=== PATIENT | female | born 1940 | race Caucasian/White ===

== ENCOUNTER → 2019-11-24 10:12 | Outpatient (BNVA) | payer MEDICARE, OTHER, SELFPAY | PROVIDERS: Family Provider Family Medicine; PCP Family Medicine; Referring Provider Dermatology; Visit Provider Dermatology | DX: L21.9 Seborrheic dermatitis, unspecified (principal); D18.01 Hemangioma of skin and subcutaneous tissue; L82.1 Other seborrheic keratosis; L57.0 Actinic keratosis; L73.8 Other specified follicular disorders; Z85.828 Personal history of other malignant neoplasm of skin | CPT/HCPCS: 17000; 17003; 99203; 99204 ==

== ENCOUNTER 2019-12-19 08:18 | Outpatient (CLI) | payer MEDICARE, OTHER, SELFPAY ==
--- NOTE | 2019-12-19 08:38 | MR_ITS ---
WS: [id number] MRI LUMBAR SPINE NONCONTRAST TECHNIQUE: Sagittal T1, T2 and STIR imaging. Axial T1 and T2 imaging. CLINICAL INFORMATION: LOW BACK PAIN COMPARISON: MRI 8 FINDINGS: Mild lumbar curve. No acute compression. Slight retrolisthesis L1 on L2 and L2 on L3. L1-L2: Mild disc bulging with slight effacement of ventral thecal sac. Mild left and no significant r ight foraminal narrowing. Narrowing of the subarticular recess bilaterally. Mild facet arthropathy. L2-L3: Slight retrolisthesis. Mild disc bulging with osteophytic ridging. Slight narrowing of subarti cular recess. Mild/moderate left foraminal narrowing. Mild facet arthropathy. L3-L4: Postoperative changes right hemilaminectomy. Mild disc bulging and osteophytic ridging. Mild r ight foraminal narrowing. Left foramen is patent. Moderate facet arthropathy. L4-L5: Mild disc bulging with narrowing of the right greater than left subarticular recess. Moderate facet arthropathy. Mild right foraminal narrowing. L5-S1: Mild disc bulging with osteophytic ridging. Moderate facet arthropathy. Mild right and no sign ificant left foraminal narrowing. Slight impingement on the traversing left greater than right S1 ner ve roots. Left renal cyst measuring 2.4 CM. Overall no significant interval changes since 2011 MR/MR lumbar spine wo con* [id number] IMPRESSION: 1. Mild disc bulging with slight effacement of ventral thecal sac. No high-gra de central canal stenosis. 2. Disc osteophyte complex L5-S1 impinges the traversing left S1 nerve root. R ecommend correlation for left S1 nerve root symptoms. 3. Mild disc bulging with osteophytic ridging. Slight impingement traversing r ight L5 nerve root. Mild right foraminal narrowing. Asymmetric moderate facet a rthropathy. 4. Prior postoperative changes hemilaminectomy right L3-4. Mild right L3-4 for aminal narrowing. 5. Mild to moderate left L2-3 foraminal narrowing. 6. Disc osteophyte bulging L1-2 with narrowing of the subarticular recess bila terally.
--- NOTE | 2019-12-19 09:11 | XR_ITS ---
WS: [id number] LUMBAR SPINE FLEXION AND EXTENSION TECHNIQUE: 3 views of the lumbar spine: Lateral neutral, flexion, and extension views. CLINICAL INFORMATION: LOW BACK PAIN COMPARISON: None. FINDINGS: Osteopenia. Slight retrolisthesis L1 on L2 and L2 on L3. Disc space narrowing worse at L2-L3 with vac uum disc phenomenon. Aortic calcification. No instability on flexion-extension. Moderate facet arthro lona L5-S1. XR/XR lumbar spine f/e only [id number] IMPRESSION: No instability on flexion-extension
== END 2019-12-19 08:19 | disposition home or self-care (01) ==
LOC: RADWPI 08:22
PROVIDERS: Family Provider Family Medicine; PCP Family Medicine; Visit Provider Anesthesiology Pain Medicine
DX: M54.5 Low back pain (principal)
CPT/HCPCS: 72120; 72148

== ENCOUNTER 2020-02-02 13:12 | Outpatient (CLI) | payer MEDICARE, OTHER, SELFPAY ==
--- NOTE | 2020-02-02 13:18 | MM_ITS ---
WS: [id number] BILATERAL SCREENING DIGITAL MAMMOGRAM WITH CAD HISTORY: SCREENING COMPARISON: 12/29/2018 and 12/21/2017 Bilateral CC and MLO views submitted. Computer aided detection analyzed. Breast composition: There are scattered areas of fibroglandular density. No suspicious masses, microc alcifications or architectural distortion. Benign calcification central RIGHT breast. MM/[place] [id number] IMPRESSION: BI-RADS: 2-Benign FOLLOW UP: 1 Year Follow-up
== END 2020-02-02 13:13 | disposition home or self-care (01) ==
LOC: RADSHAW 13:15
PROVIDERS: PCP Family Medicine; Visit Provider Family Medicine
DX: Z12.31 Encounter for screening mammogram for malignant neoplasm of breast (principal)
CPT/HCPCS: 77067

== ENCOUNTER 2020-05-28 11:51 | Outpatient (CLI) | payer MEDICARE, OTHER, SELFPAY ==
--- NOTE | 2020-05-28 12:17 | USCV_ITS ---
Devaughn Elizabeth Age: 80 Gender: F : 1940 Exam Date: 05/28/2020 12:48 Ordering Phys: Kaylynn Munoz DO Technologist: Abhi Day [place] [facility] [place] Indication: RT CALF PAIN PROCEDURES: Venous duplex imaging was performed in only the right lower extremity. The following venous structures were evaluated: common femoral vein, profunda vein, proximal portion of the greater saphenous vein, superficial femoral vein, and the popliteal vein. In addition, the posterior tibial and peroneal trunk were evaluated. Serial compression, augmentation maneuvers, and spectral Doppler flow evaluation were performed. FINDINGS: Normal 2-D Doppler and augmentation and compressibility throughout the lower extremity venous structures. Additional imaging through the proximal calf veins also reveals no thrombus. Limited evaluation of the greater saphenous vein is patent with no thrombus.. CONCLUSIONS No evidence of right lower extremity DVT. Flip Bowman MD (Electronically Signed) Final Date: 28 May 2020 16:54 S
== END 2020-05-28 11:52 | disposition home or self-care (01) ==
LOC: RAD 11:57
PROVIDERS: PCP Family Medicine; Visit Provider Family Medicine
DX: M79.661 Pain in right lower leg (principal)
CPT/HCPCS: 93971

== ENCOUNTER 2020-07-04 20:21 | Emergency (ER) | payer MEDICARE, OTHER, SELFPAY ==
[2020-07-04 20:30] VITALS: BP 165/99; PULSE 157; RESP 18; TEMP 36.6; O2SAT 96; BMI 31.6
[2020-07-04 20:47] VITALS: BP 125/43; PULSE 88; RESP 24; O2SAT 96
--- NOTE | 2020-07-04 20:54 | ECG_ITS ---
[facility] Test Date: 2020-07-04 Pat Name: Elizabeth Cantor Department: Room: Gender: Female [employer] Unified Communications Engineer: : 1940 Requested By: Adam Nicholson I Order Number: [id number] Shai MD: Vianey Ponce M.D. Measurements Intervals [place] Rate: 82 P: 22 [place]: 199 QRS: -31 QRSD: 87 T: 30 QT: 361 QTc: 424 Interpretive Statements SINUS RHYTHM LEFT AXIS DEVIATION [QRS AXIS < -30] LOW QRS VOLTAGE IN PRECORDIAL LEADS [QRS DEFLECTION < 1.0 mV IN CHEST LEADS] ANTEROSEPTAL MYOCARDIAL INFARCTION , PROBABLY OLD [40+ ms Q WAVE IN V1-V4] Compared to ECG 01/31/2019 10:33:31 Left-axis deviation now present Low QRS voltage now present Myocardial infarct finding now present Electronically Signed On 07-05-2020 22:04:43 SOAKING PITS SUPERVISOR by Vianey Ponce M.D. [email or web address]/[id number] f
--- NOTE | 2020-07-04 20:54 | XR_ITS ---
WS: [id number] Portable AP upright chest, 07/04/2020 Clinical Data: afib Comparison: Portable chest, 01/31/2019. Findings: No nodules, masses or effusions are seen. The heart is normal. The pulmonary vascularity is not increased. No pneumonia or pneumothorax is seen. The aortic arch and descending aorta show mild calcification and tortuosity. The right diaphragm is elevated. XR/XR chest 1V portable [id number] Impression: Atherosclerosis.
[2020-07-04 21:21] LABS: Add Urine Microscopic? NO
[2020-07-04 21:25] LABS: Basophils # 0.1 10^3/uL (0.0-0.1); Basophils % 0.7 %; Eosinophils # 0.1 10^3/uL (0.0-0.8); Eosinophils % 1.5 %; Hematocrit 41.5 % (37.0-47.0); Hemoglobin 13.9 g/dL (11.5-15.3); Lymphocytes # 3.1 10^3/uL (0.8-4.8); Mean Corpuscular HGB Conc 33.5 g/dL (30.0-36.0); Mean Corpuscular Hemoglobin 30.6 pg (28.0-34.0); Mean Corpuscular Volume 91.4 fL (81-99); Mean Platelet Volume 9.2 fL (7.4-10.4); Monocytes # 0.8 10^3/uL (0.2-0.9); Monocytes % 9.4 %; Neutrophils # 4.54 10^3/uL (1.8-7.7); Neutrophils % 52.3 %; Nucleated Red Blood Cells % 0 %; Platelet Count 333 10^3/cmm (130-400); Red Blood Count 4.54 10^6/uL (4.1-5.3); Red Cell Distribution Width 12.7 % (12.1-15.1); White Blood Count 8.7 10^3/uL (4.0-10.0)
[2020-07-04 21:28] LABS: INR 0.82 (0.8-1.2)
[2020-07-04 21:38] LABS: Specific Gravity, Urine 1.005 (1.005-1.030); Urine Appearance Clear (CLEAR); Urine Color Yellow (Yellow); pH Urine 7 (5-7)
[2020-07-04 21:39] LABS: Bilirubin Urine Neg (Negative); Blood Urine Neg (Negative); Glucose Urine UA 2+ (Normal); Ketones Urine Negative (Negative); Leukocyte Esterase Urine Negative (Negative); Nitrate Urine Negative (Negative); Protein Urine Neg (Negative); Urobilinogen Urine Norm (Negative)
[2020-07-04 21:46] LABS: Troponin(5th) Baseline 19 ng/L (0-10)
[2020-07-04 21:53] LABS: Alanine Aminotransferase 17 U/L (0-33); Albumin Level 4.4 g/dL (3.5-5.2); Alkaline Phosphatase 96 IU/L (35-105); Anion Gap 16.5 (5-19); Aspartate Amino Transferase 18 U/L (0-32); Blood Urea Nitrogen 14 mg/dL (8-23); Carbon Dioxide 25 mmol/L (22-29); Chloride 96 mmol/L (98-107); Globulin 2.6 g/dL (1.3-4.6); Glucose 260 mg/dL (65-115); NT Pro B Type Natriuretic Pept 110 pg/mL (0-450); Osmolality Calculated 287 mOsm/kg (285-295); Potassium 3.5 mmol/L (3.5-5.1); Sodium 134 mmol/L (136-145); Thyroid Stimulating Hormone 2.07 uIU/mL (0.27-4.20); Total Bilirubin 0.4 mg/dL (0.15-1.2)
[2020-07-04 22:37] VITALS: BP 137/96; PULSE 77; RESP 20; O2SAT 94
--- NOTE | 2020-07-04 22:45 | W.ED.ARRPALP ---
HPI - Arrhythmia/Palpitations General: Chief Complaint: Arrhythmia/Palpitations Stated Complaint: cp/high heart rate Time Seen by Provider: 07/04/20 20:53 Source: patient Mode of arrival: ambulatory Limitations: no limitations History of Present Illness: HPI narrative: This patient is a 80-year-old female with a prior history of atrial fibrillation who is on clopidogrel and presents to the emergency department with a sensation of her heart racing and chest pressure. Symptoms started this evening and have progressively worsened. She initially thought if she rested symptoms to get better but they have not. She endorses dizziness and presyncope but no loss of consciousness. She has had an episode of A. fib in the past that required what she described as a continuous infusion which is most likely diltiazem. She denies any fever. MD complaint: rapid heart beat and heart racing Onset (ago): hour(s) (2) Duration: constant Severity: severe Context: occurred during exertion Arrhythmia history: atrial fibrillation Associated symptoms: Reports nausea, pre-syncope and short of breath; Deny anxiety, cough, diaphoresis, muscle cramps, paresthesias, sense of impending doom, syncope or vomiting Review of Systems General: Reports: 10 or more systems reviewed and unremarkable except in HPI and below Const: Denies: diaphoresis Eyes: Denies: change in vision or blurry vision ENMT: Denies: throat pain, enlarged tonsils, odynophagia, hoarseness, mouth pain or swelling of lips/tongue Card: Reports: pre-syncope; Denies: syncope Resp: Denies: dyspnea, productive cough or non-productive cough GI: Reports: nausea; Denies: vomiting : Denies: flank pain, difficulty voiding, dysuria, urinary frequency, urinary urgency or urinary hesitancy Musc: Denies: muscle cramps Skin/Breast: Denies: rash, pruritus or erythema Neuro: Denies: headache(s), numbness in extremities or weakness in extremities Psych: Denies: anxiety Endo: Denies: polyuria, polydipsia or tired all the time PFS ED PFSH: Medical History Atrial fibrillation CAD (coronary artery disease) Diabetes mellitus HTN (hypertension) Hyperlipidemia Lower extremity edema Family History Mother Hypertension Bleeding disorder Father Hypertension Heart disease Brother CAD (coronary artery disease) Heart disease Cancer Lung CA Liver disease Sister Heart disease Diabetes Cancer Renal CA and leukemia Social History Smoking and tobacco status: never smoked Alcohol intake: never History of recent travel: No Physical Exam Const: COMMON NORMALS: average body habitus, patient oriented x3, no limitations, healthy appearing, alert and well nourished GENERAL APPEARANCE: in distress HENMT: COMMON NORMALS: normocephalic, atraumatic and moist oral mucous membranes HEAD & SCALP: normocephalic and atraumatic Neck/C-Spine: COMMON NORMALS: no meningeal signs and no JVD Chest: COMMONS NORMALS: normal inspection of the chest and normal palpation of entire chest wall Resp: COMMON NORMALS: normal respiratory effort, No retractions, No use of accessory muscles, clear to auscultation bilaterally and percussion normal AUSCULTATION: clear to auscultation bilaterally PERCUSSION: percussion normal Cardio: COMMON NORMALS: no JVD, S1 normal heart sound present, S2 normal heart sound present, No gallops present (Cardio), No clicks present (Cardio), No murmurs present (Cardio), No rub (Cardio) and Peripheral pulses 2+ throughout RATE: tachycardic RHYTHM: abnormal rhythm regularly irregular HEART SOUNDS: S1 normal heart sound present and S2 normal heart sound present PERIPHERAL PULSES: Peripheral pulses 2+ throughout GI: COMMON NORMALS: Normal to inspection, nondistended, normoactive bowel sounds present, Soft to palpation, non-tender, No hepatosplenomegaly present, no masses and no bruits PALPATION: Yes Soft to palpation and Yes No hepatosplenomegaly present Extremity: COMMON NORMALS: normal to inspection, full ROM, capillary refill normal, no calf tenderness and no pedal edema Neuro: COMMON NORMALS: patient oriented x3 SENSORIUM/ORIENTATION: Yes alert MENINGEAL SIGNS: Yes no meningeal signs Skin: COMMON NORMALS: no rashes or lesions noted, no wounds, turgor normal, no jaundice, no petechiae and no mottling GENERAL SKIN EXAM: no rashes or lesions noted and turgor normal Course Reevaluation(s): Reevaluation #1: Discussed her lab and imaging findings with her. Imaging finding unremarkable, baseline troponin mildly elevated, 2-hour delta about a 5. Discussed that her heart rate has remained sinus rhythm since the administration of intravenous diltiazem. Discussed management options with her, overnight hospital stay for observation versus discharge. The patient was very strongly against hospital admission and wanted to be discharged home. I advised her to follow-up with her primary care provider within 1 to 3 days and she promised to do that. She feels a whole lot better now. Advised her not to exert herself for the next couple of days and she was in agreement with the plan. Time: 23:34 Vital Signs: Vital signs: Vital Signs Temperature 97.8 F 07/04/20 20:30 Pulse Rate 77 07/04/20 22:37 Respiratory Rate 20 H 07/04/20 22:37 Blood Pressure 137/96 07/04/20 22:37 Pulse Oximetry 94 07/04/20 22:37 MDM - Arrhythmia/Palpitations MDM Narrative: Medical decision making narrative: 80-year-old female patient with a history of atrial fibrillation who presented to the emergency department in [facility] with RVR. Her heart rate was in the 150s on arrival but she responded and cardioverted after a single dose of intravenous diltiazem 20 mg. She remained in sinus rhythm throughout her ED stay and evaluation unremarkable. The patient declined hospital admission and so she is discharged home to follow-up with her primary care provider. She already takes a beta-liseth and she is advised to continue these as well as all her other medications. Medical Records: Attestation: I reviewed the patient's medical records. Lab Data: Attestation: I reviewed the patient's lab results. Labs: Lab Results 07/04/20 07/04/20 07/04/20 Range/Units 20:40 20:40 20:40 WBC 8.7 (4.0-10.0) 10^3/ uL RBC 4.54 (4.1-5.3) 10^6/u L Hgb 13.9 (11.5-15.3) g/dL Hct 41.5 (37.0-47.0) % MCV 91.4 (81-99) fL MCH 30.6 (28.0-34.0) pg MCHC 33.5 (30.0-36.0) g/dL RDW 12.7 (12.1-15.1) % Plt Count 333 (130-400) 10^3/c mm MPV 9.2 (7.4-10.4) fL Neut % (Auto) 52.3 % Lymph % (Auto) 36.0 % [place] % (Auto) 9.4 % Eos % (Auto) 1.5 % Baso % (Auto) 0.7 % Neut # (Auto) 4.54 (1.8-7.7) 10^3/u L Lymph # (Auto) 3.1 (0.8-4.8) 10^3/u L [place] # (Auto) 0.8 (0.2-0.9) 10^3/u L Eos # (Auto) 0.1 (0.0-0.8) 10^3/u L Baso # (Auto) 0.1 (0.0-0.1) 10^3/u L Nucleated RBC % (a uto) 0 % Nucleated RBCs # 0.0 /100WBC PT 11.60 L (12.1-14.9) SECO NDS INR 0.82 (0.8-1.2) Sodium 134 L (136-145) mmol/L Potassium 3.5 (3.5-5.1) mmol/L Chloride 96 L (98-107) mmol/L Carbon Dioxide 25 (22-29) mmol/L Anion Gap 16.5 (5-19) BUN 14 (8-23) mg/dL Creatinine 0.9 (0.5-0.9) mg/dL GFR Calculation Not Reportable Glucose 260 H (65-115) mg/dL Calculated Osmolal ity 287 (285-295) mOsm/k g Calcium 9.0 (8.5-10.5) mg/dL Total Bilirubin 0.4 (0.15-1.2) mg/dL AST 18 (0-32) U/L ALT 17 (0-33) U/L Alkaline Phosphata se 96 (35-105) IU/L Troponin T Baselin e (0-10) ng/L Troponin T 120 Min [place] (0-10) ng/L Delta Troponin T (0-10) ABS# NT-Pro-B Natriuret Pep 110 (0-450) pg/mL Total Protein 7.0 (6.6-8.7) g/dL Albumin 4.4 (3.5-5.2) g/dL Globulin 2.6 (1.3-4.6) g/dL TSH 2.07 (0.27-4.20) uIU/ mL Urine Color (Yellow) Urine Appearance (CLEAR) Urine pH (5-7) Ur Specific Gravit y (1.005-1.030) Urine Protein (Negative) Urine Glucose (UA) (Normal) Urine Ketones (Negative) Urine Blood (Negative) Urine Nitrate (Negative) Urine Bilirubin (Negative) Urine Urobilinogen (Negative) mg/dL Ur Leukocyte Fatmata ase (Negative) 07/04/20 07/04/20 07/04/20 Range/Units 20:40 21:12 22:51 WBC (4.0-10.0) 10^3/ uL RBC (4.1-5.3) 10^6/u L Hgb (11.5-15.3) g/dL Hct (37.0-47.0) % MCV (81-99) fL MCH (28.0-34.0) pg MCHC (30.0-36.0) g/dL RDW (12.1-15.1) % Plt Count (130-400) 10^3/c mm MPV (7.4-10.4) fL Neut % (Auto) % Lymph % (Auto) % [place] % (Auto) % Eos % (Auto) % Baso % (Auto) % Neut # (Auto) (1.8-7.7) 10^3/u L Lymph # (Auto) (0.8-4.8) 10^3/u L [place] # (Auto) (0.2-0.9) 10^3/u L Eos # (Auto) (0.0-0.8) 10^3/u L Baso # (Auto) (0.0-0.1) 10^3/u L Nucleated RBC % (a uto) % Nucleated RBCs # /100WBC PT (12.1-14.9) SECO NDS INR (0.8-1.2) Sodium (136-145) mmol/L Potassium (3.5-5.1) mmol/L Chloride (98-107) mmol/L Carbon Dioxide (22-29) mmol/L Anion Gap (5-19) BUN (8-23) mg/dL Creatinine (0.5-0.9) mg/dL GFR Calculation Glucose (65-115) mg/dL Calculated Osmolal ity (285-295) mOsm/k g Calcium (8.5-10.5) mg/dL Total Bilirubin (0.15-1.2) mg/dL AST (0-32) U/L ALT (0-33) U/L Alkaline Phosphata se (35-105) IU/L Troponin T Baselin e 19 H (0-10) ng/L Troponin T 120 Min [place] 24.46 H (0-10) ng/L Delta Troponin T 5.46 (0-10) ABS# NT-Pro-B Natriuret Pep (0-450) pg/mL Total Protein (6.6-8.7) g/dL Albumin (3.5-5.2) g/dL Globulin (1.3-4.6) g/dL TSH (0.27-4.20) uIU/ mL Urine Color Yellow (Yellow) Urine Appearance Clear (CLEAR) Urine pH 7 (5-7) Ur Specific Gravit y 1.005 (1.005-1.030) Urine Protein Neg (Negative) Urine Glucose (UA) 2+ (Normal) Urine Ketones Negative (Negative) Urine Blood Neg (Negative) Urine Nitrate Negative (Negative) Urine Bilirubin Neg (Negative) Urine Urobilinogen Norm (Negative) mg/dL Ur Leukocyte Fatmata ase Negative (Negative) EKG Data^: EKG 1: Attestation: I personally reviewed and interpreted this EKG as follows: EKG interpretation date: 07/04/20 EKG interpretation time: 20:30 Prior EKG tracings: not available for review Interpretation: Atrial fibrillation with rapid ventricular rhythm. Heart rate [address] depression in leads V4 to V6. ST depression in leads I and II. EKG 2: Attestation: I personally reviewed and interpreted this EKG as follows: EKG interpretation date: 07/04/20 EKG interpretation time: 20:50 Prior EKG tracings: available for review Interpretation: Sinus rhythm. Heart rate 82 bpm. Left axis deviation. No ST changes. ST depression has resolved. This EKG is obtained immediately following administration of 20 mg of intravenous diltiazem EKG 3: Attestation: I personally reviewed and interpreted this EKG as follows: EKG interpretation date: 07/04/20 EKG interpretation time: 22:45 Prior EKG tracings: available for review Interpretation: Normal sinus rhythm. Heart rate [address] changes. Critical Care Time Critical Care Time: Critical Care Time: Yes Total Critical Care Time: 30 Attestation: This case had a high probability of a clinically significant, sudden, or life threatening deterioration of this patient's condition which required my full and direct attention, intervention and personal management. Discharge Plan Discharge Patient Disposition: Home Clinical Impression: Atrial fibrillation with rapid ventricular response Condition: Stable Prescriptions: Continued ketoconazole 2 % shampoo 1 applic TOPICAL .3 times weekly Qty: 120 RF: 3 telmisartan 40 mg tablet 40 mg PO DAILY RF: 0 Lantus Solostar U-100 Insulin 100 unit/mL (3 mL) insulin pen 14 unit SUBCUT QID@08,12,16,20 RF: 0 pantoprazole [Protonix] 40 mg tablet,delayed release (DR/EC) 40 mg PO DAILY@0800 RF: 0 PreserVision AREDS 14,320-226-200 ksep-ge-wdbn capsule 1 cap PO BID@0800,2200 RF: 0 glimepiride 4 mg tablet 4 mg PO DAILY@0800 RF: 0 isosorbide mononitrate 30 mg tablet extended release 24 hr 30 mg PO BID@0800 RF: 0 Multaq 400 mg tablet 400 mg PO DAILY RF: 0 nitroglycerin [Nitrostat] 0.4 mg tablet, sublingual 0.4 mg SUBLINGUAL Q5M PRN (Reason: Chest Pain) RF: 0 losartan-hydrochlorothiazide 100-25 mg tablet 1 tab PO DAILY@0800 RF: 0 carvedilol [Coreg] 3.125 mg tablet 3.125 mg PO DIRECTED Qty: 135 RF: 3 Plavix 75 mg tablet 75 mg PO DAILY@0800 RF: 0 Discharge Orders: Discharge ED (Routine); Ordered 07/04/20 Ordered By: Adam Nicholson Referrals: Kaylynn Munoz DO [Primary Care Provider] - 1-3 days Discharge Diet: Usual diet Discharge Activity: Increase activity as tolerated Patient Instructions: Atrial Fibrillation (ED) Activity Restrictions/Additional Instructions: Return for any new or worsening symptoms. Follow-up with your primary care provider within 3 days. Continue home medications as prescribed. Take it easy for the next 2 to 3 days and gradually resume your prior levels of activity. Coding Level of Care Code ED Area Manager for Michael Fwd Exam Comprehensive
--- NOTE | 2020-07-04 22:52 | PC.NURSE ---
EKG done at 2250 and shown to ER doctor
--- NOTE | 2020-07-04 22:54 | ECG_ITS ---
[facility] Test Date: 2020-07-04 Pat Name: Elizabeth Cantor Department: Room: Gender: Female Calibration Technician: : 1940 Requested By: Adam Nicholson I Order Number: [id number] Shai MD: Vianey Ponce M.D. Measurements Intervals [place] Rate: 154 P: CT: QRS: -57 QRSD: 85 T: 15 QT: 292 QTc: 468 Interpretive Statements SUPRAVENTRICULAR TACHYCARDIA LOW QRS VOLTAGE IN PRECORDIAL LEADS [QRS DEFLECTION < 1.0 mV IN CHEST LEADS] LEFT ANTERIOR FASCICULAR BLOCK [QRS AXIS <= -45, QR IN I, RS IN II] ANTEROSEPTAL MYOCARDIAL INFARCTION , OF INDETERMINATE AGE [40+ ms Q WAVE IN V1-V4] CRITICAL TEST RESULT Compared to ECG 01/31/2019 10:33:31 Low QRS voltage now present Left anterior fascicular block now present Myocardial infarct finding now present Sinus rhythm no longer present Electronically Signed On 07-05-2020 22:31:41 CNC LATHE MACHINE OPERATOR by Vianey Ponce M.D. [id number] f
[2020-07-04 23:25] LABS: Troponin 5 2HR 24.46 ng/L (0-10); Troponin 5 2HR Delta 5.46 ABS# (0-10)
[2020-07-04 23:49] VITALS: BP 130/80; PULSE 84; RESP 18; O2SAT 94
== END 2020-07-04 23:51 | disposition home or self-care (01) ==
PROVIDERS: Emergency Provider Family Medicine; PCP Family Medicine
DX: I48.20 Chronic atrial fibrillation, unspecified (principal); Z79.4 Long term (current) use of insulin; I25.10 Atherosclerotic heart disease of native coronary artery without angina pectoris; E11.9 Type 2 diabetes mellitus without complications; E78.5 Hyperlipidemia, unspecified
CPT/HCPCS: 71045; 80053; 81003; 83880; 84443; 84484; 85025; 85610; 93005; 96374; 99284; J3490

== ENCOUNTER 2021-01-04 08:16 | Outpatient (CLI) | payer MEDICARE, OTHER, SELFPAY ==
[2021-01-04 08:35] VITALS: BMI 32.3
--- NOTE | 2021-01-04 08:36 | NMCV_ITS ---
NM ramírez perf SPECT r/s* [id number] Elizabeth Cantor Age: 80 Gender: F : 1940 Exam Date: 01/04/2021 09:42 Ordering Phys: Dorian Aguirre MD ([email or web address]) Technologist: JACKIE Oilver Exam Location: [facility] Indications: CHEST PAIN STRESS TEST Please see separate stress test report in [facility] for full findings IMAGE PROTOCOL Rest/Stress 1 Lexiscan Day Radiopharmaceutical Dose (mCi) Administration Site Administered by Rest: Tc-99m 11.0 IV JACKIE Oliver Sestamibi Stress:Tc-99m 33.0 IV JACKIE Oliver Sestamibi Rest: 04-Jan-2021 60 Discovery 630 Stress: 04-Jan-2021 30 Discovery 630 0.4mg Lexiscan. Supine position only as patient was unable to lay prone. SPECT RESULTS Technical Quality: Excellent Raw Data Analysis: Normal Image Corrections: No attenuation or motion correction applied Summed Stress Score: 5 Summed Rest Score: 2 Summed Difference Score: 3 PERFUSION FINDINGS Small area of mild to moderate reversibility noted in mid to distal lateral wall suggestive of ischemia in the circumflex territory. FUNCTIONAL RESULTS (calculated via Gated SPECT) Stress Image LV EF (%): 87 Stress EDV (mL):63 TID: 0.94 Stress ESV (mL):8 Rest Image LV EF (%): 87 FUNCTIONAL FINDINGS: There is normal left ventricular systolic function. IMPRESSIONS Small area of mild to moderate reversibility suggestive of ischemia in distal circumflex territory. EKG segment was documented separately. Dorian Aguirre MD (Electronically Signed) Final Date: 04 January 2021 12:35 S
[2021-01-04] MEDS: regadenoson 0.4 Mg/5 ml Syringe IVP (10:25)
[2021-01-04 10:42] VITALS: BP 151/56; PULSE 86
== END 2021-01-04 08:17 | disposition home or self-care (01) ==
PROVIDERS: PCP Family Medicine; Visit Provider Internal Medicine Cardiovascular Disease
DX: R07.9 Chest pain, unspecified (principal); R06.02 Shortness of breath; I25.9 Chronic ischemic heart disease, unspecified
CPT/HCPCS: 78452; 93017; A9500; J2785

== ENCOUNTER → 2021-01-28 10:06 | Outpatient (BNVA) | payer MEDICARE, OTHER, SELFPAY | PROVIDERS: PCP Family Medicine; Referring Provider Internal Medicine Cardiovascular Disease; Visit Provider Internal Medicine Cardiovascular Disease | DX: Z01.818 Encounter for other preprocedural examination (principal); I50.30 Unspecified diastolic (congestive) heart failure; I25.10 Atherosclerotic heart disease of native coronary artery without angina pectoris; Z20.822 Contact with and (suspected) exposure to COVID-19 | CPT/HCPCS: 80048; 85025; 85610; 87635 ==

== ENCOUNTER 2021-01-31 07:14 | Outpatient (CLI) | payer MEDICARE, OTHER, SELFPAY ==
[2021-01-31] VITALS (27 sets, daily range): BP systolic 125–162; BP diastolic 56–89; PULSE 68–93; RESP 12–20; TEMP 36.9–37.1; O2SAT 90–96; BMI 32.3
--- NOTE | 2021-01-31 07:30 | XACV_ITS ---
Exam Room: [facility] Ht: 168 cm Wt: 91 kg BSA: 2.09 m2 Gender: Female : 1940 Any Known Allergies: Asprin Exam Priority: Routine Procedure(s): Procedure Description: Diagnostic procedure Procedure Description: Coronary Angiography Procedure Description: Pressure Wire Carla SAAVEDRA; Diagnostic Cath Status: Elective Diagnostic Findings * Left Main has no disease. * Left Anterior Descending has no disease. * Proximal Right Coronary Artery: mild 40% stenosis, MATTHEW: 3 flow. * Mid Right Coronary Artery: minimal 30% stenosis, MATTHEW: 3 flow. * Mid Circumflex: obstructive 60% stenosis, MATTHEW: 3 flow, FFR performed: ratio is 0.85. * Coronary angiography shows right dominance. PCI Status: Urgent PCI Indication: New Onset Angina <= 2 months Interventional Findings * FFR: After equalizing the distal and proximal pressure of FFR wire proximal to the lesion, mid LCx lesion was crossed with FFR wire. IV adenosine at rate of 140 mcg/min was started. Patient did not compliant of any symptoms, at then end of two minutes FFR was recorded as 0.85, which is not significant . Conclusions 1. There is obstructive coronary artery disease with two vessel disease. Recommendations * Continue current medical management and risk factor modification. Pressures Phase:Rest AO : 175 / 85 ( 124 ) @ 9:17:00 AM Clinical Evaluation EBL: 5mL-10mL Procedural Details Procedure Consent Obtained. Rand Shen RN circulating with Eugenio Lopez RN, VALVE SETTER. Ronaldo Cabrera, CPT, RT scrubbing with Laura Nunez RT(R). Pre-Procedure Time Out. Identified patient by full name and date of as verbalized by the patient/guarantor. Does the consent match the physician's order: Yes. Accurate & Complete Informed Consent: Yes. Inpatient/Outpatient History & Physical on Chart: Yes. If H&P is completed, is and addenduem needed: Yes; If yes, is the addendum complete: Yes. Visualize and Verify Site with Patient/Guarantor: N/A. Relevant Radiology Images available: Yes. The risks, benefits, and alternatives of sedation and/or procedure were discussed by physician. The patient agrees to continue. [facility] Clinical Fraility Score: 4: Vulnerable. 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 Chest Pain Symptom Assessment: Atypical Angina. Cardiovascular Instability: No. Correct patient, site and procedure confirmed by cath team. PERRLA. Strong, equal hand superintendent factory bilaterally. Lungs clear x 5 lobes. IV Site on Arrival: 20 gauge in the left anticubital. IV Fluids: 0.9% NaCl at KVO. 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 Pre Procedural Pulses: bilateral dorsalis pedis was 3+. Pre Procedural Pulses: bilateral posterior tibial was Doppled. Pre Procedural Pulses: bilateral radial was 3+. Oxygen started at 2liters/min via nasal canula. Procedure started. right groin was prepped with chloroprep then draped in the usual sterile fashion. right radial was prepped with chloroprep then draped in the usual sterile fashion. Physician notified. Baseline sample Acquired. HR: 69 BPM. Patient's family unavailable. Equipment: 6F - Radial. Physician arrived. Cardiac Cath Pack. ACIST Manifold Kit Model BT 2000. Heparinized Saline (2 units/mL), 1000 mL bag. Physician scrubbed in. Immediate Pre-Procedure Time Out. Correct Patient: Yes; Correct Procedure: Yes; Correct Site: Yes; Correct Patient Position: Yes; Correct Supplies: Yes; Dried Flammable Prep: Yes; Blood Products Available: N/A;. Lidocaine 1% infiltrated to the right radial. Arterial access obtained. A 5 danish TIG catheter in over the exchange wire, unable to advance. Exchange wire out, 260cm Glidewire in. Glidewire out. Multiple views taken of left coronary artery. Catheter redirected to the RCA. Multiple views taken of right coronary artery. Physician review of cine films. Catheter removed over the exchange wire. 6 danish JL 3.5 guide catheter was inserted over the wire. Add inventory: Endoflator. FFR wire in. An FFR value of 0.85 was obtained for a lesion located at Mid CX. FFR wire out. Guide catheter out. Physician scrubbed out. TR band placed. Hemostasis obtained. Post Procedure: Pulses reassessed and unchanged. PERRLA. Strong, equal hand superintendent factory bilaterally. No VTE prophylaxis required. A TR Band was successful obtaining hemostatsis at the Right Radial artery insertion site. Medication's Wasted: Lidocaine 1% = 7 mL. Medication's Wasted: Heparin = 4000 mL. Medication's Wasted: Nitro = 49.8 mg. Total IV fluids: 111 mL. Post-op diagnosis: Non obstructive CAD. Complications: noone. Estimated blood loss: 5mL-10mL. Procedure completed. Patient transferred by bed to 1st floor. Vital chart was stopped. Access Site Site: Right Radial artery Sheath Size: 6 Fr Hemostasis Method: TR Band Hemostasis Success: Successful Procedure Medications Start: 9:15 AM Stop: 9:15 AM Medication: Versed Amount: 1 mg Route: I.V. Start: 9:15 AM Stop: 9:15 AM Medication: Fentanyl Amount: 50 mcg Route: I.V. Start: 9:20 AM Stop: 9:20 AM Medication: Versed Amount: 1 mg Route: I.V. Start: 9:20 AM Stop: 9:20 AM Medication: Fentanyl Amount: 25 mcg Route: I.V. Start: 9:24 AM Stop: 9:24 AM Medication: Versed Amount: 1 mg Route: I.V. Start: 9:24 AM Stop: 9:24 AM Medication: Fentanyl Amount: 25 mcg Route: I.V. Start: 9:26 AM Stop: 9:26 AM Medication: Nitrogylcerin Amount: 200 mcg Route: I.A. Start: 9:36 AM Stop: 9:36 AM Medication: Heparin Amount: 5000 units Route: I.V. Start: 9:50 AM Stop: 9:50 AM Medication: Versed Amount: 1 mg Route: I.V. Start: 10:09 AM Stop: 10:09 AM Medication: Heparin Amount: 2000 units Route: I.V. Start: 10:12 AM Stop: 10:12 AM Medication: Adenosine (Adenocard) Amount: 764 ml/hr Route: I.V. bolus I, the attending physician, have reviewed and verified all procedure medications. Yes, all medications given per verbal order History/Risk Factors Hypertension: No Dyslipidemia: Yes Peripheral Arterial Disease (PAD): No Myocardial Infarction (OR): No Obesity: No Renal Disease: No Prior Interventions PCI: No CABG: No Valve Surgery: No Report Signatures Finalized by Dorian Aguirre MD on 02/16/2021 05:11 PM
[2021-01-31] MEDS: diphenhydrAMINE 50 mg Capsule PO (08:24)
--- NOTE | 2021-01-31 08:55 | P.HP_ITS ---
Same Day Surgery H&P Indication for Procedure/HPI DATE OF PROCEDURE: January 31, 2021 CHIEF COMPLAINT/INDICATIONFOR SURGICAL PROCEDURE: Worsening of chest pain the shortness of breath and heart failure symptoms PREOP DIAGNOSIS: Abnormal stress test, worsening of heart failure symptoms and chest pain PLANNED PROCEDRUE: Operation Date: 01/31/21 08:30 Proposed Procedures p Cardiac Catheterization(Left) - Dorian Aguirre MD 80-year female past medical history significant for atrial fibrillation diastolic heart failure diabetes mellitus despite of optimization of medicine continues to worsen with recurrent heart failure symptoms chest pressure. She underwent stress test which showed small area of reversibility however due to continuous symptoms and signs of heart failure and chest pressure despite of optimization of medicine we decided to proceed with left heart cath. She understand the risk for bleeding infection hematoma stroke contrast- induced nephropathy. She would like to proceed with it. Medications/Allergies* Home Medications Medication Instructions Recorded Confirmed Type dronedarone 400 mg tablet 400 mg PO DAILY tab 07/04/19 01/31/21 History insulin glargine 100 unit/mL (3 14 unit SUBCUT QID@08,12,16,20 07/04/19 01/31/21 History mL) subcutaneous pen isosorbide mononitrate 30 mg 30 mg PO BID@0800 tab 07/04/19 01/31/21 History tablet,extended release 24 hr losartan 100 1 tab PO DAILY@0800 07/04/19 01/31/21 History mg-hydrochlorothiazide 25 mg tablet pantoprazole 40 mg tablet,delayed 40 mg PO DAILY@0800 07/04/19 01/31/21 History release vitamins A,C,S-znzy-glokrq 14,320 1 cap PO BID@0800,2200 07/04/19 01/31/21 History unit-226 mg-200 unit capsule clopidogrel [Plavix] 75 mg PO DAILY@0800 07/04/20 01/31/21 History tramadol 50 mg PO Q4-5H PRN 01/31/21 01/31/21 History Allergies/Adverse Reactions Allergy/AdvReac Type Severity Reaction Status Date / Time adhesive tape Allergy Unknown Unknown Verified 12/24/20 10:51 aspirin Allergy Unknown Unknown Verified 12/24/20 10:51 celecoxib [From Celebrex] Allergy Unknown Unknown Verified 12/24/20 10:51 codeine Allergy Unknown Unknown Verified 12/24/20 10:51 egg Allergy Unknown Unknown Verified 12/24/20 10:51 erythromycin base Allergy Unknown Unknown Verified 12/24/20 10:51 exenatide [From Bydureon] Allergy Unknown Unknown Verified 12/24/20 10:51 ezetimibe [From Zetia] Allergy Unknown Unknown Verified 12/24/20 10:51 latex Allergy Unknown Unknown Verified 12/24/20 10:51 metformin Allergy Unknown Unknown Verified 12/24/20 10:51 Penicillins Allergy Unknown Unknown Verified 12/24/20 10:51 sitagliptin [From Janumet] Allergy Unknown Unknown Verified 12/24/20 10:51 Sulfa (Sulfonamide Allergy Unknown Unknown Verified 12/24/20 10:51 Antibiotics) topiramate [From Topamax] Allergy Unknown Unknown Verified 12/24/20 10:51 trazodone Allergy Unknown Unknown Verified 12/24/20 10:51 warfarin [From Coumadin] Allergy Unknown Unknown Verified 12/24/20 10:51 desonide Allergy blisters Verified 12/24/20 10:51 Current Medications: Generic Name Dose Route Start Last Admin Trade Name Freq PRN Reason Stop Dose Admin Sodium Chloride 1,000 mls @ 50 mls/hr 01/31/21 07:30 01/31/21 08:24 Sodium Chloride 0.9% IV 02/01/21 03:29 Not Given .Q20H ONE Pertinent History/Comorbid Conditions* Medical History (Updated 12/24/20 @ 12:19 by RENATO Salcido) Asthma Atrial fibrillation CAD (coronary artery disease) Diabetes mellitus GERD (gastroesophageal reflux disease) History of cystocele Cyctocele/Rectocele repair History of poliomyelitis History of rectocele HTN (hypertension) Hyperlipidemia Lower extremity edema Surgical History (Updated 12/24/20 @ 12:19 by RENATO Salcido) S/P cholecystectomy S/P hysterectomy 1965 Family History (Updated 07/04/19 @ 11:00 by Candice Coleman RN) Liver disease Brother Diabetes Sister CAD (coronary artery disease) Brother Heart disease Father Brother Sister Bleeding disorder Mother Cancer Brother Lung CA Sister Renal CA and leukemia Hypertension Mother Father Social History Alcohol intake: never History of recent travel: No Pertinent Exam Findings alert, oriented x 3, clear to auscultation bilaterally and operative site marked Conscious Sedation Assessment PATIENT ASSESSED PRIOR TO SEDATION, WITH NO CHANGE NOTED: Yes AIRWAY EVAL/ANESTHESIA PLAN: ASA II, Risks, benefits & alternatives of sedation and/or procedure discussed and Patient agrees to continue as planned Related Problem List Diagnoses (1) Diastolic CHF with preserved left ventricular function, NYHA class 2: (2) Atrial fibrillation: Qualifiers: Atrial fibrillation type: persistent (not longstanding) Qualified C ode(s): I48.19 - Other persistent atrial fibrillation (3) HTN (hypertension): Qualifiers: Hypertension type: essential hypertension Qualified Code(s): I10 - Essential (primary) hypertension (4) Chest pain: Recommendations Surgery/Procedure today Coding Level of Care Code Acute Station Usher for [facility] Fwd Diagnoses Diastolic CHF with preserved left ventricular function, NYHA class 2 I50.30 Atrial fibrillation I48.19 Atrial fibrillation type: persistent (not longstanding) HTN (hypertension) I10 Hypertension type: essential hypertension Chest pain R07.9
--- NOTE | 2021-01-31 11:00 | PC.NURSE ---
Pt arrived to room 111-1 from director of cath lab at approximately 1030. Pt has TR Band on right wrist. No hematoma, swelling or bleeding noted. Pt had no c/o pain or discomfort at the present time. No needs voiced. Call light in reach.
--- NOTE | 2021-01-31 16:00 | PC.NURSE ---
TR Band removed, no hematoma, swelling, or bleeding noted. Pt tolerated well. Pt had no c/o pain or discomfort at the present time. Call light in reach. Will cont to monitor.
--- NOTE | 2021-01-31 18:00 | PC.NURSE ---
Pt discharged home. Pts IV removed no redness or swelling noted. Pts discharge instructions given. Pt had no c/o pain or discomfort at the time of discharge.
== END 2021-01-31 18:28 | disposition home or self-care (01) ==
LOC: CCL 07:53 → CSU 17:51
PROVIDERS: PCP Family Medicine; Visit Provider Internal Medicine Cardiovascular Disease
DX: I25.10 Atherosclerotic heart disease of native coronary artery without angina pectoris (principal); R07.9 Chest pain, unspecified; R06.02 Shortness of breath; R94.39 Abnormal result of other cardiovascular function study; I48.19 Other persistent atrial fibrillation; I11.0 Hypertensive heart disease with heart failure; I50.30 Unspecified diastolic (congestive) heart failure; E11.9 Type 2 diabetes mellitus without complications; Z79.4 Long term (current) use of insulin; K21.9 Gastro-esophageal reflux disease without esophagitis; E78.5 Hyperlipidemia, unspecified; Z82.49 Family history of ischemic heart disease and other diseases of the circulatory system; Z83.3 Family history of diabetes mellitus
CPT/HCPCS: 36415; 93454; 93571; C1769; C1887; C1894; J0153; J1644; J2250; J3010; J3490; J7030; Q0163; Q9967

== ENCOUNTER 2021-02-05 14:46 | Outpatient (CLI) | payer MEDICARE, OTHER, SELFPAY ==
--- NOTE | 2021-02-05 14:53 | MM_ITS ---
WS: [id number] BILATERAL SCREENING DIGITAL MAMMOGRAM WITH CAD HISTORY: SCREENING COMPARISON: 02/02/2020 and 12/29/2018 Bilateral CC and MLO views submitted. Computer aided detection analyzed. Breast composition: There are scattered areas of fibroglandular density. No suspicious masses, microc alcifications or architectural distortion. Bilateral breast arterial calcifications. MM/[place] [id number] IMPRESSION: BI-RADS: 2-Benign FOLLOW UP: 1 Year Follow-up
== END 2021-02-05 14:47 | disposition home or self-care (01) ==
LOC: RADSHAW 14:51
PROVIDERS: PCP Family Medicine; Visit Provider Family Medicine
DX: Z12.31 Encounter for screening mammogram for malignant neoplasm of breast (principal)
CPT/HCPCS: 77067

== ENCOUNTER → 2021-02-14 16:40 | Outpatient (BNVA) | payer MEDICARE, OTHER, SELFPAY | PROVIDERS: PCP Family Medicine; Visit Provider Nurse Practitioner Family | DX: I25.10 Atherosclerotic heart disease of native coronary artery without angina pectoris (principal) | CPT/HCPCS: 80048 ==

== ENCOUNTER → 2021-03-14 15:27 | Outpatient (BNVA) | payer MEDICARE, OTHER, SELFPAY | PROVIDERS: PCP Family Medicine; Referring Provider Family Medicine; Visit Provider Orthopaedic Surgery | DX: M54.50 Low back pain, unspecified (principal); M81.0 Age-related osteoporosis without current pathological fracture; M47.9 Spondylosis, unspecified | CPT/HCPCS: 72110 ==

== ENCOUNTER → 2021-03-26 10:29 | Day surgery (SDC) | payer MEDICARE, OTHER, SELFPAY | PROVIDERS: PCP Family Medicine; Visit Provider Orthopaedic Surgery | DX: I44.0 Atrioventricular block, first degree (principal); I25.2 Old myocardial infarction | CPT/HCPCS: 93005 ==

== ENCOUNTER → 2021-03-26 12:05 | Outpatient (BNVA) | payer MEDICARE, OTHER, SELFPAY | PROVIDERS: PCP Family Medicine; Visit Provider Orthopaedic Surgery | DX: Z20.822 Contact with and (suspected) exposure to COVID-19 (principal); M48.062 Spinal stenosis, lumbar region with neurogenic claudication | CPT/HCPCS: 87635 ==

== ENCOUNTER 2021-04-01 05:48 | Day surgery (SDC) | payer MEDICARE, OTHER, SELFPAY ==
--- NOTE | 2021-03-26 10:29 | ECG_ITS ---
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 Measurements Intervals [place] Rate: 62 P: 18 SD: 212 QRS: -35 QRSD: 106 T: 5 QT: 385 QTc: 391 Interpretive Statements SINUS RHYTHM WITH FIRST DEGREE AV BLOCK LEFT AXIS DEVIATION [QRS AXIS < -30] LOW QRS VOLTAGE IN PRECORDIAL LEADS [QRS DEFLECTION < 1.0 mV IN CHEST LEADS] POSSIBLE ANTERIOR MYOCARDIAL INFARCTION , PROBABLY OLD [30 ms Q WAVE IN V3/V4, OR R < 0.2 mV IN V4] Compared to ECG 07/04/2020 20:50:14 First degree AV block now present Myocardial infarct finding still present Electronically Signed On 03-27-2021 17:46:07 INSIGHTS MANAGER by Trent Rodriguez M.D. [id number]
[2021-03-26 10:41] VITALS: BMI 32.3
[2021-03-26 11:10] LABS: Basophils # 0.1 10^3/uL (0.0-0.1); Basophils % 0.9 %; Eosinophils # 0.3 10^3/uL (0.0-0.8); Eosinophils % 3.3 %; Hematocrit 39.9 % (37.0-47.0); Hemoglobin 13.5 g/dL (11.5-15.3); Lymphocytes # 1.4 10^3/uL (0.8-4.8); Lymphocytes % 18.3 %; Mean Corpuscular HGB Conc 33.8 g/dL (30.0-36.0); Mean Corpuscular Hemoglobin 30.3 pg (28.0-34.0); Mean Corpuscular Volume 89.5 fl (81-99); Mean Platelet Volume 9.2 fL (7.4-10.4); Monocytes # 0.8 10^3/uL (0.2-0.9); Monocytes % 10.3 %; Neutrophils # 5.29 10^3/uL (1.8-7.7); Neutrophils % 66.9 %; Nucleated Red Blood Cells % 0 %; Platelet Count 355 10^3/cmm (130-400); Red Blood Count 4.46 10^6/uL (4.1-5.3); Red Cell Distribution Width 12.7 % (12.1-15.1); White Blood Count 7.9 10^3/uL (4.0-10.0)
--- NOTE | 2021-03-26 11:38 | P.ANESASSM_ITS ---
Pre-Anesthetic Assessment Pre-Anesthetic Assessment: Height/Weight: Height 1.68 m Weight 90.718 kg Preop Diagnosis: Abnormal stress test, worsening of heart failure symptoms and chest pain Proposed Procedure: Operation Date: 04/01/21 07:00 Proposed Procedures p Lumbar Spine Decompression L4/5 L5/S1 93462 [id number] M48.062(Not Applicable) - Kris Mitchell DO Familial anesthetic complications: slow to wak eup Social: Social History: No alcohol and No tobacco Exam: Pre-Anes Outpt Exam: alert, oriented x 3, clear to auscultation bilaterally and regular rate & rhythm Airway: MP: 2 Dentition: False Pulmonary: Pulmonary: Asthma CV/HEM: CV/HEM: Afib, Angina (Stable), Arrythmia (HX SVT), CAD and HTN Co mments: Conclusions 1. There is obstructive coronary artery disease with two vessel disease. Recommendations * Continue current medical management and risk factor modification. GI: GI: GERD Metabolic: Metabolic: DM Anesthetic Plan: ASA status: 3 Anesthesia: General Risk of > 500 ml blood loss (7ml/kg in children): No PFSH Anesthesia PFSH: Medical History (Updated 03/18/21 @ 16:36 by Doris Disla DO) Asthma Atrial fibrillation Well-controlled on warfarin she is off of warfarin PT/INR within normal limit CAD (coronary artery disease) Chest pain Persistent and recurrent chest pressure despite of optimization of medicine may further require exploration with left heart cath. DDD (degenerative disc disease) Diabetes mellitus GERD (gastroesophageal reflux disease) History of cystocele Cyctocele/Rectocele repair History of nonmelanoma skin cancer History of poliomyelitis History of rectocele HTN (hypertension) Blood pressure is high today otherwise well controlled she has not taken her med Hyperlipidemia Lower extremity edema Surgical History History of surgery of liver Growth Previous back surgery S/P cholecystectomy S/P hysterectomy 1965 Family History Mother Hypertension Bleeding disorder Father Hypertension Heart disease Brother CAD (coronary artery disease) Heart disease Cancer Lung CA Liver disease Sister Heart disease Diabetes Cancer Renal CA and leukemia Social History Alcohol intake: never History of recent travel: No Data Anesthesia CBC & Chem 7: 03/26/21 10:55 03/26/21 10:55 Other Labs: Laboratory Results - last 48 hr 03/26/21 10:55 WBC 7.9 RBC 4.46 Hgb 13.5 Hct 39.9 MCV 89.5 MCH 30.3 MCHC 33.8 RDW 12.7 Plt Count 355 MPV 9.2 Neut % (Auto) 66.9 Lymph % (Auto) 18.3 [place] % (Auto) 10.3 Eos % (Auto) 3.3 Baso % (Auto) 0.9 Neut # (Auto) 5.29 Lymph # (Auto) 1.4 [place] # (Auto) 0.8 Eos # (Auto) 0.3 Baso # (Auto) 0.1 Nucleated RBC % (auto) 0 Nucleated RBCs # 0.0 Cardiac Studies: No Data to Display
[2021-03-26 11:45] LABS: Blood Urea Nitrogen 42 mg/dL (8-23); Calcium 8.6 mg/dL (8.5-10.5); Carbon Dioxide 30 mmol/L (22-29); Chloride 86 mmol/L (98-107); Glucose 215 mg/dL (65-115); Osmolality Calculated 287 mOsm/kg (285-295); Sodium 130 mmol/L (136-145)
[2021-03-26 12:05] LABS: Anion Gap 16.9 (5-19); Potassium 2.9 mmol/L (3.5-5.1)
[2021-04-01] VITALS (9 sets, daily range): BP systolic 107–181; BP diastolic 7–94; PULSE 66–86; RESP 16–27; TEMP 36.3–36.6; O2SAT 92–98
--- NOTE | 2021-04-01 | XR_ITS ---
WS: [id number] INTRAOPERATIVE TECHNIQUE: 3 Spot fluoroscopic images for intraoperative purposes. FLUOROSCOPY TIME: 21.4 seconds CLINICAL INFORMATION: SPINAL DECOMPRESSION COMPARISON: None. FINDINGS: Localization marker projected over right L4-5 dorsally. XR/XR lumbar spine 1V [id number] IMPRESSION: Images obtained for intraoperative purposes.
--- NOTE | 2021-04-01 | SCC_ITS ---
Procedure Done: 1. right L4/5 laminectomy with partial facetectomy 2. right L5/S1 laminectomy with partial facetectomy 21.4 seconds of fluoroscopic guidance, for a cumulative dose of 9.89 mGy, was provided to Dr. Mitchell by the radiology department. C-arm images of the lumbar spine were saved for the patient's permanent record. [facility]
[2021-04-01 06:42] LABS: Glucose Point of Care 117 mg/dL (70-110)
[2021-04-01] MEDS: sodium chloride 0.9% 1,000 ML 30 ML IV (06:45)
--- NOTE | 2021-04-01 06:51 | W.PM.OPSUD ---
Surgery/Procedure H&P Update DATE OF PROCEDURE: April 01, 2021 DATE H&P PERFORMED: 03/17/21 H&P UPDATE INFORMATION: I have reviewed H&P completed within last 30 days, I have examined patient prior to procedure and No changes to prior documentation PREOP DIAGNOSIS: Lumbar stenosis PLANNED PROCEDURE: Operation Date: 04/01/21 07:00 Proposed Procedures p Lumbar Spine Decompression L4/5 L5/S1 39994 24023 M48.062(Not Applicable) - Kris Mitchell DO
[2021-04-01] MEDS: clindamycin 900 MG/50 ML PREMIX 100 MG IV (06:53)
[2021-04-01 07:23] LABS: Blood Urea Nitrogen 23 mg/dL (8-23); Calcium 9.3 mg/dL (8.5-10.5); Carbon Dioxide 29 mmol/L (22-29); Chloride 100 mmol/L (98-107); Glucose 105 mg/dL (65-115); Osmolality Calculated 298 mOsm/kg (285-295); Sodium 142 mmol/L (136-145)
--- NOTE | 2021-04-01 07:31 | P.ANESUD_ITS ---
Pre-Anesthetic Update Pre-Anesthetic Assessment: Date of Surgery/Procedure: 04/01/21 Preop Minerva gnosis: Lumbar stenosis Proposed Procedure: Operation Date: 04/01/21 07:00 Proposed Procedures p Lumbar Spine Decompression L4/5 L5/S1 95162 35509 M48.062(Not Applicable) - Kris Mitchell, DO Any changes to Pre-Anesthetic Assessment?: No Last Intake: Intake Last Liquid Date 03/31/21 Last Liquid Time 22:30 Last Solid Date 03/31/21 Last Solid Time 22:00 Labs Last 48hrs: Laboratory Results - last 48 hr 04/01/21 04/01/21 06:40 06:40 Sodium 142 Chloride 100 Carbon Dioxide 29 BUN 23 Creatinine 0.7 GFR Calculation Not Reportable Glucose 105 POC Glucose 117 H Calcium 9.3 Vitals: Temperature 97.9 F 04/01/21 06:12 Temperature Source Temporal Artery S can 04/01/21 06:12 Pulse Rate 86 04/01/21 06:12 Respiratory Rate 18 04/01/21 06:12 Blood Pressure 181/94 04/01/21 06:12 Blood Pressure Alysha n 123 04/01/21 06:12 Pulse Oximetry 95 04/01/21 06:12 Oxygen Delivery Me thod 04/01/21 06:15 Exam: Pre-Anes Outpt Exam: alert, oriented x 3, clear to auscultation bilaterally and regular rate & rhythm Cardiac Studies: No Data to Display
[2021-04-01 07:32] LABS: Anion Gap 16.4 (5-19); Potassium 3.4 mmol/L (3.5-5.1)
--- NOTE | 2021-04-01 08:27 | P.OP_ITS ---
Operative Report Date of procedure: April 01, 2021 Pre-op Diagnosis: Lumbar stenosis with neurogenic claudication Post-op diagnosis: same Procedure Done: 1. right L4/5 laminectomy with partial facetectomy 2. right L5/S1 laminectomy with partial facetectomy Surgeon: Kris Mitchell Archaeology Professor: Augustin Kiser Archaeology Professor: The surgical supervisor, Augustin Kiser, GREG was needed for his expertise under the microscope. He was important and necessary throughout the procedure to complete in a safe and timely manner. He assisted with patient positioning prepping and draping tissue retraction suctioning of the operative field protection of the dural sac and tissue closure Anesthesia: General Estimated blood loss (mL): 10 Condition: stable Disposition: PACU Procedure: 1. right L4/5 laminectomy with partial facetectomy 2. right L5/S1 laminectomy with partial facetectomy Patient is brought to the operative suite. After undergoing anesthesia they are placed in the prone position. All areas of impingement are well padded. Patient is then prepped and draped in the normal sterile fashion. A skin incision is made over the L4/5 level. This is confirmed under c-arm guidance. A series of dilators are passed and the tubular retractor is docked on the L4 lamina. A bovie is used to clear the soft tissue off the lamina and the L 4/5 facet joint. A high speed dutch is then used to perform the august ctomy and take down the medial aspect of the L 4/5 facet joint. A kerrison rongeure was then used to take down the remaining lamina and smooth the edge of the laminectomy up to the point where the ligamentum flavum attaches. Attention was then brought to the medial aspect of the facet joint. The remaining medial aspect of the superior and inferior aspect of the facet joint were taken down with the kerrison from the pedicle of L4 to L 5. The facet joint had significant hypertrophy. Attention was then brought to the Ligamentum Flavum. The ligament was taken down from the lamina of L4 to L5 and out medially to the remaining facet joint. The ligament was thick and scarred to dura. The dura was then exposed. There was a small dural leak that occurred while taking on the ligament. The dura was patched with Gelfoam DuraSeal and DuraGen. The L4 nerve was then traced with a curette out the L4/5 foramen and found to be adequately decompressed. The L5 nerve was traced with a curette around the L5 pedicle. The lateral recess was opened with a kerrison helping to further decompress the L5 nerve. Wound is then irrigated copiously with saline and surgiflo is used to stop any bleeding. The tubular retractor is removed and A skin incision is made over the L5/S1 level. This is confirmed under c-arm guidance. A series of dilators are passed and the tubular retractor is docked on the L5 lamina. A bovie is used to clear the soft tissue off the lamina and the L 5/S1 facet joint. A high speed dutch is then used to perform the laminectomy and take down the medial aspect of the L 5/S1 facet joint. A kerrison rongeure was then used to take down the remaining lamina and smooth the edge of the laminectomy up to the point where the ligamentum flavum attaches. Attention was then brought to the medial aspect of the facet joint. The remaining medial aspect of the superior and inferior aspect of the facet joint were taken down with the kerrison from the pedicle of L5 to S1. The facet joint had significant hypertrophy. Attention was then brought to the Ligamentum Flavum. The ligament was taken down from the lamina of L5 to S1 and out medially to the remaining facet joint. The ligament was thick. The dura was then exposed. The dura was in good repair. The L5 nerve was then traced with a curette out the L5/S1 foramen and found to be adequately decompressed. The s1 nerve was traced with a curette around the S1 pedicle. The lateral recess was opened with a kerrison helping to further decompress the S1 nerve. Wound is then irrigated copiously with saline and surgiflo is used to stop any bleeding. The tubular retractor is removed and the wound is closed with vicryl and monocryl suture. Glue is then used to protect the wound. A sterile dressing is then placed. Patient was then placed in the supine position and transferred to the PACU in stable condition.
[2021-04-01] MEDS: HYDROcodone-acetaminophen 5-325 mg Tablet 1 TAB PO (09:48)
--- NOTE | 2021-04-01 13:46 | ANE.PACU2 ---
Inpatient post-anesthesia follow up: Airway intact: Yes Vital signs: Temperature 97.7 F Pulse Rate 72 Respiratory Rate 18 Blood Pressure 107/78 Pulse Oximetry 93 Oxygen Delivery Me thod Room Air Oxygen Flow Rate 8 Fraction of Inspir ed Oxygen Hydration adequate: Yes Nausea and vomiting: No Pain level: 2 Mental status: Baseline
== END 2021-04-01 09:51 | disposition home or self-care (01) ==
PROVIDERS: Anesthesiology; PCP Family Medicine; Visit Provider Orthopaedic Surgery
PROC: (CPT 63005; principal; 2021-04-01 07:00)
DX: M48.062 Spinal stenosis, lumbar region with neurogenic claudication (principal); I48.91 Unspecified atrial fibrillation; I25.10 Atherosclerotic heart disease of native coronary artery without angina pectoris; I10 Essential (primary) hypertension; K21.9 Gastro-esophageal reflux disease without esophagitis; E11.9 Type 2 diabetes mellitus without complications; M19.90 Unspecified osteoarthritis, unspecified site; E78.5 Hyperlipidemia, unspecified
CPT/HCPCS: 63047; 63048; 36415; 36416; 72020; 76000; 80048; 82962; 85025; J1100; J2370; J2405; J2704; J3010; J3490; J7030; P9041

== ENCOUNTER 2021-04-02 05:42 | Emergency (ER) | payer MEDICARE, OTHER, SELFPAY ==
[2021-04-02 05:44] VITALS: BP 142/70; PULSE 75; RESP 18; TEMP 36.8; O2SAT 95; BMI 32.3
--- NOTE | 2021-04-02 05:53 | ED_ITS ---
HPI - Back Pain/Injury General: Chief Complaint: Back Pain/Injury Stated Complaint: BACK PAIN Time Seen by Provider: 04/02/21 05:43 History of Present Illness: HPI Narrative: 81-year-old female who presents to the emergency room postop day #1 status post right L4-5 5 S1 laminectomy with partial facetectomy on the right. Patient was discharged home yesterday returns today complaining of worsening pain. Localizes the pain to the level of surgery. Points to the SI joint on the right radiating to the superior portion gluteus. No loss of bowel or bladder control no saddle paresthesias. MD elicited complaint: back pain Pertinent past history: prior back pain and other (Postop day #1) Onset (ago): hour(s) Associated symptoms: Deny abdominal pain, chills, dysuria, fatigue, fever(s), nausea, urinary urgency or vomiting Review of Systems Const: Denies: fever(s), chills, body aches, change in appetite, fatigue or malaise Card: Denies: chest pain, edema, dyspnea on exertion or orthopnea Resp: Denies: dyspnea, productive cough or non-productive cough GI: Denies: abdominal pain, nausea, vomiting, diarrhea or constipation : Denies: flank pain, difficulty voiding, dysuria, urinary frequency or urinary urgency Skin/Breast: Denies: rash or pruritus PFSH ED PFSH: Medical History Asthma Atrial fibrillation Well-controlled on warfarin she is off of warfarin PT/INR within normal limit CAD (coronary artery disease) Chest pain Persistent and recurrent chest pressure despite of optimization of medicine may further require exploration with left heart cath. DDD (degenerative disc disease) Diabetes mellitus GERD (gastroesophageal reflux disease) History of cystocele Cyctocele/Rectocele repair History of nonmelanoma skin cancer History of poliomyelitis History of rectocele HTN (hypertension) Blood pressure is high today otherwise well controlled she has not taken her med Hyperlipidemia Lower extremity edema Surgical History History of surgery of liver Growth Previous back surgery S/P cholecystectomy S/P hysterectomy 1965 Family History Mother Hypertension Bleeding disorder Father Hypertension Heart disease Brother CAD (coronary artery disease) Heart disease Cancer Lung CA Liver disease Sister Heart disease Diabetes Cancer Renal CA and leukemia Social History Alcohol intake: never History of recent travel: No Physical Exam Const: COMMON NORMALS: no acute distress GENERAL APPEARANCE: cooperative and comfortable ORIENTATION/CONSCIOUSNESS: Yes awake, Yes oriented to person, Yes oriented to place and Yes oriented to time HENMT: COMMON NORMALS: normocephalic, atraumatic and hearing grossly normal bilaterally HEAD & SCALP: normocephalic and atraumatic Neck/C-Spine: COMMON NORMALS: no JVD Resp: COMMON NORMALS: normal respiratory effort, No retractions, No use of accessory muscles and clear to auscultation bilaterally AUSCULTATION: clear to auscultation bilaterally Cardio: COMMON NORMALS: no JVD, regular rate, regular rhythm and No murmurs present (Cardio) RATE: regular rate RHYTHM: regular rhythm GI: COMMON NORMALS: Soft to palpation and No hepatosplenomegaly present AUSCULTATION: Yes normoactive bowel sounds PALPATION: Yes Soft to palpation, No Tenderness to palpation present (GI), No Guarding due to palpation present (GI) and Yes No hepatosplenomegaly present Extremity: COMMON NORMALS: normal to inspection, capillary refill normal, no clubbing, cyanosis or edema, no calf tenderness and no pedal edema Neuro: SENSORIUM/ORIENTATION: Yes oriented to person, Yes oriented to place and Yes oriented to time Skin: COMMON NORMALS: no rashes or lesions noted GENERAL SKIN EXAM: no rashes or lesions noted Course Vital Signs: Vital signs: Vital Signs Temperature 98.3 F 04/02/21 05:44 Pulse Rate 78 04/02/21 06:37 Respiratory Rate 16 04/02/21 06:37 Blood Pressure 114/77 04/02/21 06:37 Pulse Oximetry 96 04/02/21 06:37 MDM - Back Pain/Injury MDM Narrative: Medical decision making narrative: Pain improved with medications given here. Discharge home continues hydrocodone add prednisone and tizanidine patient advised blood sugars likely to spike can increase regular insulin to control on sliding scale. Follow-up with Dr. Mitchell within the next day or 2. Discharge Plan Discharge Patient Disposition: Home Clinical Impression: Lumbar radiculopathy, Post-laminectomy syndrome Condition: Stable Prescriptions: New prednisone 20 mg tablet 20 mg PO BID 7 Days Qty: 15 RF: 0 tizanidine 4 mg tablet 2 - 4 mg PO Q8H PRN (Reason: muscle spasticity) Qty: 20 RF: 0 No Action Lantus Solostar U-100 Insulin 100 unit/mL (3 mL) insulin pen 14 unit SUBCUT QID@08,12,16,20 RF: 0 pantoprazole [Protonix] 40 mg tablet,delayed release (DR/EC) 40 mg PO DAILY@0800 RF: 0 PreserVision AREDS 14,320-226-200 sozu-fl-zyro capsule 1 cap PO BID@0800,2200 RF: 0 isosorbide mononitrate 30 mg tablet extended release 24 hr 30 mg PO BID@0800 RF: 0 Multaq 400 mg tablet 400 mg PO DAILY RF: 0 losartan-hydrochlorothiazide 100-25 mg tablet 1 tab PO DAILY@0800 RF: 0 furosemide 40 mg tablet 40 mg PO DAILY PRN (Reason: edema) Qty: 30 RF: 6 potassium chloride 10 mEq capsule, extended release 10 meq PO DAILY PRN (Reason: Take with Lasix) Qty: 30 RF: 6 nitroglycerin [Nitrostat] 0.4 mg tablet, sublingual 0.4 mg SUBLINGUAL Q5M PRN (Reason: Chest Pain) Qty: 25 RF: 3 mometasone 0.1 % solution 1 applic topical DAILY Qty: 30 RF: 4 carvedilol [Coreg] 3.125 mg tablet 3.125 mg PO DIRECTED Qty: 135 RF: 3 clopidogrel [Plavix] 75 mg tablet 75 mg PO DAILY@0800 RF: 0 hydrocodone-acetaminophen 5-325 mg tablet 1 - 2 tab PO .Q4-6H Qty: 40 RF: 0 tramadol 50 mg tablet 50 mg PO Q4-5H PRN (Reason: Pain) RF: 0 Discharge Orders: Discharge ED (Routine); Ordered 04/02/21 Ordered By: Dameon Peacock Referrals: Kaylynn Munoz DO [Primary Care Provider] - Discharge Diet: Usual diet Discharge Activity: Limit activity as instructed Patient Instructions: Opioid Safety Activity Restrictions/Additional Instructions: Follow-up with Dr. Mitchell in the next 2 to 3 days. Continue the hydrocodone prescribed to you by Dr. Mitchell. In the morning start taking oral steroids that were prescribed to you today. This will cause an increase in your blood glucose. Use regular insulin on a sliding scale to control. Coding Level of Care Code ED Community Pharmacist for [facility] Exam Comprehensive
[2021-04-02] MEDS: dexamethasone 10 mg/mL INJ IVP (06:16)
[2021-04-02] MEDS: morphine 4 mg/mL SDV 1 mL IVP (06:16)
[2021-04-02] MEDS: orphenadrine 30 mg/mL Inj 2 mL 60 MG IVP (06:16)
[2021-04-02] MEDS: ketorolac 30 mg/mL INJ 15 MG IVP (06:16)
[2021-04-02 06:37] VITALS: BP 114/77; PULSE 78; RESP 16; O2SAT 96
--- NOTE | 2021-04-02 11:23 | DCPLANNER ---
detail manager had message to schedule a follow up appointment for patient with ortho. detail manager called the ortho clinic, spoke with Nikki, gave clinic patients information. detail manager was told that patients information would be printed and reviewed. Clinic will call patient with appointment information.
--- NOTE | 2021-04-03 08:40 | DCPLANNER ---
Patient had a follow up appointment scheduled for 04.02.21 with ortho - patient did attend appointment.
== END 2021-04-02 07:59 | disposition home or self-care (01) ==
PROVIDERS: Emergency Provider Family Medicine; PCP Family Medicine
DX: M54.16 Radiculopathy, lumbar region (principal); M96.1 Postlaminectomy syndrome, not elsewhere classified; Z79.02 Long term (current) use of antithrombotics/antiplatelets; Z79.4 Long term (current) use of insulin; I25.10 Atherosclerotic heart disease of native coronary artery without angina pectoris; E11.9 Type 2 diabetes mellitus without complications; I10 Essential (primary) hypertension; E78.5 Hyperlipidemia, unspecified
CPT/HCPCS: 96374; 96375; 99284; J1100; J1885; J2270; J2360

== ENCOUNTER 2021-06-08 23:28 | Emergency (ER) | payer MEDICARE, OTHER, SELFPAY ==
[2021-06-08 23:32] VITALS: BP 153/107; PULSE 98; RESP 18; TEMP 37.2; O2SAT 94; BMI 29.9
--- NOTE | 2021-06-08 23:44 | PC.NURSE ---
BG 208 at this time.
--- NOTE | 2021-06-09 00:53 | ECG_ITS ---
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 Measurements Intervals [place] Rate: 127 P: ND: QRS: -38 QRSD: 80 T: 22 QT: 314 QTc: 458 Interpretive Statements ATRIAL FIBRILLATION WITH RAPID VENTRICULAR RESPONSE LEFT AXIS DEVIATION [QRS AXIS < -30] MODERATE ST DEPRESSION [0.05+ mV ST DEPRESSION] Compared to ECG 03/26/2021 11:00:02 ST (T wave) deviation now present Sinus rhythm no longer present First degree AV block no longer present Myocardial infarct finding no longer present Electronically Signed On 06-09-2021 16:59:01 [employer] by Vianey Ponce M.D. [email or web address]
--- NOTE | 2021-06-09 00:54 | W.ED.NAVMDI ---
Documented by User: RENATO Martínez 06/09/21 03:12 HPI - Nausea/Vomiting/Diarrhea General: Chief complaint: Nausea/Vomiting/Diarrhea Stated complaint: N\V\diabetic Time Seen by Provider: 06/09/21 00:53 History of Present Illness: 81-year-old female comes in today with complaints of nausea and vomiting for the last 2 weeks. Patient reports that she was put on some potassium about 2 weeks ago and was not able to tolerate it and started vomiting. Patient stopped the potassium but continues to vomit. Patient reports poor intake of her medications and has not been using her insulin due to all of her vomiting and poor dietary intake. Patient has had been having some bilious vomitus. Patient appears mildly unwell but nontoxic. Patient appears in mild pain. MD elicited complaint: vomiting Onset (ago): week(s) Description of vomiting: bilious Associated nausea: Yes Associated abdominal pain: No Relieving factors: none Associated symtoms: Reports nausea Review of Systems GI: Reports: nausea and vomiting [facility] ED PFSH: Medical History Asthma Atrial fibrillation Well-controlled on warfarin she is off of warfarin PT/INR within normal limit CAD (coronary artery disease) Chest pain Persistent and recurrent chest pressure despite of optimization of medicine may further require exploration with left heart cath. DDD (degenerative disc disease) Diabetes mellitus GERD (gastroesophageal reflux disease) History of cystocele Cyctocele/Rectocele repair History of nonmelanoma skin cancer History of poliomyelitis History of rectocele HTN (hypertension) Blood pressure is high today otherwise well controlled she has not taken her med Hyperlipidemia Lower extremity edema Surgical History History of surgery of liver Growth Previous back surgery S/P cholecystectomy S/P hysterectomy 1965 Family History Mother Hypertension Bleeding disorder Father Hypertension Heart disease Brother CAD (coronary artery disease) Heart disease Cancer Lung CA Liver disease Sister Heart disease Diabetes Cancer Renal CA and leukemia Social History Smoking and tobacco status: never smoked Alcohol intake: never History of recent travel: No Physical Exam Const: COMMON NORMALS: alert HENMT: COMMON NORMALS: normocephalic HEAD & SCALP: normocephalic Resp: COMMON NORMALS: normal respiratory effort and clear to auscultation bilaterally AUSCULTATION: clear to auscultation bilaterally Cardio: RHYTHM: abnormal rhythm irregularly irregular GI: COMMON NORMALS: Soft to palpation and non-tender PALPATION: Yes Soft to palpation Extremity: COMMON NORMALS: normal to inspection and no pedal edema Neuro: SENSORIUM/ORIENTATION: Yes alert Psych: COMMON NORMALS: cooperative Skin: COMMON NORMALS: no rashes or lesions noted GENERAL SKIN EXAM: no rashes or lesions noted Course ED course: 249, reviewed patient with Dr. Maher will assume care on my end of shift. We will go ahead and do a CT of the abdomen pelvis due to the patient's persistent nausea and vomiting and significant dehydration. Vital Signs: Vital signs: Vital Signs Temperature 98.9 F 06/08/21 23:32 Pulse Rate 109 H 06/09/21 04:29 Respiratory Rate 17 06/09/21 04:29 Blood Pressure 117/70 06/09/21 04:29 Pulse Oximetry 93 06/09/21 04:29 MDM - Nausea/Vomiting/Diarrhea Medical Decision Making 0300, 81-year-old female comes in today with complaints of mild abdominal pain with persistent nausea and vomiting for 2 weeks. On exam abdomen is soft and nontender. Bowel sounds are hyperactive. Skin was warm and dry. Oral mucosa was dry. Vital signs were normal except for some mild elevation in blood pressure. Also note on auscultation of heart tones are irregular rhythm. Differential diagnosis includes ACS, dehydration, gastroenteritis, pancreatitis. Laboratory values at this time noted some mild elevation in liver enzymes, bilirubin was normal, troponin was bumped at 51, sodium was 126 and chloride was 88 with a creatinine of 1.5. CBC was unremarkable. Patient was turned over to Dr. Maher due to my end of shift. We are waiting for a second troponin, a urinalysis, a second liter of IV fluids, and a CT of the abdomen and pelvis for further evaluation. Dr. Maher was agreeable to continuing care of patient. Lab Data : 06/09/21 01:19 06/09/21 01:19 Radiology Impressions Abdomen/Pelvis CT 06/09/21 02:55 IMPRESSION: 1. Nondilated small bowel loops are seen containing fluid and air fluid levels, findings suggesting ileus. 2. Bilateral hypoattenuation cystic lesions are seen within the kidneys compatible with benign cysts. The largest is present on the left measuring 3.3 cm. No further workup is needed. 3. Two benign hepatic cysts within the left hepatic lobe, the largest measuring 2 cm. No further workup needed. 4. Strandy opacities in the lower hemithoraces most probably represents atelectasis versus pleural or parenchymal scarring. COMMENTS: Consistent with the [employer]'s Incidental Findings Committee white paper (J Am Livan Radiol 2018): Any incidental renal lesion less than 1 cm or classified as too small to characterize, or any incidental cystic renal lesion characterized as simple-appearing, is likely benign. No follow-up imaging is recommended for these lesions per consensus recommendations based on imaging criteria. Laboratory Results WBC 9.2 10^3/uL (4.0-10.0) 06/09/21 01:19 RBC 4.65 10^6/uL (4.1-5.3) 06/09/21 01:19 Hgb 14.1 g/dL (11.5-15.3) 06/09/21 01:19 Hct 40.7 % (37.0-47.0) 06/09/21 01:19 MCV 87.5 fl (81-99) 06/09/21 01:19 MCH 30.3 pg (28.0-34.0) 06/09/21 01:19 MCHC 34.6 g/dL (30.0-36.0) 06/09/21 01:19 RDW 13.7 % (12.1-15.1) 06/09/21 01:19 Plt Count 229 10^3/cmm (130-400) 06/09/21 01:19 MPV 9.9 fL (7.4-10.4) 06/09/21 01:19 Neut % (Auto) 76.2 % 06/09/21 01:19 Lymph % (Auto) 15.4 % 06/09/21 01:19 [place] % (Auto) 7.5 % 06/09/21 01:19 Eos % (Auto) 0.0 % 06/09/21 01:19 Baso % (Auto) 0.2 % 06/09/21 01:19 Neut # (Auto) 7.04 10^3/uL (1.8-7.7) 06/09/21 01:19 Lymph # (Auto) 1.4 10^3/uL (0.8-4.8) 06/09/21 01:19 [place] # (Auto) 0.7 10^3/uL (0.2-0.9) 06/09/21 01:19 Eos # (Auto) 0.0 10^3/uL (0.0-0.8) 06/09/21 01:19 Baso # (Auto) 0.0 10^3/uL (0.0-0.1) 06/09/21 01:19 Nucleated RBC % (auto) 0 % 06/09/21 01:19 Nucleated RBCs # 0.0 /100WBC 06/09/21 01:19 Sodium 126 mmol/L (136-145) L 06/09/21 01:19 Potassium 3.6 mmol/L (3.5-5.1) 06/09/21 01:19 Chloride 88 mmol/L (98-107) L 06/09/21 01:19 Carbon Dioxide 23 mmol/L (22-29) 06/09/21 01:19 Anion Gap 18.6 (5-19) 06/09/21 01:19 BUN 34 mg/dL (8-23) H 06/09/21 01:19 Creatinine 1.5 mg/dL (0.5-0.9) H 06/09/21 01:19 GFR Calculation Not Reportable 06/09/21 01:19 Glucose 263 mg/dL (65-115) H 06/09/21 01:19 Calculated Osmolality 279 mOsm/kg (285-295) L 06/09/21 01:19 Calcium 8.6 mg/dL (8.5-10.5) 06/09/21 01:19 Total Bilirubin 0.4 mg/dL (0.15-1.2) 06/09/21 01:19 AST 42 U/L (0-32) H 06/09/21 01:19 ALT 39 U/L (0-33) H 06/09/21 01:19 Alkaline Phosphatase 107 IU/L (35-105) H 06/09/21 01:19 Troponin T Baseline 51 ng/L (0-10) H 06/09/21 01:19 Troponin T 120 Minute 26.50 ng/L (0-10) H 06/09/21 05:10 Delta Troponin T -24.50 ABS# (0-10) L 06/09/21 05:10 Total Protein 7.2 g/dL (6.6-8.7) 06/09/21 01:19 Albumin 4.1 g/dL (3.5-5.2) 06/09/21 01:19 Globulin 3.1 g/dL (1.3-4.6) 06/09/21 01:19 Lipase 43 U/L (13-60) 06/09/21 01:19 Urine Color Yellow (Yellow) 06/09/21 03:22 Urine Appearance Sl cloudy (CLEAR) A 06/09/21 03:22 Urine pH 5 (5-7) 06/09/21 03:22 Ur Specific [place] 1.010 (1.005-1.030) 06/09/21 03:22 Urine Protein Trace (Negative) 06/09/21 03:22 Urine Glucose (UA) Norm (Normal) 06/09/21 03:22 Urine Ketones Negative (Negative) 06/09/21 03:22 Urine Blood Trace (Negative) H 06/09/21 03:22 Urine Nitrate Positive (Negative) H 06/09/21 03:22 Urine Bilirubin Neg (Negative) 06/09/21 03:22 Urine Urobilinogen Norm mg/dL (Negative) 06/09/21 03:22 Ur Leukocyte Esterase 2+ (Negative) H 06/09/21 03:22 Urine RBC 0-4 /hpf (0-2) H 06/09/21 03:22 Urine WBC >100 /hpf (0-5) H 06/09/21 03:22 Ur Squamous Epith Cells 5-10 /hpf (0-5) H 06/09/21 03:22 Amorphous Sediment Not Reportable 06/09/21 03:22 Urine Bacteria 3+ /hpf (NONE) H 06/09/21 03:22 Serum Ketones Negative (Negative) 06/09/21 01:19 EKG Data EKG 1: Interpretation: 05 23, EKG shows atrial fibrillation with a rapid ventricular response at 127, no ST elevation or other ectopy is noted. Right is irregular at 127. Discharge Plan Discharge Patient Disposition: Home Clinical Impression: Urinary tract infection, Adynamic ileus Condition: Stable Prescriptions: New Macrobid 100 mg capsule 100 mg PO BID 7 Days Qty: 14 0RF Rx Instructions: must administer with a meal/food Changed Zofran 4 mg tablet 4 mg PO Q4H PRN (Reason: nausea and vomiting) Qty: 30 0RF Rx Instructions: one tab by mouth every 8 hours as needed for nausea No Action furosemide 40 mg tablet 60 mg PO DAILY Qty: 135 3RF potassium chloride 20 mEq tablet extended release 30 meq PO DAILY Qty: 135 3RF carvedilol [Coreg] 3.125 mg tablet 3.125 mg PO DIRECTED Qty: 135 3RF Rx Instructions: 0.5 tab in AM and 1 tab in PM clopidogrel [Plavix] 75 mg tablet 75 mg PO DAILY@0800 Qty: 90 3RF Multaq 400 mg tablet 400 mg PO DAILY Qty: 90 3RF isosorbide mononitrate 30 mg tablet extended release 24 hr 30 mg PO BID@0800 Qty: 180 3RF losartan-hydrochlorothiazide 100-25 mg tablet 1 tab PO DAILY@0800 Qty: 90 3RF docusate sodium [Colace] 100 mg capsule 100 mg PO DAILY Qty: 30 0RF diazepam [Valium] 5 mg tablet 5 mg PO TID PRN (Reason: anxiety) 10 Days Qty: 30 0RF hydrocodone-acetaminophen 5-325 mg tablet 1 - 2 tab PO .Q4-6H PRN (Reason: pain) 7 Days Qty: 40 0RF Lantus Solostar U-100 Insulin 100 unit/mL (3 mL) insulin pen 14 unit SUBCUT QID@08,12,16,20 0RF pantoprazole [Protonix] 40 mg tablet,delayed release (DR/EC) 40 mg PO DAILY@0800 0RF PreserVision AREDS [id number] rgys-zi-xrvl capsule 1 cap PO BID@0800,2200 0RF nitroglycerin [Nitrostat] 0.4 mg tablet, sublingual 0.4 mg SUBLINGUAL Q5M PRN (Reason: Chest Pain) Qty: 25 3RF mometasone 0.1 % solution 1 applic topical DAILY Qty: 30 4RF Rx Instructions: Apply to affected areas on scalp twice daily as needed tramadol 50 mg tablet 50 mg PO Q4-5H PRN (Reason: Pain) 0RF tizanidine 4 mg tablet 2 - 4 mg PO Q8H PRN (Reason: muscle spasticity) Qty: 20 0RF Discharge Orders: Discharge ED (Routine); Ordered 06/09/21 Ordered By: Brian Maher Referrals: Kaylynn Munoz DO [Primary Care Provider] - 1-3 days Discharge Diet: Clear Liquid Discharge Activity: Increase activity as tolerated Patient Instructions: Urinary Tract Infection in Women (ED), Ileus (ED), Opioid Safety Activity Restrictions/Additional Instructions: Mixed the liquid you were dispensed from the emergency room and take it in 1 dose when you get home. Take the nausea medication you were prescribed every 4 hours while awake for the next 48 hours, then as needed. Follow a liquid diet until you have not vomited in 48 hours. Return for worsening pain, vomiting, fever, other concerning symptoms despite treatment. See your doctor Thursday or Thursday. Coding Level of Care Code ED Sr. Director Product Management for Chg Fwd Exam Comprehensive Documented by User: Brian Maher DO 06/09/21 06:00 HPI - Nausea/Vomiting/Diarrhea General: Chief complaint: Nausea/Vomiting/Diarrhea Stated complaint: N\V\diabetic Time Seen by Provider: 06/09/21 00:53 PFSH ED PFSH: Medical History Asthma Atrial fibrillation Well-controlled on warfarin she is off of warfarin PT/INR within normal limit CAD (coronary artery disease) Chest pain Persistent and recurrent chest pressure despite of optimization of medicine may further require exploration with left heart cath. DDD (degenerative disc disease) Diabetes mellitus GERD (gastroesophageal reflux disease) History of cystocele Cyctocele/Rectocele repair History of nonmelanoma skin cancer History of poliomyelitis History of rectocele HTN (hypertension) Blood pressure is high today otherwise well controlled she has not taken her med Hyperlipidemia Lower extremity edema Surgical History History of surgery of liver Growth Previous back surgery S/P cholecystectomy S/P hysterectomy 1965 Family History Mother Hypertension Bleeding disorder Father Hypertension Heart disease Brother CAD (coronary artery disease) Heart disease Cancer Lung CA Liver disease Sister Heart disease Diabetes Cancer Renal CA and leukemia Social History Smoking and tobacco status: never smoked Alcohol intake: never History of recent travel: No Course Vital Signs: Vital signs: Vital Signs Temperature 98.9 F 06/08/21 23:32 Pulse Rate 109 H 06/09/21 04:29 Respiratory Rate 17 06/09/21 04:29 Blood Pressure 117/70 06/09/21 04:29 Pulse Oximetry 93 06/09/21 04:29 MDM - Nausea/Vomiting/Diarrhea Medical Decision Making 0300, 81-year-old female comes in today with complaints of mild abdominal pain with persistent nausea and vomiting for 2 weeks. On exam abdomen is soft and nontender. Bowel sounds are hyperactive. Skin was warm and dry. Oral mucosa was dry. Vital signs were normal except for some mild elevation in blood pressure. Also note on auscultation of heart tones are irregular rhythm. Differential diagnosis includes ACS, dehydration, gastroenteritis, pancreatitis. Laboratory values at this time noted some mild elevation in liver enzymes, bilirubin was normal, troponin was bumped at 51, sodium was 126 and chloride was 88 with a creatinine of 1.5. CBC was unremarkable. Patient was turned over to Dr. Maher due to my end of shift. We are waiting for a second troponin, a urinalysis, a second liter of IV fluids, and a CT of the abdomen and pelvis for further evaluation. Dr. Maher was agreeable to continuing care of patient. This patient was originally seen by RENATO Calabrese.? I agree with his history, evaluation, and treatment. This patient is checked out to me at shift change. She has received 2 L of fluid. She is put out some urine, which appears that she has a urinary tract infection. She states that she gets these all the time . CT scan shows findings suggestive of ileus without obstruction. She will be prescribed 1 dose of laxative for this hopefully to wake the bowels up. This will be dispensed for home. First troponin was mildly elevated, likely due to renal insufficiency. The patient has not had chest pain. She has been instructed by the nursing staff on a brat diet. She is given Macrodantin for UTI. She will be prescribed Zofran for nausea. Lab Data : 06/09/21 01:19 06/09/21 01:19 Radiology Impressions Abdomen/Pelvis CT 06/09/21 02:55 IMPRESSION: 1. Nondilated small bowel loops are seen containing fluid and air fluid levels, findings suggesting ileus. 2. Bilateral hypoattenuation cystic lesions are seen within the kidneys compatible with benign cysts. The largest is present on the left measuring 3.3 cm. No further workup is needed. 3. Two benign hepatic cysts within the left hepatic lobe, the largest measuring 2 cm. No further workup needed. 4. Strandy opacities in the lower hemithoraces most probably represents atelectasis versus pleural or parenchymal scarring. COMMENTS: Consistent with the [employer] [employer]'s Incidental Findings Committee white paper (J Am Livan Radiol 2018): Any incidental renal lesion less than 1 cm or classified as too small to characterize, or any incidental cystic renal lesion characterized as simple-appearing, is likely benign. No follow-up imaging is recommended for these lesions per consensus recommendations based on imaging criteria. Laboratory Results WBC 9.2 10^3/uL (4.0-10.0) 06/09/21 01:19 RBC 4.65 10^6/uL (4.1-5.3) 06/09/21 01:19 Hgb 14.1 g/dL (11.5-15.3) 06/09/21 01:19 Hct 40.7 % (37.0-47.0) 06/09/21 01:19 MCV 87.5 fl (81-99) 06/09/21 01:19 MCH 30.3 pg (28.0-34.0) 06/09/21 01:19 MCHC 34.6 g/dL (30.0-36.0) 06/09/21 01:19 RDW 13.7 % (12.1-15.1) 06/09/21 01:19 Plt Count 229 10^3/cmm (130-400) 06/09/21 01:19 MPV 9.9 fL (7.4-10.4) 06/09/21 01:19 Neut % (Auto) 76.2 % 06/09/21 01:19 Lymph % (Auto) 15.4 % 06/09/21 01:19 [place] % (Auto) 7.5 % 06/09/21 01:19 Eos % (Auto) 0.0 % 06/09/21 01:19 Baso % (Auto) 0.2 % 06/09/21 01:19 Neut # (Auto) 7.04 10^3/uL (1.8-7.7) 06/09/21 01:19 Lymph # (Auto) 1.4 10^3/uL (0.8-4.8) 06/09/21 01:19 [place] # (Auto) 0.7 10^3/uL (0.2-0.9) 06/09/21 01:19 Eos # (Auto) 0.0 10^3/uL (0.0-0.8) 06/09/21 01:19 Baso # (Auto) 0.0 10^3/uL (0.0-0.1) 06/09/21 01:19 Nucleated RBC % (auto) 0 % 06/09/21 01:19 Nucleated RBCs # 0.0 /100WBC 06/09/21 01:19 Sodium 126 mmol/L (136-145) L 06/09/21 01:19 Potassium 3.6 mmol/L (3.5-5.1) 06/09/21 01:19 Chloride 88 mmol/L (98-107) L 06/09/21 01:19 Carbon Dioxide 23 mmol/L (22-29) 06/09/21 01:19 Anion Gap 18.6 (5-19) 06/09/21 01:19 BUN 34 mg/dL (8-23) H 06/09/21 01:19 Creatinine 1.5 mg/dL (0.5-0.9) H 06/09/21 01:19 GFR Calculation Not Reportable 06/09/21 01:19 Glucose 263 mg/dL (65-115) H 06/09/21 01:19 Calculated Osmolality 279 mOsm/kg (285-295) L 06/09/21 01:19 Calcium 8.6 mg/dL (8.5-10.5) 06/09/21 01:19 Total Bilirubin 0.4 mg/dL (0.15-1.2) 06/09/21 01:19 AST 42 U/L (0-32) H 06/09/21 01:19 ALT 39 U/L (0-33) H 06/09/21 01:19 Alkaline Phosphatase 107 IU/L (35-105) H 06/09/21 01:19 Troponin T Baseline 51 ng/L (0-10) H 06/09/21 01:19 Troponin T 120 Minute 26.50 ng/L (0-10) H 06/09/21 05:10 Delta Troponin T -24.50 ABS# (0-10) L 06/09/21 05:10 Total Protein 7.2 g/dL (6.6-8.7) 06/09/21 01:19 Albumin 4.1 g/dL (3.5-5.2) 06/09/21 01:19 Globulin 3.1 g/dL (1.3-4.6) 06/09/21 01:19 Lipase 43 U/L (13-60) 06/09/21 01:19 Urine Color Yellow (Yellow) 06/09/21 03:22 Urine Appearance Sl cloudy (CLEAR) A 06/09/21 03:22 Urine pH 5 (5-7) 06/09/21 03:22 Ur Specific [place] 1.010 (1.005-1.030) 06/09/21 03:22 Urine Protein Trace (Negative) 06/09/21 03:22 Urine Glucose (UA) Norm (Normal) 06/09/21 03:22 Urine Ketones Negative (Negative) 06/09/21 03:22 Urine Blood Trace (Negative) H 06/09/21 03:22 Urine Nitrate Positive (Negative) H 06/09/21 03:22 Urine Bilirubin Neg (Negative) 06/09/21 03:22 Urine Urobilinogen Norm mg/dL (Negative) 06/09/21 03:22 Ur Leukocyte Esterase 2+ (Negative) H 06/09/21 03:22 Urine RBC 0-4 /hpf (0-2) H 06/09/21 03:22 Urine WBC >100 /hpf (0-5) H 06/09/21 03:22 Ur Squamous Epith Cells 5-10 /hpf (0-5) H 02/06/22 03:22 Amorphous Sediment Not Reportable 06/09/21 03:22 Urine Bacteria 3+ /hpf (NONE) H 06/09/21 03:22 Serum Ketones Negative (Negative) 06/09/21 01:19 Discharge Plan Discharge Patient Disposition: Home Clinical Impression: Urinary tract infection, Adynamic ileus Condition: Stable Prescriptions: New Macrobid 100 mg capsule 100 mg PO BID 7 Days Qty: 14 0RF Rx Instructions: must administer with a meal/food Changed Zofran 4 mg tablet 4 mg PO Q4H PRN (Reason: nausea and vomiting) Qty: 30 0RF Rx Instructions: one tab by mouth every 8 hours as needed for nausea No Action furosemide 40 mg tablet 60 mg PO DAILY Qty: 135 3RF potassium chloride 20 mEq tablet extended release 30 meq PO DAILY Qty: 135 3RF carvedilol [Coreg] 3.125 mg tablet 3.125 mg PO DIRECTED Qty: 135 3RF Rx Instructions: 0.5 tab in AM and 1 tab in PM clopidogrel [Plavix] 75 mg tablet 75 mg PO DAILY@0800 Qty: 90 3RF Multaq 400 mg tablet 400 mg PO DAILY Qty: 90 3RF isosorbide mononitrate 30 mg tablet extended release 24 hr 30 mg PO BID@0800 Qty: 180 3RF losartan-hydrochlorothiazide 100-25 mg tablet 1 tab PO DAILY@0800 Qty: 90 3RF docusate sodium [Colace] 100 mg capsule 100 mg PO DAILY Qty: 30 0RF diazepam [Valium] 5 mg tablet 5 mg PO TID PRN (Reason: anxiety) 10 Days Qty: 30 0RF hydrocodone-acetaminophen 5-325 mg tablet 1 - 2 tab PO .Q4-6H PRN (Reason: pain) 7 Days Qty: 40 0RF Lantus Solostar U-100 Insulin 100 unit/mL (3 mL) insulin pen 14 unit SUBCUT QID@08,12,16,20 0RF pantoprazole [Protonix] 40 mg tablet,delayed release (DR/EC) 40 mg PO DAILY@0800 0RF PreserVision AREDS [id number] sidi-xx-leff capsule 1 cap PO BID@0800,2200 0RF nitroglycerin [Nitrostat] 0.4 mg tablet, sublingual 0.4 mg SUBLINGUAL Q5M PRN (Reason: Chest Pain) Qty: 25 3RF mometasone 0.1 % solution 1 applic topical DAILY Qty: 30 4RF Rx Instructions: Apply to affected areas on scalp twice daily as needed tramadol 50 mg tablet 50 mg PO Q4-5H PRN (Reason: Pain) 0RF tizanidine 4 mg tablet 2 - 4 mg PO Q8H PRN (Reason: muscle spasticity) Qty: 20 0RF Discharge Orders: Discharge ED (Routine); Ordered 06/09/21 Ordered By: Brian Maher Referrals: Kaylynn Munoz DO [Primary Care Provider] - 1-3 days Discharge Diet: Clear Liquid Discharge Activity: Increase activity as tolerated Patient Instructions: Urinary Tract Infection in Women (ED), Ileus (ED), Opioid Safety Activity Restrictions/Additional Instructions: Mixed the liquid you were dispensed from the emergency room and take it in 1 dose when you get home. Take the nausea medication you were prescribed every 4 hours while awake for the next 48 hours, then as needed. Follow a liquid diet until you have not vomited in 48 hours. Return for worsening pain, vomiting, fever, other concerning symptoms despite treatment. See your doctor Thursday or Thursday. Coding Level of Care Code ED Sr. Director Product Management for Michael Fwd Exam Comprehensive
[2021-06-09 01:15] VITALS: BP 115/68; PULSE 120; RESP 15; O2SAT 93
[2021-06-09 01:28] LABS: Basophils % 0.2 %; Hematocrit 40.7 % (37.0-47.0); Hemoglobin 14.1 g/dL (11.5-15.3); Lymphocytes # 1.4 10^3/uL (0.8-4.8); Lymphocytes % 15.4 %; Mean Corpuscular HGB Conc 34.6 g/dL (30.0-36.0); Mean Corpuscular Hemoglobin 30.3 pg (28.0-34.0); Mean Corpuscular Volume 87.5 fl (81-99); Mean Platelet Volume 9.9 fL (7.4-10.4); Monocytes # 0.7 10^3/uL (0.2-0.9); Monocytes % 7.5 %; Neutrophils # 7.04 10^3/uL (1.8-7.7); Neutrophils % 76.2 %; Nucleated Red Blood Cells % 0 %; Platelet Count 229 10^3/cmm (130-400); Red Blood Count 4.65 10^6/uL (4.1-5.3); Red Cell Distribution Width 13.7 % (12.1-15.1); White Blood Count 9.2 10^3/uL (4.0-10.0)
[2021-06-09] MEDS: ondansetron 2 mg/ML SDV 2 mL 4 MG IVP (01:33)
[2021-06-09] MEDS: sodium chloride 0.9% 1,000 ML 999 ML IV ×2 (01:34→04:28)
[2021-06-09 01:52] LABS: Ketone (Acetest) Serum Negative (Negative)
[2021-06-09 01:57] LABS: Troponin(5th) Baseline 51 ng/L (0-10)
[2021-06-09 02:14] LABS: Alanine Aminotransferase 39 U/L (0-33); Albumin Level 4.1 g/dL (3.5-5.2); Alkaline Phosphatase 107 IU/L (35-105); Anion Gap 18.6 (5-19); Aspartate Amino Transferase 42 U/L (0-32); Blood Urea Nitrogen 34 mg/dL (8-23); Calcium 8.6 mg/dL (8.5-10.5); Carbon Dioxide 23 mmol/L (22-29); Chloride 88 mmol/L (98-107); Globulin 3.1 g/dL (1.3-4.6); Glucose 263 mg/dL (65-115); Lipase 43 U/L (13-60); Osmolality Calculated 279 mOsm/kg (285-295); Potassium 3.6 mmol/L (3.5-5.1); Sodium 126 mmol/L (136-145); Total Bilirubin 0.4 mg/dL (0.15-1.2); Total Protein 7.2 g/dL (6.6-8.7)
--- NOTE | 2021-06-09 02:53 | ECG_ITS ---
[facility] Test Date: 2021-06-09 Pat Name: Elizabeth Cantor Department: Room: Gender: Female Chute Boss: : 1940 Requested By: Garth Bhandari Order Number: [id number] Shai MD: Vianey Ponce M.D. Measurements Intervals [place] Rate: 110 P: DC: QRS: -30 QRSD: 77 T: 15 QT: 345 QTc: 467 Interpretive Statements ATRIAL FIBRILLATION WITH RAPID VENTRICULAR RESPONSE BORDERLINE LEFT AXIS DEVIATION [QRS AXIS < -20] NONSPECIFIC ST & T-WAVE ABNORMALITY ABNORMAL RHYTHM ECG Compared to ECG 06/09/2021 01:14:37 T-wave abnormality now present ST (T wave) deviation no longer present Electronically Signed On 06-09-2021 17:03:59 INSTITUTIONAL ASSET MANAGER by Vianey Ponce M.D. [id number]
--- NOTE | 2021-06-09 02:55 | CTR_ITS ---
PROCEDURE INFORMATION: Exam: CT Abdomen And Pelvis With Contrast Exam date and time: 06/09/2021 2:55 AM Age: 81 years old Clinical indication: Nausea and vomiting; Prior surgery; Surgery date: 6+ months; Surgery type: Hyst, gb, appy; Additional info: Persistent n/v TECHNIQUE: Imaging protocol: Computed tomography of the abdomen and pelvis with contrast. Radiation optimization: All CT scans at this facility use at least one of these dose optimization techniques: automated exposure control; mA and/or kV adjustment per patient size (includes targeted exams where dose is matched to clinical indication); or iterative reconstruction. Contrast material: VISI; Contrast volume: 95 ml; Contrast route: INTRAVENOUS (IV); COMPARISON: MR lumbar spine wo con* [id number] 12/19/2019 8:42 AM RADIATION DOSE METRICS: Total DLP (mGy-cm): 1753.18 FINDINGS: Lungs: A calcified granuloma seen in the left lung base posteriorly. Pleural spaces: Strandy opacities are present within the lower hemithoraces bilaterally likely representing atelectasis versus pleural or parenchymal scarring. Heart: Calcifications are present within the coronary arteries. Liver: Two hypoattenuation cystic lesions are seen within the left hepatic lobe, the largest measuring 2 cm. Gallbladder and bile ducts: Status post cholecystectomy. Pancreas: Normal. No ductal dilation. Spleen: Normal. No splenomegaly. Adrenal glands: Normal. No mass. Kidneys and ureters: There are hypoattenuation cystic masses seen within the kidneys bilaterally, the largest is seen in the lower pole of the left kidney measuring 3.3 cm. Stomach and bowel: There are nondilated small bowel loops present containing fluid and some air-fluid levels, findings suggesting ileus. Appendix: Status post appendectomy. Intraperitoneal space: Unremarkable. No free air. No significant fluid collection. Vasculature: Calcifications are seen in the thoracic and abdominal aorta, iliac arteries and femoral arteries bilaterally and within branches of the celiac and superior mesenteric arteries. Lymph nodes: Calcified left hilar lymph nodes are seen. Urinary bladder: Unremarkable as visualized. Reproductive: Status post hysterectomy. Bones/joints: Diffuse loss of disc height and multilevel vacuum disc phenomenon is seen within the thoracolumbar spine compatible with degenerative disc disease. Soft tissues: There are bilateral inguinal hernias containing fat. CT/CT abdomen pelvis w con* [id number] IMPRESSION: 1. Nondilated small bowel loops are seen containing fluid and air fluid levels, findings suggesting ileus. 2. Bilateral hypoattenuation cystic lesions are seen within the kidneys compatible with benign cysts. The largest is present on the left measuring 3.3 cm. No further workup is needed. 3. Two benign hepatic cysts within the left hepatic lobe, the largest measuring 2 cm. No further workup needed. 4. Strandy opacities in the lower hemithoraces most probably represents atelectasis versus pleural or parenchymal scarring. COMMENTS: Consistent with the [place]'s Incidental Findings Committee white paper (J Am Livan Radiol 2018): Any incidental renal lesion less than 1 cm or classified as too small to characterize, or any incidental cystic renal lesion characterized as simple-appearing, is likely benign. No follow-up imaging is recommended for these lesions per consensus recommendations based on imaging criteria.
[2021-06-09] MEDS: iodixanol 320 mg/mL 100mL Btl IV (03:54)
[2021-06-09 03:55] LABS: Bilirubin Urine Neg (Negative); Blood Urine Trace (Negative); Glucose Urine UA Norm (Normal); Ketones Urine Negative (Negative); Nitrate Urine Positive (Negative); Protein Urine Trace (Negative); Urine Color Yellow (Yellow); pH Urine 5 (5-7)
[2021-06-09 03:56] LABS: Add Urine Microscopic? YES; Leukocyte Esterase Urine 2+ (Negative); Urobilinogen Urine Norm (Negative)
[2021-06-09 03:57] LABS: Add Urine Culture? Yes; Bacteria Urine 3+ /hpf; RBC Urine 0-4 /hpf (0-2); WBC Urine >100 /hpf (0-5)
[2021-06-09 04:29] VITALS: BP 117/70; PULSE 109; RESP 17; O2SAT 93
[2021-06-09] MEDS: mineral oil 30 mL UDC 15 ML PO (05:46)
[2021-06-09] MEDS: lactulose oral liq 20 gm/30 mL UDC PO (05:47)
[2021-06-09] MEDS: nitrofurantoin SR (BID) 100 mg Capsule PO (05:47)
[2021-06-09] MEDS: magnesium hydroxide 30 mL UDC 15 ML PO (05:47)
[2021-06-09 06:27] VITALS: BP 132/84; PULSE 117; O2SAT 93
== END 2021-06-09 06:30 | disposition home or self-care (01) ==
PROVIDERS: Emergency Medicine; Nurse Practitioner Family; Emergency Provider Emergency Medicine; PCP Family Medicine
DX: N39.0 Urinary tract infection, site not specified (principal); K56.0 Paralytic ileus; Z79.4 Long term (current) use of insulin; I25.10 Atherosclerotic heart disease of native coronary artery without angina pectoris; E11.9 Type 2 diabetes mellitus without complications; I10 Essential (primary) hypertension; E78.5 Hyperlipidemia, unspecified
CPT/HCPCS: 51701; 74177; 80053; 81001; 82009; 83690; 84484; 85025; 87077; 87086; 87186; 93005; 96361; 96374; 96375; 99284; J2405; J7030; Q9967

== ENCOUNTER → 2021-12-12 10:24 | Outpatient (BNVA) | payer MEDICARE, OTHER, SELFPAY | PROVIDERS: PCP Family Medicine; Visit Provider Orthopaedic Surgery | DX: Z98.890 Other specified postprocedural states (principal); M48.062 Spinal stenosis, lumbar region with neurogenic claudication | CPT/HCPCS: 72100; 99214 ==

== ENCOUNTER → 2021-12-18 13:20 | Outpatient (BNVA) | payer MEDICARE, OTHER, SELFPAY | PROVIDERS: PCP Family Medicine; Visit Provider Nurse Practitioner Family | DX: N39.0 Urinary tract infection, site not specified (principal); R33.9 Retention of urine, unspecified | CPT/HCPCS: 51798; 81003; 87086; 99203 ==

== ENCOUNTER 2022-01-02 10:56 | Outpatient (CLI) | payer MEDICARE, OTHER, SELFPAY ==
--- NOTE | 2022-01-02 11:00 | MR_ITS ---
WS: [id number] MRI LUMBAR SPINE NONCONTRAST TECHNIQUE: Sagittal T1, T2 and STIR imaging. Axial T1 and T2 imaging. CLINICAL INFORMATION: Fall/Possible Compression fx COMPARISON: MRI December 19, 2019 FINDINGS: Mild lumbar curve. No acute compression. No high-grade central canal stenosis. Slight retrolisthesis L1 on L2 and L2 on L3. Disc space narrowing L5-S1. Evidence of chronic laminectomy defects L3-L4 and L4-L5. Shallow central protrusion T12-L1 with slight effacement of ventral thecal sac. Stable LEFT renal cortical cyst measuring 2.7 cm. L1-L2: Mild disc bulging with osteophytic ridging. Mild central canal stenosis. Impingement subarticu lar recess bilaterally. Mild facet arthropathy. Mild RIGHT foraminal narrowing. Central canal stenosi s is stable at this level. L2-L3: Disc osteophytic ridging. Impingement on the LEFT greater than RIGHT subarticular recess. Mild LEFT foraminal narrowing. RIGHT foramen is patent. Moderate facet arthropathy. L3-L4: Mild annular bulging. Tiny RIGHT subarticular disc herniation with slight narrowing of the sub articular recess. Mild RIGHT and no significant LEFT foraminal narrowing. Prior RIGHT hemilaminectomy defect. Mild facet arthropathy. L4-L5: Prior RIGHT hemilaminectomy. Mild disc bulging with osteophytic ridging. Moderate facet arthro lona. Mild to moderate central canal stenosis with slight impingement traversing L5 nerve roots bila terally. Foramen are patent. L5-S1: Disc osteophyte complex with endplate ridging. Slight effacement of ventral thecal sac. Mild t o moderate bilateral bony foraminal narrowing with slight contact of the exiting RIGHT greater than L EFT L5 nerve roots. Slight impingement traversing LEFT S1 nerve root. Visualized pelvic bony structures: Normal. Paravertebral soft tissues: Normal. Central canal stenosis at L4-L5 has progressed slightly. Otherwise no significant interval changes. MR/MR lumbar spine wo con* [id number] IMPRESSION: 1. Mild lumbar curve. No acute compression. 2. Disc space narrowing worse at L1-L2, L2-L3, and L5-S1. Slight retrolisthesi s L1 on L2 and L2 on L3. 3. Mild central canal stenosis L1-L2 and L2-L3 unchanged from previous. 4. Mild/moderate central canal stenosis L4-L5 with slight impingement on the t raversing RIGHT L5 nerve root unchanged from previous. 5. Mild to moderate foraminal narrowing RIGHT L1-L2, LEFT L2-L3, and bilateral L5-S1. 6. Moderate facet arthropathy worse at L4-L5. 7. Exophytic LEFT renal cyst measuring 2.7 cm unchanged since 2020
== END 2022-01-02 10:57 | disposition home or self-care (01) ==
LOC: RAD 10:59
PROVIDERS: PCP Family Medicine; Visit Provider Orthopaedic Surgery
DX: M48.062 Spinal stenosis, lumbar region with neurogenic claudication (principal); W19.XXXA Unspecified fall, initial encounter; N28.1 Cyst of kidney, acquired; M47.816 Spondylosis without myelopathy or radiculopathy, lumbar region
CPT/HCPCS: 72148

== ENCOUNTER 2022-01-27 10:14 | Emergency (ER) | payer MEDICARE, OTHER, SELFPAY ==
[2022-01-27] VITALS (10 sets, daily range): BP systolic 150–156; BP diastolic 74–80; PULSE 82–89; RESP 15–16; TEMP 36.4; O2SAT 92–97; BMI 31.6
--- NOTE | 2022-01-27 10:29 | ED_ITS ---
HPI - Female Genitourinary General: Chief complaint: Urogenital-Female Stated complaint: UTI/ TACHYCARDIA Time Seen by Provider: 01/27/22 10:19 Source: patient Mode of arrival: EMS History of Present Illness: 81-year-old female presents emergency room complaining of her A. fib. She had episodes of vomiting sure if she felt palpi tations. EMS arrived he said her heart rate was in the 150s she had no been reporting symptoms of A. fib with [facility] gave 500 normal saline which resolved her symptoms and her heart rate on arrival here within the 80s. She has issues with a chronic UTI does not significantly change recently she was on an antibiotic and stated seem to make her legs swell so she seen urology back but evidently is continuing on this. MD elicited complaint: dysuria Onset (ago): month(s) Severity: mild Consistency: intermittent Exacerbating factors: none Relieving factors: none Associated symptoms: Deny abdominal pain, short of breath, fevers/chills, headache(s), nausea, rash, seizures, syncope or weakness Treatment prior to arrival: none Review of Systems Const: Denies: fever(s), chills, body aches, change in appetite, fatigue or malaise Eyes: Denies: change in vision ENMT: Denies: throat pain, ear or mastoid pain, nasal discharge or nasal conge stion Card: Reports: chest pain, palpitations, irregular heart rhythm, edema and swelling of feet/ankles; Denies: syncope Resp: Denies: dyspnea, productive cough or non-productive cough GI: Denies: abdominal pain or nausea : Denies: flank pain, difficulty voiding, dysuria, urinary frequency or urinary urgency Skin/Breast: Denies: rash or pruritus Neuro: Denies: headache(s) PFS ED PFSH: Medical History Asthma Atrial fibrillation Well-controlled on warfarin she is off of warfarin PT/INR within normal limit CAD (coronary artery disease) Chest pain Persistent and recurrent chest pressure despite of optimization of medicine may further require exploration with left heart cath. DDD (degenerative disc disease) Diabetes mellitus GERD (gastroesophageal reflux disease) History of cystocele Cyctocele/Rectocele repair History of nonmelanoma skin cancer History of poliomyelitis History of rectocele HTN (hypertension) Blood pressure is high today otherwise well controlled she has not taken her med Hyperlipidemia Lower extremity edema Recurrent UTI Surgical History History of surgery of liver Growth Previous back surgery S/P cholecystectomy S/P hysterectomy 1964 Family History Mother , at age 89 Hypertension Bleeding disorder Father , at age 79 Hypertension Heart disease Brother CAD (coronary artery disease) Heart disease Cancer Lung CA Liver disease Sister Heart disease Diabetes Cancer Renal CA and leukemia Social History Smoking and tobacco status: never smoked Alcohol intake: never Lives independently: Yes Current occupational status: retired History of recent travel: No Physical Exam Const: GENERAL APPEARANCE: cooperative and comfortable ORIENTATION/CONSCIOUSNESS: Yes awake, Yes oriented to person, Yes oriented to place and Yes oriented to time HENMT: COMMON NORMALS: normocephalic, atraumatic and hearing grossly normal bilaterally HEAD & SCALP: normocephalic and atraumatic Resp: COMMON NORMALS: normal respiratory effort, No retractions, No use of accessory muscles and clear to auscultation bilaterally AUSCULTATION: clear to auscultation bilaterally Cardio: COMMON NORMALS: regular rate, regular rhythm and No murmurs present (Cardio) RATE: regular rate RHYTHM: regular rhythm GI: COMMON NORMALS: Soft to palpation and No hepatosplenomegaly present AU SCULTATION: Yes normoactive bowel sounds PALPATION: Yes Soft to palpation, No Tenderness to palpation present (GI), No Guarding due to palpation present (GI) and Yes No hepatosplenomegaly present Extremity: COMMON NORMALS: normal to inspection, capillary refill normal, no clubbing, cyanosis or edema, no calf tenderness and no pedal edema Neuro: SENSORIUM/ORIENTATION: Yes oriented to person, Yes oriented to place and Yes oriented to time Skin: COMMON NORMALS: no rashes or lesions noted GENERAL SKIN EXAM: no rashes or lesions noted Course Vital Signs: Vital signs: Vital Signs Temperature 97.5 F L 01/27/22 10:23 Pulse Rate 82 01/27/22 12:39 Respiratory Rate 16 01/27/22 12:39 Blood Pressure 150/74 01/27/22 12:39 Pulse Oximetry 97 01/27/22 12:39 Oxygen Delivery Me thod 01/27/22 10:23 MDM - Female Medical Decision Making No recurrent episodes of A. fib. Patient is relatively asymptomatic will discharge home. Stop the cefuroxime changed to Macrodantin continue other medications as previously prescribed Medical Records I reviewed the patient's medical records. Lab Data I reviewed the patient's lab results. : 01/27/22 10:27 01/27/22 10:27 Laboratory Results WBC 7.9 10^3/uL (4.0-10.0) 01/27/22 10:27 RBC 4.25 10^6/uL (4.1-5.3) 01/27/22 10: Hgb 13.0 g/dL (11.5-15.3) 01/27/22 10: Hct 39.0 % (37.0-47.0) 01/27/22 10: MCV 91.8 fl (81-99) 01/27/22 10:27 MCH 30.6 pg (28.0-34.0) 01/27/22 10:27 MCHC 33.3 g/dL (30.0-36.0) 01/27/22 10:27 RDW 13.7 % (12.1-15.1) 01/27/22 10:27 Plt Count 308 10^3/cmm (130-400) 01/27/22 10:27 MPV 8.8 fL (7.4-10.4) 01/27/22 10:27 Neut % (Auto) 58.4 % 01/27/22 10:27 Lymph % (Auto) 24.6 % 01/27/22 10:27 [place] % (Auto) 12.2 % 01/27/22 10:27 Eos % (Auto) 3.6 % 01/27/22 10:27 Baso % (Auto) 0.9 % 01/27/22 10:27 Neut # (Auto) 4.61 10^3/uL (1.8-7.7) 01/27/22 10:27 Lymph # (Auto) 1.9 10^3/uL (0.8-4.8) 01/27/22 10:27 [place] # (Auto) 1.0 10^3/uL (0.2-0.9) H 01/27/22 10:27 Eos # (Auto) 0.3 10^3/uL (0.0-0.8) 01/27/22 10:27 Baso # (Auto) 0.1 10^3/uL (0.0-0.1) 01/27/22 10:27 Nucleated RBC % (auto) 0 % 01/27/22 10:27 Nucleated RBCs # 0.0 /100WBC 01/27/22 10:27 Sodium 135 mmol/L (136-145) L 01/27/22 10:27 Potassium 3.3 mmol/L (3.5-5.1) L 01/27/22 10:27 Chloride 95 mmol/L (98-107) L 01/27/22 10:27 Carbon Dioxide 28 mmol/L (22-29) 01/27/22 10:27 Anion Gap 15.3 (5-19) 01/27/22 10:27 BUN 16 mg/dL (8-23) 01/27/22 10:27 Creatinine 0.7 mg/dL (0.5-0.9) 01/27/22 10:27 GFR Calculation Not Reportable 01/27/22 10:27 Glucose 196 mg/dL (65-115) H 01/27/22 10:27 Calculated Osmolality 287 mOsm/kg (285-295) 01/27/22 10:27 Calcium 9.0 mg/dL (8.5-10.5) 01/27/22 10:27 Urine Color Yellow (Yellow) 01/27/22 11:17 Urine Appearance Cloudy (CLEAR) 01/27/22 11:17 Urine pH 7 (5-7) 01/27/22 11:17 Ur Specific [place] 1.005 (1.005-1.030) 01/27/22 11:17 Urine Protein Neg (Negative) 01/27/22 11:17 Urine Glucose (UA) Norm (Normal) 01/27/22 11:17 Urine Ketones Negative (Negative) 01/27/22 11:17 Urine Blood 2+ (Negative) H 01/27/22 11:17 Urine Nitrate Negative (Negative) 01/27/22 11:17 Urine Bilirubin Neg (Negative) 01/27/22 11:17 Urine Urobilinogen Norm mg/dL (Negative) 01/27/22 11:17 Ur Leukocyte Esterase 2+ (Negative) H 01/27/22 11:17 Urine RBC 5-10 /hpf (0-2) H 01/27/22 11:17 Urine WBC Too numerous to cnt /hpf (0-5) H 01/27/22 11:17 Ur Squamous Epith Cells 0-4 /hpf (0-5) H 01/27/22 11:17 Amorphous Sediment Not Reportable 01/27/22 11:17 Urine Bacteria 1+ /hpf (NONE) H 01/27/22 11:17 Discharge Plan Discharge Patient Disposition: Home Clinical Impression: Recurrent UTI, Atrial fibrillation, HTN (hypertension) Condition: Stable Prescriptions: New Macrobid 100 mg capsule 100 mg PO BID 7 Days Qty: 14 0RF Rx Instructions: must administer with a meal/food Discontinued cefuroxime axetil 500 mg tablet 500 mg PO BID Qty: 60 2RF No Action furosemide 40 mg tablet 60 mg PO DAILY Qty: 135 3RF potassium chloride 20 mEq tablet extended release 30 meq PO DAILY Qty: 135 3RF carvedilol [Coreg] 3.125 mg tablet 3.125 mg PO DIRECTED Qty: 135 3RF Rx Instructions: 0.5 tab in AM and 1 tab in PM clopidogrel [Plavix] 75 mg tablet 75 mg PO DAILY@0800 Qty: 90 3RF Multaq 400 mg tablet 400 mg PO DAILY Qty: 90 3RF isosorbide mononitrate 30 mg tablet extended release 24 hr 30 mg PO BID@0800 Qty: 180 3RF losartan-hydrochlorothiazide 100-25 mg tablet 1 tab PO DAILY@0800 Qty: 90 3RF docusate sodium [Colace] 100 mg capsule 100 mg PO DAILY Qty: 30 0RF diazepam [Valium] 5 mg tablet 5 mg PO TID PRN (Reason: anxiety) 10 Days Qty: 30 0RF hydrocodone-acetaminophen 5-325 mg tablet 1 - 2 tab PO .Q4-6H PRN (Reason: pain) 7 Days Qty: 40 0RF Lantus Solostar U-100 Insulin 100 unit/mL (3 mL) insulin pen 14 unit SUBCUT QID@08,12,16,20 pantoprazole [Protonix] 40 mg tablet,delayed release (DR/EC) 40 mg PO DAILY@0800 PreserVision AREDS 14,320-226-200 quso-th-cnyi capsule 1 cap PO BID@0800,2200 nitroglycerin [Nitrostat] 0.4 mg tablet, sublingual 0.4 mg SUBLINGUAL Q5M PRN (Reason: Chest Pain) Qty: 25 3RF mometasone 0.1 % solution 1 applic topical DAILY Qty: 30 4RF Rx Instructions: Apply to affected areas on scalp twice daily as needed prednisone 20 mg tablet 20 mg PO DAILY Qty: 15 0RF Rx Instructions: 60mg X3 days 40mg X2 days 20mg X 2days tramadol 50 mg tablet 50 mg PO Q4-5H PRN (Reason: Pain) tizanidine 4 mg tablet 2 - 4 mg PO Q8H PRN (Reason: muscle spasticity) Qty: 20 0RF Zofran 4 mg tablet 4 mg PO Q4H PRN (Reason: nausea and vomiting) Qty: 30 0RF Rx Instructions: one tab by mouth every 8 hours as needed for nausea Discharge Orders: Discharge ED (Routine); Ordered 01/27/22 Ordered By: Dameon Peacock Referrals: Kaylynn Munoz DO [Primary Care Provider] - Discharge Diet: Usual diet Discharge Activity: Increase activity as tolerated Patient Instructions: Opioid Safety, Pain Management Activity Restrictions/Additional Instructions: Continue all other medications as previously prescribed. Follow-up with your primary care doctor for an improving in the next week. Coding Level of Care Code ED [employer] for Michael Fwd Exam Detailed
--- NOTE | 2022-01-27 10:30 | ECG_ITS ---
[facility] Test Date: 2022-01-27 Pat Name: Elizabeth Cantor Department: Room: Gender: Female Time Recorder: : 1940 Requested By: Dameon Silva Order Number: [id number] Shai MD: Bob Dunlap M.D. Measurements Intervals [place] Rate: 81 P: 26 KS: 189 QRS: -31 QRSD: 87 T: 16 QT: 377 QTc: 439 Interpretive Statements SINUS RHYTHM WITH FREQUENT VENTRICULAR PREMATURE COMPLEXES LEFT AXIS DEVIATION [QRS AXIS < -30] LOW QRS VOLTAGE IN PRECORDIAL LEADS [QRS DEFLECTION < 1.0 mV IN CHEST LEADS] Compared to ECG 06/09/2021 02:46:31 Ventricular premature complex(es) now present Low QRS voltage now present Atrial fibrillation no longer present T-wave abnormality no longer present Electronically Signed On 01-28-2022 0:08:35 CDT by Bob Dunlap M.D. [id number]
[2022-01-27 10:40] LABS: Basophils # 0.1 10^3/uL (0.0-0.1); Basophils % 0.9 %; Eosinophils # 0.3 10^3/uL (0.0-0.8); Eosinophils % 3.6 %; Lymphocytes # 1.9 10^3/uL (0.8-4.8); Lymphocytes % 24.6 %; Mean Corpuscular HGB Conc 33.3 g/dL (30.0-36.0); Mean Corpuscular Hemoglobin 30.6 pg (28.0-34.0); Mean Corpuscular Volume 91.8 fl (81-99); Mean Platelet Volume 8.8 fL (7.4-10.4); Monocytes % 12.2 %; Neutrophils # 4.61 10^3/uL (1.8-7.7); Neutrophils % 58.4 %; Nucleated Red Blood Cells % 0 %; Platelet Count 308 10^3/cmm (130-400); Red Blood Count 4.25 10^6/uL (4.1-5.3); Red Cell Distribution Width 13.7 % (12.1-15.1); White Blood Count 7.9 10^3/uL (4.0-10.0)
[2022-01-27 11:08] LABS: Anion Gap 15.3 (5-19); Blood Urea Nitrogen 16 mg/dL (8-23); Carbon Dioxide 28 mmol/L (22-29); Chloride 95 mmol/L (98-107); Creatinine Clr Calc Pharmacy 64.0398; Glucose 196 mg/dL (65-115); Osmolality Calculated 287 mOsm/kg (285-295); Potassium 3.3 mmol/L (3.5-5.1); Sodium 135 mmol/L (136-145)
[2022-01-27 11:41] LABS: Add Urine Microscopic? YES; Bilirubin Urine Neg (Negative); Blood Urine 2+ (Negative); Glucose Urine UA Norm (Normal); Ketones Urine Negative (Negative); Leukocyte Esterase Urine 2+ (Negative); Nitrate Urine Negative (Negative); Protein Urine Neg (Negative); Specific Gravity, Urine 1.005 (1.005-1.030); Squamous Epithelial Cell Urine 0-4 /hpf (0-5); Urine Appearance Cloudy (CLEAR); Urine Color Yellow (Yellow); Urobilinogen Urine Norm (Negative); WBC Urine TOO NUMEROUS TO CNT /hpf (0-5); pH Urine 7 (5-7)
[2022-01-27 11:42] LABS: Add Urine Culture? Yes; Bacteria Urine 1+ /hpf
== END 2022-01-27 12:42 | disposition home or self-care (01) ==
PROVIDERS: Emergency Provider Family Medicine; PCP Family Medicine
DX: N39.0 Urinary tract infection, site not specified (principal); I48.91 Unspecified atrial fibrillation; I10 Essential (primary) hypertension; E11.9 Type 2 diabetes mellitus without complications; E78.5 Hyperlipidemia, unspecified; J45.909 Unspecified asthma, uncomplicated; I25.10 Atherosclerotic heart disease of native coronary artery without angina pectoris; Z79.4 Long term (current) use of insulin
CPT/HCPCS: 36415; 80048; 81001; 85025; 87040; 87077; 87086; 87186; 93005; 99284

== ENCOUNTER → 2022-01-28 07:42 | Outpatient (BNVA) | payer MEDICARE, OTHER, SELFPAY | PROVIDERS: PCP Family Medicine; Visit Provider Orthopaedic Surgery | DX: M48.062 Spinal stenosis, lumbar region with neurogenic claudication (principal); M70.61 Trochanteric bursitis, right hip; Z98.890 Other specified postprocedural states | CPT/HCPCS: 20610; 99213; 99214 ==

== ENCOUNTER → 2022-02-07 08:49 | Outpatient (BNVA) | payer MEDICARE, OTHER, SELFPAY | PROVIDERS: PCP Family Medicine; Visit Provider Urology | DX: N30.20 Other chronic cystitis without hematuria (principal) | CPT/HCPCS: 81003; 99213 ==

== ENCOUNTER → 2022-02-25 09:44 | Outpatient (BNVA) | payer MEDICARE, OTHER, SELFPAY | PROVIDERS: PCP Family Medicine; Visit Provider Physician Assistant | DX: M51.37 Other intervertebral disc degeneration, lumbosacral region (principal); M47.816 Spondylosis without myelopathy or radiculopathy, lumbar region; M70.61 Trochanteric bursitis, right hip; Z47.89 Encounter for other orthopedic aftercare | CPT/HCPCS: 99213; 99214 ==

== ENCOUNTER 2022-02-26 10:38 | Outpatient (CLI) | payer MEDICARE, OTHER, SELFPAY ==
--- NOTE | 2022-02-26 10:50 | MM_ITS ---
WS: [id number] VIEWS: MLO and CC views both breasts. 3D digital tomosynthesis is also included in this exam. Comparison made with prior exam of 12/27/2015, 12/21/2017, 12/29/2018, 02/02/2020, 02/05/2021.. Findings: There was no sign of mass, architectural distortion or suspicious calcification in either breast. Sc attered fibroglandular densities MM/[place] [id number] Impression: BI-RADS: 2-Benign FOLLOW-UP: 1 Year Follow-up This mammogram was also analyzed by the Computer Aided Detection System R2 Imag e [place].
== END 2022-02-26 10:39 | disposition home or self-care (01) ==
LOC: RAD 10:39
PROVIDERS: PCP Family Medicine; Visit Provider Family Medicine
DX: Z12.31 Encounter for screening mammogram for malignant neoplasm of breast (principal)
CPT/HCPCS: 77063; 77067

== ENCOUNTER → 2022-03-06 10:19 | Outpatient (BNVA) | payer MEDICARE, OTHER, SELFPAY | PROVIDERS: PCP Family Medicine; Visit Provider Internal Medicine Cardiovascular Disease | DX: I48.19 Other persistent atrial fibrillation (principal); I11.0 Hypertensive heart disease with heart failure; I50.30 Unspecified diastolic (congestive) heart failure; I25.10 Atherosclerotic heart disease of native coronary artery without angina pectoris | CPT/HCPCS: 99214 ==

== ENCOUNTER → 2022-03-20 10:09 | Outpatient (BNVA) | payer MEDICARE, OTHER, SELFPAY | PROVIDERS: PCP Family Medicine; Visit Provider Anesthesiology Pain Medicine | DX: M48.062 Spinal stenosis, lumbar region with neurogenic claudication (principal); M47.816 Spondylosis without myelopathy or radiculopathy, lumbar region; M51.37 Other intervertebral disc degeneration, lumbosacral region; Z98.890 Other specified postprocedural states; M79.604 Pain in right leg; M79.605 Pain in left leg | CPT/HCPCS: 99205 ==

== ENCOUNTER 2022-04-01 15:27 | Outpatient (CLI) | payer MEDICARE, OTHER, SELFPAY ==
--- NOTE | 2022-04-01 15:45 | USCV_ITS ---
Elizabeth Cantor Age: 82 Gender: F : 1940 Exam Date: 04/01/2022 16:20 Ordering Phys: Vianey Ponce MD ([email or web address]) Technologist: Abhi Day Exam Location: [facility] [place] Indication: Shortness of breath BP: 169 / 61 HR: 81 Rhythm: Sinus Technical Quality: Adequate MEASUREMENTS (Male / Female) Normal Values 2D ECHO LV Diastolic Diameter PLAX 4.2 cm 4.2 - 5.9 / 3.9 - 5.3 cm LV Systolic Diameter PLAX 2.6 cm IVS Diastolic Thickness 1.1 cm 0.6 - 1.0 / 0.6 - 0.9 cm IVS Systolic Thickness 1.1 cm LVPW Diastolic Thickness 1.8 cm 0.6 - 1.0 / 0.6 - 0.9 cm LVPW Systolic Thickness 1.8 cm LVOT Diameter 2.0 cm LV Ejection Fraction 2D Teich 69.9 % LV Ejection Fraction MOD 2C 73.4 % LV Ejection Fraction 2C AL 73.0 % LA Diameter 3.6 cm LA Width 4.0 cm LA Height 5.6 cm RA Width 3.8 cm RA Height 4.3 cm Aorta at Sinotubular Diameter 1.7 cm IVC Diameter 1.8 cm M-MODE Aortic Annulus Diameter 3.0 cm LA Ao Ratio MM 1.3 MV E Point Septal Separation 0.7 cm DOPPLER AV Peak Velocity 154.0 cm/s LVOT Peak Velocity 115.0 cm/s AV Area Cont Eq vti 2.4 cm squared AV Area Cont Eq pk 2.4 cm squared MV Peak Velocity 127.0 cm/s MV Area PHT 4.3 cm squared Mitral E to A Ratio 0.7 MV E' Velocity 42.0 cm/s Mitral E to MV E' Ratio 7.8 Mitral E to LV E' Lateral Ratio 6.2 Mitral E to LV E' Septal Ratio 10.5 TR Peak Velocity 294.9 cm/s TR Peak Gradient 34.8 mmHg TR Mean Velocity 242.7 cm/s TR Mean Gradient 25.1 mmHg TR Velocity Time Integral 86.5 cm Right Atrial Pressure 3.0 mmHg Pulmonary Artery Systolic Pressu 37.8 mmHg PV Peak Velocity 136.0 cm/s RV Acceleration Time 0.1 s RV Ejection Time 0.3 s RV AcT/ET 0.3 FINDINGS Left Ventricle Normal left ventricular size, systolic function and wall thickness, with no regional wall motion abnormalities. Left ventricular ejection fraction is estimated at 65 %. Grade I diastolic dysfunction (abnormal relaxation filling pattern), normal to mildly elevated filling pressures. Right Ventricle Normal right ventricular size and systolic function. RVSP could not be calculated due to incomplete tricuspid regurgitation velocity profile. Right Atrium Normal right atrial size. 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 Left Atrium Mildly to moderately increased left atrial size. Mitral Valve Mild mitral annular calcification. Moderately thickened mitral valve. No mitral valve stenosis. Trace mitral valve regurgitation. Aortic Valve Aortic valve not well visualized. No aortic valve stenosis. No aortic valve regurgitation. Tricuspid Valve Structurally normal tricuspid valve. Trace tricuspid valve regurgitation. Pulmonic Valve Pulmonic valve not well visualized. Trace pulmonary valve regurgitation. Pericardium No pericardial effusion. Aorta Normal size aortic root and proximal ascending aorta. IVC Normal IVC dimension with >50% respiratory change of the inferior vena cava. CONCLUSIONS 1. Normal left ventricular size, systolic function and wall thickness, with no regional wall motion abnormalities. Left ventricular ejection fraction is estimated at 65 %. Grade I diastolic dysfunction (abnormal relaxation filling pattern), normal to mildly elevated filling pressures. 2. 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 3. When compared to study dated 03/29/2018, diastolic function has improved and ASA and PFO are seen now. Vianey Ponce MD (Electronically Signed) Final Date: 06 April 2022 19:58 S
== END 2022-04-01 15:28 | disposition home or self-care (01) ==
LOC: RAD 15:28
PROVIDERS: PCP Family Medicine; Visit Provider Internal Medicine Cardiovascular Disease
DX: R06.02 Shortness of breath (principal); I25.10 Atherosclerotic heart disease of native coronary artery without angina pectoris; I51.89 Other ill-defined heart diseases
CPT/HCPCS: 93306

== ENCOUNTER → 2022-04-11 10:14 | Outpatient (BNVA) | payer MEDICARE, OTHER, SELFPAY | PROVIDERS: PCP Family Medicine; Visit Provider Urology | DX: N30.20 Other chronic cystitis without hematuria (principal) | CPT/HCPCS: 51798; 81003; 99213 ==

== ENCOUNTER → 2022-04-14 14:01 | Outpatient (BNVA) | payer MEDICARE, OTHER, SELFPAY | PROVIDERS: PCP Family Medicine; Visit Provider Anesthesiology Pain Medicine | DX: M47.816 Spondylosis without myelopathy or radiculopathy, lumbar region (principal); M48.062 Spinal stenosis, lumbar region with neurogenic claudication | CPT/HCPCS: 64493; 64494; 64495; J3490 ==

== ENCOUNTER → 2022-05-08 10:11 | Outpatient (BNVA) | payer MEDICARE, OTHER, SELFPAY | PROVIDERS: PCP Family Medicine; Visit Provider Anesthesiology Pain Medicine | DX: M48.062 Spinal stenosis, lumbar region with neurogenic claudication (principal); M47.816 Spondylosis without myelopathy or radiculopathy, lumbar region; M51.37 Other intervertebral disc degeneration, lumbosacral region; M79.605 Pain in left leg; M79.604 Pain in right leg; Z98.890 Other specified postprocedural states | CPT/HCPCS: 99214 ==

== ENCOUNTER → 2022-05-12 13:36 | Outpatient (BNVA) | payer MEDICARE, OTHER, SELFPAY | PROVIDERS: PCP Family Medicine; Visit Provider Anesthesiology Pain Medicine | DX: M47.816 Spondylosis without myelopathy or radiculopathy, lumbar region (principal); M48.062 Spinal stenosis, lumbar region with neurogenic claudication | CPT/HCPCS: 64493; 64494; 64495; J3490 ==

== ENCOUNTER → 2022-05-22 09:08 | Outpatient (BNVA) | payer MEDICARE, OTHER, SELFPAY | PROVIDERS: PCP Family Medicine; Visit Provider Anesthesiology Pain Medicine | DX: M48.062 Spinal stenosis, lumbar region with neurogenic claudication (principal); M47.816 Spondylosis without myelopathy or radiculopathy, lumbar region; M51.37 Other intervertebral disc degeneration, lumbosacral region; Z98.890 Other specified postprocedural states | CPT/HCPCS: 99214 ==

== ENCOUNTER → 2022-06-12 13:24 | Outpatient (BNVA) | payer MEDICARE, OTHER, SELFPAY | PROVIDERS: PCP Family Medicine; Visit Provider Anesthesiology Pain Medicine | DX: M47.816 Spondylosis without myelopathy or radiculopathy, lumbar region (principal); M48.062 Spinal stenosis, lumbar region with neurogenic claudication | CPT/HCPCS: 64635; 64636; J1030 ==

== ENCOUNTER → 2022-07-03 13:40 | Outpatient (BNVA) | payer MEDICARE, OTHER, SELFPAY | PROVIDERS: PCP Family Medicine; Visit Provider Anesthesiology Pain Medicine | DX: M54.16 Radiculopathy, lumbar region (principal); M48.062 Spinal stenosis, lumbar region with neurogenic claudication | CPT/HCPCS: 64635; 64636; J1030 ==

== ENCOUNTER → 2022-07-24 09:52 | Outpatient (BNVA) | payer MEDICARE, OTHER, SELFPAY | PROVIDERS: PCP Family Medicine; Visit Provider Anesthesiology Pain Medicine | DX: M48.062 Spinal stenosis, lumbar region with neurogenic claudication (principal); M47.816 Spondylosis without myelopathy or radiculopathy, lumbar region; M51.37 Other intervertebral disc degeneration, lumbosacral region; Z98.890 Other specified postprocedural states; M79.604 Pain in right leg; M79.605 Pain in left leg | CPT/HCPCS: 99214 ==

== ENCOUNTER → 2022-07-29 09:37 | Outpatient (BNVA) | payer MEDICARE, OTHER, SELFPAY | PROVIDERS: PCP Family Medicine; Visit Provider Urology | DX: N30.20 Other chronic cystitis without hematuria (principal) | CPT/HCPCS: 51798; 81003; 99213 ==

== ENCOUNTER → 2022-08-27 13:04 | Outpatient (BNVA) | payer MEDICARE, OTHER, SELFPAY | PROVIDERS: PCP Family Medicine; Visit Provider Anesthesiology Pain Medicine | DX: M54.16 Radiculopathy, lumbar region (principal); M48.062 Spinal stenosis, lumbar region with neurogenic claudication | CPT/HCPCS: 64483; 64484; J3490 ==

== ENCOUNTER → 2022-09-10 08:59 | Outpatient (BNVA) | payer MEDICARE, OTHER, SELFPAY | PROVIDERS: PCP Family Medicine; Visit Provider Anesthesiology Pain Medicine | DX: M48.062 Spinal stenosis, lumbar region with neurogenic claudication (principal); M47.816 Spondylosis without myelopathy or radiculopathy, lumbar region; M51.37 Other intervertebral disc degeneration, lumbosacral region; Z98.890 Other specified postprocedural states; M16.0 Bilateral primary osteoarthritis of hip | CPT/HCPCS: 99214 ==

== ENCOUNTER → 2022-09-12 10:46 | Outpatient (BNVA) | payer MEDICARE, OTHER, SELFPAY | PROVIDERS: PCP Family Medicine; Visit Provider Nurse Practitioner Family | DX: I25.10 Atherosclerotic heart disease of native coronary artery without angina pectoris (principal); I11.0 Hypertensive heart disease with heart failure; I50.30 Unspecified diastolic (congestive) heart failure | CPT/HCPCS: 99214 ==

== ENCOUNTER 2022-11-01 07:54 | Emergency (ER) | payer MEDICARE, OTHER, SELFPAY ==
[2022-11-01] VITALS (16 sets, daily range): BP systolic 126–167; BP diastolic 68–90; PULSE 60–141; RESP 13–26; TEMP 36.7; O2SAT 93–95
--- NOTE | 2022-11-01 08:01 | XRR_ITS ---
PROCEDURE INFORMATION: Exam: XR Chest Exam date and time: 11/01/2022 8:13 AM Age: 82 years old Clinical indication: Cough and dyspnea; Additional info: Dyspnea/cough TECHNIQUE: Imaging protocol: Radiologic exam of the chest. Views: 1 view. COMPARISON: CR XR chest 1V portable [id number] 07/04/2020 8:59 PM FINDINGS: Lungs: Moderate elevation right hemidiaphragm mildly progressed from previous exams with adjacent subsegmental atelectasis right lung base. 3 cm rounded opacity projecting over the left hilum obscured by upper left heart border more apparent on today's study that may be vascular nature but these further imaging for clarification. Mild subsegmental atelectasis right lung base. Pleural spaces: Unremarkable. No pleural effusion. No pneumothorax. Heart/Mediastinum: Heart is enlarged, unchanged. Bones/joints: Unremarkable for age. XR/XR chest 1V portable [id number] IMPRESSION: 1. 3 cm masslike density projecting over the left hilum possibly vascular nature. Recommend nonemergent CT chest for further assessment. 2. Moderate elevation right hemidiaphragm with right basilar subsegmental atelectasis progressed from previous exam.
--- NOTE | 2022-11-01 08:10 | ECG_ITS ---
[facility] Test Date: 2022-11-01 Pat Name: Elizabeth Cantor Department: Room: Gender: Female Gimp Tacker: : 1940 Requested By: Dameon Silva Order Number: [id number] Shai MD: Bob Dunlap M.D. Measurements Intervals [place] Rate: 135 P: 171 DC: 150 QRS: -45 QRSD: 88 T: 9 QT: 312 QTc: 468 Interpretive Statements Supraventricular tachycardia, possibly atrial fibrillation with a rapid ventricular rate LOW QRS VOLTAGE IN PRECORDIAL LEADS [QRS DEFLECTION < 1.0 mV IN CHEST LEADS] POSSIBLE RIGHT VENTRICULAR CONDUCTION DELAY [RSR (QR) IN V1/V2] LEFT ANTERIOR FASCICULAR BLOCK [QRS AXIS <= -45, QR IN I, RS IN II] POSSIBLE ANTERIOR MYOCARDIAL INFARCTION , PROBABLY OLD [30 ms Q WAVE IN V3/V4, OR R < 0.2 mV IN V4] Compared to ECG 01/27/2022 10:39:56 Left anterior fascicular block now present Myocardial infarct finding now present Sinus rhythm no longer present Ventricular premature complex(es) no longer present Left-axis deviation no longer present Electronically Signed On 11-01-2022 15:58:01 CDT by Bob Dunlap M.D. [id number]
--- NOTE | 2022-11-01 08:21 | W.ED.WEAKNES ---
HPI - Weakness General: Chief complaint: Weakness Stated complaint: high HR at home Time Seen by Provider: 11/01/22 07:56 Source: patient Mode of arrival: ambulatory History of Present Illness: 82-year-old female presents emergency room complaining of palpitations and rapid heart rate. There is a history of diabetes mellitus. Patient has a known history of atrial fibrillation. Mild chest discomfort he has noticed little bit of shortness of breath. MD Complaint: generalized weakness Onset (ago): hour(s) Severity: moderate Severity scale (1-10): 1 Relieving factors: none Exacerbating factors: none Associated symptoms: Denies chest pain, chills, melena, dysuria, fever(s), nausea or vomiting Review of Systems Const: Denies: fever(s), chills, body aches, change in appetite, fatigue or malaise ENMT: Denies: throat pain, ear or mastoid pain, nasal discharge or nasal congestion Card: Denies: chest pain, edema, dyspnea on exertion or orthopnea Resp: Denies: dyspnea, productive cough or non-productive cough GI: Denies: abdominal pain, nausea, vomiting, hematemesis, coffee ground emesis, diarrhea, constipation, bloating, hematochezia or melena : Denies: flank pain, difficulty voiding, dysuria, urinary frequency or urinary urgency Skin/Breast: Denies: rash or pruritus PFSH ED PFSH: Medical History Asthma Atrial fibrillation Well-controlled on amiodarone. Anticoagulation -Eliquis CAD (coronary artery disease) Chest pain Persistent and recurrent chest pressure despite of optimization of medicine may further require exploration with left heart cath. Chronic cystitis DDD (degenerative disc disease) Diabetes mellitus GERD (gastroesophageal reflux disease) History of cystocele Cyctocele/Rectocele repair History of nonmelanoma skin cancer History of poliomyelitis History of rectocele HTN (hypertension) Hyperlipidemia Lower extremity edema Recurrent UTI Surgical History History of eye surgery History of surgery of liver Growth Previous back surgery S/P cholecystectomy S/P hysterectomy 1965 Family History Mother , at age 89 Hypertension Bleeding disorder Father , at age 79 Hypertension Heart disease Brother CAD (coronary artery disease) Heart disease Cancer Lung CA Liver disease Sister Heart disease Diabetes Cancer Renal CA and leukemia Social History Smoking and tobacco status: never smoked Second hand smoke exposure: No Alcohol intake: never Substance/Drug Use: never Lives independently: Yes Marital status: / Current occupational status: retired Physical Exam Const: COMMON NORMALS: no acute distress GENERAL APPEARANCE: cooperative and comfortable ORIENTATION/CONSCIOUSNESS: Yes awake, Yes oriented to person, Yes oriented to place and Yes oriented to time HENMT: COMMON NORMALS: normocephalic, atraumatic and hearing grossly normal bilaterally HEAD & SCALP: normocephalic and atraumatic Resp: COMMON NORMALS: normal respiratory effort, No retractions, No use of accessory muscles and clear to auscultation bilaterally AUSCULTATION: clear to auscultation bilaterally Cardio: COMMON NORMALS: regular rhythm and No murmurs present (Cardio) RATE: tachycardic RHYTHM: regular rhythm GI: COMMON NORMALS: Soft to palpation and No hepatosplenomegaly present AUSCULTATION: Yes normoactive bowel sounds PALPATION: Yes Soft to palpation, No Tenderness to palpation present (GI), No Guarding due to palpation present (GI) and Yes No hepatosplenomegaly present Extremity: COMMON NORMALS: normal to inspection, capillary refill normal, no clubbing, cyanosis or edema, no calf tenderness and no pedal edema Neuro: SENSORIUM/ORIENTATION: Yes oriented to person, Yes oriented to place and Yes oriented to time Skin: COMMON NORMALS: no rashes or lesions noted GENERAL SKIN EXAM: no rashes or lesions noted Course Vital Signs: Vital signs: Vital Signs Temperature 98.0 F 11/01/22 08:03 Pulse Rate 60 11/01/22 13:26 Respiratory Rate 14 11/01/22 13:26 Blood Pressure 167/89 11/01/22 12:30 Pulse Oximetry 93 11/01/22 13:26 MDM - Weakness Medical Decision Making Tachycardia resolved with beta-liseth and maintain with oral. She is feeling much better. EKG shows no acute changes and the cardiac enzymes are negative. We will discharge patient home she is feeling much better we will put her on Toprol-XL 25 daily have her follow-up primary care doctor return if she has worsening or change problems. Medical Records I reviewed the patient's medical records. Lab Data I reviewed the patient's lab results. 11/01/22 08:22 11/01/22 08:22 Radiology Impressions Chest X-Ray 11/01/22 08:01 IMPRESSION: 1. 3 cm masslike density projecting over the left hilum possibly vascular nature. Recommend nonemergent CT chest for further assessment. 2. Moderate elevation right hemidiaphragm with right basilar subsegmental atelectasis progressed from previous exam. Chest CTA 11/01/22 10:21 IMPRESSION: 1. No evidence for pulmonary embolus. 2. 6 mm noncalcified nodule at the right lung base is stable when compared to the prior study.For patients at low risk (minimal or absent history of smoking and of other known risk factors), recommend CT Chest at 6-12 months, then consider CT Chest at 18-24 months. For patients at high risk (history of smoking or of other known risk factors), recommend CT Chest at 6-12 months, then CT Chest at 18-24 months. (Reference: Magdi) REFERENCES: Magdi Mc, et al. Guidelines for Management of Incidental Pulmonary Nodules Detected on CT Images: From the Fleischner Society 2017. Radiology. 2017;284(1):228-243. Laboratory Results WBC 7.1 10^3/uL (4.0-10.0) 11/01/22 08:22 RBC 4.21 10^6/uL (4.1-5.3) 11/01/22 08:22 Hgb 12.9 g/dL (11.5-15.3) 11/01/22 08:22 Hct 39.3 % (37.0-47.0) 11/01/22 08:22 MCV 93.3 fl (81-99) 11/01/22 08:22 MCH 30.6 pg (28.0-34.0) 11/01/22 08:22 MCHC 32.8 g/dL (30.0-36.0) 11/01/22 08:22 RDW 13.3 % (12.1-15.1) 11/01/22 08:22 Plt Count 293 10^3/cmm (130-400) 11/01/22 08:22 MPV 9.1 fL (7.4-10.4) 11/01/22 08:22 Neut % (Auto) 52.4 % 11/01/22 08:22 Lymph % (Auto) 30.7 % 11/01/22 08:22 [place] % (Auto) 13.0 % 11/01/22 08:22 Eos % (Auto) 2.8 % 11/01/22 08:22 Baso % (Auto) 0.8 % 11/01/22 08:22 Neut # (Auto) 3.74 10^3/uL (1.8-7.7) 11/01/22 08:22 Lymph # (Auto) 2.2 10^3/uL (0.8-4.8) 11/01/22 08:22 [place] # (Auto) 0.9 10^3/uL (0.2-0.9) 11/01/22 08:22 Eos # (Auto) 0.2 10^3/uL (0.0-0.8) 11/01/22 08:22 Baso # (Auto) 0.1 10^3/uL (0.0-0.1) 11/01/22 08:22 Nucleated RBC % (auto) 0 % 11/01/22 08:22 Nucleated RBCs # 0.0 /100WBC 11/01/22 08:22 Sodium 132 mmol/L (136-145) L 11/01/22 08:22 Potassium 3.8 mmol/L (3.5-5.1) 11/01/22 08:22 Chloride 94 mmol/L (98-107) L 11/01/22 08:22 Carbon Dioxide 23 mmol/L (22-29) 11/01/22 08:22 Anion Gap 18.8 (5-19) 11/01/22 08:22 BUN 28 mg/dL (8-23) H 11/01/22 08:22 Creatinine 0.9 mg/dL (0.5-0.9) 11/01/22 08:22 GFR Calculation Not Reportable 11/01/22 08:22 Glucose 254 mg/dL (65-115) H 11/01/22 08:22 Calculated Osmolality 288 mOsm/kg (285-295) 11/01/22 08:22 Lactic Acid 2.1 mmol/L (0.5-2.2) 11/01/22 08:22 Lactic Acid (Sepsis) 1.2 mmol/L (0.5-2.2) 11/01/22 10:41 Calcium 9.1 mg/dL (8.5-10.5) 11/01/22 08:22 Troponin T Baseline 26 ng/L (0-10) H 11/01/22 08:22 Troponin T 120 Minute 27.71 ng/L (0-10) H 11/01/22 10:41 Delta Troponin T 1.71 ABS# (0-10) 11/01/22 10:41 NT-Pro-B Natriuret Pep 50 pg/mL (0-450) 11/01/22 08:22 Discharge Plan Discharge Patient Disposition: Home Clinical Impression: Sinus tachycardia, HTN (hypertension) Condition: Stable Prescriptions: New Toprol XL 25 mg tablet extended release 24 hr 25 mg PO DAILY Qty: 30 0RF No Action Lantus Solostar U-100 Insulin 100 unit/mL (3 mL) insulin pen 14 unit SUBCUT QID@08,12,16,20 pantoprazole [Protonix] 40 mg tablet,delayed release (DR/EC) 40 mg PO DAILY furosemide 20 mg tablet 20 mg PO DAILY Qty: 90 3RF amiodarone 200 mg tablet 200 mg PO DAILY Qty: 90 1RF tramadol 50 mg tablet 50 - 100 mg PO Q4H PRN (Reason: Pain) triamcinolone acetonide 0.1 % cream 1 applic TOPICAL BID PRN (Reason: unknown) isosorbide dinitrate 30 mg tablet 30 mg PO BID nystatin 100,000 unit/gram cream 1 applic TOPICAL BID PRN (Reason: unknown) lidocaine 5 % Adhesive Patch,Medicated 1 - 3 patch topical . DIRECTED Rx Instructions: ON FOR 12 HOURS AND OFF FOR 12 HOURS Nitrostat 0.4 mg Tablet, Sublingual 0.4 mg SUBLINGUAL Q5M PRN (Reason: Chest Pain) Rx Instructions: do not exceed 3 doses per episode fluticasone propionate 50 mcg/actuation spray,suspension 2 spray INTRANASAL DAILY Novolog FlexPen U-100 Insulin 100 unit/mL (3 mL) insulin pen See Rx Instructions .ROUTE .COMPLEX Rx Instructions: sliding scale subcutaneously tid mometasone 0.1 % solution See Rx Instructions .ROUTE .COMPLEX Rx Instructions: APPLY TO SCALP TWICE DAILY NEEDED FOR RASH PreserVision AREDS-2 250-90-40-1 mg Capsule 1 tab PO BID Plavix 75 mg tablet 75 mg PO DAILY losartan-hydrochlorothiazide 100-25 mg tablet 1 tab PO DAILY nitrofurantoin monohyd/m-cryst 100 mg capsule 100 mg PO BID Discharge Orders: Discharge ED (Routine); Ordered 11/01/22 Ordered By: Dameon Peacock Referrals: Kaylynn Munoz, [Primary Care Provider] - Discharge Diet: Usual diet Discharge Activity: Resume usual activity Patient Instructions: Opioid Safety, Pain Management Activity Restrictions/Additional Instructions: You are seen today for rapid heart rate with medications given in the emergency room your heart rate slowed down to normal. Recommend he start Toprol-XL daily start tomorrow morning 25 once daily. Recheck with your primary care doctor or chemical engineering technologist within the next week. Coding Level of Care Code ED In Home Caregiver for Michael Nice
--- NOTE | 2022-11-01 08:34 | ECG_ITS ---
[facility] Test Date: 2022-11-01 Pat Name: Elizabeth Cantor Department: Room: Gender: Female Keyliner: : 1940 Requested By: Dameon Silva Order Number: [id number] Shai MD: Bob Dunlap M.D. Measurements Intervals [place] Rate: 136 P: 0 WA: 0 QRS: 267 QRSD: 85 T: 43 QT: 295 QTc: 445 Interpretive Statements SUPRAVENTRICULAR TACHYCARDIA/possible atrial fibrillation with rapid ventricular rate POSSIBLE RIGHT VENTRICULAR HYPERTROPHY [SOME/ALL OF: PROMINENT R IN V1, LATE TRANSITION, RAD, MARY, SSS] Poor R wave progression compared to ECG 11/01/2022 08:10:57 Sinus tachycardia no longer present Left anterior fascicular block no longer present Myocardial infarct finding still present Electronically Signed On 11-01-2022 15:53:31 CDT by Bob Dunlap M.D. [id number]
[2022-11-01] MEDS: metoprolol tartrate 50 mg Tablet PO (08:41)
[2022-11-01] MEDS: metoprolol tartrate 1 mg/1 mL SDV 5 mL 2.5 MG IVP (08:43)
[2022-11-01 08:54] LABS: Basophils # 0.1 10^3/uL (0.0-0.1); Basophils % 0.8 %; Eosinophils # 0.2 10^3/uL (0.0-0.8); Eosinophils % 2.8 %; Hematocrit 39.3 % (37.0-47.0); Hemoglobin 12.9 g/dL (11.5-15.3); Lymphocytes # 2.2 10^3/uL (0.8-4.8); Lymphocytes % 30.7 %; Mean Corpuscular HGB Conc 32.8 g/dL (30.0-36.0); Mean Corpuscular Hemoglobin 30.6 pg (28.0-34.0); Mean Corpuscular Volume 93.3 fl (81-99); Mean Platelet Volume 9.1 fL (7.4-10.4); Monocytes # 0.9 10^3/uL (0.2-0.9); Neutrophils # 3.74 10^3/uL (1.8-7.7); Neutrophils % 52.4 %; Nucleated Red Blood Cells % 0 %; Platelet Count 293 10^3/cmm (130-400); Red Blood Count 4.21 10^6/uL (4.1-5.3); Red Cell Distribution Width 13.3 % (12.1-15.1); White Blood Count 7.1 10^3/uL (4.0-10.0)
[2022-11-01 09:10] LABS: Troponin(5th) Baseline 26 ng/L (0-10)
--- NOTE | 2022-11-01 09:11 | PC.PHAR ---
PT STATES HER GRANDDAUGHTER SETS HER MEDS UP-PTS DAUGHTER HAD THE LIST OF WHAT THE GRANDDAUGHTER SETS UP AND STATES THATS THE MEDICATIONS THE PT TAKES-PT STATES SHE TOOK HER AM MEDS TODAY BUT UNSURE WHAT ONES ARE THE AM MEDS PT STATES SHE HASNT USED HER INSULIN TODAY-
[2022-11-01 09:12] LABS: Blood Urea Nitrogen 28 mg/dL (8-23); Calcium 9.1 mg/dL (8.5-10.5); Carbon Dioxide 23 mmol/L (22-29); Chloride 94 mmol/L (98-107); Glucose 254 mg/dL (65-115); Osmolality Calculated 288 mOsm/kg (285-295); Sodium 132 mmol/L (136-145)
[2022-11-01 09:13] LABS: Lactic Sepsis W/Reflex 2.1 mmol/L (0.5-2.2)
[2022-11-01 09:14] LABS: Anion Gap 18.8 (5-19); Potassium 3.8 mmol/L (3.5-5.1)
[2022-11-01 09:16] LABS: Reflex Lactate Order REFLEX LACTIC ORDERD
[2022-11-01 09:35] LABS: NT Pro B Type Natriuretic Pept 50 pg/mL (0-450)
--- NOTE | 2022-11-01 10:02 | ECG_ITS ---
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 Measurements Intervals [place] Rate: 60 P: 58 ID: [id number] QRS: 12 QRSD: 101 T: 50 QT: 419 QTc: 421 Interpretive Statements SINUS RHYTHM LOW QRS VOLTAGE IN PRECORDIAL LEADS [QRS DEFLECTION < 1.0 mV IN CHEST LEADS] PATTERN CONSISTENT WITH PULMONARY DISEASE Compared to ECG 11/01/2022 08:34:58 Low QRS voltage now present Supraventricular tachycardia no longer present Myocardial infarct finding no longer present Electronically Signed On 11-01-2022 15:58:12 CDT by Bob Dunlap M.D. [id number]
--- NOTE | 2022-11-01 10:21 | CTR_ITS ---
PROCEDURE INFORMATION: Exam: CTA Chest With Contrast Exam date and time: 11/01/2022 11:14 AM Age: 82 years old Clinical indication: Pain; Chest pressure; Additional info: Chest pain dyspnea tachycardia new right pleural effusion TECHNIQUE: Imaging protocol: Computed tomographic angiography of the chest with contrast. Exam focused on the arteries. 3D rendering (Not supervised by radiologist): MIP and/or 3D reconstructed images were created by the technologist. Radiation optimization: All CT scans at this facility use at least one of these dose optimization techniques: automated exposure control; mA and/or kV adjustment per patient size (includes targeted exams where dose is matched to clinical indication); or iterative reconstruction. Contrast material: OMNIPAQUE 350; Contrast volume: 80 ml; Contrast route: INTRAVENOUS (IV); REPORTING DATA: Count of CT and Cardiac NM exams in prior 12 months: This patient has received 0 known CTs and 0 known cardiac nuclear medicine studies in the 12 months prior to the current study. COMPARISON: CT angio chest PE protcl [id number] 01/31/2019 9:23 AM RADIATION DOSE METRICS: Total DLP (mGy-cm): 431.44 FINDINGS: Pulmonary arteries: Normal. No pulmonary emboli. Aorta: Unremarkable. No aortic aneurysm. No aortic dissection. Lungs: 6 mm noncalcified nodule at the right lung base is stable when compared to the prior study.There are pulmonary parenchymal calcifications consistent with remote granulomatous organism exposure.Streaky densities at the lung bases are most consistent with scarring and/or atelectasis. Pleural spaces: Unremarkable. No pneumothorax. No pleural effusion. Heart: Unremarkable. No cardiomegaly. No pericardial effusion. Coronary arteries: Multivessel atherosclerotic disease which involves the coronary arteries. Lymph nodes: There are calcified mediastinal and perihilar lymph nodes consistent with prior granulomatous exposure. Diaphragm: Small hiatal hernia. Liver: Well-circumscribed low-density lesion in the left hepatic lobe is stable when compared to the prior study. Gallbladder and bile ducts: The gallbladder has been removed. Bones/joints: Generalized osteopenia. Degenerative changes are present in the visualized spine. Soft tissues: Unremarkable. CT/CT angio chest PE protcl [id number] IMPRESSION: 1. No evidence for pulmonary embolus. 2. 6 mm noncalcified nodule at the right lung base is stable when compared to the prior study.For patients at low risk (minimal or absent history of smoking and of other known risk factors), recommend CT Chest at 6-12 months, then consider CT Chest at 18-24 months. For patients at high risk (history of smoking or of other known risk factors), recommend CT Chest at 6-12 months, then CT Chest at 18-24 months. (Reference: Magdi) REFERENCES: Magdi Mc, et al. Guidelines for Management of Incidental Pulmonary Nodules Detected on CT Images: From the Fleischner Society 2017. Radiology. 2017;284(1):228-243.
[2022-11-01 11:07] LABS: Troponin 5 2HR 27.71 ng/L (0-10)
[2022-11-01 11:08] LABS: Lactic Acid level (Lactate) 1.2 mmol/L (0.5-2.2)
[2022-11-01 11:14] LABS: Troponin 5 2HR Delta 1.71 ABS# (0-10)
[2022-11-01] MEDS: iohexol 350 mg/mL 500 mL Btl (per mL) IV (11:19)
== END 2022-11-01 13:27 | disposition home or self-care (01) ==
PROVIDERS: Emergency Provider Family Medicine; PCP Family Medicine
DX: R00.0 Tachycardia, unspecified (principal); I10 Essential (primary) hypertension; E11.9 Type 2 diabetes mellitus without complications; I48.91 Unspecified atrial fibrillation; Z79.899 Other long term (current) drug therapy; Z79.01 Long term (current) use of anticoagulants
CPT/HCPCS: 36415; 71045; 71275; 80048; 83605; 83880; 84484; 85025; 87040; 93005; 96374; 99285; J3490; Q9967

== ENCOUNTER → 2022-11-17 12:39 | Outpatient (BNVA) | payer MEDICARE, OTHER, SELFPAY | PROVIDERS: PCP Family Medicine; Visit Provider Internal Medicine Cardiovascular Disease | DX: I48.19 Other persistent atrial fibrillation (principal); I25.10 Atherosclerotic heart disease of native coronary artery without angina pectoris; I11.0 Hypertensive heart disease with heart failure; I50.30 Unspecified diastolic (congestive) heart failure | CPT/HCPCS: 99213 ==

== ENCOUNTER → 2022-12-15 09:21 | Outpatient (BNVA) | payer MEDICARE, OTHER, SELFPAY | PROVIDERS: PCP Family Medicine; Visit Provider Anesthesiology Pain Medicine | DX: M48.062 Spinal stenosis, lumbar region with neurogenic claudication (principal); M47.816 Spondylosis without myelopathy or radiculopathy, lumbar region; M51.37 Other intervertebral disc degeneration, lumbosacral region; Z98.890 Other specified postprocedural states | CPT/HCPCS: 99214 ==

== ENCOUNTER → 2022-12-19 08:48 | Outpatient (BNVA) | payer MEDICARE, OTHER, SELFPAY | PROVIDERS: PCP Family Medicine; Visit Provider Nurse Practitioner Family | DX: I48.19 Other persistent atrial fibrillation (principal); I10 Essential (primary) hypertension; Z79.01 Long term (current) use of anticoagulants | CPT/HCPCS: 99213 ==

== ENCOUNTER 2023-03-25 11:05 | Outpatient (CLI) | payer MEDICARE, OTHER, SELFPAY ==
--- NOTE | 2023-03-25 11:13 | MM_ITS ---
WS: [id number] BILATERAL 3D TOMOSYNTHESIS DIGITAL SCREENING MAMMOGRAPHY WITH CAD CLINICAL INFORMATION: SCREENING HISTORY: Screening mammogram. No current complaints. COMPARISON: None. TECHNIQUE: Bilateral CC and MLO views. FINDINGS: Scattered fibroglandular densities bilaterally. No suspicious focal mass, asymmetry, calcifications, or architectural distortion. No evidence of malignancy. Biopsy clip RIGHT breast. Vascular calcificat ions. IMPRESSION: MM/[place] [id number] BI-RADS: 2-Benign FOLLOW UP: 1 Year Follow-up Recommend return to annual screening mammography.
== END 2023-03-25 11:06 | disposition home or self-care (01) ==
LOC: RAD 11:05
PROVIDERS: PCP Family Medicine; Visit Provider Family Medicine
DX: Z12.31 Encounter for screening mammogram for malignant neoplasm of breast (principal)
CPT/HCPCS: 77063; 77067

== ENCOUNTER → 2023-06-08 11:33 | Outpatient (BNVA) | payer MEDICARE, OTHER, SELFPAY | PROVIDERS: PCP Family Medicine; Visit Provider Internal Medicine Cardiovascular Disease | DX: I11.0 Hypertensive heart disease with heart failure (principal); I50.30 Unspecified diastolic (congestive) heart failure; I48.19 Other persistent atrial fibrillation; I25.10 Atherosclerotic heart disease of native coronary artery without angina pectoris; Z86.12 Personal history of poliomyelitis; E11.9 Type 2 diabetes mellitus without complications; Z79.4 Long term (current) use of insulin | CPT/HCPCS: 99214 ==

== ENCOUNTER → 2023-06-17 09:43 | Outpatient (BNVA) | payer MEDICARE, OTHER, SELFPAY | PROVIDERS: PCP Family Medicine; Visit Provider Anesthesiology Pain Medicine | DX: M54.16 Radiculopathy, lumbar region (principal); M48.062 Spinal stenosis, lumbar region with neurogenic claudication; M47.816 Spondylosis without myelopathy or radiculopathy, lumbar region; M51.37 Other intervertebral disc degeneration, lumbosacral region; Z98.890 Other specified postprocedural states | CPT/HCPCS: 99214 ==

== ENCOUNTER → 2023-07-01 10:38 | Outpatient (BNVA) | payer MEDICARE, OTHER, SELFPAY | PROVIDERS: PCP Family Medicine; Visit Provider Anesthesiology Pain Medicine | DX: M48.062 Spinal stenosis, lumbar region with neurogenic claudication (principal); M47.816 Spondylosis without myelopathy or radiculopathy, lumbar region; M51.37 Other intervertebral disc degeneration, lumbosacral region; Z98.890 Other specified postprocedural states; M43.16 Spondylolisthesis, lumbar region | CPT/HCPCS: 99214 ==

== ENCOUNTER 2023-07-16 10:37 | Outpatient (CLI) | payer MEDICARE, OTHER, SELFPAY ==
--- NOTE | 2023-07-16 11:00 | MR_ITS ---
WS: [id number] MRI LUMBAR SPINE NONCONTRAST TECHNIQUE: Sagittal T1, T2 and STIR imaging. Axial T1 and T2 imaging. CLINICAL INFORMATION: M54.16 - Radiculopathy, lumbar region COMPARISON: MRI 01/02/2022 FINDINGS: Mild lumbar curve. No acute compression. No high-grade central canal stenosis. Slight retrolisthesis L1 on L2 and L2 on L3. T12-L1: Shallow RIGHT paracentral protrusion. Slight narrowing of the RIGHT subarticular recess. Mild facet arthropathy. Spinal canal and foramina are patent. L1-L2: Mild disc bulging with narrowing of the subarticular recess bilaterally. Mild central canal st enosis. Moderate facet arthropathy. Mild RIGHT foraminal narrowing. L2-L3: Disc osteophyte complex with endplate ridging. Slight narrowing of the subarticular recess nory aterally. Mild LEFT foraminal narrowing. RIGHT foramen is patent. Moderate facet arthropathy. L3-L4: Slight retrolisthesis. Mild annular bulging. Mild facet arthropathy. Mild RIGHT and no signifi cant LEFT foraminal narrowing. L4-L5: Mild annular bulging. Slight narrowing of the RIGHT greater than LEFT subarticular recess. Radha or RIGHT hemilaminectomy. Foramen are patent. L5-S1: Disc osteophyte complex with endplate ridging. Slight contact of the S1 nerve roots bilaterall y unchanged compared to previous. Moderate facet arthropathy. Mild bilateral foraminal narrowing. Visualized pelvic bony structures: Normal. Paravertebral soft tissues: Normal. Partially evaluated LEFT renal cysts. IMPRESSION: 1. Overall no significant changes compared to 01/02/2022 2. Prior RIGHT hemilaminectomy at L4-5. Slight narrowing of the RIGHT subarticular recess with encro achment on traversing RIGHT L5 nerve root similar to previous. 3. Mild disc bulging L5-S1 with slight impingement traversing S1 nerve roots bilaterally similar to previous. Mild bilateral foraminal narrowing at this level. 4. Shallow RIGHT subarticular protrusion T12-L1 with narrowing of the RIGHT subarticular recess is u nchanged. 5. Mild central canal stenosis L1-2 with slight retrolisthesis and mild disc bulging is stable chelsea red to previous. 6. Mild RIGHT L1-2 and LEFT L2-3 foraminal narrowing unchanged.
== END 2023-07-16 10:38 | disposition home or self-care (01) ==
LOC: RAD 10:38
PROVIDERS: PCP Family Medicine; Visit Provider Anesthesiology Pain Medicine
DX: M51.17 Intervertebral disc disorders with radiculopathy, lumbosacral region (principal); M48.07 Spinal stenosis, lumbosacral region
CPT/HCPCS: 72148

== ENCOUNTER → 2023-07-21 14:38 | Outpatient (BNVA) | payer MEDICARE, OTHER, SELFPAY | PROVIDERS: PCP Family Medicine; Visit Provider Anesthesiology Pain Medicine | DX: M48.062 Spinal stenosis, lumbar region with neurogenic claudication (principal); M47.816 Spondylosis without myelopathy or radiculopathy, lumbar region; M51.37 Other intervertebral disc degeneration, lumbosacral region; Z98.890 Other specified postprocedural states | CPT/HCPCS: 99215 ==

== ENCOUNTER → 2023-08-04 13:39 | Outpatient (BNVA) | payer MEDICARE, OTHER, SELFPAY | PROVIDERS: PCP Family Medicine; Visit Provider Anesthesiology Pain Medicine | DX: M47.816 Spondylosis without myelopathy or radiculopathy, lumbar region (principal); M48.062 Spinal stenosis, lumbar region with neurogenic claudication | CPT/HCPCS: 64635; 64636 ==

== ENCOUNTER → 2023-08-19 12:48 | Outpatient (BNVA) | payer MEDICARE, OTHER, SELFPAY | PROVIDERS: PCP Family Medicine; Visit Provider Anesthesiology Pain Medicine | DX: M47.816 Spondylosis without myelopathy or radiculopathy, lumbar region (principal); M48.062 Spinal stenosis, lumbar region with neurogenic claudication | CPT/HCPCS: 64635; 64636; J1010 ==

== ENCOUNTER → 2023-09-14 08:53 | Outpatient (BNVA) | payer MEDICARE, OTHER, SELFPAY | PROVIDERS: PCP Family Medicine; Visit Provider Anesthesiology Pain Medicine | DX: M47.816 Spondylosis without myelopathy or radiculopathy, lumbar region (principal); G89.29 Other chronic pain; M48.062 Spinal stenosis, lumbar region with neurogenic claudication; M51.37 Other intervertebral disc degeneration, lumbosacral region; Z98.890 Other specified postprocedural states | CPT/HCPCS: 99214 ==

== ENCOUNTER → 2023-10-08 09:53 | Outpatient (BNVA) | payer MEDICARE, SELFPAY | PROVIDERS: PCP Family Medicine; Visit Provider Anesthesiology Pain Medicine | DX: M54.9 Dorsalgia, unspecified (principal); M47.896 Other spondylosis, lumbar region; M48.062 Spinal stenosis, lumbar region with neurogenic claudication; M47.816 Spondylosis without myelopathy or radiculopathy, lumbar region; M51.37 Other intervertebral disc degeneration, lumbosacral region; Z98.890 Other specified postprocedural states | CPT/HCPCS: 72110; 99214 ==

== ENCOUNTER 2023-10-08 17:41 | Emergency (ER) | payer MEDICARE, OTHER, SELFPAY ==
--- NOTE | 2023-10-08 17:44 | W.ED.BACK ---
HPI - Back Pain/Injury General: Chief Complaint: Back Pain/Injury Stated Complaint: back pain Time Seen by Provider: 10/08/23 17:43 Source: patient Mode of arrival: EMS Limitations: no limitations History of Present Illness: Patient is an 83-year-old female with a longstanding history of chronic back and hip pain currently under the care of of pain management/Dr. Day here for complaints of severe lower back pain. Over the years patient has underwent several therapies including surgeries, physical therapy, nerve ablations, epidural steroid injections, etc for treatment of her back pains. Patient states approximately 2 weeks ago she was bending down to pick something up when she immediately felt something pop in her lower back and has had worsening discomfort since. She was actually evaluated by Dr. Day earlier today and set up with an appointment to see Dr. Mitchell this Thursday. She states she called an ambulance after she returned home from her appointment due to uncontrollable pain. She states she has a walker for ambulation at home but is having difficulty ambulating secondary to her discomfort. She states she takes Tramadol and [place] at home for discomfort. She has not noticed any numbness, tingling, or loss of sensation to the legs. Denies color or temperature changes. MD elicited complaint: back pain Pertinent past history: prior back pain Onset (ago): week(s) Timing: constant Severity: severe Similar Symptoms Previously: Yes Location: lumbar spine Radiation: other (bilateral hips) Exacerbating factors: movement and walking Relieving factors: none Context: bending Associated symptoms: Reports no associated symptoms and difficulty walking (secondary to back pain); Deny abdominal pain, dysuria, fever(s) or hematuria Treatments prior to arrival: prescription analgesics Work related injury: No Review of Systems Const: Denies: fever(s) GI: Denies: abdominal pain : Denies: flank pain, dysuria or hematuria Musc: Reports: back pain and joint pain (bilateral hip pain); Denies: neck pain, extremity pain, extremity swelling or joint swelling Skin/Breast: Denies: rash Neuro: Reports: difficulty walking (secondary to back pain); Denies: headache(s), sensory changes or dizziness PFS ED PFSH: Medical History Chronic cystitis Recurrent UTI History of nonmelanoma skin cancer DDD (degenerative disc disease) Chest pain Persistent and recurrent chest pressure despite of optimization of medicine may further require exploration with left heart cath. GERD (gastroesophageal reflux disease) Asthma History of poliomyelitis History of rectocele History of cystocele Cyctocele/Rectocele repair Lower extremity edema Diabetes mellitus CAD (coronary artery disease) Atrial fibrillation Well-controlled on amiodarone. No anticoagulation- bleeding Hyperlipidemia HTN (hypertension) Surgical History History of eye surgery Previous back surgery History of surgery of liver Growth S/P cholecystectomy S/P hysterectomy 1965 Family History Mother , at age 89 Hypertension Bleeding disorder Father , at age 79 Hypertension Heart disease Brother CAD (coronary artery disease) Heart disease Cancer Lung CA Liver disease Sister Heart disease Diabetes Cancer Renal CA and leukemia Social History Smoking and tobacco/nicotine status: never used tobacco/nicotine Second hand smoke exposure: No Alcohol intake: never Substance/Drug Use: never Lives independently: Yes Marital status: / Current occupational status: retired Physical Exam Const: COMMON NORMALS: no acute distress, patient oriented x3, no limitations, alert and well nourished GENERAL APPEARANCE: cooperative ORIENTATION/CONSCIOUSNESS: Yes awake, Yes oriented to person, Yes oriented to place and Yes oriented to time GI: COMMON NORMALS: Normal to inspection, nondistended, normoactive bowel sounds present, Soft to palpation and non-tender PALPATION: Yes Soft to palpation : COMMON NORMALS: Yes no CVA tenderness BLADDER/KIDNEY EXAM: Yes no CVA tenderness Back/Pelvis: COMMON NORMALS: no CVA tenderness THORACIC SPINE/UPPER BACK: Yes normal to inspection and No thoracic spinal tenderness LUMBAR SPINE/LOWER BACK: Yes ROM limited, Yes pain with ROM and Yes lumbar spinal tenderness SACROILIAC JOINTS: Yes SI joint(s) abnormal SI joint details: tender to palpation SACRUM: no tenderness COCCYX: no tenderness Extremity: COMMON NORMALS: normal to inspection, capillary refill normal, no joint enlargement, no clubbing, cyanosis or edema, no calf tenderness and no pedal edema GENERAL: Yes normal exam except as noted Neuro: COMMON NORMALS: patient oriented x3, moves all extremities, no focal motor deficits and no sensory deficits noted SENSORIUM/ORIENTATION: Yes alert, Yes oriented to person, Yes oriented to place and Yes oriented to time GAIT: Yes Unable to assess gait Skin: COMMON NORMALS: no rashes or lesions noted GENERAL SKIN EXAM: no rashes or lesions noted Course Vital Signs: Vital signs: Vital Signs Temperature 98.2 F 10/08/23 17:45 Pulse Rate 59 L 10/08/23 19:50 Respiratory Rate 16 10/08/23 19:50 Blood Pressure 150/66 10/08/23 19:50 Pulse Oximetry 96 10/08/23 19:50 Oxygen Delivery Me thod Room Air 10/08/23 19:50 MDM - Back Pain/Injury Medical Decision Making Patient here with acute on chronic lower back and bilateral hip pain. She has no acute neurologic deficits. 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 She takes hydrocodone and tramadol at home. She got significant relief here with IV medications and was able to ambulate easily with the help of a walker. Will add steroids and muscle relaxers to her medication regimen. She states she has follow-up with Dr. Mitchell next week. Medical Records I reviewed the patient's medical records. No radiology studies performed this visit Discharge Plan Discharge Patient Disposition: Home Clinical Impression: Acute exacerbation of chronic low back pain Condition: Stable Prescriptions: New methocarbamol 500 mg tablet 1,000 mg PO Q8H Qty: 30 0RF Medrol (Ten) 4 mg tablets,dose pack See Rx Instructions .ROUTE .COMPLEX Qty: 21 0RF Rx Instructions: orally per package directions No Action Lantus Solostar U-100 Insulin 100 unit/mL (3 mL) insulin pen 14 unit SUBCUT QID@08,12,16,20 pantoprazole [Protonix] 40 mg tablet,delayed release (DR/EC) 40 mg PO DAILY furosemide 20 mg tablet 20 mg PO DAILY Qty: 90 3RF Trulicity 1.5 mg/0.5 mL pen injector SUBCUT amiodarone 200 mg tablet 200 mg PO DAILY Qty: 90 3RF metoprolol succinate 25 mg tablet extended release 24 hr 12.5 mg PO DAILY Qty: 90 0RF tramadol 50 mg tablet 50 - 100 mg PO Q4H PRN (Reason: Pain) nystatin 100,000 unit/gram cream 1 applic TOPICAL BID PRN (Reason: unknown) lidocaine 5 % Adhesive Patch,Medicated 1 - 3 patch topical . DIRECTED Rx Instructions: ON FOR 12 HOURS AND OFF FOR 12 HOURS Nitrostat 0.4 mg Tablet, Sublingual 0.4 mg SUBLINGUAL Q5M PRN (Reason: Chest Pain) Rx Instructions: do not exceed 3 doses per episode fluticasone propionate 50 mcg/actuation spray,suspension 2 spray INTRANASAL DAILY Novolog FlexPen U-100 Insulin 100 unit/mL (3 mL) insulin pen See Rx Instructions .ROUTE .COMPLEX Rx Instructions: sliding scale subcutaneously tid mometasone 0.1 % solution See Rx Instructions .ROUTE .COMPLEX Rx Instructions: APPLY TO SCALP TWICE DAILY NEEDED FOR RASH PreserVision AREDS-2 250-90-40-1 mg Capsule 1 tab PO BID losartan-hydrochlorothiazide 100-25 mg tablet 1 tab PO DAILY Discharge Orders: Discharge ED (Routine); Ordered 10/08/23 Ordered By: Barb Frederick Referrals: Kaylynn Munoz DO [Primary Care Provider] - Patient Instructions: Opioid Safety, Pain Management Activity Restrictions/Additional Instructions: As we discussed you may continue your opiate pain medications that you have at home. Will add steroids and muscle relaxers and attempts to help. Please follow-up with Dr. Mitchell next week at your currently scheduled appointment. Coding Level of Care Code ED Assistant Program Director for Michael Nice
[2023-10-08 17:45] VITALS: BP 144/76; PULSE 71; TEMP 36.8; O2SAT 94; BMI 31.3
[2023-10-08 17:50] VITALS: BP 163/67; PULSE 62; RESP 16; O2SAT 91
[2023-10-08] MEDS: ketorolac 30 mg/mL INJ 15 MG IVP (18:25)
[2023-10-08] MEDS: orphenadrine 30 mg/mL Inj 2 mL 60 MG IVP (18:28)
[2023-10-08] MEDS: dexamethasone 4 mg/mL INJ 8 MG IVP (18:31)
[2023-10-08] MEDS: HYDROmorphone 1 mg/mL INJ 1 mL IVP (18:36)
[2023-10-08 19:50] VITALS: BP 150/66; PULSE 59; RESP 16; O2SAT 96
[2023-10-08 20:30] VITALS: BP 137/67; PULSE 64; RESP 16; TEMP 36.8; O2SAT 96
== END 2023-10-08 20:26 | disposition home or self-care (01) ==
PROVIDERS: Emergency Provider Physician Assistant; PCP Family Medicine
DX: G89.29 Other chronic pain (principal); M54.50 Low back pain, unspecified; M25.552 Pain in left hip; M25.551 Pain in right hip; I10 Essential (primary) hypertension; E11.9 Type 2 diabetes mellitus without complications; I25.10 Atherosclerotic heart disease of native coronary artery without angina pectoris; E78.5 Hyperlipidemia, unspecified; Z79.85 Long-term (current) use of injectable non-insulin antidiabetic drugs; Z79.4 Long term (current) use of insulin
CPT/HCPCS: 96374; 96375; 99284; J1100; J1170; J1885; J2360

== ENCOUNTER 2023-10-10 04:05 | Inpatient (IN) | payer MEDICARE, OTHER, SELFPAY ==
[2023-10-10] VITALS (15 sets, daily range): BP systolic 124–159; BP diastolic 60–86; PULSE 63–75; RESP 14–22; TEMP 36.5–36.9; O2SAT 93–95; BMI 32.3
--- NOTE | 2023-10-10 04:13 | XRR_ITS ---
PROCEDURE INFORMATION: Exam: XR Lumbosacral Spine Exam date and time: 10/10/2023 4:17 AM Age: 83 years old Clinical indication: Prior surgery; Surgery date: 6+ months; Surgery type: Lumbar laminectomy; Patient HX: C/O worsening chronic low back pain. No recent injury. TECHNIQUE: Imaging protocol: Radiologic exam of the lumbosacral spine. Views: 2 or 3 views. COMPARISON: CR XR lumbar spine min 4V [id number] 10/08/2023 10:09 AM FINDINGS: Bones/joints: Severe degenerative change of the visualized osseous structures. No definitive fracture. Diffuse osteopenia. Soft tissues: Unremarkable. Vasculature: Severe calcified atherosclerotic disease extending into the peripheral arterial vasculature. XR/XR lumbar spine 2-3V* [id number] IMPRESSION: 1. No acute osseous abnormality, however in the setting of osteopenia, fractures may be difficult to visualized. If there is point tenderness. Recommend cross-sectional imaging for definitive assessment. 2. Additional findings as above.
--- NOTE | 2023-10-10 04:14 | ED_ITS ---
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 she has had multiple surgeries in the past she sees pain management states she has had some increasing pain states tonight she does have a hard time walking due to her low back pain she is on pain medicine she denies any injuries denies any bowel or bladder incontinence denies any saddle anesthesia she has bilateral hip pain that is chronic as well Associated symptoms: Deny abdominal pain, chills, dysuria, fever(s), nausea or vomiting Review of Systems 2 Const: Denies: fever(s), chills, body aches or change in appetite ENMT: Denies: throat pain or dental pain Card: Denies: chest pain Resp: Denies: dyspnea GI: Denies: abdominal pain, nausea, vomiting or diarrhea : Denies: dysuria Musc: Reports: back pain; Denies: neck pain Skin/Breast: Denies: rash Neuro: Denies: headache(s) PFSH ED 2 PFSH: Medical History Chronic cystitis Recurrent UTI History of nonmelanoma skin cancer DDD (degenerative disc disease) Chest pain Persistent and recurrent chest pressure despite of optimization of medicine may further require exploration with left heart cath. GERD (gastroesophageal reflux disease) Asthma History of poliomyelitis History of rectocele History of cystocele Cyctocele/Rectocele repair Lower extremity edema Diabetes mellitus CAD (coronary artery disease) Atrial fibrillation Well-controlled on amiodarone. No anticoagulation- bleeding Hyperlipidemia HTN (hypertension) Surgical History History of eye surgery Previous back surgery History of surgery of liver Growth S/P cholecystectomy S/P hysterectomy 1965 Family History Mother , at age 89 Hypertension Bleeding disorder Father , at age 79 Hypertension Heart disease Brother CAD (coronary artery disease) Heart disease Cancer Lung CA Liver disease Sister Heart disease Diabetes Cancer Renal CA and leukemia Social History (Reviewed 10/08/23 @ 18:42 by PAMELA Mariano Smoking and tobacco/nicotine status: never used tobacco/nicotine Second hand smoke exposure: No Alcohol intake: never Substance/Drug Use: never Lives independently: Yes Marital status: / Current occupational status: retired Physical Exam 2 Const: COMMON NORMALS: no acute distress, patient oriented x3 and healthy appearing HENMT: COMMON NORMALS: normocephalic and atraumatic HEAD & SCALP: n ormocephalic and atraumatic Neck/C-Spine: COMMON NORMALS: full ROM and supple Chest: COMMONS NORMALS: normal inspection of the chest Resp: COMMON NORMALS: normal respiratory effort, No retractions, No use of accessory muscles and clear to auscultation bilaterally AUSCULTATION: clear to auscultation bilaterally Cardio: COMMON NORMALS: regular rate, regular rhythm and No murmurs present (Cardio) RATE: regular rate RHYTHM: regular rhythm Back/Pelvis: OTHER: Tenderness over low back no saddle anesthesia Extremity: COMMON NORMALS: normal to inspection and full ROM Neuro: COMMON NORMALS: patient oriented x3, moves all extremities and no focal motor deficits Psych: COMMON NORMALS: mental status grossly normal, Normal thought process present and cooperative THOUGHT PROCESS: Normal thought process present Skin: COMMON NORMALS: no rashes or lesions noted and no wounds GENERAL SKIN EXAM: no rashes or lesions noted Course 2 Vital Signs: Vital signs: Vital Signs Temperature 98 F 10/10/23 04:07 Pulse Rate 65 10/10/23 04:07 Respiratory Rate 15 10/10/23 04:30 Blood Pressure 159/70 10/10/23 04:07 Pulse Oximetry 93 10/10/23 04:30 MDM - Back Pain/Injury Medical Decision Making Patient presents with back pain she has chronic back pain she was seen here 2 days ago she rates her pain is even worsening she has not been able to ambulate due to her pain up given her Dilaudid Toradol and Decadron she is not able to ambulate here. I have spoke to Dr. Garcia who is done surgery on the past and is scheduled to see her next week after discussing case with him planned admit to hospitalist for observation at this time he is consulted as well for her severe back pain. She has no saddle anesthesia and no signs of acute cord compression Medical Records I reviewed the patient's medical records. Labs I reviewed the patient's lab results. 10/10/23 05:22 10/10/23 05:22 Radiology Impressions Lumbar Spine X-Ray 10/10/23 04:13 IMPRESSION: 1. No acute osseous abnormality, however in the setting of osteopenia, fractures may be difficult to visualized. If there is point tenderness. Recommend cross-sectional imaging for definitive assessment. 2. Additional findings as above. All radiology interpretation(s) finalized by discharge Discharge Plan Discharge Patient Disposition: Admitted As Inpatient Admit Provider: Matias Thurman Clinical Impression: Low back pain, Weakness Condition: Stable Coding Level of Care Code ED Brine Mixer Operator for [facility] Nice
[2023-10-10] MEDS: dexamethasone 10 mg/mL INJ IVP ×3 (04:30→19:17)
[2023-10-10] MEDS: HYDROmorphone 1 mg/mL INJ 1 mL IVP (04:30)
[2023-10-10] MEDS: ketorolac 30 mg/mL INJ 15 MG IVP ×2 (05:14→20:29)
--- NOTE | 2023-10-10 05:16 | P.HP_ITS ---
Providers/Chief Complaint Primary Care Provider: Kaylynn Munoz DO Chief Complaint: BACK PAIN History of Present Illness Elizabeth Cantor is a 83 year old female with a past medical history significant for chronic low back pain with lumbar stenosis with neurogenic claudication, hypertension, atrial fibrillation, coronary artery disease, heart failure with preserved ejection fraction and multiple other comorbidities who presents to the emergency department with worsening low back pain and debility. Patient reports that she tried to get out of her lift chair and could not feel her lower extremities. Because of this, she cannot stand or function at home. She describes the location of her pain is in her low back. Reports radiation down her left leg. She reports often times it also radiates down her right leg but not presently. She currently rates her pain 10 out of 10. She states it was worse than this previously. She reports she lives home alone. Family is bedside and supportive. They states she has been using a walker prior to this evening, she was able to ambulate about 2 inches at a time. She was dragging her feet at that time. She denies loss of bladder or bowel incontinence. In the emergency department, orthopedic spine was contacted and recommended patient be admitted for further imaging and surgical evaluation. Review of Systems Narrative: A complete review of systems was obtained and is negative except as stated in HPI. Medications/Allergies Home Medications Medication Instructions Recorded Confirmed Last Taken Type insulin glargine 100 unit/mL (3 14 unit SUBCUT QID@08,12,16,20 07/04/19 10/08/23 10/31/22 History mL) subcutaneous pen (Lantus Solostar U-100 Insulin) pantoprazole 40 mg tablet,delayed 40 mg PO DAILY 07/04/19 10/08/23 03/31/21 History release (Protonix) furosemide 20 mg tablet 20 mg PO DAILY #90 tabs 09/12/22 10/08/23 Unknown Rx fluticasone propionate 50 2 spray intranasal DAILY 11/01/22 10/08/23 Unknown History mcg/actuation nasal spray,suspension insulin aspart U-100 100 unit/mL See Rx Instructions .Route .COMPLEX 11/01/22 10/08/23 Unknown History (3 mL) subcutaneous pen (Novolog FlexPen U-100 Insulin aspart) lidocaine 5 % topical patch 1 - 3 patch topical . DIRECTED 11/01/22 10/08/23 Unknown History losartan 100 1 tab PO DAILY 11/01/22 10/08/23 Unknown History mg-hydrochlorothiazide 25 mg tablet mometasone 0.1 % topical solution See Rx Instructions .Route .COMPLEX 11/01/22 10/08/23 Unknown History nitroglycerin 0.4 mg sublingual 0.4 mg sublingual Q5M PRN Chest 11/01/22 10/08/23 Unknown History tablet (Nitrostat) Pain nystatin 100,000 unit/gram topical 1 applic topical BID PRN unknown 11/01/22 10/08/23 Unknown History cream tramadol 50 mg tablet 50 - 100 mg PO Q4H PRN Pain 11/01/22 10/08/23 Unknown History vit C 250 mg-vit E 90 mg-zinc 40 1 tab PO BID 11/01/22 10/08/23 Unknown History mg-copper 1 mg-syyrxe-ghcxsn capsule (PreserVision AREDS-2) amiodarone 200 mg tablet 200 mg PO DAILY #90 tabs 04/23/23 10/08/23 Unknown Rx dulaglutide 1.5 mg/0.5 mL mg SUBCUT 06/08/23 10/08/23 Unknown History subcutaneous pen injector (Trulicity) metoprolol succinate 25 mg 12.5 mg (1/2 x 25 mg) PO DAILY #90 06/10/23 10/08/23 Unknown Rx tablet,extended release 24 hr tabs methocarbamol 500 mg tablet 1,000 mg (2 x 500 mg) PO Q8H #30 10/08/23 Unknown Rx tabs methylprednisolone 4 mg tablets in See Rx Instructions PO .COMPLEX 10/08/23 Unknown Rx a dose pack (Medrol (Ten)) #21 ea Allergies Allergy/AdvReac Type Severity Reaction Status Date / Time adhesive tape Allergy Unknown Unknown Verified 10/08/23 17:51 aspirin Allergy Unknown Unknown Verified 10/08/23 17:51 celecoxib [From Celebrex] Allergy Unknown Unknown Verified 10/08/23 17:51 codeine Allergy Unknown Unknown Verified 10/08/23 17:51 egg Allergy Unknown Unknown Verified 10/08/23 17:51 erythromycin base Allergy Unknown Unknown Verified 10/08/23 17:51 exenatide [From Bydureon] Allergy Unknown Unknown Verified 10/08/23 17:51 ezetimibe [From Zetia] Allergy Unknown Unknown Verified 10/08/23 17:51 latex Allergy Unknown Unknown Verified 10/08/23 17:51 metformin Allergy Unknown Unknown Verified 10/08/23 17:51 Penicillins Allergy Unknown Unknown Verified 10/08/23 17:51 sitagliptin [From Janumet] Allergy Unknown Unknown Verified 10/08/23 17:51 Sulfa (Sulfonamide Allergy Unknown Unknown Verified 10/08/23 17:51 Antibiotics) topiramate [From Topamax] Allergy Unknown Unknown Verified 10/08/23 17:51 trazodone Allergy Unknown Unknown Verified 10/08/23 17:51 warfarin [From Coumadin] Allergy Unknown Unknown Verified 10/08/23 17:51 desonide Allergy blisters Verified 10/08/23 17:51 PFSH Acute PFSH: Medical History (Updated 10/10/23 @ 05:36 by Matias Thurman MD) Weakness Encounter for postoperative care Encounter for postoperative care Chronic cystitis Recurrent UTI History of nonmelanoma skin cancer DDD (degenerative disc disease) Chest pain Persistent and recurrent chest pressure despite of optimization of medicine may further require exploration with left heart cath. GERD (gastroesophageal reflux disease) Asthma History of poliomyelitis History of rectocele History of cystocele Cyctocele/Rectocele repair Lower extremity edema Diabetes mellitus CAD (coronary artery disease) Atrial fibrillation Well-controlled on amiodarone. No anticoagulation- bleeding Hyperlipidemia HTN (hypertension) Surgical History History of eye surgery Previous back surgery History of surgery of liver Growth S/P cholecystectomy S/P hysterectomy 1965 Family History Mother , at age 89 Hypertension Bleeding disorder Father , at age 79 Hypertension Heart disease Brother CAD (coronary artery disease) Heart disease Cancer Lung CA Liver disease Sister Heart disease Diabetes Cancer Renal CA and leukemia Social History Smoking and tobacco/nicotine status: never used tobacco/nicotine Second hand smoke exposure: No Alcohol intake: never Substance/Drug Use: never Lives independently: Yes Marital status: / Current occupational status: retired Vitals/I&O/Wt Last Vital Signs Temp 98 F 10/10/23 04:07 Pulse 65 10/10/23 04:07 Resp 15 10/10/23 04:30 BP 159/70 10/10/23 04:07 Pulse Ox 93 10/10/23 04:30 Weight last 48 hrs Weight 90.718 kg Physical Exam Narrative: General: Patient is awake and alert. Lying on stretcher. Head: Normocephalic. Atraumatic. EOM intact. Neck: No JVD. Cardiovascular: RRR. No gallops. No murmurs. Lungs: Clear to auscultation, no use of accessory muscles, no crackles or wheezes. Skin: No jaundice. No rashes. Abdomen: Normal bowel sounds, abdomen soft and nontender. Genito Urinary: Genital exam not performed since complaints not related. Rectal: Rectal exam not performed since no symptoms indicated blood loss. Extremities: No cyanosis or clubbing. Musculoskeletal: No swollen or erythematous joints. Neurological: Moves all 4 extremities. No myoclonus. A&P Assessment and plan (1) Lumbar stenosis with neurogenic claudication: Acute on chronic low back pain History of lumbar stenosis with neurogenic claudication Patient now endorses an loss of sensation bilateral lower extremities Denies loss of bowel/bladder incontinence Adjust analgesics as needed Continue home Toradol for mild pain Percocet for moderate pain Toradol for severe pain Start bowel regiment Orthopedic spine has been consulted, appreciate recommendations She will need MRI imaging, will defer to orthopedics for level of imaging, anticipating lumbar spine (2) HTN (hypertension): Continue losartan/HCTZ Qualifiers: Hypertension type: essential hypertension Qualified Code(s): I10 - Essential (primary) hypertension (3) Diastolic CHF with preserved left ventricular function, NYHA class 2: Strict I's and O's Daily weights Daily assessment of volume Continue oral Lasix (4) CAD (coronary artery disease): Continue beta-liseth Qualifiers: Coronary Disease-Associated Artery/Lesion type: [place] artery [place] vs. transplanted heart: [place] heart Associated angina: without angina Qualified Code(s): I25.10 - Atherosclerotic heart disease of [place] coronary artery without angina pectoris (5) Atrial fibrillation: Unspecified type Continue amiodarone Continue metoprolol Qualifiers: Atrial fibrillation type: persistent (not longstanding) Qualified Code(s): I48.19 - Other persistent atrial fibrillation (6) Type 2 diabetes mellitus: Lantus at bedtime Sliding-scale insulin correction Avoid hypoglycemia Plan DVT prophylaxis: Heparin Attestations Medical Necessity Statement*: Patient presents with intractable back pain and inability to care for self with expected hospitalization not to cross 2 midnights for further imaging and orthopedic evaluation. Coding Level of Care Code Acute Code for Chg Fwd Diagnoses Lumbar stenosis with neurogenic claudication M48.062 Essential hypertension I10 Hypertension type: essential hypertension Diastolic CHF with preserved left ventricular function, NYHA class 2 I50.30 Coronary artery disease involving [place] coronary artery of [place] heart without angina pectoris I25.10 Coronary Disease-Associated Artery/Lesion type: [place] artery [place] vs. transplanted heart: [place] heart Associated angina: without angina Persistent atrial fibrillation I48.19 Atrial fibrillation type: persistent (not longstanding) Type 2 diabetes mellitus E11.9
[2023-10-10 05:27] LABS: Basophils % 0.3 %; Eosinophils % 0.2 %; Hematocrit 35.8 % (36-47); Lymphocytes # 1.5 10^3/uL (0.8-4.8); Lymphocytes % 14.1 %; Mean Corpuscular HGB Conc 32.7 g/dL (30-55); Mean Corpuscular Hemoglobin 31.5 pg (27-33); Mean Corpuscular Volume 96.5 fl (85-98); Mean Platelet Volume 8.9 fL (7.4-10.4); Monocytes # 1.1 10^3/uL (0.2-0.9); Monocytes % 10.5 %; Neutrophils # 7.89 10^3/uL (1.8-7.7); Neutrophils % 74.3 %; Nucleated Red Blood Cells % 0 %; Platelet Count 316 10^3/cmm (157-399); Red Blood Count 3.71 10^6/uL (3.85-5.65); Red Cell Distribution Width 13.4 % (12.1-15.1)
[2023-10-10 05:43] LABS: Alanine Aminotransferase 22 U/L (0-33); Albumin Level 3.1 g/dL (3.5-5.2); Alkaline Phosphatase 122 U/L (35-105); Anion Gap 14.3 (5-19); Aspartate Amino Transferase 22 U/L (0-32); Blood Urea Nitrogen 27 mg/dL (8-23); Calcium 8.8 mg/dL (8.5-10.5); Carbon Dioxide 26 mmol/L (22-29); Chloride 93 mmol/L (98-107); Creatinine Clr Calc Pharmacy 55.6194; Globulin 3.2 g/dL (1.3-4.6); Glucose 145 mg/dL (65-115); Osmolality Calculated 278 mOsm/kg (285-295); Potassium 3.3 mmol/L (3.5-5.1); Sodium 130 mmol/L (136-145); Total Bilirubin 0.7 mg/dL (0.15-1.2); Total Protein 6.3 g/dL (6.6-8.7)
--- NOTE | 2023-10-10 05:43 | MRR_ITS ---
PROCEDURE INFORMATION: Exam: MR Lumbar Spine Without Contrast Exam date and time: 10/10/2023 8:53 AM Age: 83 years old Clinical indication: Numbness; Prior surgery; Surgery date: 6+ months; Surgery type: 2x 1986 and 2020 decompression; Additional info: Sensation loss TECHNIQUE: Imaging protocol: Magnetic resonance imaging of the lumbar spine without contrast. COMPARISON: MR lumbar spine wo con* [id number] 07/16/2023 11:06 AM FINDINGS: Bones/joints: The lumbar spine maintains a normal lordotic curvature. Grade 1 retrolisthesis of L1 on L2, and L2 on L3 similar to prior exam. The vertebral body heights are maintained. Loss of intervertebral disc height at L1-L2, L2-L3 and L5-S1 with endplate degenerative changes, similar to prior exam, now with minimal fluid in each disc space. Spinal cord: The conus terminates at L1. L1-L2: The spinal canal measures 10 mm on the midline sagittal plane. Mild facet arthropathy. Broad-based posterior disc bulge/osteophyte complex with spinal canal narrowing most predominant in the right subarticular zone, similar to prior exam. Mild bilateral neural foraminal narrowing similar to prior exam. L2-L3: The spinal canal measures 10 mm on the midline sagittal plane. Mild facet arthropathy. Broad-based posterior disc bulge/osteophyte complex again noted. No spinal canal stenosis. Moderate left-sided neural foraminal narrowing, similar to prior exam. L3-L4: The spinal canal measures 15 mm on the midline sagittal plane. Mild facet arthropathy. No spinal canal stenosis. Mild right-sided neural foraminal narrowing similar to prior exam. L4-L5: The spinal canal measures 11 mm on the midline sagittal plane. Right hemilaminectomy. Mild facet arthropathy. Mildly prominent right-sided ligamentum flavum hypertrophy. No spinal canal stenosis. [id number] right-sided neural foraminal narrowing similar to prior exam. L5-S1: The spinal canal measures 12 mm on the midline sagittal plane. Mild facet arthropathy. No spinal canal stenosis. Moderate right-sided neural foraminal narrowing similar to prior exam. Soft tissues: The paravertebral soft tissues are unremarkable. MR/MR lumbar spine wo con* [id number] IMPRESSION: 1. No significant change from prior exam. 2. Multilevel degenerative changes in the lumbar spine. 3. No significant spinal canal stenosis. 4. Multilevel neural foraminal narrowing similar to prior exam.
[2023-10-10] MEDS: TRAMadol 50 mg Tablet PO ×3 (08:15→23:17)
[2023-10-10] MEDS: heparin 5,000 unit/mL INJ 1 mL 5000 UNIT SUBCUT ×2 (08:17→17:08)
[2023-10-10] MEDS: methocarbamol 500 mg Tablet 1000 MG PO ×3 (08:17→22:21)
[2023-10-10] MEDS: insulin lispro 100 unit/1 mL SUBCUT ×4 (08:24→20:28)
[2023-10-10 08:30] LABS: Glucose Point of Care 194 mg/dL (70-110)
--- NOTE | 2023-10-10 08:44 | PC.NURSE ---
report called to Pari @[id number], no further questions at time of report.
--- NOTE | 2023-10-10 08:59 | PC.NURSE ---
pt ate approx 50% of breakfast.
--- NOTE | 2023-10-10 09:34 | PM.MISC ---
Miscellaneous Note Purpose of Documentation: brief note Note: seen this am returned from mri report pending
[2023-10-10] MEDS: hydroCHLOROthiazide 25 mg Tablet PO (10:12)
[2023-10-10] MEDS: losartan 50 mg Tablet 100 MG PO (10:12)
[2023-10-10] MEDS: FUROsemide 20 mg Tablet PO (10:12)
[2023-10-10] MEDS: pantoprazole DR 40 mg Tablet PO (10:12)
[2023-10-10] MEDS: amiodarone 200 mg Tablet PO (10:13)
[2023-10-10] MEDS: metoprolol succinate ER (24 HR) 25 mg Tablet 12.5 MG PO (10:13)
[2023-10-10] MEDS: sennosides 8.6 mg Tablet 17.1999999999999993 MG PO ×2 (10:13→17:09)
[2023-10-10 11:22] LABS: Glucose Point of Care 243 mg/dL (70-110)
--- NOTE | 2023-10-10 12:21 | P.CONIM_ITS ---
Providers/Reason For Consult 2 Consulting Physician/Specialty*: Hospitalist Reason for Consult*: Back pain and leg weakness Attending Physician: Matias Thurman MD Primary Care Provider: Kaylynn Munoz DO History of Present Illness History of Present Illness Elizabeth Cantor is a 83 year old female had previous surgery with me 2 years ago. Has been using a walker for the past 3 months. Patient feels that her legs have been weaker. Last night she woke up and felt like she could not move her legs and could not support her weight. She was brought to the ER here. She had an MRI this morning which shows stenosis and previous laminectomy defects. At this point she feels like her legs are getting little stronger. Review of Systems 2 Const: Denies: fever(s), chills, body aches or change in appetite ENMT: Denies: throat pain or dental pain Card: Denies: chest pain Resp: Denies: dyspnea GI: Denies: abdominal pain, nausea, vomiting or diarrhea : Denies: dysuria Musc: Reports: back pain; Denies: neck pain Skin/Breast: Denies: rash Neuro: Denies: headache(s) Medications/Allergies Home Medications Medication Instructions Recorded Confirmed Last Taken Type insulin glargine 100 unit/mL (3 14 unit SUBCUT QID@08,12,16,20 07/04/19 10/10/23 10/09/23 History mL) subcutaneous pen (Lantus Solostar U-100 Insulin) pantoprazole 40 mg tablet,delayed 40 mg PO DAILY 07/04/19 10/10/23 10/10/23 History release (Protonix) furosemide 20 mg tablet 20 mg PO DAILY #90 tabs 09/12/22 10/10/23 10/10/23 10:27 Rx fluticasone propionate 50 2 spray intranasal DAILY 11/01/22 10/10/23 10/09/23 History mcg/actuation nasal spray,suspension insulin aspart U-100 100 unit/mL See Rx Instructions .Route .COMPLEX 11/01/22 10/10/23 10/10/23 History (3 mL) subcutaneous pen (Novolog FlexPen U-100 Insulin aspart) lidocaine 5 % topical patch 1 - 3 patch topical . DIRECTED 11/01/22 10/10/23 Unknown History losartan 100 1 tab PO DAILY 07/05/2610/10/23 10/10/23 History mg-hydrochlorothiazide 25 mg tablet mometasone 0.1 % topical solution See Rx Instructions .Route .COMPLEX 11/01/22 10/10/23 Unknown History nitroglycerin 0.4 mg sublingual 0.4 mg sublingual Q5M PRN Chest 11/01/22 10/10/23 Unknown History tablet (Nitrostat) Pain nystatin 100,000 unit/gram topical 1 applic topical BID PRN unknown 11/01/22 10/10/23 Unknown History cream tramadol 50 mg tablet 50 - 100 mg PO Q4H PRN Pain 11/01/22 10/10/23 10/10/23 History vit C 250 mg-vit E 90 mg-zinc 40 1 tab PO BID 11/01/22 10/10/23 10/09/23 History mg-copper 1 he-rovlgo-vfystw capsule (PreserVision AREDS-2) amiodarone 200 mg tablet 200 mg PO DAILY #90 tabs 04/23/23 10/10/23 10/10/23 10:24 Rx dulaglutide 1.5 mg/0.5 mL See Rx Instructions .Route .COMPLEX 06/08/23 10/10/23 10/03/23 History subcutaneous pen injector (Trulicity) metoprolol succinate 25 mg 12.5 mg (1/2 x 25 mg) PO DAILY #90 06/10/23 10/10/23 10/10/23 Rx tablet,extended release 24 hr tabs methocarbamol 500 mg tablet 1,000 mg (2 x 500 mg) PO Q8H #30 10/08/23 10/10/23 10/10/23 Rx tabs methylprednisolone 4 mg tablets in See Rx Instructions PO .COMPLEX 10/08/23 10/10/23 10/09/23 Rx a dose pack (Medrol (Ten)) #21 ea Allergies Allergy/AdvReac Type Severity Reaction Status Date / Time adhesive tape Allergy Unknown Unknown Verified 10/08/23 17:51 aspirin Allergy Unknown Unknown Verified 10/08/23 17:51 celecoxib [From Celebrex] Allergy Unknown Unknown Verified 10/08/23 17:51 codeine Allergy Unknown Unknown Verified 10/08/23 17:51 egg Allergy Unknown Unknown Verified 10/08/23 17:51 erythromycin base Allergy Unknown Unknown Verified 10/08/23 17:51 exenatide [From Bydureon] Allergy Unknown Unknown Verified 10/08/23 17:51 ezetimibe [From Zetia] Allergy Unknown Unknown Verified 10/08/23 17:51 latex Allergy Unknown Unknown Verified 10/08/23 17:51 metformin Allergy Unknown Unknown Verified 10/08/23 17:51 Penicillins Allergy Unknown Unknown Verified 10/08/23 17:51 sitagliptin [From Janumet] Allergy Unknown Unknown Verified 10/08/23 17:51 Sulfa (Sulfonamide Allergy Unknown Unknown Verified 10/08/23 17:51 Antibiotics) topiramate [From Topamax] Allergy Unknown Unknown Verified 10/08/23 17:51 trazodone Allergy Unknown Unknown Verified 10/08/23 17:51 warfarin [From Coumadin] Allergy Unknown Unknown Verified 10/08/23 17:51 desonide Allergy blisters Verified 10/08/23 17:51 Current Medications Generic Name Dose Route Start Last Admin Trade Name Freq PRN Reason Stop Dose Admin Amiodarone HCl 200 mg 10/10/23 09:00 10/10/23 10:13 Amiodarone 200 Mg Tablet PO 200 mg DAILY TUNG Administration Furosemide 20 mg 10/10/23 09:00 10/10/23 10:12 Furosemide 20 Mg Tablet PO 20 mg DAILY TUNG Administration Heparin Sodium (Porcine) 5,000 unit 10/10/23 06:54 10/10/23 08:17 Heparin 5,000 Unit/Ml Inj 1 Ml SUBCUT 5,000 unit Q12H TUNG Administration Hydrochlorothiazide 25 mg 10/10/23 09:00 10/10/23 10:12 Hydrochlorothiazide 25 Mg Tablet PO 25 mg DAILY TUNG Administration Insulin Human Lispro 0 unit 10/10/23 08:00 10/10/23 11:21 Insulin Lispro 100 Unit/1 Ml SUBCUT 8 unit WM&BEDTIME TUNG Administration Protocol Losartan Potassium 100 mg 10/10/23 09:00 10/10/23 10:12 Losartan 50 Mg Tablet PO 100 mg DAILY TUNG Administration Methocarbamol 1,000 mg 10/10/23 06:54 10/10/23 08:17 Methocarbamol 500 Mg Tablet PO 1,000 mg Q8H TUNG Administration Metoprolol Succinate 12.5 mg 10/10/23 09:00 10/10/23 10:13 Metoprolol Succinate Er (24 Hr) 25 Mg Tablet PO 12.5 mg DAILY TUNG Administration Pantoprazole Sodium 40 mg 10/10/23 09:00 10/10/23 10:[address] 40 Mg Tablet PO 40 mg DAILY TUNG Administration Senna 17.2 mg 10/10/23 09:00 10/10/23 10:13 Sennosides 8.6 Mg Tablet PO 17.2 mg BID TUNG Administration Tramadol HCl 50 mg 10/10/23 06:54 10/10/23 08:15 Tramadol 50 Mg Tablet PO 50 mg Q4H PRN Administration MILD PAIN PFSH Acute 2 PFSH: Medical History (Updated 10/10/23 @ 05:36 by Matias Thurman MD) Weakness Encounter for postoperative care Encounter for postoperative care Chronic cystitis Recurrent UTI History of nonmelanoma skin cancer DDD (degenerative disc disease) Chest pain Persistent and recurrent chest pressure despite of optimization of medicine may further require exploration with left heart cath. GERD (gastroesophageal reflux disease) Asthma History of poliomyelitis History of rectocele History of cystocele Cyctocele/Rectocele repair Lower extremity edema Diabetes mellitus CAD (coronary artery disease) Atrial fibrillation Well-controlled on amiodarone. No anticoagulation- bleeding Hyperlipidemia HTN (hypertension) Surgical History History of eye surgery Previous back surgery History of surgery of liver Growth S/P cholecystectomy S/P hysterectomy 1964 Family History Mother , at age 89 Hypertension Bleeding disorder Father , at age 79 Hypertension Heart disease Brother CAD (coronary artery disease) Heart disease Cancer Lung CA Liver disease Sister Heart disease Diabetes Cancer Renal CA and leukemia Social History Smoking and tobacco/nicotine status: never used tobacco/nicotine Second hand smoke exposure: No Alcohol intake: never Substance/Drug Use: never Lives independently: Yes Marital status: / Current occupational status: retired Vitals/I&O/Wt Last Vital Signs Temp 98.0 F 10/10/23 09:50 Pulse 75 10/10/23 09:50 Resp 18 10/10/23 09:50 BP 151/64 10/10/23 10:12 Pulse Ox 93 06/08/24 08:43 O2 Del Method Room Air 10/10/23 09:51 10/09/23 10/10/23 10/10/23 22:59 06:59 14:59 Output Total 300 / 300 Balance -300 / -300 Weight last 48 hrs Weight 194 lb 12.8 oz Weight 200 lb Physical Exam 2 Narrative: Patient's pain is controlled in bed at this time. She feels like she can move her legs better. Data 10/10/23 05:22 10/10/23 05:22 A&P Assessment and plan (1) Lumbar stenosis with neurogenic claudication: Plan will be to give her dexamethasone as well as try a lumbar corset to see if this gives her some more support in her back. Son was at the bedside discussing getting home health at home for her Coding Level of Care Code Acute Code for [facility] Diagnoses Lumbar stenosis with neurogenic claudication M48.062
[2023-10-10] MEDS: oxyCODONE-APAP 5-325 mg Tablet 1 TAB PO ×3 (13:45→22:21)
--- NOTE | 2023-10-10 16:45 | PC.NURSE ---
Patient has corset lumbar brace in position. Patient expressed that is was a great help.
[2023-10-10 16:50] LABS: Glucose Point of Care 229 mg/dL (70-110)
--- NOTE | 2023-10-10 17:28 | PC.NURSE ---
Patient up to BSC today with minimum to moderate contact assist. Patient uses walker for ambulation. Patient only able to slowly shuffle to ambulate. Requires assistance to get placed in bed as patient has moderate weakness to legs with severe pain to back, hips and legs. Patient is unable to move legs at times. Patient has lumbar corset placed presently. Patient reports that it seems to be helping. Will continue to monitor.
[2023-10-10 20:23] LABS: Glucose Point of Care 262 mg/dL (70-110)
[2023-10-10] MEDS: insulin glargine 100 units/1 mL 10 UNIT SUBCUT (20:29)
[2023-10-10] MEDS: diphenhydrAMINE 25 mg Capsule PO (23:17)
[2023-10-10] MEDS: HYDROmorphone 1 mg/mL INJ 1 mL 0.5 MG IVP (23:50)
[2023-10-11] VITALS (11 sets, daily range): BP systolic 113–143; BP diastolic 57–68; PULSE 61–68; RESP 12–26; TEMP 36.6–36.9; O2SAT 91–97
[2023-10-11] MEDS: dexamethasone 10 mg/mL INJ IVP ×4 (01:07→19:50)
[2023-10-11] MEDS: oxyCODONE-APAP 5-325 mg Tablet 1 TAB PO ×4 (04:13→21:59)
[2023-10-11 04:46] LABS: Basophils % 0.1 %; Hematocrit 37.1 % (36-47); Lymphocytes # 0.7 10^3/uL (0.8-4.8); Lymphocytes % 8.1 %; Mean Corpuscular HGB Conc 33.7 g/dL (30-55); Mean Corpuscular Hemoglobin 31.6 pg (27-33); Mean Corpuscular Volume 93.9 fl (85-98); Mean Platelet Volume 9.1 fL (7.4-10.4); Monocytes # 0.3 10^3/uL (0.2-0.9); Monocytes % 3.4 %; Neutrophils % 87.7 %; Nucleated Red Blood Cells % 0 %; Platelet Count 353 10^3/cmm (157-399); Red Blood Count 3.95 10^6/uL (3.85-5.65); Red Cell Distribution Width 13.1 % (12.1-15.1); White Blood Count 8.78 10^3/uL (3.29-11.43)
[2023-10-11 05:07] LABS: Anion Gap 15.8 (5-19); Blood Urea Nitrogen 34 mg/dL (8-23); Calcium 9.7 mg/dL (8.5-10.5); Carbon Dioxide 28 mmol/L (22-29); Chloride 91 mmol/L (98-107); Creatinine Clr Calc Pharmacy 56.1392; Glucose 204 mg/dL (65-115); Magnesium 2.6 mg/dL (1.7-2.3); Osmolality Calculated 285 mOsm/kg (285-295); Potassium 3.8 mmol/L (3.5-5.1); Sodium 131 mmol/L (136-145)
[2023-10-11] MEDS: methocarbamol 500 mg Tablet 1000 MG PO ×3 (06:13→21:58)
[2023-10-11] MEDS: heparin 5,000 unit/mL INJ 1 mL 5000 UNIT SUBCUT ×2 (06:13→17:17)
[2023-10-11 07:46] LABS: Glucose Point of Care 230 mg/dL (70-110)
[2023-10-11] MEDS: losartan 50 mg Tablet 100 MG PO (08:05)
[2023-10-11] MEDS: pantoprazole DR 40 mg Tablet PO (08:05)
[2023-10-11] MEDS: FUROsemide 20 mg Tablet PO (08:06)
[2023-10-11] MEDS: hydroCHLOROthiazide 25 mg Tablet PO (08:06)
[2023-10-11] MEDS: amiodarone 200 mg Tablet PO (08:07)
[2023-10-11] MEDS: sennosides 8.6 mg Tablet 17.1999999999999993 MG PO ×2 (08:08→17:16)
[2023-10-11] MEDS: metoprolol succinate ER (24 HR) 25 mg Tablet 12.5 MG PO (08:09)
[2023-10-11] MEDS: insulin lispro 100 unit/1 mL SUBCUT ×4 (08:12→20:38)
[2023-10-11] MEDS: lidocaine 5% Patch 1 PATCH TOPICAL (08:13)
--- NOTE | 2023-10-11 10:07 | P.PN_ITS ---
Subjective 2 Subjective: seen today starting to feel better Vitals/I&O/Wt Last Vital Signs Temp 97.8 F 10/11/23 07:55 Pulse 63 10/11/23 07:55 Resp 14 10/11/23 08:07 BP 142/66 10/11/23 07:55 Pulse Ox 91 10/11/23 04:00 O2 Del Method Room Air 10/11/23 04:00 10/10/23 10/11/23 10/11/23 22:59 06:59 14:59 Intake Total 1000 / 1240 400 / 1640 Output Total 200 / 900 400 / 400 Balance 800 / 340 400 / 740 -400 / -400 Weight last 48 hrs Weight 92.397 kg Weight 88.36 kg Weight 90.718 kg Physical Exam 2 Narrative: General: Patient is awake and alert. Lying on stretcher. Cardiovascular: RRR. No gallops. No murmurs. Lungs: Clear to auscultation, no use of accessory muscles, no crackles or wheezes. Abdomen: Normal bowel sounds, abdomen soft and nontender. Extremities: No cyanosis or clubbing. Musculoskeletal: No swollen or erythematous joints. Neurological: Moves all 4 extremities. Data 10/11/23 04:19 10/11/23 04:19 A&P Assessment and plan (1) Lumbar stenosis with neurogenic claudication: Acute on chronic low back pain History of lumbar stenosis with neurogenic claudication Patient now endorses an loss of sensation bilateral lower extremities Denies loss of bowel/bladder incontinence Adjust analgesics as needed Continue home Toradol for mild pain Percocet for moderate pain Toradol for severe pain Start bowel regiment Orthopedic spine has been consulted, appreciate recommendations She will need MRI imaging, will defer to orthopedics for level of imaging, anticipating lumbar spine (2) HTN (hypertension): Continue losartan/HCTZ Qualifiers: Hypertension type: essential hypertension Qualified Code(s): I10 - Essential (primary) hypertension (3) Diastolic CHF with preserved left ventricular function, NYHA class 2: Strict I's and O's Daily weights Daily assessment of volume Continue oral Lasix (4) CAD (coronary artery disease): Continue beta-liseth Qualifiers: Coronary Disease-Associated Artery/Lesion type: [place] artery [place] vs. transplanted heart: [place] heart Associated angina: without angina Qualified Code(s): I25.10 - Atherosclerotic heart disease of [place] coronary artery without angina pectoris (5) Atrial fibrillation: Unspecified type Continue amiodarone Continue metoprolol Qualifiers: Atrial fibrillation type: persistent (not longstanding) Qualified Code(s): I48.19 - Other persistent atrial fibrillation (6) Type 2 diabetes mellitus: Lantus at bedtime Sliding-scale insulin correction Avoid hypoglycemia Plan DVT prophylaxis: Heparin Today 10/11/2023 - continue dexamethasone 10 q6h as per recs from ortho - pain control - PT Attestations 2 Medical Necessity Statement*: continue IV steroids Diagnoses Lumbar stenosis with neurogenic claudication M48.062 Essential hypertension I10 Hypertension type: essential hypertension Diastolic CHF with preserved left ventricular function, NYHA class 2 I50.30 Coronary artery disease involving [place] coronary artery of [place] heart without angina pectoris I25.10 Coronary Disease-Associated Artery/Lesion type: [place] artery [place] vs. transplanted heart: [place] heart Associated angina: without angina Persistent atrial fibrillation I48.19 Atrial fibrillation type: persistent (not longstanding) Type 2 diabetes mellitus E11.9
[2023-10-11 11:44] LABS: Glucose Point of Care 435 mg/dL (70-110)
[2023-10-11 11:44] LABS: Glucose Point of Care 431 mg/dL (70-110)
--- NOTE | 2023-10-11 12:37 | P.PN_ITS ---
Subjective 2 Subjective: Patient states her pain is little bit improved and she is moving her legs better. The brace does help to somewhat. Vitals/I&O/Wt Last Vital Signs Temp 98.4 F 10/11/23 11:45 Pulse 62 10/11/23 11:45 Resp 16 10/11/23 11:52 BP 143/68 10/11/23 11:45 Pulse Ox 91 10/11/23 04:00 O2 Del Method Room Air 10/11/23 04:00 10/10/23 10/11/23 10/11/23 22:59 06:59 14:59 Intake Total 1000 / 1240 400 / 1640 Output Total 200 / 900 400 / 400 Balance 800 / 340 400 / 740 -400 / -400 Weight last 48 hrs Weight 203 lb 11.2 oz Weight 194 lb 12.8 oz Weight 200 lb Physical Exam 2 Narrative: Currently sitting up eating lunch. Data 10/11/23 04:19 10/11/23 04:19 A&P Assessment and plan (1) Lumbar stenosis with neurogenic claudication: Continue current treatment with steroids Work with therapy Attestations 2 Medical Necessity Statement*: Per primary service Coding Level of Care Code Acute Code for [facility] Fwd Diagnoses Lumbar stenosis with neurogenic claudication M48.062
[2023-10-11] MEDS: ketorolac 30 mg/mL INJ 15 MG IVP ×2 (12:58→20:36)
[2023-10-11] MEDS: lactulose oral liq 20 gm/30 mL UDC PO (15:11)
[2023-10-11 16:53] LABS: Glucose Point of Care 303 mg/dL (70-110)
[2023-10-11 20:26] LABS: Glucose Point of Care 291 mg/dL (70-110)
[2023-10-11] MEDS: insulin glargine 100 units/1 mL 15 UNIT SUBCUT (20:38)
[2023-10-11] MEDS: HYDROmorphone 1 mg/mL INJ 1 mL 0.5 MG IVP (23:47)
[2023-10-12] VITALS (12 sets, daily range): BP systolic 137–172; BP diastolic 66–98; PULSE 67–75; RESP 14–21; TEMP 36.4–36.8; O2SAT 93–96
[2023-10-12] MEDS: diphenhydrAMINE 25 mg Capsule PO (02:30)
[2023-10-12] MEDS: TRAMadol 50 mg Tablet PO (02:30)
[2023-10-12] MEDS: dexamethasone 10 mg/mL INJ IVP ×4 (02:31→21:02)
[2023-10-12] MEDS: oxyCODONE-APAP 5-325 mg Tablet 1 TAB PO ×4 (04:25→21:52)
[2023-10-12 04:52] LABS: Alanine Aminotransferase 26 U/L (0-33); Albumin Level 3.5 g/dL (3.5-5.2); Alkaline Phosphatase 153 U/L (35-105); Anion Gap 18.7 (5-19); Aspartate Amino Transferase 20 U/L (0-32); Blood Urea Nitrogen 44 mg/dL (8-23); Calcium 9.5 mg/dL (8.5-10.5); Carbon Dioxide 26 mmol/L (22-29); Chloride 92 mmol/L (98-107); Creatinine Clr Calc Pharmacy 50.5253; Globulin 3.2 g/dL (1.3-4.6); Glucose 140 mg/dL (65-115); Osmolality Calculated 289 mOsm/kg (285-295); Potassium 3.7 mmol/L (3.5-5.1); Sodium 133 mmol/L (136-145); Total Bilirubin 0.4 mg/dL (0.15-1.2); Total Protein 6.7 g/dL (6.6-8.7)
[2023-10-12] MEDS: methocarbamol 500 mg Tablet 1000 MG PO (05:34)
[2023-10-12 07:12] LABS: Glucose Point of Care 188 mg/dL (70-110)
[2023-10-12] MEDS: amiodarone 200 mg Tablet PO (09:11)
[2023-10-12] MEDS: metoprolol succinate ER (24 HR) 25 mg Tablet 12.5 MG PO (09:11)
[2023-10-12] MEDS: FUROsemide 20 mg Tablet PO (09:12)
[2023-10-12] MEDS: hydroCHLOROthiazide 25 mg Tablet PO (09:12)
[2023-10-12] MEDS: sennosides 8.6 mg Tablet 17.1999999999999993 MG PO ×2 (09:12→17:35)
[2023-10-12] MEDS: losartan 50 mg Tablet 100 MG PO (09:13)
[2023-10-12] MEDS: insulin lispro 100 unit/1 mL SUBCUT ×4 (09:14→21:04)
[2023-10-12] MEDS: lidocaine 5% Patch 1 PATCH TOPICAL (09:48)
[2023-10-12] MEDS: pantoprazole DR 40 mg Tablet PO (09:48)
[2023-10-12 10:24] LABS: Iron 69 ug/dL (37-145); Percent Saturation 28.1 % (20-50); Total Iron Binding Capacity 245 mcg/dl; Unsaturated Iron Binding 176 ug/dL (112-347); Vitamin B12 1003 pg/mL (232-1245)
[2023-10-12] MEDS: cyclobenzaprine 10 mg Tablet 5 MG PO ×3 (10:45→21:02)
[2023-10-12 12:09] LABS: Glucose Point of Care 267 mg/dL (70-110)
--- NOTE | 2023-10-12 14:36 | P.PN_ITS ---
Subjective 2 Subjective: Hospital course, labs appreciated. On examination patient seen sitting comfortably at the edge of the bed. States she is still having pain in her back and her legs though she is able to scoot over better than before. Denies any nausea, vomiting, headache. Vitals/I&O/Wt Last Vital Signs Temp 97.9 F 10/12/23 11:52 Pulse 75 10/12/23 11:52 Resp 16 10/12/23 13:45 BP 172/82 10/12/23 11:52 Pulse Ox 96 10/12/23 13:45 O2 Del Method Room Air 10/12/23 11:52 10/11/23 10/12/23 10/12/23 22:59 06:59 14:59 Intake Total 600 / 720 600 / 1320 240 / 240 Output Total 125 / 125 Balance 600 / 320 600 / 920 115 / 115 Weight last 48 hrs Weight 92.397 kg Physical Exam 2 Narrative: General: Patient is awake and alert. Sitting at the edge of the bed. Cardiovascular: RRR. No gallops. No murmurs. Lungs: Clear to auscultation, no use of accessory muscles, no crackles or wheezes. Abdomen: Normal bowel sounds, abdomen soft and nontender. Extremities: No cyanosis or clubbing. Musculoskeletal: No swollen or erythematous joints. Neurological: Moves all 4 extremities. Data 10/11/23 04:19 10/12/23 03:29 A&P Assessment and plan (1) Lumbar stenosis with neurogenic claudication: Acute on chronic low back pain. History of lumbar stenosis with neurogenic claudication. Currently in exacerbation post fall. Appreciate orthopedic surgery recommendations. Appreciate MRI results showing multilevel degenerative changes of the lumbar spine along with neuroforaminal narrowing. Continue with IV steroids as per orthopedic recommendations. As patient is on high-dose steroids will monitor blood sugars. Nystatin swish and swallow. Continue with current pain medications. Continue fentanyl patch. Add Flexeril for muscle relaxant properties. Physical therapy evaluation pending. (2) HTN (hypertension): Goal blood pressure less than 140/90 mmHg. Continue home dose of metoprolol, losartan/HCTZ. Uptitrate as per goal blood pressures. Qualifiers: Hypertension type: essential hypertension Qualified Code(s): I10 - Essential (primary) hypertension (3) Diastolic CHF with preserved left ventricular function, NYHA class 2: No exacerbation for now. Strict I's and O's Daily weights Daily assessment of volume Continue home dose of oral Lasix (4) CAD (coronary artery disease): Continue beta-liseth. Denies any chest pain. Check A1c, lipid panel. Qualifiers: Coronary Disease-Associated Artery/Lesion type: [place] artery [place] vs. transplanted heart: [place] heart Associated angina: without angina Qualified Code(s): I25.10 - Atherosclerotic heart disease of [place] coronary artery without angina pectoris (5) Atrial fibrillation: Unspecified type Continue amiodarone Continue metoprolol Qualifiers: Atrial fibrillation type: persistent (not longstanding) Qualified Code(s): I48.19 - Other persistent atrial fibrillation (6) Type 2 diabetes mellitus: Check A1c. Continue with current dose of Lantus and sliding scale. Plan DVT prophylaxis: Heparin Full code Carb consistent diet Protonix for PUD prophylaxis Heparin 5000 every 12 hourly for DVT prophylaxis Discharge planning: Patient lives by herself. Having extensive lumbar radiculopathy for now. Physical therapy evaluation pending. Possibility of discharge to SNF versus home with home health. For now patient is not agreeable for SNF placement. Transfer to [facility]. Attestations 2 Medical Necessity Statement*: Requires further hospitalization for management of back pain, lower limb pain along with weakness in setting of lumbar stenosis with claudication in an elderly who lives by herself while definitive treatment plan is made and safe discharge planning is sought Diagnoses Lumbar stenosis with neurogenic claudication M48.062 Essential hypertension I10 Hypertension type: essential hypertension Diastolic CHF with preserved left ventricular function, NYHA class 2 I50.30 Coronary artery disease involving [place] coronary artery of [place] heart without angina pectoris I25.10 Coronary Disease-Associated Artery/Lesion type: [place] artery [place] vs. transplanted heart: [place] heart Associated angina: without angina Persistent atrial fibrillation I48.19 Atrial fibrillation type: persistent (not longstanding) Type 2 diabetes mellitus E11.9
--- NOTE | 2023-10-12 15:34 | PC.NURSE ---
Clarified with provider, patient has methocarbanol and cyclobenzaprine on her MAR for 1454 and 1500. Provider ordered to hold methocarbamol.
[2023-10-12] MEDS: nystatin 100,000 unit/mL UDC 5 mL 100000 UNIT PO ×2 (17:35→21:02)
[2023-10-12 17:38] LABS: Glucose Point of Care 243 mg/dL (70-110)
[2023-10-12] MEDS: heparin 5,000 unit/mL INJ 1 mL 5000 UNIT SUBCUT (17:39)
[2023-10-12 20:19] LABS: Glucose Point of Care 355 mg/dL (70-110)
[2023-10-12 20:39] LABS: Glucose Point of Care 435 mg/dL (70-110)
[2023-10-12] MEDS: insulin glargine 100 units/1 mL 15 UNIT SUBCUT (21:43)
[2023-10-12] MEDS: ketorolac 30 mg/mL INJ 15 MG IVP (22:50)
[2023-10-13] VITALS (8 sets, daily range): BP systolic 121–157; BP diastolic 71–84; PULSE 66–72; RESP 16–18; TEMP 36.4–36.7; O2SAT 92–95
[2023-10-13] MEDS: methocarbamol 500 mg Tablet 1000 MG PO ×4 (00:43→23:17)
[2023-10-13] MEDS: TRAMadol 50 mg Tablet PO ×3 (00:46→14:00)
[2023-10-13] MEDS: dexamethasone 10 mg/mL INJ IVP ×3 (04:17→17:30)
[2023-10-13] MEDS: oxyCODONE-APAP 5-325 mg Tablet 1 TAB PO ×4 (04:17→23:15)
[2023-10-13 05:58] LABS: Hematocrit 36.5 % (36-47); Lymphocytes # 0.8 10^3/uL (0.8-4.8); Lymphocytes % 8.9 %; Mean Corpuscular HGB Conc 34.8 g/dL (30-55); Mean Corpuscular Hemoglobin 31.3 pg (27-33); Mean Corpuscular Volume 89.9 fl (85-98); Monocytes # 0.5 10^3/uL (0.2-0.9); Neutrophils # 7.54 10^3/uL (1.8-7.7); Neutrophils % 84.7 %; Nucleated Red Blood Cells % 0 %; Platelet Count 367 10^3/cmm (157-399); Red Blood Count 4.06 10^6/uL (3.85-5.65); Red Cell Distribution Width 12.9 % (12.1-15.1)
[2023-10-13 06:15] LABS: Chol HDL Ratio 3.93 mg/dL (0.0-4.40); Cholesterol 240 mg/dL (0-200); HDL Cholesterol 61 mg/dL (60-100); LDL Cholesterol Calculated 154 mg/dL (50-129); Magnesium 2.3 mg/dL (1.7-2.3); Triglycerides 127 mg/dL (0-150); VLDL Cholestrol Calculation 25 mg/dL (0-30)
[2023-10-13 06:19] LABS: Estmated Average Glucose 183
[2023-10-13 06:21] LABS: Alanine Aminotransferase 27 U/L (0-33); Albumin Level 3.6 g/dL (3.5-5.2); Alkaline Phosphatase 156 U/L (35-105); Anion Gap 15.7 (5-19); Aspartate Amino Transferase 17 U/L (0-32); Blood Urea Nitrogen 44 mg/dL (8-23); Calcium 9.3 mg/dL (8.5-10.5); Carbon Dioxide 27 mmol/L (22-29); Chloride 89 mmol/L (98-107); Creatinine Clr Calc Pharmacy 50.8917; Globulin 2.8 g/dL (1.3-4.6); Glucose 181 mg/dL (65-115); Osmolality Calculated 282 mOsm/kg (285-295); Potassium 3.7 mmol/L (3.5-5.1); Sodium 128 mmol/L (136-145); Total Bilirubin 0.5 mg/dL (0.15-1.2); Total Protein 6.4 g/dL (6.6-8.7)
[2023-10-13] MEDS: heparin 5,000 unit/mL INJ 1 mL 5000 UNIT SUBCUT ×2 (06:28→18:27)
[2023-10-13 06:32] LABS: Glucose Point of Care 215 mg/dL (70-110)
[2023-10-13 06:32] LABS: Folate Level 14.7 ng/mL (4.8-37.3)
--- NOTE | 2023-10-13 09:54 | P.PN_ITS ---
Subjective 2 Subjective: Patient was sleeping when I walked in the room. Son is present at bedside. Patient stated that she was walking around yesterday feeling good and then had an episode where she most fell and her legs got flared up again. Vitals/I&O/Wt Last Vital Signs Temp 98.0 F 10/13/23 07:41 Pulse 66 10/13/23 07:41 Resp 17 10/13/23 07:41 BP 157/84 10/13/23 07:41 Pulse Ox 92 10/13/23 07:41 O2 Del Method Room Air 10/13/23 07:41 10/12/23 10/13/23 10/13/23 22:59 06:59 14:59 Intake Total 720 / 1320 480 / 1800 Balance 720 / 1195 480 / 1675 Weight last 48 hrs Weight 206 lb 9.6 oz Physical Exam 2 Narrative: Resting in chair. Data 10/13/23 05:24 10/13/23 05:24 A&P Assessment and plan (1) Lumbar stenosis with neurogenic claudication: Awaiting certified art therapist for home health. Attestations 2 Medical Necessity Statement*: Per primary service Coding Level of Care Code Acute Code for [facility] Fwd Diagnoses Lumbar stenosis with neurogenic claudication M48.062
[2023-10-13] MEDS: cyclobenzaprine 10 mg Tablet 5 MG PO ×3 (10:03→21:27)
[2023-10-13] MEDS: metoprolol succinate ER (24 HR) 25 mg Tablet 12.5 MG PO (10:04)
[2023-10-13] MEDS: losartan 50 mg Tablet 100 MG PO (10:04)
[2023-10-13] MEDS: hydroCHLOROthiazide 25 mg Tablet PO (10:04)
[2023-10-13] MEDS: pantoprazole DR 40 mg Tablet PO (10:05)
[2023-10-13] MEDS: FUROsemide 20 mg Tablet PO (10:05)
[2023-10-13] MEDS: sennosides 8.6 mg Tablet 17.1999999999999993 MG PO ×2 (10:05→17:30)
[2023-10-13] MEDS: insulin lispro 100 unit/1 mL SUBCUT ×4 (10:05→21:27)
[2023-10-13] MEDS: amiodarone 200 mg Tablet PO (10:05)
[2023-10-13] MEDS: nystatin 100,000 unit/mL UDC 5 mL 100000 UNIT PO ×4 (10:08→21:28)
[2023-10-13] MEDS: lidocaine 5% Patch 1 PATCH TOPICAL (10:29)
[2023-10-13 12:02] LABS: Glucose Point of Care 343 mg/dL (70-110)
--- NOTE | 2023-10-13 13:56 | PM.PN ---
Subjective Subjective: No acute events overnight. Today morning seen with family at bedside. Patient sitting in chair. Had a restless night because of back pain. States she thinks she may jerked her back again while trying to get out of chair yesterday evening. Vitals/I&O/Wt Last Vital Signs Temp 98.0 F 10/13/23 07:41 Pulse 66 10/13/23 07:41 Resp 16 10/13/23 10:18 BP 157/84 10/13/23 07:41 Pulse Ox 92 10/13/23 07:41 O2 Del Method Room Air 10/13/23 07:41 10/12/23 10/13/23 10/13/23 22:59 06:59 14:59 Intake Total 720 / 1320 480 / 1800 Balance 720 / 1195 480 / 1675 Weight last 48 hrs Weight 93.712 kg Physical Exam Narrative: General: Patient is awake and alert. Sitting at the edge of the bed. Cardiovascular: RRR. No gallops. No murmurs. Lungs: Clear to auscultation, no use of accessory muscles, no crackles or wheezes. Abdomen: Normal bowel sounds, abdomen soft and nontender. Extremities: No cyanosis or clubbing. Musculoskeletal: No swollen or erythematous joints. Neurological: Moves all 4 extremities. Data 10/13/23 05:24 10/13/23 05:24 A&P Assessment and plan (1) Lumbar stenosis with neurogenic claudication: Acute on chronic low back pain. History of lumbar stenosis with neurogenic claudication. Currently in exacerbation post fall. Appreciate orthopedic surgery recommendations. Appreciate MRI results showing multilevel degenerative changes of the lumbar spine along with neuroforaminal narrowing. Continue with IV steroids as per orthopedic recommendations. As patient is on high-dose steroids will monitor blood sugars. Nystatin swish and swallow. Continue with current pain medications. Continue fentanyl patch. Add Flexeril for muscle relaxant properties. Physical therapy evaluation pending. (2) HTN (hypertension): Goal blood pressure less than 140/90 mmHg. Continue home dose of metoprolol, losartan/HCTZ. Uptitrate as per goal blood pressures. Qualifiers: Hypertension type: essential hypertension Qualified Code(s): I10 - Essential (primary) hypertension (3) Diastolic CHF with preserved left ventricular function, NYHA class 2: No exacerbation for now. Strict I's and O's Daily weights Daily assessment of volume Continue home dose of oral Lasix (4) CAD (coronary artery disease): Continue beta-liseth. Denies any chest pain. Check A1c, lipid panel. Qualifiers: Coronary Disease-Associated Artery/Lesion type: [place] artery [place] vs. transplanted heart: [place] heart Associated angina: without angina Qualified Code(s): I25.10 - Atherosclerotic heart disease of [place] coronary artery without angina pectoris (5) Atrial fibrillation: Unspecified type Continue amiodarone Continue metoprolol Qualifiers: Atrial fibrillation type: persistent (not longstanding) Qualified Code(s): I48.19 - Other persistent atrial fibrillation (6) Type 2 diabetes mellitus: Check A1c. Continue with current dose of Lantus and sliding scale. Plan DVT prophylaxis: Heparin Full code Carb consistent diet Protonix for PUD prophylaxis Heparin 5000 every 12 hourly for DVT prophylaxis Discharge planning: Patient lives by herself. Having extensive lumbar radiculopathy for now. patient would benefit from SNF placement as she is at a high risk of worsening pain or fall. She is agreeable. Plan for the day: Continue with current pain medication. Decrease dexamethasone to 10 mg IV twice daily. Continue physical therapy. Patient is agreeable to SNF placement now. Case management alerted. Morning blood sugars elevated. Most likely in setting of dexamethasone. Coming down on dexamethasone today. For now we will continue to monitor. If blood sugar remains elevated for next 24 hours will increase Lantus to 25 units at nighttime. Attestations Medical Necessity Statement*: Requires further hospitalization while safe discharge planning is sought in setting of lumbar stenosis with neurogenic claudication as patient requires further extensive physical therapy Diagnoses Lumbar stenosis with neurogenic claudication M48.062 Essential hypertension I10 Hypertension type: essential hypertension Diastolic CHF with preserved left ventricular function, NYHA class 2 I50.30 Coronary artery disease involving [place] coronary artery of [place] heart without angina pectoris I25.10 Coronary Disease-Associated Artery/Lesion type: [place] artery [place] vs. transplanted heart: [place] heart Associated angina: without angina Persistent atrial fibrillation I48.19 Atrial fibrillation type: persistent (not longstanding) Type 2 diabetes mellitus E11.9
[2023-10-13 16:58] LABS: Glucose Point of Care 242 mg/dL (70-110)
[2023-10-13 20:58] LABS: Glucose Point of Care 370 mg/dL (70-110)
[2023-10-13] MEDS: insulin glargine 100 units/1 mL 25 UNIT SUBCUT (21:27)
[2023-10-14] VITALS (8 sets, daily range): BP systolic 114–142; BP diastolic 65–75; PULSE 58–66; RESP 16–18; TEMP 36.4–36.7; O2SAT 93–94
[2023-10-14 05:16] LABS: Basophils % 0.1 %; Hematocrit 36.8 % (36-47); Lymphocytes # 0.9 10^3/uL (0.8-4.8); Lymphocytes % 8.5 %; Mean Corpuscular Hemoglobin 31.2 pg (27-33); Mean Corpuscular Volume 91.8 fl (85-98); Mean Platelet Volume 9.4 fL (7.4-10.4); Monocytes # 0.9 10^3/uL (0.2-0.9); Neutrophils # 8.59 10^3/uL (1.8-7.7); Neutrophils % 81.7 %; Nucleated Red Blood Cells % 0 %; Platelet Count 360 10^3/cmm (157-399); Red Blood Count 4.01 10^6/uL (3.85-5.65); Red Cell Distribution Width 12.8 % (12.1-15.1)
[2023-10-14 05:39] LABS: Alanine Aminotransferase 24 U/L (0-33); Albumin Level 3.2 g/dL (3.5-5.2); Alkaline Phosphatase 167 U/L (35-105); Anion Gap 15.5 (5-19); Aspartate Amino Transferase 14 U/L (0-32); Blood Urea Nitrogen 46 mg/dL (8-23); Calcium 8.9 mg/dL (8.5-10.5); Carbon Dioxide 28 mmol/L (22-29); Chloride 89 mmol/L (98-107); Creatinine Clr Calc Pharmacy 55.6194; Globulin 2.6 g/dL (1.3-4.6); Glucose 113 mg/dL (65-115); Osmolality Calculated 281 mOsm/kg (285-295); Potassium 3.5 mmol/L (3.5-5.1); Sodium 129 mmol/L (136-145); Total Bilirubin 0.6 mg/dL (0.15-1.2); Total Protein 5.8 g/dL (6.6-8.7)
[2023-10-14 05:43] LABS: Magnesium 2.4 mg/dL (1.7-2.3)
[2023-10-14] MEDS: oxyCODONE-APAP 5-325 mg Tablet 1 TAB PO ×2 (06:11→10:46)
[2023-10-14] MEDS: heparin 5,000 unit/mL INJ 1 mL 5000 UNIT SUBCUT (06:11)
[2023-10-14 06:21] LABS: Glucose Point of Care 146 mg/dL (70-110)
[2023-10-14] MEDS: cyclobenzaprine 10 mg Tablet 5 MG PO (08:21)
[2023-10-14] MEDS: pantoprazole DR 40 mg Tablet PO (08:21)
[2023-10-14] MEDS: methocarbamol 500 mg Tablet 1000 MG PO (08:21)
[2023-10-14] MEDS: sennosides 8.6 mg Tablet 17.1999999999999993 MG PO (08:21)
[2023-10-14] MEDS: FUROsemide 20 mg Tablet PO (08:22)
[2023-10-14] MEDS: metoprolol succinate ER (24 HR) 25 mg Tablet 12.5 MG PO (08:22)
[2023-10-14] MEDS: losartan 50 mg Tablet 100 MG PO (08:22)
[2023-10-14] MEDS: hydroCHLOROthiazide 25 mg Tablet PO (08:22)
[2023-10-14] MEDS: amiodarone 200 mg Tablet PO (08:22)
[2023-10-14] MEDS: dexamethasone 10 mg/mL INJ IVP (08:23)
[2023-10-14] MEDS: lidocaine 5% Patch 1 PATCH TOPICAL (08:23)
[2023-10-14] MEDS: nystatin 100,000 unit/mL UDC 5 mL 100000 UNIT PO ×2 (08:23→12:01)
[2023-10-14] MEDS: insulin lispro 100 unit/1 mL SUBCUT ×2 (08:24→12:01)
--- NOTE | 2023-10-14 10:17 | P.DS_ITS ---
Discharge Providers Date of Admission: 10/11/23 10:47 Date of Discharge: October 14, 2023 Attending Provider at Admission: Maitas Thurman MD Attending Provider at Discharge: Lito Linder MD Consults: Orthopedic surgery: Dr. Mtichell Primary Care Provider: Kaylynn Munoz DO Diagnoses at Discharge Discharge Diagnosis (1) Lumbar stenosis with neurogenic claudication: Status: Acute (2) HTN (hypertension): Status: Acute Qualifiers: Hypertension type: essential hypertension Qualified Code(s): I10 - Essential (primary) hypertension (3) Diastolic CHF with preserved left ventricular function, NYHA class 2: Status: Acute Permanent problem details: Worsening heart failure symptoms with abnormal stress test may need further exploration for ischemia burden through heart cath (4) CAD (coronary artery disease): Status: Acute Qualifiers: Associated angina: without angina Coronary Disease-Associated Artery/Lesion type: [place] artery [place] vs. transplanted heart: [place] heart Qualified Code(s): I25.10 - Atherosclerotic heart disease of [place] coronary artery without angina pectoris (5) Atrial fibrillation: Status: Acute Qualifiers: Atrial fibrillation type: persistent (not longstanding) Qualified Code(s): I48.19 - Other persistent atrial fibrillation Permanent problem details: Well-controlled on amiodarone. No anticoagulation- bleeding (6) Type 2 diabetes mellitus: Status: Acute Reason for Visit Reason for Visit: BACK PAIN Brief History: History as per HPI: Elizabeth Cantor is a 83 year old female with a past medical history significant for chronic low back pain with lumbar stenosis with neurogenic claudication, hypertension, atrial fibrillation, coronary artery disease, heart failure with preserved ejection fraction and multiple other comorbidities who presents to the emergency department with worsening low back pain and debility. Patient reports that she tried to get out of her lift chair and could not feel her lower extremities. Because of this, she cannot stand or function at home. She describes the location of her pain is in her low back. Reports radiation down her left leg. She reports often times it also radiates down her right leg but not presently. She currently rates her pain 10 out of 10. She states it was worse than this previously. She reports she lives home alone. Family is bedside and supportive. They states she has been using a walker prior to this evening, she was able to ambulate about 2 inches at a time. She was dragging her feet at that time. She denies loss of bladder or bowel incontinence. In the emergency department, orthopedic spine was contacted and recommended patient be admitted for further imaging and surgical evaluation. Hospital Course Hospital Course Patient was admitted to the hospital further evaluation and management of sign ificant back pain and lower limb pain along with weakness in setting of lumbar stenosis and neurogenic claudication. Orthopedic surgery was consulted and she was started on high-dose IV steroids along with a lumbar corset to support her back. She underwent lumbar MRI which showed multilevel degenerative changes with no significant spinal canal stenosis. Patient lives by herself and will need significant physical therapy going forward. Safe discharge plan were discussed in detail with the patient she is agreeable to SNF placement for short while. She has been discharged in hemodynamically stable condition to SNF for further rehabitation. She is to follow-up with orthopedic surgery as an outpatient within next 2 weeks. Physical Exam 2 Narrative: General: Patient is awake and alert. Sitting at the edge of the bed. Cardiovascular: RRR. No gallops. No murmurs. Lungs: Clear to auscultation, no use of accessory muscles, no crackles or wheezes. Abdomen: Normal bowel sounds, abdomen soft and nontender. Extremities: No cyanosis or clubbing. Musculoskeletal: No swollen or erythematous joints. Neurological: Moves all 4 extremities. Discharge Data Studies Completed and Pending Completed Studies During Hospitalization Category Date Time Status XR lumbar spine 2-3V* [id number] Stat Exams 10/10/23 04:13 Completed MR lumbar spine wo con* [id number] Stat MRI 10/10/23 05:43 Completed Pending at discharge Category Date Time Status MAG [Magnesium] AM LABS Lab 10/15/23 04:00 Ordered Radiology Impressions Lumbar Spine X-Ray 10/10/23 04:13 IMPRESSION: 1. No acute osseous abnormality, however in the setting of osteopenia, fractures may be difficult to visualized. If there is point tenderness. Recommend cross-sectional imaging for definitive assessment. 2. Additional findings as above. Lumbar Spine MRI 10/10/23 05:43 IMPRESSION: 1. No significant change from prior exam. 2. Multilevel degenerative changes in the lumbar spine. 3. No significant spinal canal stenosis. 4. Multilevel neural foraminal narrowing similar to prior exam. Laboratory Results WBC 10.50 10^3/uL (3.29-11.43) 10/14/23 04:28 RBC 4.01 10^6/uL (3.85-5.65) 10/14/23 04:28 Hgb 12.50 g/dL (11.27-16.99) 10/14/23 04:28 Hct 36.8 % (36-47) 10/14/23 04:28 MCV 91.8 fl (85-98) 10/14/23 04:28 MCH 31.2 pg (27-33) 10/14/23 04: MCHC 34.0 g/dL (30-55) 10/14/23 04:28 RDW 12.8 % (12.1-15.1) 10/14/23 04:28 Plt Count 360 10^3/cmm (157-399) 10/14/23 04:28 MPV 9.4 fL (7.4-10.4) 10/14/23 04:28 Neut % (Auto) 81.7 % 10/14/23 04:28 Lymph % (Auto) 8.5 % 10/14/23 04:28 Armstrong % (Auto) 9.0 % 10/14/23 04:28 Eos % (Auto) 0.0 % 10/14/23 04:28 Baso % (Auto) 0.1 % 10/14/23 04:28 Neut # (Auto) 8.59 10^3/uL (1.8-7.7) H 10/14/23 04:28 Lymph # (Auto) 0.9 10^3/uL (0.8-4.8) 10/14/23 04:28 Armstrong # (Auto) 0.9 10^3/uL (0.2-0.9) 10/14/23 04:28 Eos # (Auto) 0.0 10^3/uL (0.0-0.8) 10/14/23 04:28 Baso # (Auto) 0.0 10^3/uL (0.0-0.1) 10/14/23 04:28 Nucleated RBC % (auto) 0 % 10/14/23 04:28 Nucleated RBCs # 0.0 /100WBC 10/14/23 04:28 Sodium 129 mmol/L (136-145) L 10/14/23 04:28 Potassium 3.5 mmol/L (3.5-5.1) 10/14/23 04:28 Chloride 89 mmol/L (98-107) L 10/14/23 04:28 Carbon Dioxide 28 mmol/L (22-29) 10/14/23 04:28 Anion Gap 15.5 (5-19) 10/14/23 04:28 BUN 46 mg/dL (8-23) H 10/14/23 04:28 Creatinine 0.9 mg/dL (0.5-0.9) 10/14/23 04:28 GFR Calculation Not Reportable 10/14/23 04:28 Glucose 113 mg/dL (65-115) 10/14/23 04:28 POC Glucose 146 mg/dL (70-110) H 10/14/23 06:15 Estimat Average Glucose 183 10/13/23 05:24 Hemoglobin A1c 8.0 % (4.0-6.0) H 10/13/23 05:24 Calculated Osmolality 281 mOsm/kg (285-295) L 10/14/23 04:28 Calcium 8.9 mg/dL (8.5-10.5) 10/14/23 04:28 Magnesium 2.4 mg/dL (1.7-2.3) H 10/14/23 04:28 Iron 69 ug/dL (37-145) 10/12/23 03:29 TIBC 245 mcg/dl 10/12/23 03:29 % Saturation 28.1 % (20-50) 10/12/23 03:29 Unsat Iron Binding 176 ug/dL (112-347) 10/12/23 03:29 Total Bilirubin 0.6 mg/dL (0.15-1.2) 10/14/23 04:28 AST 14 U/L (0-32) 10/14/23 04:28 ALT 24 U/L (0-33) 10/14/23 04:28 Alkaline Phosphatase 167 U/L (35-105) H 10/14/23 04:28 Total Protein 5.8 g/dL (6.6-8.7) L 10/14/23 04:28 Albumin 3.2 g/dL (3.5-5.2) L 10/14/23 04:28 Globulin 2.6 g/dL (1.3-4.6) 10/14/23 04:28 Triglycerides 127 mg/dL (0-150) 10/13/23 05:24 Cholesterol 240 mg/dL (0-200) H 10/13/23 05:24 LDL Cholesterol, Calc 154 mg/dL (50-129) H 10/13/23 05:24 Total VLDL Cholesterol 25 mg/dL (0-30) 10/13/23 05:24 HDL Cholesterol 61 mg/dL (60-100) 10/13/23 05:24 Cholesterol/HDL Ratio 3.93 mg/dL (0.0-4.40) 10/13/23 05:24 Vitamin B12 1003 pg/mL (232-1245) 10/12/23 03:29 Folate 14.7 ng/mL (4.8-37.3) 10/13/23 05:24 TSH 0.70 uIU/mL (0.27-4.20) 10/12/23 03:29 Vitals Last Vital Signs Temp 98.0 F 10/14/23 07:51 Pulse 63 10/14/23 07:51 Resp 17 10/14/23 07:51 BP 138/75 10/14/23 08:22 Pulse Ox 94 10/14/23 07:51 O2 Del Method Room Air 10/14/23 07:51 Discharge Plan Discharge Patient Disposition: Xfer SNF Condition: Stable Prescriptions: New losartan 50 mg Tablet 100 mg PO DAILY Qty: 60 0RF Continued Lantus Solostar U-100 Insulin 100 unit/mL (3 mL) insulin pen 14 unit SUBCUT QID@08,12,16,20 pantoprazole [Protonix] 40 mg tablet,delayed release (DR/EC) 40 mg PO DAILY furosemide 20 mg tablet 20 mg PO DAILY Qty: 90 3RF Trulicity 1.5 mg/0.5 mL pen injector See Rx Instructions .ROUTE .COMPLEX Rx Instructions: 1.5 mg subcutaneously weekly every thursday amiodarone 200 mg tablet 200 mg PO DAILY Qty: 90 3RF metoprolol succinate 25 mg tablet extended release 24 hr 12.5 mg PO DAILY Qty: 90 0RF methocarbamol 500 mg tablet 1,000 mg PO Q8H Qty: 30 0RF tramadol 50 mg tablet 50 - 100 mg PO Q4H PRN (Reason: Pain) nystatin 100,000 unit/gram cream 1 applic TOPICAL BID PRN (Reason: unknown) lidocaine 5 % Adhesive Patch,Medicated 1 - 3 patch topical . DIRECTED Rx Instructions: ON FOR 12 HOURS AND OFF FOR 12 HOURS nitroglycerin [Nitrostat] 0.4 mg Tablet, Sublingual 0.4 mg SUBLINGUAL Q5M PRN (Reason: Chest Pain) Rx Instructions: do not exceed 3 doses per episode fluticasone propionate 50 mcg/actuation spray,suspension 2 spray INTRANASAL DAILY insulin aspart U-100 [Novolog FlexPen U-100 Insulin] 100 unit/mL (3 mL) insulin pen See Rx Instructions .ROUTE .COMPLEX Rx Instructions: sliding scale subcutaneously tid mometasone 0.1 % solution See Rx Instructions .ROUTE .COMPLEX Rx Instructions: APPLY TO SCALP TWICE DAILY NEEDED FOR RASH PreserVision AREDS-2 250-90-40-1 mg Capsule 1 tab PO BID Discontinued methylprednisolone [Medrol (Ten)] 4 mg tablets,dose pack See Rx Instructions .ROUTE .COMPLEX Qty: 21 0RF Rx Instructions: orally per package directions losartan-hydrochlorothiazide 100-25 mg tablet 1 tab PO DAILY Discharge Orders: Discharge Order (Routine); Ordered 10/14/23 Ordered By: Lito Linder Referrals: [facility] [Outside] Kris Mitchell DO [Physician] - 10/29/23 10:45 am Kaylynn Muonz DO [Primary Care Provider] - 7-10 days Discharge Diet: Diabetic Discharge Activity: Resume usual activity and Increase activity as tolerated Patient Instructions: Opioid Safety Activity Restrictions/Additional Instructions: Continue with aggressive physical therapy. Follow-up with orthopedic surgery on set appointment. Discharge Attestations Time Spent in Discharge Care*: greater than 30 min Specific Discharge Activities: educating patient, educating and/or supporting family/caregiver, discussing with pcp/other providers, discussing with case management coordinator/social workers/dc planners, documenting/other paperwork and evaluating patient/reviewing data Status at Discharge: Cognitive status at discharge: cognitively intact , Behavioral status at discharge: cooperative , Functional status at discharge: uses cane/walker , Overall status at discharge: patient is progressing back to baseline Quality Metrics Clinical Quality Measures [ No reported AMI, CVA or VTE this stay] Coding Level of Care Code 54121 Total time (in minutes) for Discharge: 50 Diagnoses Lumbar stenosis with neurogenic claudication M48.062 Essential hypertension I10 Hypertension type: essential hypertension Diastolic CHF with preserved left ventricular function, NYHA class 2 I50.30 Coronary artery disease involving [place] coronary artery of [place] heart without angina pectoris I25.10 Associated angina: without angina Coronary Disease-Associated Artery/Lesion type: [place] artery [place] vs. transplanted heart: [place] heart Persistent atrial fibrillation I48.19 Atrial fibrillation type: persistent (not longstanding) Type 2 diabetes mellitus E11.9
--- NOTE | 2023-10-14 10:25 | P.PN_ITS ---
Subjective 2 Subjective: Patient still having pain. She is going to senior care today Vitals/I&O/Wt Last Vital Signs Temp 98.0 F 10/14/23 07:51 Pulse 63 10/14/23 07:51 Resp 17 10/14/23 07:51 BP 138/75 10/14/23 08:22 Pulse Ox 94 10/14/23 07:51 O2 Del Method Room Air 10/14/23 07:51 10/13/23 10/14/23 10/14/23 22:59 06:59 14:59 Intake Total 360 / 360 Output Total 200 / 200 Balance 160 / 160 Weight last 48 hrs Weight 200 lb Weight 206 lb 9.6 oz Physical Exam 2 Narrative: Patient noticeably in pain when she is sitting. Data 10/14/23 04:28 10/14/23 04:28 A&P Assessment and plan (1) Lumbar stenosis with neurogenic claudication: Discharge planning Follow-up in Ortho clinic in 2 weeks. Attestations 2 Medical Necessity Statement*: Per primary service Coding Level of Care Code Acute Code for [facility] Diagnoses Lumbar stenosis with neurogenic claudication M48.062
[2023-10-14] MEDS: ketorolac 30 mg/mL INJ 15 MG IVP (10:46)
--- NOTE | 2023-10-14 11:34 | PC.SOCIAL ---
IMM Updated Updated pt on IMM. No questions voiced. Provided pt a copy. Initialed, dated, & timed a copy & placed in chart.
[2023-10-14 11:36] LABS: Glucose Point of Care 325 mg/dL (70-110)
[2023-10-14] MEDS: diclofenac 1% Topical Gel 100 gm 1 APPLIC TOPICAL (12:42)
[2023-10-14 13:09] LABS: SARS Covid-2 Antigen negative (Negative)
== END 2023-10-14 14:55 | disposition skilled nursing facility (03) | DRG 552 ==
LOC: ER 04:18 → ER IP 05:28 → CSU 08:05 → MEDSURG 10-12 20:06
PROVIDERS: Internal Medicine; Admitting Provider Internal Medicine; Emergency Provider Emergency Medicine; PCP Family Medicine; Visit Provider Student in an Organized Health Care Education/Training Program
DX: M48.062 Spinal stenosis, lumbar region with neurogenic claudication (principal); I50.32 Chronic diastolic (congestive) heart failure; I48.19 Other persistent atrial fibrillation; G89.29 Other chronic pain; I11.0 Hypertensive heart disease with heart failure; I25.10 Atherosclerotic heart disease of native coronary artery without angina pectoris; K21.9 Gastro-esophageal reflux disease without esophagitis; J45.909 Unspecified asthma, uncomplicated; E11.9 Type 2 diabetes mellitus without complications; E78.5 Hyperlipidemia, unspecified; Z11.52 Encounter for screening for COVID-19; Z79.4 Long term (current) use of insulin; Z79.85 Long-term (current) use of injectable non-insulin antidiabetic drugs; Z87.440 Personal history of urinary (tract) infections; Z85.828 Personal history of other malignant neoplasm of skin; Z86.12 Personal history of poliomyelitis
CPT/HCPCS: 36415; 36416; 72100; 72110; 72148; 80048; 80053; 80061; 82607; 82746; 82962; 83036; 83540; 83550; 83735; 84443; 85025; 87426; 96372; 96374; 96375; 96376; 97161; 99214; 99285; G0378; J1100; J1170; J1644; J1815; J1885; L0637

== ENCOUNTER 2023-10-18 08:35 | Emergency (ER) | payer MEDICARE, OTHER, SELFPAY ==
[2023-10-18 08:36] VITALS: BP 145/67; PULSE 96; RESP 18; TEMP 36.8; O2SAT 95; BMI 32.3
--- NOTE | 2023-10-18 09:02 | USR_ITS ---
PROCEDURE INFORMATION: Exam: US Duplex Left Lower Extremity Veins, Limited Exam date and time: 10/18/2023 10:08 AM Age: 83 years old Clinical indication: Pain; Leg, lower; Left; Additional info: Lle swelling, calf pain, a fib, no anticoagulation TECHNIQUE: Imaging protocol: Real-time duplex ultrasound of the left extremity with 2-D pal[place] scale, color Doppler flow and spectral waveform analysis including responses to compression and other maneuvers (when performed) with image documentation. Limited exam focused on the left lower extremity veins. COMPARISON: No relevant prior studies available. FINDINGS: Left deep veins: The common femoral, femoral, proximal profunda femoral and popliteal veins are patent without thrombus. Normal Doppler waveforms and color flow Doppler signal. Normal compressibility and/or augmentation response. Superficial veins: The visualized greater saphenous vein is patent and compressible. Soft tissues: There is superficial soft tissue edema. US/CV venous duplex [facility] [id number] IMPRESSION: No evidence of deep vein thrombosis.
--- NOTE | 2023-10-18 09:15 | ED_ITS ---
HPI - Extremity Problem 2 General: Chief complaint: Extremity Problem,Nontraumatic Stated complaint: CALF PAIN Time Seen by Provider: 10/18/23 08:38 History of Present Illness: Patient presents to the ER with complaints of left lower leg pain and swelling since last night. Patient says she has taken tramadol and oxycodone from [facility] for pain but this has not helped. Patient was just recently discharged here for low back pain and was seen by Dr. Mitchell. Patient says she never had swelling like this before. Patient states she never had pain like this before. It is a dull achy feeling it feels like she is getting hit in the back of the leg with a sledgehammer. Patient denies any shortness of breath cough cold fever chills chest pain. Patient does have A-fib but has been intolerant of anticoagulation. Review of Systems 2 General: Reports: 10 or more systems reviewed and unremarkable except in HPI and below PFSH ED 2 PFSH: Medical History Weakness Encounter for postoperative care Encounter for postoperative care Chronic cystitis Recurrent UTI History of nonmelanoma skin cancer DDD (degenerative disc disease) Chest pain Persistent and recurrent chest pressure despite of optimization of medicine may further require exploration with left heart cath. GERD (gastroesophageal reflux disease) Asthma History of poliomyelitis History of rectocele History of cystocele Cyctocele/Rectocele repair Lower extremity edema Diabetes mellitus CAD (coronary artery disease) Atrial fibrillation Well-controlled on amiodarone. No anticoagulation- bleeding Hyperlipidemia HTN (hypertension) Surgical History History of eye surgery Previous back surgery History of surgery of liver Growth S/P cholecystectomy S/P hysterectomy 1964 Family History Mother , at age 89 Hypertension Bleeding disorder Father , at age 79 Hypertension Heart disease Brother CAD (coronary artery disease) Heart disease Cancer Lung CA Liver disease Sister Heart disease Diabetes Cancer Renal CA and leukemia Social History Smoking and tobacco/nicotine status: never used tobacco/nicotine Second hand smoke exposure: No Alcohol intake: never Substance/Drug Use: never Lives independently: Yes Marital status: / Current occupational status: retired Physical Exam 2 Const: COMMON NORMALS: no acute distress, average body habitus, patient oriented x3, no limitations, healthy appearing, alert and well nourished Neck/C-Spine: COMMON NORMALS: no JVD Chest: COMMONS NORMALS: normal inspection of the chest and normal palpation of entire chest wall Resp: COMMON NORMALS: normal respiratory effort, No retractions, No use of accessory muscles and clear to auscultation bilaterally AUSCULTATION: clear to auscultation bilaterally Cardio: COMMON NORMALS: no JVD, regular rate, regular rhythm, S1 normal heart sound present, S2 normal heart sound present, No gallops present (Cardio), No clicks present (Cardio), No murmurs present (Cardio) and No rub (Cardio) R ATE: regular rate RHYTHM: regular rhythm HEART SOUNDS: S1 normal heart sound present and S2 normal heart sound present GI: COMMON NORMALS: Normal to inspection, nondistended, normoactive bowel sounds present, Soft to palpation, non-tender, No hepatosplenomegaly present and no masses PALPATION: Yes Soft to palpation and Yes No hepatosplenomegaly present Extremity: NARRATIVE EXTREMITY EXAM: Left lower leg 2+ pitting edema from the knee down, tenderness to palpation over point tenderness in the posterior calf region, neurovascularly intact Neuro: COMMON NORMALS: patient oriented x3 SENSORIUM/ORIENTATION: Yes alert Course 2 Vital Signs: Vital signs: Vital Signs Temperature 98.2 F 10/18/23 08:36 Pulse Rate 83 10/18/23 09:51 Respiratory Rate 17 10/18/23 09:48 Blood Pressure 135/74 10/18/23 09:51 Pulse Oximetry 93 10/18/23 09:51 Oxygen Delivery Me thod Room Air 10/18/23 09:51 MDM - Extremity (Nontraumatic) Medical Decision Making Physical exam was performed lab work was obtained as well as an ultrasound. Lab work was essentially unremarkable, ultrasound did not show DVT, patient was given 0.5 mg Dilaudid IV which calm the patient's pain. These results was discussed with the patient patient states she is ready go back. Patient be discharged back to [facility]. Differential Diagnosis Likely lower extremity edema and deep vein thrombosis of lower extremity Medical Records I reviewed the patient's medical records. Lab Data I reviewed the patient's lab results. 10/18/23 09:45 10/18/23 09:45 Radiology Impressions Venous Duplex 10/18/23 09:02 IMPRESSION: No evidence of deep vein thrombosis. Laboratory Results WBC 13.31 10^3/uL (3.29-11.43) H 10/18/23 09:45 RBC 4.71 10^6/uL (3.85-5.65) 10/18/23 09:45 Hgb 14.80 g/dL (11.27-16.99) 10/18/23 09:45 Hct 43.9 % (36-47) 10/18/23 09:45 MCV 93.2 fl (85-98) 10/18/23 09:45 MCH 31.4 pg (27-33) 10/18/23 09:45 MCHC 33.7 g/dL (30-55) 10/18/23 09:45 RDW 13.0 % (12.1-15.1) 10/18/23 09:45 Plt Count 360 10^3/cmm (157-399) 10/18/23 09:45 MPV 9.4 fL (7.4-10.4) 10/18/23 09:45 Neut % (Auto) 70.4 % 10/18/23 09:45 Lymph % (Auto) 18.3 % 10/18/23 09:45 [place] % (Auto) 8.7 % 10/18/23 09:45 Eos % (Auto) 1.4 % 10/18/23 09:45 Baso % (Auto) 0.1 % 10/18/23 09:45 Neut # (Auto) 9.38 10^3/uL (1.8-7.7) H 10/18/23 09:45 Lymph # (Auto) 2.4 10^3/uL (0.8-4.8) 10/18/23 09:45 [place] # (Auto) 1.2 10^3/uL (0.2-0.9) H 10/18/23 09:45 Eos # (Auto) 0.2 10^3/uL (0.0-0.8) 10/18/23 09:45 Baso # (Auto) 0.0 10^3/uL (0.0-0.1) 10/18/23 09:45 Nucleated RBC % (auto) 0 % 10/18/23 09:45 Nucleated RBCs # 0.0 /100WBC 10/18/23 09:45 PT 11.60 SECONDS (12.1-14.9) L 10/18/23 09:45 INR 0.83 (0.8-1.2) 10/18/23 09:45 Sodium 131 mmol/L (136-145) L 10/18/23 09:45 Potassium 4.1 mmol/L (3.5-5.1) 10/18/23 09:45 Chloride 90 mmol/L (98-107) L 10/18/23 09:45 Carbon Dioxide 27 mmol/L (22-29) 10/18/23 09:45 Anion Gap 18.1 (5-19) 10/18/23 09:45 BUN 28 mg/dL (8-23) H 10/18/23 09:45 Creatinine 0.9 mg/dL (0.5-0.9) 10/18/23 09:45 GFR Calculation Not Reportable 10/18/23 09:45 Glucose 166 mg/dL (65-115) H 10/18/23 09:45 Calculated Osmolality 281 mOsm/kg (285-295) L 10/18/23 09:45 Calcium 9.2 mg/dL (8.5-10.5) 10/18/23 09:45 Total Bilirubin 0.8 mg/dL (0.15-1.2) 10/18/23 09:45 AST 18 U/L (0-32) 10/18/23 09:45 ALT 29 U/L (0-33) 10/18/23 09:45 Alkaline Phosphatase 227 U/L (35-105) H 10/18/23 09:45 Total Protein 7.3 g/dL (6.6-8.7) 10/18/23 09:45 Albumin 3.8 g/dL (3.5-5.2) 10/18/23 09:45 Globulin 3.5 g/dL (1.3-4.6) 10/18/23 09:45 All radiology interpretation(s) finalized by discharge Discharge Plan Discharge Patient Disposition: Home Clinical Impression: Acute pain of left lower extremity, Localized swelling of left lower extremity Condition: Stable Prescriptions: No Action Lantus Solostar U-100 Insulin 100 unit/mL (3 mL) insulin pen 14 unit SUBCUT QID@08,12,16,20 pantoprazole [Protonix] 40 mg tablet,delayed release (DR/EC) 40 mg PO DAILY furosemide 20 mg tablet 20 mg PO DAILY Qty: 90 3RF Trulicity 1.5 mg/0.5 mL pen injector See Rx Instructions .ROUTE .COMPLEX Rx Instructions: 1.5 mg subcutaneously weekly every thursday amiodarone 200 mg tablet 200 mg PO DAILY Qty: 90 3RF metoprolol succinate 25 mg tablet extended release 24 hr 12.5 mg PO DAILY Qty: 90 0RF methocarbamol 500 mg tablet 1,000 mg PO Q8H Qty: 30 0RF losartan 50 mg Tablet 100 mg PO DAILY Qty: 60 0RF tramadol 50 mg tablet 50 - 100 mg PO Q4H PRN (Reason: Pain) nystatin 100,000 unit/gram cream 1 applic TOPICAL BID PRN (Reason: unknown) lidocaine 5 % Adhesive Patch,Medicated 1 - 3 patch topical . DIRECTED Rx Instructions: ON FOR 12 HOURS AND OFF FOR 12 HOURS nitroglycerin [Nitrostat] 0.4 mg Tablet, Sublingual 0.4 mg SUBLINGUAL Q5M PRN (Reason: Chest Pain) Rx Instructions: do not exceed 3 doses per episode fluticasone propionate 50 mcg/actuation spray,suspension 2 spray INTRANASAL DAILY insulin aspart U-100 [Novolog FlexPen U-100 Insulin] 100 unit/mL (3 mL) insulin pen See Rx Instructions .ROUTE .COMPLEX Rx Instructions: sliding scale subcutaneously tid mometasone 0.1 % solution See Rx Instructions .ROUTE .COMPLEX Rx Instructions: APPLY TO SCALP TWICE DAILY NEEDED FOR RASH PreserVision AREDS-2 250-90-40-1 mg Capsule 1 tab PO BID Discharge Orders: Discharge ED (Routine); Ordered 10/18/23 Ordered By: Juaquin García Referrals: Kaylynn Munoz DO [Primary Care Provider] - 1 week Patient Instructions: Leg Pain (ED), Dependent Edema Activity Restrictions/Additional Instructions: Your lab work was unremarkable and your ultrasound did not show a blood clot. Please continue taking your pain medicine as directed. Please try to elevate your left leg above your heart is much as possible. Please follow-up with your doctor at the facility Coding Level of Care Code ED Maintenance Assistant for Michael Nice
[2023-10-18 09:48] VITALS: RESP 17; O2SAT 93
[2023-10-18] MEDS: HYDROmorphone 1 mg/mL INJ 1 mL 0.5 MG IVP (09:48)
[2023-10-18 09:51] VITALS: BP 135/74; PULSE 83; O2SAT 93
[2023-10-18 09:55] LABS: Basophils % 0.1 %; Eosinophils # 0.2 10^3/uL (0.0-0.8); Eosinophils % 1.4 %; Hematocrit 43.9 % (36-47); Lymphocytes # 2.4 10^3/uL (0.8-4.8); Lymphocytes % 18.3 %; Mean Corpuscular HGB Conc 33.7 g/dL (30-55); Mean Corpuscular Hemoglobin 31.4 pg (27-33); Mean Corpuscular Volume 93.2 fl (85-98); Mean Platelet Volume 9.4 fL (7.4-10.4); Monocytes # 1.2 10^3/uL (0.2-0.9); Monocytes % 8.7 %; Neutrophils # 9.38 10^3/uL (1.8-7.7); Neutrophils % 70.4 %; Nucleated Red Blood Cells % 0 %; Platelet Count 360 10^3/cmm (157-399); Red Blood Count 4.71 10^6/uL (3.85-5.65); White Blood Count 13.31 10^3/uL (3.29-11.43)
[2023-10-18 10:10] LABS: INR 0.83 (0.8-1.2)
[2023-10-18 10:13] LABS: Alanine Aminotransferase 29 U/L (0-33); Albumin Level 3.8 g/dL (3.5-5.2); Alkaline Phosphatase 227 U/L (35-105); Anion Gap 18.1 (5-19); Aspartate Amino Transferase 18 U/L (0-32); Blood Urea Nitrogen 28 mg/dL (8-23); Calcium 9.2 mg/dL (8.5-10.5); Carbon Dioxide 27 mmol/L (22-29); Chloride 90 mmol/L (98-107); Creatinine Clr Calc Pharmacy 55.6194; Globulin 3.5 g/dL (1.3-4.6); Glucose 166 mg/dL (65-115); Osmolality Calculated 281 mOsm/kg (285-295); Potassium 4.1 mmol/L (3.5-5.1); Sodium 131 mmol/L (136-145); Total Bilirubin 0.8 mg/dL (0.15-1.2); Total Protein 7.3 g/dL (6.6-8.7)
== END 2023-10-18 12:43 | disposition home or self-care (01) ==
PROVIDERS: Emergency Provider Emergency Medicine; PCP Family Medicine
DX: M79.605 Pain in left leg (principal); R60.0 Localized edema; Z79.4 Long term (current) use of insulin; Z79.85 Long-term (current) use of injectable non-insulin antidiabetic drugs; E11.9 Type 2 diabetes mellitus without complications; I25.10 Atherosclerotic heart disease of native coronary artery without angina pectoris; E78.5 Hyperlipidemia, unspecified; I10 Essential (primary) hypertension
CPT/HCPCS: 80053; 85025; 85610; 93971; 96374; 99285; J1170

== ENCOUNTER 2023-10-22 12:07 | Emergency (ER) | payer MEDICARE, OTHER, SELFPAY ==
[2023-10-22 12:13] VITALS: BP 133/62; PULSE 93; RESP 17; TEMP 36.5; O2SAT 96; BMI 32.3
[2023-10-22 12:17] VITALS: BP 133/62; PULSE 92; RESP 18; O2SAT 96
--- NOTE | 2023-10-22 12:33 | W.ED.BACK ---
HPI - Back Pain/Injury General: Chief Complaint: Back Pain/Injury Stated Complaint: chronic back pain Time Seen by Provider: 10/22/23 12:20 Source: patient and EMS Mode of arrival: EMS Limitations: no limitations History of Present Illness: 83-year-old female who has a history of chronic back pain she had been admitted here earlier this month for her back pain and was placed in SNF placement. States she [facility] the [facility] 10 out of 10 she had refused her [place] there. She denies any bowel or bladder incontinence denies any new injuries Associated symptoms: Deny abdominal pain, chills, fever(s), nausea or vomiting Review of Systems Const: Denies: fever(s), chills, body aches or change in appetite ENMT: Denies: throat pain or dental pain Card: Denies: chest pain Resp: Denies: dyspnea GI: Denies: abdominal pain, nausea, vomiting or diarrhea Musc: Reports: back pain; Denies: neck pain Skin/Breast: Denies: rash Neuro: Denies: headache(s) PFSH ED PFSH: Medical History Weakness Encounter for postoperative care Encounter for postoperative care Chronic cystitis Recurrent UTI History of nonmelanoma skin cancer DDD (degenerative disc disease) Chest pain Persistent and recurrent chest pressure despite of optimization of medicine may further require exploration with left heart cath. GERD (gastroesophageal reflux disease) Asthma History of poliomyelitis History of rectocele History of cystocele Cyctocele/Rectocele repair Lower extremity edema Diabetes mellitus CAD (coronary artery disease) Atrial fibrillation Well-controlled on amiodarone. No anticoagulation- bleeding Hyperlipidemia HTN (hypertension) Surgical History History of eye surgery Previous back surgery History of surgery of liver Growth S/P cholecystectomy S/P hysterectomy 1965 Family History Mother , at age 89 Hypertension Bleeding disorder Father , at age 79 Hypertension Heart disease Brother CAD (coronary artery disease) Heart disease Cancer Lung CA Liver disease Sister Heart disease Diabetes Cancer Renal CA and leukemia Social History Smoking and tobacco/nicotine status: never used tobacco/nicotine Second hand smoke exposure: No Alcohol intake: never Substance/Drug Use: never Lives independently: Yes Marital status: / Current occupational status: retired Physical Exam Const: COMMON NORMALS: no acute distress, patient oriented x3 and healthy appearing HENMT: COMMON NORMALS: normocephalic and atraumatic HEAD & SCALP: normocephalic and atraumatic Eye: COMMON NORMALS: Equal, round and reactive pupils present and EOMs intact bilaterally PUPIL: Yes Equal, round and reactive pupils present Neck/C-Spine: COMMON NORMALS: full ROM and supple Chest: COMMONS NORMALS: normal inspection of the chest and normal palpation of entire chest wall Resp: COMMON NORMALS: normal respiratory effort, No retractions, No use of accessory muscles and clear to auscultation bilaterally AUSCULTATION: clear to auscultation bilaterally Cardio: COMMON NORMALS: regular rate, regular rhythm and No murmurs present (Cardio) RATE: regular rate RHYTHM: regular rhythm GI: COMMON NORMALS: Normal to inspection, nondistended, normoactive bowel sounds present, Soft to palpation, non-tender and no masses PALPATION: Yes Soft to palpation Extremity: COMMON NORMALS: normal to inspection and full ROM Neuro: COMMON NORMALS: patient oriented x3, moves all extremities and no focal motor deficits Psych: COMMON NORMALS: mental status grossly normal, Normal thought process present and cooperative THOUGHT PROCESS: Normal thought process present Skin: COMMON NORMALS: no rashes or lesions noted and no wounds GENERAL SKIN EXAM: no rashes or lesions noted Course Vital Signs: Vital signs: Vital Signs Temperature 97.7 F 10/22/23 12:13 Pulse Rate 75 10/22/23 14:00 Respiratory Rate 16 10/22/23 14:00 Blood Pressure 117/59 10/22/23 14:00 Pulse Oximetry 95 10/22/23 14:00 Oxygen Delivery Me thod Room Air 10/22/23 14:00 MDM - Back Pain/Injury Medical Decision Making Patient presents with back pain is chronic in nature she is feeling improved here she is stable for [facility] to [facility] return if worsening. Medical Records I reviewed the patient's medical records. No radiology studies performed this visit Discharge Plan Discharge Patient Disposition: Home Clinical Impression: Low back pain Condition: Stable Prescriptions: New Percocet 5-325 mg tablet 1 tab PO Q8H PRN (Reason: pain) Qty: 14 0RF No Action Lantus Solostar U-100 Insulin 100 unit/mL (3 mL) insulin pen 30 unit SUBCUT BEDTIME pantoprazole [Protonix] 40 mg tablet,delayed release (DR/EC) 40 mg PO DAILY Trulicity 1.5 mg/0.5 mL pen injector 1.5 mg SUBCUT Q7D Rx Instructions: ON THURSDAY methocarbamol 500 mg tablet 1,000 mg PO Q8H Qty: 30 0RF Milk of Magnesia 400 mg/5 mL Suspension 30 ml PO DAILY PRN (Reason: Constipation) bisacodyl 10 mg Suppository 10 mg AK DAILY PRN (Reason: Constipation) Fleet Enema 19-7 gram/118 mL Enema 118 ml AK DAILY PRN (Reason: Constipation) Advair Diskus 100-50 mcg/dose Blister With Device 2 inh INHALATION DAILY losartan 100 mg Tablet 100 mg PO DAILY Probiotic 3 billion cell Capsule 3,000 mmu cells PO DAILY PRN (Reason: WHEN ON ANTIBIOTICS) Rx Instructions: administer with a meal hydrocodone-acetaminophen 5-325 mg tablet 1 tab PO Q4H PRN (Reason: Pain, Moderate) diclofenac sodium 1 % Gel 2 g TOPICAL QID PRN (Reason: PAINFUL AREAS) amiodarone 200 mg tablet 200 mg PO QAM furosemide 20 mg tablet 20 mg PO QAM metoprolol succinate 25 mg tablet extended release 24 hr 12.5 mg PO QAM tramadol 50 mg tablet 50 - 100 mg PO Q4H PRN (Reason: Pain) nystatin 100,000 unit/gram cream 1 applic TOPICAL BID PRN (Reason: Rash) lidocaine 5 % Adhesive Patch,Medicated See Rx Instructions .ROUTE .COMPLEX Rx Instructions: APPLY 1 TO 3 PATCHES TOPICALLY ON IN THE MORNING AND OFF AT BEDTIME NEEDED FOR PAIN. nitroglycerin [Nitrostat] 0.4 mg Tablet, Sublingual 0.4 mg SUBLINGUAL Q5M PRN (Reason: Chest Pain) Rx Instructions: do not exceed 3 doses per episode insulin aspart U-100 [Novolog FlexPen U-100 Insulin] 100 unit/mL (3 mL) insulin pen 8 unit SUBCUT TID mometasone 0.1 % solution See Rx Instructions .ROUTE .COMPLEX Rx Instructions: APPLY SMALL AMOUNT TOPICALLY TWICE DAILY NEEDED FOR RASH. PreserVision AREDS-2 250-90-40-1 mg Capsule 1 tab PO BID Discharge Orders: Discharge ED (Routine); Ordered 10/22/23 Ordered By: Vicente Thomas Referrals: Kaylynn Munoz DO [Primary Care Provider] - 4-7 days Discharge Diet: Advance as tolerated Discharge Activity: Resume usual activity Patient Instructions: Chronic Back Pain (DC) Coding Level of Care Code ED Biochemical Development Engineer for Michael Nice
[2023-10-22] MEDS: methocarbamol 750 mg Tablet 1500 MG PO (12:45)
[2023-10-22] MEDS: morphine 4 mg/mL SDV 1 mL IM (12:46)
--- NOTE | 2023-10-22 13:51 | PHA.FALL ---
A Pharmacy Consult Was Conducted For Elizabeth Cantor Due To: Rodgers Fall Scale Risk Level: Low Fall Risk On 10/22/23 12:13 And A Medication Fall Risk Score Greater Than 10. The Recommendations Are As Follows:
--- NOTE | 2023-10-22 13:51 | PC.PHAR ---
PT IS FROM [facility]. CLARIFIED WITH CHERELLE-PT DID TAKE AM MEDS TODAY 10/22/23.
[2023-10-22 14:00] VITALS: BP 117/59; PULSE 75; RESP 16; O2SAT 95
== END 2023-10-22 14:28 | disposition home or self-care (01) ==
PROVIDERS: Emergency Provider Emergency Medicine; PCP Family Medicine
DX: M54.50 Low back pain, unspecified (principal); Z79.85 Long-term (current) use of injectable non-insulin antidiabetic drugs; Z79.4 Long term (current) use of insulin; E11.9 Type 2 diabetes mellitus without complications; I25.10 Atherosclerotic heart disease of native coronary artery without angina pectoris; E78.5 Hyperlipidemia, unspecified; I10 Essential (primary) hypertension
CPT/HCPCS: 96372; 99284; J2270

== ENCOUNTER → 2023-10-29 09:30 | Outpatient (BNVA) | payer MEDICARE, OTHER, SELFPAY | PROVIDERS: PCP Family Medicine; Visit Provider Orthopaedic Surgery | DX: M54.50 Low back pain, unspecified (principal); M47.816 Spondylosis without myelopathy or radiculopathy, lumbar region; M48.062 Spinal stenosis, lumbar region with neurogenic claudication; E11.9 Type 2 diabetes mellitus without complications | CPT/HCPCS: 36415; 72110; 80053; 81001; 83036; 85025; 87077; 87086; 87186; 99214 ==

== ENCOUNTER 2023-10-30 17:44 | Emergency (ER) | payer MEDICARE, OTHER, SELFPAY ==
[2023-10-30 17:45] VITALS: BP 116/71; PULSE 82; RESP 20; O2SAT 95; BMI 32.3
--- NOTE | 2023-10-30 17:48 | ECG_ITS ---
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 Measurements Intervals [place] Rate: 80 P: 42 KS: 178 QRS: -33 QRSD: 88 T: 13 QT: 379 QTc: 439 Interpretive Statements SINUS RHYTHM LEFT AXIS DEVIATION [QRS AXIS < -30] LOW QRS VOLTAGE IN PRECORDIAL LEADS [QRS DEFLECTION < 1.0 mV IN CHEST LEADS] ANTEROSEPTAL MYOCARDIAL INFARCTION , OF INDETERMINATE AGE [40+ ms Q WAVE IN V1-V4] Compared to ECG 11/01/2022 10:08:23 Left-axis deviation now present Myocardial infarct finding now present Electronically Signed On 10-30-2023 20:44:30 CDT by Bob Dunlap M.D. [id number]
--- NOTE | 2023-10-30 17:48 | XRR_ITS ---
PROCEDURE INFORMATION: Exam: XR Chest Exam date and time: 10/30/2023 5:55 PM Age: 83 years old Clinical indication: Shortness of breath; Additional info: Cp TECHNIQUE: Imaging protocol: Radiologic exam of the chest. Views: 1 view. COMPARISON: CT angio chest PE protcl [id number] 11/01/2022 11:14 AM FINDINGS: Lungs: No acute pulmonary pathology. Pleural spaces: No pleural effusion. Heart/Mediastinum: Cardiomediastinal contours accentuated by AP technique. Diaphragm: Elevated right hemidiaphragm again seen. Bones/joints: No significant pathology. XR/XR chest 1V portable [id number] IMPRESSION: No acute pathology given technique. Elevated right hemidiaphragm again noted.
--- NOTE | 2023-10-30 17:55 | ED_ITS ---
HPI - Weakness 2 General: Chief complaint: Weakness Stated complaint: WEAKNESS Time Seen by Provider: 10/30/23 17:46 Source: patient and EMS Mode of arrival: EMS Limitations: no limitations History of Present Illness: 83-year-old female here from [facility] patient had tachycardia there 115 she is given the Toprol that her heart rate is currently in the 70s she has been having some generalized weakness as well she been seen multiple times for low back pain she has been following with Dr. Mitchell had seen him 2 days ago is having surgery in November she denies any chest pain denies any shortness of breath she has no confusion here. Associated symptoms: Denies chest pain, chills, fever(s), headache(s), nausea or vomiting Review of Systems 2 Const: Reports: malaise; Denies: fever(s), chills, body aches or change in appetite ENMT: Denies: throat pain or dental pain Card: Reports: palpitations; Denies: chest pain Resp: Denies: dyspnea GI: Denies: abdominal pain, nausea, vomiting or diarrhea Musc: Reports: back pain; Denies: neck pain Skin/Breast: Denies: rash Neuro: Denies: headache(s) PFSH ED 2 PFSH: Medical History Weakness Encounter for postoperative care Encounter for postoperative care Chronic cystitis Recurrent UTI History of nonmelanoma skin cancer DDD (degenerative disc disease) Chest pain Persistent and recurrent chest pressure despite of optimization of medicine may further require exploration with left heart cath. GERD (gastroesophageal reflux disease) Asthma History of poliomyelitis History of rectocele History of cystocele Cyctocele/Rectocele repair Lower extremity edema Diabetes mellitus CAD (coronary artery disease) Atrial fibrillation Well-controlled on amiodarone. No anticoagulation- bleeding Hyperlipidemia HTN (hypertension) Surgical History History of eye surgery Previous back surgery History of surgery of liver Growth S/P cholecystectomy S/P hysterectomy 1964 Family History Mother , at age 89 Hypertension Bleeding disorder Father , at age 79 Hypertension Heart disease Brother CAD (coronary artery disease) Heart disease Cancer Lung CA Liver disease Sister Heart disease Diabetes Cancer Renal CA and leukemia Social History Smoking and tobacco/nicotine status: never used tobacco/nicotine Second hand smoke exposure: No Alcohol intake: never Substance/Drug Use: never Lives independently: Yes Marital status: / Current occupational status: retired Physical Exam 2 Const: COMMON NORMALS: no acute distress, patient oriented x3 and healthy appearing HENMT: COMMON NORMALS: normocephalic and atraumatic HEAD & SCALP: n ormocephalic and atraumatic Eye: COMMON NORMALS: Equal, round and reactive pupils present and EOMs intact bilaterally PUPIL: Yes Equal, round and reactive pupils present Neck/C-Spine: COMMON NORMALS: full ROM and supple Chest: COMMONS NORMALS: normal inspection of the chest Resp: COMMON NORMALS: normal respiratory effort, No retractions, No use of accessory muscles and clear to auscultation bilaterally AUSCULTATION: clear to auscultation bilaterally Cardio: COMMON NORMALS: regular rate, regular rhythm and No murmurs present (Cardio) RATE: regular rate RHYTHM: regular rhythm GI: COMMON NORMALS: Normal to inspection, nondistended, normoactive bowel sounds present, Soft to palpation, non-tender and no masses PALPATION: Yes Soft to palpation Extremity: COMMON NORMALS: full ROM NARRATIVE EXTREMITY EXAM: 1+ edema to lower extremities Neuro: COMMON NORMALS: patient oriented x3, moves all extremities and no focal motor deficits Psych: COMMON NORMALS: mental status grossly normal, Normal thought process present and cooperative THOUGHT PROCESS: Normal thought process present Skin: COMMON NORMALS: no rashes or lesions noted and no wounds GENERAL SKIN EXAM: no rashes or lesions noted Course 2 Vital Signs: Vital signs: Vital Signs Pulse Rate 69 10/30/23 20:58 Respiratory Rate 20 H 10/30/23 20:58 Blood Pressure 111/68 10/30/23 20:58 Pulse Oximetry 96 10/30/23 20:58 Oxygen Delivery Me thod Room Air 10/30/23 17:45 MDM - Weakness Medical Decision Making Patient presents here with generalized weakness she is having chronic back pain she is found have a UTI other blood work here is unimpressive. She is stable for discharge she is follow-up with PCP and return if worsening she understands agrees to plan. Will start her on Keflex. Medical Records I reviewed the patient's medical records. Lab Data I reviewed the patient's lab results. 10/30/23 18:06 10/30/23 18:06 Radiology Impressions Chest X-Ray 10/30/23 17:48 IMPRESSION: No acute pathology given technique. Elevated right hemidiaphragm again noted. Laboratory Results WBC 6.67 10^3/uL (3.29-11.43) 10/30/23 18:06 RBC 3.82 10^6/uL (3.85-5.65) L 10/30/23 18:06 Hgb 12.00 g/dL (11.27-16.99) 10/30/23 18:06 Hct 36.1 % (36-47) 10/30/23 18:06 MCV 94.5 fl (85-98) 10/30/23 18:06 MCH 31.4 pg (27-33) 10/30/23 18:06 MCHC 33.2 g/dL (30-55) 10/30/23 18:06 RDW 13.4 % (12.1-15.1) 10/30/23 18:06 Plt Count 308 10^3/cmm (157-399) 10/30/23 18:06 MPV 8.7 fL (7.4-10.4) 10/30/23 18:06 Neut % (Auto) 58.8 % 10/30/23 18:06 Lymph % (Auto) 20.1 % 10/30/23 18:06 [place] % (Auto) 13.8 % 10/30/23 18:06 Eos % (Auto) 6.1 % 10/30/23 18:06 Baso % (Auto) 0.9 % 10/30/23 18:06 Neut # (Auto) 3.92 10^3/uL (1.8-7.7) 10/30/23 18:06 Lymph # (Auto) 1.3 10^3/uL (0.8-4.8) 10/30/23 18:06 [place] # (Auto) 0.9 10^3/uL (0.2-0.9) 10/30/23 18:06 Eos # (Auto) 0.4 10^3/uL (0.0-0.8) 10/30/23 18:06 Baso # (Auto) 0.1 10^3/uL (0.0-0.1) 10/30/23 18:06 Nucleated RBC % (auto) 0 % 10/30/23 18:06 Nucleated RBCs # 0.0 /100WBC 10/30/23 18:06 PT 12.40 SECONDS (12.1-14.9) 10/30/23 18:06 INR 0.90 (0.8-1.2) 10/30/23 18:06 Sodium 132 mmol/L (136-145) L 10/30/23 18:06 Potassium 3.9 mmol/L (3.5-5.1) 10/30/23 18:06 Chloride 94 mmol/L (98-107) L 10/30/23 18:06 Carbon Dioxide 26 mmol/L (22-29) 10/30/23 18:06 Anion Gap 15.9 (5-19) 10/30/23 18:06 BUN 13 mg/dL (8-23) 10/30/23 18:06 Creatinine 0.7 mg/dL (0.5-0.9) 10/30/23 18:06 GFR Calculation Not Reportable 10/30/23 18:06 Glucose 102 mg/dL (65-115) 10/30/23 18:06 Calculated Osmolality 274 mOsm/kg (285-295) L 10/30/23 18:06 Calcium 9.0 mg/dL (8.5-10.5) 10/30/23 18:06 Total Bilirubin 0.4 mg/dL (0.15-1.2) 10/30/23 18:06 AST 15 U/L (0-32) 10/30/23 18:06 ALT 18 U/L (0-33) 10/30/23 18:06 Alkaline Phosphatase 356 U/L (35-105) H 10/30/23 18:06 Troponin T Baseline 30 ng/L (0-10) H 10/30/23 18:06 Troponin T 120 Minute 30.63 ng/L (0-10) H 10/30/23 19:48 Delta Troponin T 0.63 ABS# (0-10) 10/30/23 19:48 NT-Pro-B Natriuret Pep 658 pg/mL (0-450) H 10/30/23 18:06 Total Protein 6.0 g/dL (6.6-8.7) L 10/30/23 18:06 Albumin 3.6 g/dL (3.5-5.2) 10/30/23 18:06 Globulin 2.4 g/dL (1.3-4.6) 10/30/23 18:06 Urine Color Yellow (Yellow) 10/30/23 18:38 Urine Appearance Cloudy (CLEAR) A 10/30/23 18:38 Urine pH 9 (5-7) H 10/30/23 18:38 Ur Specific [place] 1.010 (1.005-1.030) 10/30/23 18:38 Urine Protein Neg (Negative) 10/30/23 18:38 Urine Glucose (UA) Norm (Normal) 10/30/23 18:38 Urine Ketones Negative (Negative) 10/30/23 18:38 Urine Blood 2+ (Negative) H 10/30/23 18:38 Urine Nitrate Positive (Negative) A 10/30/23 18:38 Urine Bilirubin Neg (Negative) 10/30/23 18:38 Urine Urobilinogen Neg mg/dL (Negative) 10/30/23 18:38 Ur Leukocyte Esterase 2+ (Negative) H 10/30/23 18:38 Urine RBC 15-25 /hpf (0-2) H 10/30/23 18:38 Urine WBC 55-80 /hpf (0-5) H 10/30/23 18:38 Ur Squamous Epith Cells 5-10 /hpf (0-5) H 10/30/23 18:38 Amorphous Sediment Not Reportable 10/30/23 18:38 Urine Bacteria 3+ /hpf (NONE) H 10/30/23 18:38 All radiology interpretation(s) finalized by discharge EKG Data EKG 1: I personally reviewed and interpreted this EKG as follows: EKG interpretation date: 10/30/23 EKG interpretation time: 17:45 Interpretation: nsr hr [address] elevation qr 88 qtc 415 Discharge Plan Discharge Patient Disposition: Home Clinical Impression: Acute cystitis Qualifiers: Hematuria presence: without hematuria Qualified Code(s): N30.00 - Acute cystitis without hematuria Condition: Stable Prescriptions: New cephalexin 500 mg capsule 500 mg PO TID 7 Days Qty: 21 0RF No Action Lantus Solostar U-100 Insulin 100 unit/mL (3 mL) insulin pen 30 unit SUBCUT BEDTIME pantoprazole [Protonix] 40 mg tablet,delayed release (DR/EC) 40 mg PO DAILY Trulicity 1.5 mg/0.5 mL pen injector 1.5 mg SUBCUT Q7D Rx Instructions: ON THURSDAY methocarbamol 500 mg tablet 1,000 mg PO Q8H Qty: 30 0RF Milk of Magnesia 400 mg/5 mL Suspension 30 ml PO DAILY PRN (Reason: Constipation) bisacodyl 10 mg Suppository 10 mg FL DAILY PRN (Reason: Constipation) Fleet Enema 19-7 gram/118 mL Enema 118 ml FL DAILY PRN (Reason: Constipation) Advair Diskus 100-50 mcg/dose Blister With Device 2 inh INHALATION DAILY losartan 100 mg Tablet 100 mg PO DAILY Probiotic 3 billion cell Capsule 3,000 mmu cells PO DAILY PRN (Reason: WHEN ON ANTIBIOTICS) Rx Instructions: administer with a meal hydrocodone-acetaminophen 5-325 mg tablet 1 tab PO Q4H PRN (Reason: Pain, Moderate) diclofenac sodium 1 % Gel 2 g TOPICAL QID PRN (Reason: PAINFUL AREAS) amiodarone 200 mg tablet 200 mg PO QAM furosemide 20 mg tablet 20 mg PO QAM metoprolol succinate 25 mg tablet extended release 24 hr 12.5 mg PO QAM tramadol 50 mg tablet 50 - 100 mg PO Q4H PRN (Reason: Pain) nystatin 100,000 unit/gram cream 1 applic TOPICAL BID PRN (Reason: Rash) lidocaine 5 % Adhesive Patch,Medicated See Rx Instructions .ROUTE .COMPLEX Rx Instructions: APPLY 1 TO 3 PATCHES TOPICALLY ON IN THE MORNING AND OFF AT BEDTIME NEEDED FOR PAIN. nitroglycerin [Nitrostat] 0.4 mg Tablet, Sublingual 0.4 mg SUBLINGUAL Q5M PRN (Reason: Chest Pain) Rx Instructions: do not exceed 3 doses per episode insulin aspart U-100 [Novolog FlexPen U-100 Insulin] 100 unit/mL (3 mL) insulin pen 8 unit SUBCUT TID mometasone 0.1 % solution See Rx Instructions .ROUTE .COMPLEX Rx Instructions: APPLY SMALL AMOUNT TOPICALLY TWICE DAILY NEEDED FOR RASH. PreserVision AREDS-2 250-90-40-1 mg Capsule 1 tab PO BID Discharge Orders: Discharge ED (Routine); Ordered 10/30/23 Ordered By: Vicente Thomas Referrals: Kaylynn Munoz DO [Primary Care Provider] - 1-3 days Discharge Diet: Advance as tolerated Discharge Activity: Resume usual activity Patient Instructions: Urinary Tract Infection in Women (ED) Coding Level of Care Code ED Home Demonstrator for Michael Nice
[2023-10-30 18:14] LABS: Basophils # 0.1 10^3/uL (0.0-0.1); Basophils % 0.9 %; Eosinophils # 0.4 10^3/uL (0.0-0.8); Eosinophils % 6.1 %; Hematocrit 36.1 % (36-47); Lymphocytes # 1.3 10^3/uL (0.8-4.8); Lymphocytes % 20.1 %; Mean Corpuscular HGB Conc 33.2 g/dL (30-55); Mean Corpuscular Hemoglobin 31.4 pg (27-33); Mean Corpuscular Volume 94.5 fl (85-98); Mean Platelet Volume 8.7 fL (7.4-10.4); Monocytes # 0.9 10^3/uL (0.2-0.9); Monocytes % 13.8 %; Neutrophils # 3.92 10^3/uL (1.8-7.7); Neutrophils % 58.8 %; Nucleated Red Blood Cells % 0 %; Platelet Count 308 10^3/cmm (157-399); Red Blood Count 3.82 10^6/uL (3.85-5.65); Red Cell Distribution Width 13.4 % (12.1-15.1); White Blood Count 6.67 10^3/uL (3.29-11.43)
[2023-10-30 18:32] LABS: Troponin(5th) Baseline 30 ng/L (0-10)
[2023-10-30] MEDS: HYDROcodone-acetaminophen 7.5-325 mg Tablet 1 TAB PO (18:50)
[2023-10-30 19:06] LABS: Add Urine Microscopic? YES; Bilirubin Urine Neg (Negative); Blood Urine 2+ (Negative); Glucose Urine UA Norm (Normal); Ketones Urine Negative (Negative); Leukocyte Esterase Urine 2+ (Negative); Nitrate Urine Positive (Negative); Protein Urine Neg (Negative); Urine Appearance Cloudy (CLEAR); Urine Color Yellow (Yellow); Urobilinogen Urine Neg (Negative); pH Urine 9 (5-7)
[2023-10-30 19:07] LABS: Bacteria Urine 3+ /hpf; RBC Urine 15-25 /hpf (0-2); WBC Urine 55-80 /hpf (0-5)
[2023-10-30 19:26] LABS: Alanine Aminotransferase 18 U/L (0-33); Albumin Level 3.6 g/dL (3.5-5.2); Alkaline Phosphatase 356 U/L (35-105); Anion Gap 15.9 (5-19); Aspartate Amino Transferase 15 U/L (0-32); Blood Urea Nitrogen 13 mg/dL (8-23); Carbon Dioxide 26 mmol/L (22-29); Chloride 94 mmol/L (98-107); Creatinine Clr Calc Pharmacy 62.5719; Globulin 2.4 g/dL (1.3-4.6); Glucose 102 mg/dL (65-115); NT Pro B Type Natriuretic Pept 658 pg/mL (0-450); Osmolality Calculated 274 mOsm/kg (285-295); Potassium 3.9 mmol/L (3.5-5.1); Sodium 132 mmol/L (136-145); Total Bilirubin 0.4 mg/dL (0.15-1.2)
[2023-10-30] MEDS: cefTRIAXone 1,000 MG in sodium chloride 0.9% (plus) 50 ML 100 MG IV (19:26)
[2023-10-30 20:19] LABS: Troponin 5 2HR 30.63 ng/L (0-10); Troponin 5 2HR Delta 0.63 ABS# (0-10)
[2023-10-30 20:58] VITALS: BP 111/68; PULSE 69; RESP 20; O2SAT 96
== END 2023-10-30 23:50 | disposition home or self-care (01) ==
PROVIDERS: Emergency Provider Emergency Medicine; PCP Family Medicine
DX: N30.00 Acute cystitis without hematuria (principal); Z79.4 Long term (current) use of insulin; Z79.85 Long-term (current) use of injectable non-insulin antidiabetic drugs; E11.9 Type 2 diabetes mellitus without complications; I25.10 Atherosclerotic heart disease of native coronary artery without angina pectoris; E78.5 Hyperlipidemia, unspecified; I10 Essential (primary) hypertension
CPT/HCPCS: 36415; 71045; 80053; 81001; 83880; 84484; 85025; 85610; 93005; 96365; 99285; J0696

== ENCOUNTER → 2023-11-03 11:41 | Outpatient (BNVA) | payer MEDICARE, OTHER, SELFPAY | PROVIDERS: PCP Family Medicine; Visit Provider Internal Medicine Cardiovascular Disease | DX: I48.19 Other persistent atrial fibrillation (principal); I11.0 Hypertensive heart disease with heart failure; I50.30 Unspecified diastolic (congestive) heart failure; E11.9 Type 2 diabetes mellitus without complications; Z79.85 Long-term (current) use of injectable non-insulin antidiabetic drugs; N39.0 Urinary tract infection, site not specified; E78.5 Hyperlipidemia, unspecified; I25.10 Atherosclerotic heart disease of native coronary artery without angina pectoris; R60.9 Edema, unspecified; Z79.4 Long term (current) use of insulin | CPT/HCPCS: 99214 ==

== ENCOUNTER 2023-11-25 14:25 | Inpatient (IN) | payer MEDICARE, OTHER, SELFPAY ==
[2023-11-25] VITALS (17 sets, daily range): BP systolic 101–156; BP diastolic 50–78; PULSE 69–77; RESP 16–19; TEMP 36.5–37.1; O2SAT 90–99; BMI 33.4
--- NOTE | 2023-11-25 | XR_ITS ---
WS: [id number] C-ARM RADIOGRAPHS LUMBAR SPINE; 6 IMAGES HISTORY: KIMBERLY PICS COMPARISON: Radiograph 10/29/2023 Intraoperative imaging during extensive lumbosacral surgery. Hardware extends from the mid lumbar spi ne. This is either L2 or L3. Severe osteopenia limiting assessment of each vertebral body. Vertical r ods and pedicle screws at several contiguous levels. There are additional screws extending along the SI joints. XR/XR lumbar spine 2-3V* [id number] IMPRESSION: Intraoperative imaging during extensive multilevel posterior lumbar sacral fusi on.
[2023-11-25 11:33] LABS: Glucose Point of Care 124 mg/dL (70-110)
--- NOTE | 2023-11-25 12:23 | P.ANESASSM_ITS ---
Pre-Anesthetic Assessment Height/Weight: Height 1.68 m Weight 93.894 kg Temp Pulse Resp BP Pulse Ox O2 Del Method 98.2 F 72 19 H 156/72 95 Room Air 11/25/23 11:09 11/25/23 11:09 11/25/23 11:09 11/25/23 11:09 11/25/23 11:09 11/25/23 11:10 Preop Diagnosis: Lumbar stenosis with neurogenic claudication Operation Date: 11/25/23 12:25 Proposed Procedures p Spinal Fusion PSF(Not Applicable) - Kris Mitchell DO s Lumbopelvic Fixation(Not Applicable) - DO kendy Oliva Sacroiliac Joint Fusion SI Joint Fusion(Bilateral) - DO kendy Oliva Lumbar Spine Decompression Lumbar Decompression(Not Applicable) - Kris Mitchell DO Familial anesthetic complications: None Was Beta Andrews taken within 24 hours: Yes Was Clonidine taken within 24 hours: N/A Last intake: Intake Last Liquid Date 11/24/23 Last Liquid Time 19:00 Last Solid Date 11/24/23 Last Solid Time 18:00 Social No alcohol and No tobacco Airway Mallampati: Class II CV/HEM Atrial Fibrillation, Congestive Heart Failure, Hypertension and Myocardial Infarction leg edema improved per patient GI Gastroesophageal Reflux Disease Metabolic Diabetes Mellitus Anesthetic Plan ASA status: 3 Anesthesia: General Risk of > 500 ml blood loss (7ml/kg in children): No Medications/Allergies Home Medications Medication Instructions Recorded Confirmed Last Taken Type insulin glargine 100 unit/mL (3 30 unit SUBCUT BEDTIME 07/04/19 11/24/23 11/24/23 History mL) subcutaneous pen (Lantus Solostar U-100 Insulin) pantoprazole 40 mg tablet,delayed 40 mg PO DAILY 07/04/19 11/24/23 11/24/23 History release (Protonix) insulin aspart U-100 100 unit/mL 8 unit SUBCUT TID 11/01/22 11/24/23 11/24/23 History (3 mL) subcutaneous pen (Novolog FlexPen U-100 Insulin aspart) mometasone 0.1 % topical solution See Rx Instructions .Route .COMPLEX 11/01/22 11/24/23 Unknown History nitroglycerin 0.4 mg sublingual 0.4 mg sublingual Q5M PRN Chest 11/01/22 11/24/23 Unknown History tablet (Nitrostat) Pain nystatin 100,000 unit/gram topical 1 applic topical BID PRN Rash 11/01/22 11/24/23 Unknown History cream vit C 250 mg-vit E 90 mg-zinc 40 1 tab PO BID 11/01/22 11/24/23 11/24/23 History mg-copper 1 [id number] capsule (PreserVision AREDS-2) dulaglutide 1.5 mg/0.5 mL 1.5 mg SUBCUT Q7D 06/08/23 11/24/23 11/22/23 History subcutaneous pen injector (Trulicity) methocarbamol 500 mg tablet 1,000 mg (2 x 500 mg) PO Q8H #30 10/08/23 11/24/23 11/24/23 Rx tabs amiodarone 200 mg tablet 200 mg PO QAM 10/22/23 11/25/23 11/25/23 History bisacodyl 10 mg rectal suppository 10 mg [place] DAILY PRN Constipation 10/22/23 11/24/23 Unknown History diclofenac sodium 1 % topical gel 2 g topical QID PRN PAINFUL AREAS 10/22/23 11/24/23 Unknown History fluticasone 100 mcg-salmeterol 50 2 inh inhalation DAILY 10/22/23 11/24/23 11/24/23 History mcg/dose blistr powdr for inhalation (Advair Diskus) furosemide 20 mg tablet 20 mg PO QAM 10/22/23 11/24/23 11/24/23 History hydrocodone 5 mg-acetaminophen 325 1 tab PO Q4H PRN Pain, Moderate 10/22/23 11/24/23 Unknown History mg tablet losartan 100 mg tablet 100 mg PO DAILY 10/22/23 11/24/23 11/24/23 History magnesium hydroxide 400 mg/5 mL 30 ml PO DAILY PRN Constipation 10/22/23 11/24/23 Unknown History oral suspension (Milk of Magnesia) metoprolol succinate 25 mg 12.5 mg PO QAM 10/22/23 11/25/23 11/25/23 History tablet,extended release 24 hr sodium phosphates 19 gram-7 118 ml [place] DAILY PRN Constipation 10/22/23 11/24/23 Unknown History gram/118 mL enema (Fleet Enema) Allergies Allergy/AdvReac Type Severity Reaction Status Date / Time adhesive tape Allergy Unknown Unknown Verified 11/13/23 10:48 aspirin Allergy Unknown Unknown Verified 11/13/23 10:48 celecoxib [From Celebrex] Allergy Unknown Unknown Verified 11/13/23 10:48 codeine Allergy Unknown Unknown Verified 11/13/23 10:48 egg Allergy Unknown Unknown Verified 11/13/23 10:48 erythromycin base Allergy Unknown Unknown Verified 11/13/23 10:48 exenatide [From Bydureon] Allergy Unknown Unknown Verified 11/13/23 10:48 ezetimibe [From Zetia] Allergy Unknown Unknown Verified 11/13/23 10:48 latex Allergy Unknown Unknown Verified 11/13/23 10:48 metformin Allergy Unknown Unknown Verified 11/13/23 10:48 Penicillins Allergy Unknown Unknown Verified 11/13/23 10:48 sitagliptin [From Janumet] Allergy Unknown Unknown Verified 11/13/23 10:48 Sulfa (Sulfonamide Allergy Unknown Unknown Verified 11/13/23 10:48 Antibiotics) topiramate [From Topamax] Allergy Unknown Unknown Verified 11/13/23 10:48 trazodone Allergy Unknown Unknown Verified 11/13/23 10:48 warfarin [From Coumadin] Allergy Unknown Unknown Verified 11/13/23 10:48 desonide Allergy blisters Verified 11/13/23 10:48 [facility] Anesthesia Medical History Chronic edema CAD (coronary artery disease) HTN (hypertension) Weakness Encounter for postoperative care Encounter for postoperative care Chronic cystitis Recurrent UTI History of nonmelanoma skin cancer DDD (degenerative disc disease) Chest pain Persistent and recurrent chest pressure despite of optimization of medicine may further require exploration with left heart cath. GERD (gastroesophageal reflux disease) Asthma History of poliomyelitis History of rectocele History of cystocele Cyctocele/Rectocele repair Lower extremity edema Diabetes mellitus Atrial fibrillation Well-controlled on amiodarone. No anticoagulation- bleeding Hyperlipidemia Surgical History History of eye surgery Previous back surgery History of surgery of liver Growth S/P cholecystectomy S/P hysterectomy 1965 Family History Mother , at age 89 Hypertension Bleeding disorder Father , at age 79 Hypertension Heart disease Brother CAD (coronary artery disease) Heart disease Cancer Lung CA Liver disease Sister Heart disease Diabetes Cancer Renal CA and leukemia Social History Smoking and tobacco/nicotine status: never used tobacco/nicotine Second hand smoke exposure: No Alcohol intake: never Substance/Drug Use: never Lives independently: Yes Marital status: / Current occupational status: retired Data Anesthesia Cardiac Studies: Echocardiogram 04/01/22 Cardiac Event Monitor 03/06/22
--- NOTE | 2023-11-25 12:46 | W.PM.OPSUD ---
Surgery/Procedure H&P Update DATE OF PROCEDURE: November 25, 2023 DATE H&P PERFORMED: 11/13/23 H&P UPDATE INFORMATION: I have reviewed H&P completed within last 30 days, I have examined patient prior to procedure and No changes to prior documentation PREOP DIAGNOSIS: Lumbar stenosis with neurogenic claudication PLANNED PROCEDURE: Operation Date: 11/25/23 12:25 Proposed Procedures p Spinal Fusion PSF(Not Applicable) - Kris Mitchell DO s Lumbopelvic Fixation(Not Applicable) - DO kendy Oliva Sacroiliac Joint Fusion SI Joint Fusion(Bilateral) - DO kendy Oliva Lumbar Spine Decompression Lumbar Decompression(Not Applicable) - Kris Mitchell DO
[2023-11-25] MEDS: fentaNYL 50 mcg/mL INJ 2mL IVP (13:15)
[2023-11-25] MEDS: clindamycin 900 MG/50 ML PREMIX 100 MG IV (13:25)
[2023-11-25] MEDS: vancomycin 1,000 MG SDV 1000 MG XX (14:18)
[2023-11-25] MEDS: heparin, porcine 1,000 unit/mL INJ 10 mL 10000 UNIT XX (14:19)
[2023-11-25] MEDS: lidocaine-epi 1% 20 mL INJ INJECTION (14:19)
[2023-11-25] MEDS: HYDROmorphone 1 mg/mL INJ 1 mL 0.5 MG IVP ×2 (17:00→17:15)
--- NOTE | 2023-11-25 17:02 | PM.CONSULT ---
Providers/Reason For Consult Consulting Physician/Specialty*: Dr. Linder/internal medicine Reason for Consult*: Medical comorbidities/postoperative care Attending Physician: Kris Mitchell DO Primary Care Provider: Kaylynn Munoz DO History of Present Illness History of Present Illness Elizabeth Cantor is a 83 year old female with past medical history of atrial fibrillation, not on anticoagulation because of history of bleeding, CAD with two-vessel disease on medical management, diastolic heart failure, hypertension, hyperlipidemia, type 2 diabetes mellitus, history of polio who underwent spinal fusion with lumbopelvic fixation, lumbar spine decompression surgery today. Estimated blood loss of 200 cc. Patient seen in PACU postoperatively. Patient is drowsy. Maintaining her airway, able to answer simple commands. Denies any pains currently. Vitals are 77 bpm with a pressure of 142/76 mmHg. Review of Systems General: Reports: ROS unobtainable due to mental status Medications/Allergies Home Medications Medication Instructions Recorded Confirmed Last Taken Type insulin glargine 100 unit/mL (3 30 unit SUBCUT BEDTIME 07/04/19 11/24/23 11/24/23 History mL) subcutaneous pen (Lantus Solostar U-100 Insulin) pantoprazole 40 mg tablet,delayed 40 mg PO DAILY 07/04/19 11/24/23 11/24/23 History release (Protonix) insulin aspart U-100 100 unit/mL 8 unit SUBCUT TID 11/01/22 11/24/23 11/24/23 History (3 mL) subcutaneous pen (Novolog FlexPen U-100 Insulin aspart) mometasone 0.1 % topical solution See Rx Instructions .Route .COMPLEX 11/01/22 11/24/23 Unknown History nitroglycerin 0.4 mg sublingual 0.4 mg sublingual Q5M PRN Chest 11/01/22 11/24/23 Unknown History tablet (Nitrostat) Pain nystatin 100,000 unit/gram topical 1 applic topical BID PRN Rash 11/01/22 11/24/23 Unknown History cream vit C 250 mg-vit E 90 mg-zinc 40 1 tab PO BID 11/01/22 11/24/23 11/24/23 History mg-copper 1 [id number] capsule (PreserVision AREDS-2) dulaglutide 1.5 mg/0.5 mL 1.5 mg SUBCUT Q7D 06/08/23 11/24/23 11/22/23 History subcutaneous pen injector (Trulicity) methocarbamol 500 mg tablet 1,000 mg (2 x 500 mg) PO Q8H #30 10/08/23 11/24/23 11/24/23 Rx tabs amiodarone 200 mg tablet 200 mg PO QAM 10/22/23 11/25/23 11/25/23 History bisacodyl 10 mg rectal suppository 10 mg TN DAILY PRN Constipation 10/22/23 11/24/23 Unknown History diclofenac sodium 1 % topical gel 2 g topical QID PRN PAINFUL AREAS 10/22/23 11/24/23 Unknown History fluticasone 100 mcg-salmeterol 50 2 inh inhalation DAILY 10/22/23 11/24/23 11/24/23 History mcg/dose blistr powdr for inhalation (Advair Diskus) furosemide 20 mg tablet 20 mg PO QAM 10/22/23 11/24/23 11/24/23 History hydrocodone 5 mg-acetaminophen 325 1 tab PO Q4H PRN Pain, Moderate 10/22/23 11/24/23 Unknown History mg tablet losartan 100 mg tablet 100 mg PO DAILY 10/22/23 11/24/23 11/24/23 History magnesium hydroxide 400 mg/5 mL 30 ml PO DAILY PRN Constipation 10/22/23 11/24/23 Unknown History oral suspension (Milk of Magnesia) metoprolol succinate 25 mg 12.5 mg PO QAM 10/22/23 11/25/23 11/25/23 History tablet,extended release 24 hr sodium phosphates 19 gram-7 118 ml TN DAILY PRN Constipation 10/22/23 11/24/23 Unknown History gram/118 mL enema (Fleet Enema) Allergies Allergy/AdvReac Type Severity Reaction Status Date / Time adhesive tape Allergy Unknown Unknown Verified 11/13/23 10:48 aspirin Allergy Unknown Unknown Verified 11/13/23 10:48 celecoxib [From Celebrex] Allergy Unknown Unknown Verified 11/13/23 10:48 codeine Allergy Unknown Unknown Verified 11/13/23 10:48 egg Allergy Unknown Unknown Verified 11/13/23 10:48 erythromycin base Allergy Unknown Unknown Verified 11/13/23 10:48 exenatide [From Bydureon] Allergy Unknown Unknown Verified 11/13/23 10:48 ezetimibe [From Zetia] Allergy Unknown Unknown Verified 11/13/23 10:48 latex Allergy Unknown Unknown Verified 11/13/23 10:48 metformin Allergy Unknown Unknown Verified 11/13/23 10:48 Penicillins Allergy Unknown Unknown Verified 11/13/23 10:48 sitagliptin [From Janumet] Allergy Unknown Unknown Verified 11/13/23 10:48 Sulfa (Sulfonamide Allergy Unknown Unknown Verified 11/13/23 10:48 Antibiotics) topiramate [From Topamax] Allergy Unknown Unknown Verified 11/13/23 10:48 trazodone Allergy Unknown Unknown Verified 11/13/23 10:48 warfarin [From Coumadin] Allergy Unknown Unknown Verified 11/13/23 10:48 desonide Allergy blisters Verified 11/13/23 10:48 Current Medications Generic Name Dose Route Start Last Admin Trade Name Freq PRN Reason Stop Dose Admin Fentanyl 50 mcg 11/25/23 13:01 11/25/23 13:15 Fentanyl 50 Mcg/Ml Inj 2ml IVP 50 mcg Q10M PRN Administration Preop Pain PFSH Acute PFSH: Medical History (Updated 11/25/23 @ 17:08 by Lito Linder MD) Encounter for postoperative care Chronic edema CAD (coronary artery disease) HTN (hypertension) Weakness Encounter for postoperative care Chronic cystitis Recurrent UTI History of nonmelanoma skin cancer DDD (degenerative disc disease) Chest pain Persistent and recurrent chest pressure despite of optimization of medicine may further require exploration with left heart cath. GERD (gastroesophageal reflux disease) Asthma History of poliomyelitis History of rectocele History of cystocele Cyctocele/Rectocele repair Lower extremity edema Diabetes mellitus Atrial fibrillation Well-controlled on amiodarone. No anticoagulation- bleeding Hyperlipidemia Surgical History History of eye surgery Previous back surgery History of surgery of liver Growth S/P cholecystectomy S/P hysterectomy 1965 Family History Mother , at age 89 Hypertension Bleeding disorder Father , at age 79 Hypertension Heart disease Brother CAD (coronary artery disease) Heart disease Cancer Lung CA Liver disease Sister Heart disease Diabetes Cancer Renal CA and leukemia Social History Smoking and tobacco/nicotine status: never used tobacco/nicotine Second hand smoke exposure: No Alcohol intake: never Substance/Drug Use: never Lives independently: Yes Marital status: / Current occupational status: retired Vitals/I&O/Wt Last Vital Signs Temp 97.8 F 11/25/23 16:52 Pulse 70 11/25/23 17:00 Resp 16 11/25/23 17:00 BP 149/78 11/25/23 17:00 Pulse Ox 98 11/25/23 17:00 O2 Del Method Simple Mask 11/25/23 17:00 O2 Flow Rate 10 11/25/23 17:00 11/25/23 11/25/23 11/25/23 06:59 14:59 22:59 Intake Total 50 / 50 0 / 50 Output Total 700 / 700 Balance 50 / 50 -700 / -650 Weight last 48 hrs Weight 93.894 kg Physical Exam Narrative: General: No acute distress, drowsy postoperatively, waking up to follow simple directions HEENT: PERRLA, pupils bilaterally equal and reactive Chest: Bronchial breath sounds all over lung spencer with occasional rhonchi CVS: S1-S2 irregularly irregular, no murmurs, no tachycardia, no gallops, no rubs Abdomen: Soft, nontender, no organomegaly, bowel sounds present Neuro: No focal deficits, no facial deformity, moving all limbs, Kaiser in place Urinary Catheter Management: Kaiser: Cath Placed During This Visit: yes Urinary Catheter Date of Insertion: 11/25/23 Urinary Catheter Time of Insertion: 13:40 A&P Assessment and plan (1) Encounter for postoperative care: Postoperative anticoagulation, physical therapy, perioperative antibiotics as per primary team. Monitor hemoglobin. (2) HTN (hypertension): Goal blood pressure less than 140/90 mmHg. For now continue with home dose of losartan 100 mg oral daily, metoprolol succinate 12.5 mg oral daily. Will uptitrate as for goal blood pressures. Qualifiers: Hypertension type: essential hypertension Qualified Code(s): I10 - Essential (primary) hypertension (3) Atrial fibrillation: Telemetry. Metoprolol as above. Not on anticoagulation chronically because of history of bleeding Qualifiers: Atrial fibrillation type: persistent (not longstanding) Qualified Code(s): I48.19 - Other persistent atrial fibrillation (4) CAD (coronary artery disease): No active chest pain. Last [facility] Molder visit back in 2020 showed proximal 40% RCA stenosis, mid 30% RCA, 60% circumflex stenosis with FFR of 0.85. Patient was consulted for medical management. Appreciate recent A1c, lipid panel. Plavix 75 mg oral daily, atorvastatin 20 mg oral daily. Qualifiers: Coronary Disease-Associated Artery/Lesion type: [place] artery [place] vs. transplanted heart: [place] heart Associated angina: without angina Qualified Code(s): I25.10 - Atherosclerotic heart disease of [place] coronary artery without angina pectoris (5) Type 2 diabetes mellitus: Recent A1c of 8.4. Insulin sliding scale low-dose protocol, Lantus 20 units nightly. (6) Diastolic CHF with preserved left ventricular function, NYHA class 2: Last echocardiogram from 2021 showed EF of 65% with grade 1 diastolic dysfunction. Strict input charting, daily weights. Plan Full code Protonix for PUD prophylaxis Thank you for involving us in care of Mr. Cantor. Will continue to follow. Consult Attestations Medical Necessity Statement: As per primary team Diagnoses Encounter for postoperative care Z48.89 Essential hypertension I10 Hypertension type: essential hypertension Persistent atrial fibrillation I48.19 Atrial fibrillation type: persistent (not longstanding) Coronary artery disease involving [place] coronary artery of [place] heart without angina pectoris I25.10 Coronary Disease-Associated Artery/Lesion type: [place] artery [place] vs. transplanted heart: [place] heart Associated angina: without angina Type 2 diabetes mellitus E11.9 Diastolic CHF with preserved left ventricular function, NYHA class 2 I50.30
--- NOTE | 2023-11-25 17:18 | PM.OP ---
Operative Report Date of procedure: November 25, 2023 Pre-op diagnosis: Lumbar stenosis with neurogenic claudication Post-op diagnosis: same Procedure done: 1. Posterior fusion L3-pelvis 2.? Instrumentation L3-S1 3.? Lumbopelvic instrumentation 4. open right Sacral iliac fusion 5. open left sacral iliac fusion 6. L4/5 laminectomy with facetectomy 7. L5/S1 laminectomy with facetectomy 8. use of computer navigation / stereotactic spine 10. use of autograft from same incision 11. allograft 12. Bone marrow aspirate from right iliac crest 13. revision spine Surgeon: Kris Mitchell DO Estimated blood loss (mL): 300 Procedure: 1. Posterior fusion L3-pelvis 2.? Instrumentation L3-S1 3.? Lumbopelvic instrumentation 4. open right Sacral iliac fusion 5. open left sacral iliac fusion 6. L4/5 laminectomy with facetectomy 7. L5/S1 laminectomy with facetectomy 8. use of computer navigation / stereotactic spine 10. use of autograft from same incision 11. allograft 12. Bone marrow aspirate from right iliac crest 13. revision spine Patient is brought to the operative suite.? After undergoing anesthesia, the patient had neuro monitoring attached.? Patient was then placed in the prone position on the Crispin table.? All areas of impingement were well-padded.? Patient was then prepped and draped in the normal sterile fashion.? Skin incision was then made over the L2 to the sacrum using previous skin incision.? Subperiosteal dissection was made out to the transverse processes of L3 bilaterally,?L4 bilaterally L5 bilaterally and sacral ala bilaterally.? The [employer] bone marrow aspirate kit was used to aspirate bone marrow aspirate.? This was done by using the sharp probe to open up the bone.? Aspiration was performed and then the blunt probe was then used to dissect down to through the bone tunnel.? An aspirating well drawn back a millimeter approximately 20 cc of bone marrow aspirate was used.? Admixed with the allograft and autograft bone that will be used. Next attension was brought to placing the fiducial for the computer navigation.? 2 pins were placed into the right iliac crest.? The fiducial was attached.? The C-arm was brought in and information from the C arm was then linked to the computer used for placing the screws.? Next attention was brought to placing the pedicle screws.? This was done by using the gearshift probe linked to computer navigation.? The probe was used to identify the pedicle.? Then the pedicle feeler was used followed by placement of screw.? This was done at L3 bilaterally L4 bilaterally, L5 bilaterally and S1 bilaterally. Next attension was brought to placing the iliac screws.? This was done using the sacral ala iliac technique.? The gearshift probe linked to computer navigation was then placed through the sacral ala into the sacroiliac joint into the iliac crest.? Next the pedicle feeler was used followed by the computer navigated tap.? And then the screw was passed a 90 mm screw was placed on the right side and a 90 mm screw was placed on the left side.? Both the screws were 9.5 mm in diameter. Next attension was brought to performing the open and sacral iliac fusion.? This was done by again using the gearshift probe linked to computer navigation.? Followed by pedicle feeler followed by placing a wire and then the drill drilled over the wire and then bone graft was packed into the sacroiliac joint and into the drill hole.? And the sacroiliac screw was then placed.? This technique was done on both the right and left side. Next tension was brought to the L5-S1 level. Microscope was brought in and using high-speed bur and rongeur the lamina was taken down ligamentum flavum was taken down from L5-S1. The facets were taken down bilaterally. This was done again using the Kerrison rongeur and high-speed bur. The S1 nerve was traced around the S1 pedicle bilaterally and the L5 nerve was traced out the L5-S1 foramen. Scar tissue was pulled off of the dura and medial aspect of facet joint was taken down. Next attention was brought to the L4/5 laminectomy of the facet joint. This was done by performing the laminectomy using high-speed bur and taken of facet joints. The previous laminectomy site was identified and delineated with curved curette and Bovie. Kerrison was then used to take down the remaining lamina as well as the medial aspect of facet joints. Ligamentum flavum was taken down from 4/5. The L5 nerve root was traced around the L5 pedicle and the L4 nerve root was traced out the L4/5 foramen which the superior articular processes were taken down in order to unroofed the foramen. Scar tissue was pulled off of the dura and medial aspect of facet joint was taken down. Attention was then brought to attaching the rods to the screws placed in the L3 bilaterally, L4 bilaterally, L5 bilaterally and S1 bilaterally.? This was then attached to the sacroiliac screw providing the lumbopelvic fixation.? Caps were torqued into position. Locking the construct in place. Wound was copiously irrigated and then attention was brought to decorticating the facets and transverse processes laterally.? Bone that was taken down from the lamina was used along with osteoamp fibers and sponges were packed into the lateral gutters along the facet joints.? This was done bilaterally. Wound was then closed in a layered fashion starting with the thoracolumbar fascia.? 0-vicryl was used the sub cutaneous tissue was closed with 2-0 vicryl and skin with 4-0 monocryl.? Glue was then used to seal the skin and a steril dressing was applied.? Patient was then placed in the supine position. The endotracheal tube was removed and patient was transferred to the PACU in stable condition.
--- NOTE | 2023-11-25 17:40 | ANE.PACU2 ---
Inpatient post-anesthesia follow up: Airway intact: Yes Vital signs: Temperature 98.6 F Pulse Rate 75 Respiratory Rate 18 Blood Pressure 102/52 Pulse Oximetry 92 Oxygen Delivery Me thod Room Air Oxygen Flow Rate 10 Fraction of Inspir ed Oxygen Hydration adequate: Yes Nausea and vomiting: No Pain level: 1 Mental status: Baseline
[2023-11-25] MEDS: lactated ringers 1,000 ML 90 ML IV (18:33)
[2023-11-25] MEDS: docusate sodium 100 mg Capsule PO (18:34)
[2023-11-25] MEDS: methocarbamol 500 mg Tablet 1000 MG PO (18:37)
[2023-11-25 18:50] LABS: Basophils # 0.1 10^3/uL (0.0-0.1); Basophils % 0.4 %; Hematocrit 37.3 % (36-47); Lymphocytes # 0.9 10^3/uL (0.8-4.8); Mean Corpuscular HGB Conc 31.6 g/dL (30-55); Mean Corpuscular Hemoglobin 30.6 pg (27-33); Mean Corpuscular Volume 96.9 fl (85-98); Mean Platelet Volume 8.7 fL (7.4-10.4); Monocytes # 0.5 10^3/uL (0.2-0.9); Monocytes % 3.4 %; Neutrophils # 12.29 10^3/uL (1.8-7.7); Neutrophils % 87.5 %; Nucleated Red Blood Cells % 0 %; Platelet Count 381 10^3/cmm (157-399); Red Blood Count 3.85 10^6/uL (3.85-5.65); Red Cell Distribution Width 13.9 % (12.1-15.1); White Blood Count 14.06 10^3/uL (3.29-11.43)
[2023-11-25 19:08] LABS: Alanine Aminotransferase 11 U/L (0-33); Albumin Level 3.6 g/dL (3.5-5.2); Alkaline Phosphatase 240 U/L (35-105); Anion Gap 16.6 (5-19); Aspartate Amino Transferase 19 U/L (0-32); Blood Urea Nitrogen 11 mg/dL (8-23); Calcium 8.5 mg/dL (8.5-10.5); Carbon Dioxide 24 mmol/L (22-29); Chloride 101 mmol/L (98-107); Globulin 3.2 g/dL (1.3-4.6); Glucose 210 mg/dL (65-115); Osmolality Calculated 290 mOsm/kg (285-295); Potassium 4.6 mmol/L (3.5-5.1); Sodium 137 mmol/L (136-145); Total Bilirubin 0.4 mg/dL (0.15-1.2); Total Protein 6.8 g/dL (6.6-8.7)
[2023-11-25 20:13] LABS: Glucose Point of Care 281 mg/dL (70-110)
[2023-11-25] MEDS: ketorolac 30 mg/mL INJ IVP (21:15)
[2023-11-25] MEDS: clindamycin 600 MG/50 ML PREMIX 100 MG IV (21:15)
[2023-11-25] MEDS: insulin glargine 100 units/1 mL 20 UNIT SUBCUT (21:21)
[2023-11-25] MEDS: insulin lispro 100 unit/1 mL SUBCUT (21:21)
[2023-11-26] VITALS (10 sets, daily range): BP systolic 102–144; BP diastolic 52–80; PULSE 71–83; RESP 16–20; TEMP 36.6–37.3; O2SAT 90–94
[2023-11-26] MEDS: methocarbamol 500 mg Tablet 1000 MG PO ×3 (01:22→17:38)
[2023-11-26] MEDS: HYDROcodone-acetaminophen 10-325 mg Tablet PO ×4 (01:25→17:38)
[2023-11-26] MEDS: ketorolac 30 mg/mL INJ IVP (04:49)
[2023-11-26] MEDS: clindamycin 600 MG/50 ML PREMIX 100 MG IV ×3 (05:43→21:05)
[2023-11-26] MEDS: amiodarone 200 mg Tablet PO (05:43)
[2023-11-26] MEDS: metoprolol succinate ER (24 HR) 25 mg Tablet 12.5 MG PO (05:43)
[2023-11-26 05:44] LABS: Basophils % 0.4 %; Hematocrit 29.8 % (36-47); Lymphocytes # 1.7 10^3/uL (0.8-4.8); Lymphocytes % 14.7 %; Mean Corpuscular HGB Conc 32.2 g/dL (30-55); Mean Corpuscular Hemoglobin 30.9 pg (27-33); Mean Corpuscular Volume 95.8 fl (85-98); Mean Platelet Volume 8.7 fL (7.4-10.4); Monocytes # 1.2 10^3/uL (0.2-0.9); Monocytes % 10.9 %; Neutrophils # 8.22 10^3/uL (1.8-7.7); Neutrophils % 73.5 %; Nucleated Red Blood Cells % 0 %; Platelet Count 330 10^3/cmm (157-399); Red Blood Count 3.11 10^6/uL (3.85-5.65); Red Cell Distribution Width 13.7 % (12.1-15.1); White Blood Count 11.19 10^3/uL (3.29-11.43)
[2023-11-26] MEDS: lactated ringers 1,000 ML 90 ML IV (05:44)
[2023-11-26 06:13] LABS: Alanine Aminotransferase 13 U/L (0-33); Alkaline Phosphatase 193 U/L (35-105); Anion Gap 14.2 (5-19); Aspartate Amino Transferase 13 U/L (0-32); Blood Urea Nitrogen 14 mg/dL (8-23); Calcium 8.1 mg/dL (8.5-10.5); Carbon Dioxide 23 mmol/L (22-29); Chloride 103 mmol/L (98-107); Globulin 2.6 g/dL (1.3-4.6); Glucose 152 mg/dL (65-115); Osmolality Calculated 285 mOsm/kg (285-295); Potassium 4.2 mmol/L (3.5-5.1); Sodium 136 mmol/L (136-145); Total Bilirubin 0.4 mg/dL (0.15-1.2); Total Protein 5.6 g/dL (6.6-8.7)
[2023-11-26 06:19] LABS: Glucose Point of Care 165 mg/dL (70-110)
--- NOTE | 2023-11-26 08:25 | P.PN_ITS ---
Subjective 2 Subjective: Patient is resting in bed says she was in pain last night but doing better today she is getting pain meds. Vitals/I&O/Wt Last Vital Signs Temp 98.6 F 11/26/23 07:20 Pulse 72 11/26/23 07:20 Resp 17 11/26/23 07:20 BP 102/52 11/26/23 07:20 Pulse Ox 92 11/26/23 07:20 O2 Del Method Room Air 11/26/23 06:00 O2 Flow Rate 10 11/25/23 17:20 11/25/23 11/26/23 11/26/23 22:59 06:59 14:59 Intake Total 530 / 580 1290 / 1870 Output Total 1060 / 1060 540 / 1600 Balance -530 / -480 750 / 270 Weight last 48 hrs Weight 208 lb Weight 207 lb Weight 207 lb Physical Exam 2 Narrative: Drain with minimal output at this time we will leave it in until after she is able therapy. Urinary Catheter Management: [facility]: Cath Placed During This Visit: yes Reason for Continuing Indwelling Catheter: Perioperative Use in Selected Surgeries Urinary Catheter Date of Insertion: 11/25/23 Urinary Catheter Time of Insertion: 13:40 Data 11/26/23 05:36 11/26/23 05:36 A&P Assessment and plan (1) Status post lumbar spinal fusion: Postop day #1 L3 to pelvis fusion Up with physical therapy Attestations 2 Medical Necessity Statement*: Per primary service Coding Level of Care Code Acute Code for Chg Fwd Diagnoses Status post lumbar spinal fusion Z98.1
[2023-11-26] MEDS: docusate sodium 100 mg Capsule PO ×2 (08:38→17:38)
[2023-11-26] MEDS: pantoprazole DR 40 mg Tablet PO (08:38)
[2023-11-26] MEDS: insulin lispro 100 unit/1 mL SUBCUT ×4 (08:38→21:10)
--- NOTE | 2023-11-26 09:39 | PC.CHAP ---
Pastoral Care Encounter/Spiritual Assessment Type of Contact [] Declined heel stainer visit [] Patient/Family/Request visit [] Outpatient visit [] Follow-up visit [] Physician referral [] Code/Alert [] Routine visit [] Staff referral [] Actively dying [x] Patient sleeping [] Family support [] [] Out of room [] Palliative care [] [] Receiving care in room [] Pre-surgical visit [] Trauma [] Long length of stay [] ICU visit [] Other: Relational/Emotional Strength [] Patient feels connected with others/family/visitors/staff [] Distress [] Loneliness/isolation [] Abandonment Spirituality of Patient [] Person of Jonelle [] Attends Pentecostalism of their Jonelle [] Believes in Prayer [] Reads Bible or Judaism materials [] There are Spiritual issues to be addressed Parts Counter Representative Interventions [] Prayer [] Active listening [] Non-anxious presence [] Spiritual/emotional support [] Crisis/trauma care [] Spiritual counseling [] Bereavement support [] Provided bereavement packet [] Provided Bible/devotional materials [] Provided toy/stuffed animal, coloring book to patient or family member [] Provided Communion [] Anointing/[place] [] Salvation [] Completed spiritual assessment [] Other: Impact on Illness or Injury [] Angry [] Fearful [] Anxious [] Often cries [] Exhaustion [] Unable to work [] Unable to attend anglican [] Unable to walk/stand [] Unable to read [] Unable to drive [] Unable to eat/drink [] Unable to sleep [] Unable to be with family [] Patient intubated [] Other: Summary Time spent with patient
--- NOTE | 2023-11-26 09:40 | PC.CHAP ---
Pastoral Care Encounter/Spiritual Assessment Type of Contact [] Declined silk presser visit [] Patient/Family/Request visit [] Outpatient visit [] Follow-up visit [] Physician referral [] Code/Alert [x] Routine visit [] Staff referral [] Actively dying [] Patient sleeping [x] Family support [] [] Out of room [] Palliative care [] [] Receiving care in room [] Pre-surgical visit [] Trauma [] Long length of stay [] ICU visit [] Other: Relational/Emotional Strength [x] Patient feels connected with others/family/visitors/staff [] Distress [] Loneliness/isolation [] Abandonment Spirituality of Patient [x] Person of Jonelle [] Attends Oriental Orthodox of their Jonelle [x] Believes in Prayer [x] Reads Bible or Gnosticist materials [] There are Spiritual issues to be addressed Repairer Hairspring Interventions [x] Prayer [x] Active listening [] Non-anxious presence [x] Spiritual/emotional support [] Crisis/trauma care [] Spiritual counseling [] Bereavement support [] Provided bereavement packet [] Provided Bible/devotional materials [] Provided toy/stuffed animal, coloring book to patient or family member [] Provided Communion [] Anointing/[place] [] Salvation [x] Completed spiritual assessment [] Other: Impact on Illness or Injury [] Angry [] Fearful [] Anxious [] Often cries [] Exhaustion [] Unable to work [] Unable to attend taoist [] Unable to walk/stand [] Unable to read [] Unable to drive [] Unable to eat/drink [] Unable to sleep [] Unable to be with family [] Patient intubated [] Other: Summary Time spent with patient 5 min
[2023-11-26 10:43] LABS: Glucose Point of Care 196 mg/dL (70-110)
[2023-11-26] MEDS: losartan 50 mg Tablet 100 MG PO (12:11)
--- NOTE | 2023-11-26 14:46 | P.PN_ITS ---
Subjective 2 Subjective: No acute events overnight. Patient working with physical therapy. Blood pressure well-controlled. Vitals/I&O/Wt Last Vital Signs Temp 98.7 F 11/26/23 11:02 Pulse 71 11/26/23 11:02 Resp 17 11/26/23 11:02 BP 122/70 11/26/23 12:11 Pulse Ox 91 11/26/23 11:02 O2 Del Method Room Air 11/26/23 11:02 O2 Flow Rate 10 11/25/23 17:20 11/25/23 11/26/23 11/26/23 22:59 06:59 14:59 Intake Total 530 / 580 1290 / 1870 1012.5 / 1012.5 Output Total 1060 / 1060 540 / 1600 100 / 100 Balance -530 / -480 750 / 270 912.5 / 912.5 Weight last 48 hrs Weight 94.347 kg Weight 93.894 kg Weight 93.894 kg Physical Exam 2 Narrative: General: No acute distress, AO x 3 HEENT: PERRLA, pupils bilaterally equal and reactive Chest: Bronchial breath sounds all over lung spencer with occasional rhonchi CVS: S1-S2 irregularly irregular, no murmurs, no tachycardia, no gallops, no rubs Abdomen: Soft, nontender, no organomegaly, bowel sounds present Neuro: No focal deficits, no facial deformity, moving all limbs, Kaiser in place Urinary Catheter Management: [facility]: Cath Placed During This Visit: yes Reason for Continuing Indwelling Catheter: Perioperative Use in Selected Surgeries Urinary Catheter Date of Insertion: 11/25/23 Urinary Catheter Time of Insertion: 13:40 Data 11/26/23 05:36 11/26/23 05:36 A&P Assessment and plan (1) Encounter for postoperative care: Continue to monitor hemoglobin. So far stable. Postoperative anticoagulation with physical therapy as per primary team. (2) HTN (hypertension): Goal blood pressure less than 140/90 mmHg. For now continue with home dose of losartan 100 mg oral daily, metoprolol succinate 12.5 mg oral daily. Will uptitrate as for goal blood pressures. Qualifiers: Hypertension type: essential hypertension Qualified Code(s): I10 - Essential (primary) hypertension (3) Atrial fibrillation: Telemetry. Metoprolol as above. Not on anticoagulation chronically because of history of bleeding Qualifiers: Atrial fibrillation type: persistent (not longstanding) Qualified Code(s): I48.19 - Other persistent atrial fibrillation (4) CAD (coronary artery disease): No active chest pain. Last Trust Clerk visit back in 2020 showed proximal 40% RCA stenosis, mid 30% RCA, 60% circumflex stenosis with FFR of 0.85. Patient was consulted for medical management. Appreciate recent A1c, lipid panel. Plavix 75 mg oral daily, atorvastatin 20 mg oral daily. Qualifiers: Coronary Disease-Associated Artery/Lesion type: [place] artery [place] vs. transplanted heart: [place] heart Associated angina: without angina Qualified Code(s): I25.10 - Atherosclerotic heart disease of [place] coronary artery without angina pectoris (5) Type 2 diabetes mellitus: Recent A1c of 8.4. Insulin sliding scale low-dose protocol. Increase Lantus dose to manage home dose of 30 units nightly. (6) Diastolic CHF with preserved left ventricular function, NYHA class 2: Last echocardiogram from 2021 showed EF of 65% with grade 1 diastolic dysfunction. Strict input charting, daily weights. Euvolemic for now. Stop IV fluids. Hold off on diuretics for now. Plan Full code Protonix for PUD prophylaxis Thank you for involving us in care of Mr. Cantor. Will continue to follow. Attestations 2 Medical Necessity Statement*: As per primary team. Diagnoses Encounter for postoperative care Z48.89 Essential hypertension I10 Hypertension type: essential hypertension Persistent atrial fibrillation I48.19 Atrial fibrillation type: persistent (not longstanding) Coronary artery disease involving [place] coronary artery of [place] heart without angina pectoris I25.10 Coronary Disease-Associated Artery/Lesion type: [place] artery [place] vs. transplanted heart: [place] heart Associated angina: without angina Type 2 diabetes mellitus E11.9 Diastolic CHF with preserved left ventricular function, NYHA class 2 I50.30
[2023-11-26 17:04] LABS: Glucose Point of Care 177 mg/dL (70-110)
[2023-11-26] MEDS: NON-FORMULARY MEDICATION (Vit C,E-Zn-Coppr-Lutein-Zeaxan [Preservision Areds-2] 250-90-40- 1 EACH PO (17:38)
[2023-11-26 20:49] LABS: Glucose Point of Care 314 mg/dL (70-110)
[2023-11-26] MEDS: insulin glargine 100 units/1 mL 30 UNIT SUBCUT (21:10)
[2023-11-27] VITALS (7 sets, daily range): BP systolic 89–113; BP diastolic 45–64; PULSE 70–87; RESP 14–18; TEMP 36.7–37.2; O2SAT 90–97
[2023-11-27] MEDS: methocarbamol 500 mg Tablet 1000 MG PO ×3 (01:18→16:09)
[2023-11-27] MEDS: HYDROcodone-acetaminophen 10-325 mg Tablet PO ×4 (03:27→23:27)
[2023-11-27] MEDS: ketorolac 30 mg/mL INJ IVP (04:08)
[2023-11-27] MEDS: amiodarone 200 mg Tablet PO (05:40)
[2023-11-27] MEDS: metoprolol succinate ER (24 HR) 25 mg Tablet 12.5 MG PO (05:40)
[2023-11-27] MEDS: clindamycin 600 MG/50 ML PREMIX 100 MG IV ×3 (05:40→20:55)
[2023-11-27 06:33] LABS: Basophils # 0.1 10^3/uL (0.0-0.1); Basophils % 0.4 %; Hematocrit 27.2 % (36-47); Lymphocytes # 1.6 10^3/uL (0.8-4.8); Lymphocytes % 11.7 %; Mean Corpuscular Hemoglobin 31.4 pg (27-33); Mean Corpuscular Volume 98.2 fl (85-98); Mean Platelet Volume 8.9 fL (7.4-10.4); Monocytes # 1.2 10^3/uL (0.2-0.9); Monocytes % 8.8 %; Neutrophils # 10.47 10^3/uL (1.8-7.7); Neutrophils % 78.4 %; Nucleated Red Blood Cells % 0 %; Platelet Count 272 10^3/cmm (157-399); Red Blood Count 2.77 10^6/uL (3.85-5.65); Red Cell Distribution Width 14.2 % (12.1-15.1); White Blood Count 13.34 10^3/uL (3.29-11.43)
[2023-11-27 06:50] LABS: Alanine Aminotransferase 12 U/L (0-33); Albumin Level 2.8 g/dL (3.5-5.2); Alkaline Phosphatase 173 U/L (35-105); Aspartate Amino Transferase 12 U/L (0-32); Blood Urea Nitrogen 17 mg/dL (8-23); Calcium 7.9 mg/dL (8.5-10.5); Carbon Dioxide 20 mmol/L (22-29); Chloride 103 mmol/L (98-107); Creatinine Clr Calc Pharmacy 65.4945; Globulin 2.7 g/dL (1.3-4.6); Glucose 191 mg/dL (65-115); Osmolality Calculated 287 mOsm/kg (285-295); Sodium 135 mmol/L (136-145); Total Bilirubin 0.4 mg/dL (0.15-1.2); Total Protein 5.5 g/dL (6.6-8.7)
[2023-11-27 07:59] LABS: Glucose Point of Care 210 mg/dL (70-110)
[2023-11-27] MEDS: pantoprazole DR 40 mg Tablet PO (08:47)
[2023-11-27] MEDS: insulin lispro 100 unit/1 mL SUBCUT ×4 (08:47→20:55)
[2023-11-27] MEDS: docusate sodium 100 mg Capsule PO ×2 (08:47→17:56)
[2023-11-27] MEDS: NON-FORMULARY MEDICATION (Vit C,E-Zn-Coppr-Lutein-Zeaxan [Preservision Areds-2] 250-90-40- 1 EACH PO ×2 (08:48→17:56)
--- NOTE | 2023-11-27 09:22 | P.PN_ITS ---
Subjective 2 Subjective: Patient sitting up in chair patient states he is more comfortable sitting up. Vitals/I&O/Wt Last Vital Signs Temp 98.6 F 11/27/23 07:32 Pulse 84 11/27/23 08:00 Resp 18 11/27/23 08:00 BP 97/58 11/27/23 07:32 Pulse Ox 94 11/27/23 08:00 O2 Del Method Room Air 11/27/23 08:00 O2 Flow Rate 10 11/25/23 17:20 11/26/23 11/27/23 11/27/23 22:59 06:59 14:59 Intake Total 460 / 1472.5 50 / 1522.5 Output Total 70 / 170 300 / 470 Balance 390 / 1302.5 -250 / 1052.5 Weight last 48 hrs Weight 218 lb 8 oz Weight 208 lb Weight 207 lb Weight 207 lb Physical Exam 2 Narrative: Patient sitting up in chair comfortably. At this point will DC her Hemovac drain and [facility] Urinary Catheter Management: [facility]: Cath Placed During This Visit: yes Reason for Continuing Indwelling Catheter: Other Urinary Catheter Date of Insertion: 11/25/23 Urinary Catheter Time of Insertion: 13:40 Data 11/27/23 06:21 11/27/23 06:21 A&P Assessment and plan (1) Status post lumbar spinal fusion: Postop day #2 L3 to pelvis fusion Up with physical therapy DC [facility] DC Hemovac drain Anticipate discharge tomorrow Attestations 2 Medical Necessity Statement*: Pain control Coding Level of Care Code Acute Code for Chg Fwd Diagnoses Status post lumbar spinal fusion Z98.1
--- NOTE | 2023-11-27 10:18 | PC.NURSE ---
Hemovac removed this morning. Patient tolerated well.
--- NOTE | 2023-11-27 10:51 | P.PN_ITS ---
Subjective 2 Subjective: No complaints overnight. Blood pressure slightly soft today. Patient sitting up in chair today. States feeling better. Vitals/I&O/Wt Last Vital Signs Temp 98.6 F 11/27/23 07:32 Pulse 84 11/27/23 08:00 Resp 18 11/27/23 08:00 BP 97/58 11/27/23 07:32 Pulse Ox 94 11/27/23 08:00 O2 Del Method Room Air 11/27/23 08:00 O2 Flow Rate 10 11/25/23 17:20 11/26/23 11/27/23 11/27/23 22:59 06:59 14:59 Intake Total 460 / 1472.5 50 / 1522.5 240 / 240 Output Total 70 / 170 300 / 470 Balance 390 / 1302.5 -250 / 1052.5 240 / 240 Weight last 48 hrs Weight 99.11 kg Weight 94.347 kg Weight 93.894 kg Weight 93.894 kg Physical Exam 2 Narrative: General: No acute distress, AO x 3 HEENT: PERRLA, pupils bilaterally equal and reactive Chest: Bronchial breath sounds all over lung spencer with occasional rhonchi CVS: S1-S2 irregularly irregular, no murmurs, no tachycardia, no gallops, no rubs Abdomen: Soft, nontender, no organomegaly, bowel sounds present Neuro: No focal deficits, no facial deformity, moving all limbs, [facility] in place Urinary Catheter Management: [facility]: Cath Placed During This Visit: yes Reason for Continuing Indwelling Catheter: Other Urinary Catheter Date of Insertion: 11/25/23 Urinary Catheter Time of Insertion: 13:40 Data 11/27/23 06:21 11/27/23 06:21 A&P Assessment and plan (1) Encounter for postoperative care: Continue to monitor hemoglobin. So far stable. Postoperative anticoagulation with physical therapy as per primary team. (2) HTN (hypertension): Goal blood pressure less than 140/90 mmHg. For now continue with home dose of losartan 100 mg oral daily, metoprolol succinate 12.5 mg oral daily. Will uptitrate as for goal blood pressures. Qualifiers: Hypertension type: essential hypertension Qualified Code(s): I10 - Essential (primary) hypertension (3) Atrial fibrillation: Telemetry. Metoprolol as above. Not on anticoagulation chronically because of history of bleeding Qualifiers: Atrial fibrillation type: persistent (not longstanding) Qualified Code(s): I48.19 - Other persistent atrial fibrillation (4) CAD (coronary artery disease): No active chest pain. Last [employer] visit back in 2020 showed proximal 40% RCA stenosis, mid 30% RCA, 60% circumflex stenosis with FFR of 0.85. Patient was consulted for medical management. Appreciate recent A1c, lipid panel. Plavix 75 mg oral daily, atorvastatin 20 mg oral daily. Qualifiers: Coronary Disease-Associated Artery/Lesion type: [place] artery [place] vs. transplanted heart: [place] heart Associated angina: without angina Qualified Code(s): I25.10 - Atherosclerotic heart disease of [place] coronary artery without angina pectoris (5) Type 2 diabetes mellitus: Recent A1c of 8.4. Insulin sliding scale low-dose protocol. Increase Lantus dose to manage home dose of 30 units nightly. (6) Diastolic CHF with preserved left ventricular function, NYHA class 2: Last echocardiogram from 2021 showed EF of 65% with grade 1 diastolic dysfunction. Strict input charting, daily weights. Euvolemic for now. Stop IV fluids. Hold off on diuretics for now. Plan Full code Protonix for PUD prophylaxis Plan for the day: Monitor hemoglobin. 8.7 today. Target hemoglobin more than 7. Blood pressure soft most likely in setting of pain medications. Hold off on losartan for now. Patient is euvolemic. Hold off on fluid or Lasix for now. Repeat CBC in AM. Remove [facility]. Plan to discharge to SNF. Patient has been accepted to SNF and most likely can be discharged over the weekend. Can be discharged with losartan and Lasix as needed if hemoglobin remained stable. Thank you for involving us in care of Mr. Cantor. Will continue to follow. Attestations 2 Medical Necessity Statement*: As per primary team. Diagnoses Encounter for postoperative care Z48.89 Essential hypertension I10 Hypertension type: essential hypertension Persistent atrial fibrillation I48.19 Atrial fibrillation type: persistent (not longstanding) Coronary artery disease involving [place] coronary artery of [place] heart without angina pectoris I25.10 Coronary Disease-Associated Artery/Lesion type: [place] artery [place] vs. transplanted heart: [place] heart Associated angina: without angina Type 2 diabetes mellitus E11.9 Diastolic CHF with preserved left ventricular function, NYHA class 2 I50.30
[2023-11-27 11:24] LABS: Glucose Point of Care 286 mg/dL (70-110)
[2023-11-27] MEDS: magnesium hydroxide 30 mL UDC PO (16:08)
[2023-11-27 17:06] LABS: Glucose Point of Care 195 mg/dL (70-110)
[2023-11-27 20:26] LABS: Glucose Point of Care 273 mg/dL (70-110)
[2023-11-27] MEDS: insulin glargine 100 units/1 mL 30 UNIT SUBCUT (20:56)
[2023-11-28] VITALS: BP 116/64; PULSE 77; RESP 20; TEMP 36.6; O2SAT 92
[2023-11-28] MEDS: methocarbamol 500 mg Tablet 1000 MG PO ×2 (00:16→08:33)
[2023-11-28 03:44] LABS: Basophils % 0.3 %; Eosinophils % 0.2 %; Hematocrit 29.5 % (36-47); Lymphocytes # 2.2 10^3/uL (0.8-4.8); Lymphocytes % 16.9 %; Mean Corpuscular HGB Conc 31.9 g/dL (30-55); Mean Corpuscular Volume 97.4 fl (85-98); Mean Platelet Volume 9.1 fL (7.4-10.4); Monocytes # 1.2 10^3/uL (0.2-0.9); Monocytes % 9.6 %; Neutrophils # 9.26 10^3/uL (1.8-7.7); Neutrophils % 72.5 %; Nucleated Red Blood Cells % 0 %; Platelet Count 296 10^3/cmm (157-399); Red Blood Count 3.03 10^6/uL (3.85-5.65); Red Cell Distribution Width 14.1 % (12.1-15.1); White Blood Count 12.78 10^3/uL (3.29-11.43)
[2023-11-28 04:13] LABS: Alanine Aminotransferase 11 U/L (0-33); Albumin Level 3.2 g/dL (3.5-5.2); Alkaline Phosphatase 185 U/L (35-105); Anion Gap 16.1 (5-19); Aspartate Amino Transferase 11 U/L (0-32); Blood Urea Nitrogen 19 mg/dL (8-23); Calcium 8.6 mg/dL (8.5-10.5); Carbon Dioxide 22 mmol/L (22-29); Chloride 99 mmol/L (98-107); Creatinine Clr Calc Pharmacy 65.4945; Globulin 3.1 g/dL (1.3-4.6); Glucose 80 mg/dL (65-115); Osmolality Calculated 277 mOsm/kg (285-295); Potassium 4.1 mmol/L (3.5-5.1); Sodium 133 mmol/L (136-145); Total Bilirubin 0.4 mg/dL (0.15-1.2); Total Protein 6.3 g/dL (6.6-8.7)
[2023-11-28 04:36] VITALS: BP 121/74; PULSE 76; RESP 12; TEMP 36.7; O2SAT 90
[2023-11-28] MEDS: clindamycin 600 MG/50 ML PREMIX 100 MG IV ×2 (05:56→12:53)
[2023-11-28] MEDS: amiodarone 200 mg Tablet PO (05:56)
[2023-11-28] MEDS: metoprolol succinate ER (24 HR) 25 mg Tablet 12.5 MG PO (05:56)
[2023-11-28 06:08] LABS: Glucose Point of Care 87 mg/dL (70-110)
[2023-11-28] MEDS: HYDROcodone-acetaminophen 10-325 mg Tablet PO ×2 (06:25→12:52)
[2023-11-28 06:55] LABS: SARS Covid-2 Antigen negative (Negative)
[2023-11-28 07:18] VITALS: BP 100/62; PULSE 76; RESP 17; TEMP 37; O2SAT 92
[2023-11-28] MEDS: pantoprazole DR 40 mg Tablet PO (08:33)
[2023-11-28] MEDS: docusate sodium 100 mg Capsule PO (08:34)
[2023-11-28] MEDS: NON-FORMULARY MEDICATION (Vit C,E-Zn-Coppr-Lutein-Zeaxan [Preservision Areds-2] 250-90-40- 1 EACH PO (08:34)
--- NOTE | 2023-11-28 10:12 | P.DS_ITS ---
Discharge Providers Date of Admission: 11/25/23 16:48 Date of Discharge: November 28, 2023 Attending Provider at Admission: Kris Mitchell DO Attending Provider at Discharge: Kris Mitchell DO Primary Care Provider: Kaylynn Munoz DO Diagnoses at Discharge Discharge Diagnosis (1) Encounter for postoperative care: Status: Acute (2) HTN (hypertension): Status: Acute Qualifiers: Hypertension type: essential hypertension Qualified Code(s): I10 - Essential (primary) hypertension (3) Atrial fibrillation: Status: Acute Qualifiers: Atrial fibrillation type: persistent (not longstanding) Qualified Code(s): I48.19 - Other persistent atrial fibrillation Permanent problem details: Well-controlled on amiodarone. No anticoagulation- bleeding (4) CAD (coronary artery disease): Status: Acute Qualifiers: Coronary Disease-Associated Artery/Lesion type: [place] artery [place] vs. transplanted heart: [place] heart Associated angina: without angina Qualified Code(s): I25.10 - Atherosclerotic heart disease of [place] coronary artery without angina pectoris (5) Type 2 diabetes mellitus: Status: Acute (6) Diastolic CHF with preserved left ventricular function, NYHA class 2: Status: Acute Permanent problem details: Worsening heart failure symptoms with abnormal stress test may need further exploration for ischemia burden through heart cath Reason for Visit Reason for Visit: M48.062 Physical Exam Narrative: Patient said she is having tough morning having left-sided back pain. Having difficulty walking. Yesterday she was walking around well says she had an incident with a chair that she got pushed forward flared up her back. Urinary Catheter Management: [facility]: Cath Placed During This Visit: yes, but has since been removed by the nurse Reason for Continuing Indwelling Catheter: Decision to DC Catheter Urinary Catheter Date of Insertion: 11/25/23 Urinary Catheter Time of Insertion: 13:40 Date Urinary Catheter Removed: 11/27/23 Time Urinary Catheter Discontinued: 13:01 Discharge Data Studies Completed and Pending Pending at discharge Category Date Time Status C-arm Fluoroscopy 20008 Routine Exams 11/25/23 10:47 Taken Complete Blood Count w/Auto AM LABS Lab 11/29/23 04:00 Ordered Comprehensive Metabolic Panel AM LABS Lab 11/29/23 04:00 Ordered Laboratory Results WBC 12.78 10^3/uL (3.29-11.43) H 11/28/23 03:18 RBC 3.03 10^6/uL (3.85-5.65) L 11/28/23 03:18 Hgb 9.40 g/dL (11.27-16.99) L 11/28/23 03:18 Hct 29.5 % (36-47) L 11/28/23 03:18 MCV 97.4 fl (85-98) 11/28/23 03:18 MCH 31.0 pg (27-33) 11/28/23 03:18 MCHC 31.9 g/dL (30-55) 11/28/23 03:18 RDW 14.1 % (12.1-15.1) 11/28/23 03:18 Plt Count 296 10^3/cmm (157-399) 11/28/23 03:18 MPV 9.1 fL (7.4-10.4) 11/28/23 03:18 Neut % (Auto) 72.5 % 11/28/23 03:18 Lymph % (Auto) 16.9 % 11/28/23 03:18 [place] % (Auto) 9.6 % 11/28/23 03:18 Eos % (Auto) 0.2 % 11/28/23 03:18 Baso % (Auto) 0.3 % 11/28/23 03:18 Neut # (Auto) 9.26 10^3/uL (1.8-7.7) H 11/28/23 03:18 Lymph # (Auto) 2.2 10^3/uL (0.8-4.8) 11/28/23 03:18 [place] # (Auto) 1.2 10^3/uL (0.2-0.9) H 11/28/23 03:18 Eos # (Auto) 0.0 10^3/uL (0.0-0.8) 11/28/23 03:18 Baso # (Auto) 0.0 10^3/uL (0.0-0.1) 11/28/23 03:18 Nucleated RBC % (auto) 0 % 11/28/23 03:18 Nucleated RBCs # 0.0 /100WBC 11/28/23 03:18 Sodium 133 mmol/L (136-145) L 11/28/23 03:18 Potassium 4.1 mmol/L (3.5-5.1) 11/28/23 03:18 Chloride 99 mmol/L (98-107) 11/28/23 03:18 Carbon Dioxide 22 mmol/L (22-29) 11/28/23 03:18 Anion Gap 16.1 (5-19) 11/28/23 03:18 BUN 19 mg/dL (8-23) 11/28/23 03:18 Creatinine 0.7 mg/dL (0.5-0.9) 11/28/23 03:18 GFR Calculation Not Reportable 11/28/23 03:18 Glucose 80 mg/dL (65-115) 11/28/23 03:18 POC Glucose 87 mg/dL (70-110) 11/28/23 05:59 Calculated Osmolality 277 mOsm/kg (285-295) L 11/28/23 03:18 Calcium 8.6 mg/dL (8.5-10.5) 11/28/23 03:18 Total Bilirubin 0.4 mg/dL (0.15-1.2) 11/28/23 03:18 AST 11 U/L (0-32) 11/28/23 03:18 ALT 11 U/L (0-33) 11/28/23 03:18 Alkaline Phosphatase 185 U/L (35-105) H 11/28/23 03:18 Total Protein 6.3 g/dL (6.6-8.7) L 11/28/23 03:18 Albumin 3.2 g/dL (3.5-5.2) L 11/28/23 03:18 Globulin 3.1 g/dL (1.3-4.6) 11/28/23 03:18 SARS-CoV-2 Ag (Rapid) negative (Negative) 11/28/23 06:00 Blood Type A Negative 11/25/23 11:20 Rho(D) Type Rh negative 11/25/23 11:20 Antibody Screen Negative 11/25/23 11:20 Vitals Last Vital Signs Temp 98.6 F 11/28/23 07:18 Pulse 76 11/28/23 07:18 Resp 17 11/28/23 07:18 BP 100/62 11/28/23 07:18 Pulse Ox 92 11/28/23 07:18 O2 Del Method Room Air 11/28/23 07:18 O2 Flow Rate 10 11/25/23 17:20 Discharge Plan Discharge Patient Disposition: Xfer SNF Condition: Stable Prescriptions: New hydrocodone-acetaminophen 10-325 mg tablet 1 tab PO Q4H PRN (Reason: pain) 7 Days Qty: 40 0RF hydrocodone-acetaminophen 10-325 mg tablet 1 tab PO Q4H PRN (Reason: pain) 7 Days Qty: 40 0RF Continued Lantus Solostar U-100 Insulin 100 unit/mL (3 mL) insulin pen 30 unit SUBCUT BEDTIME pantoprazole [Protonix] 40 mg tablet,delayed release (DR/EC) 40 mg PO DAILY Trulicity 1.5 mg/0.5 mL pen injector 1.5 mg SUBCUT Q7D Rx Instructions: ON THURSDAY methocarbamol 500 mg tablet 1,000 mg PO Q8H Qty: 30 0RF magnesium hydroxide [Milk of Magnesia] 400 mg/5 mL Suspension 30 ml PO DAILY PRN (Reason: Constipation) bisacodyl 10 mg Suppository 10 mg RI DAILY PRN (Reason: Constipation) Fleet Enema 19-7 gram/118 mL Enema 118 ml RI DAILY PRN (Reason: Constipation) fluticasone propion-salmeterol [Advair Diskus] 100-50 mcg/dose Blister With Device 2 inh INHALATION DAILY hydrocodone-acetaminophen 5-325 mg tablet 1 tab PO Q4H PRN (Reason: Pain, Moderate) diclofenac sodium 1 % Gel 2 g TOPICAL QID PRN (Reason: PAINFUL AREAS) amiodarone 200 mg tablet 200 mg PO QAM metoprolol succinate 25 mg tablet extended release 24 hr 12.5 mg PO QAM nystatin 100,000 unit/gram cream 1 applic TOPICAL BID PRN (Reason: Rash) nitroglycerin [Nitrostat] 0.4 mg Tablet, Sublingual 0.4 mg SUBLINGUAL Q5M PRN (Reason: Chest Pain) Rx Instructions: do not exceed 3 doses per episode insulin aspart U-100 [Novolog FlexPen U-100 Insulin] 100 unit/mL (3 mL) insulin pen 8 unit SUBCUT TID mometasone 0.1 % solution See Rx Instructions .ROUTE .COMPLEX Rx Instructions: APPLY SMALL AMOUNT TOPICALLY TWICE DAILY NEEDED FOR RASH. PreserVision AREDS-2 250-90-40-1 mg Capsule 1 tab PO BID Changed furosemide 20 mg tablet 20 mg PO QAM PRN (Reason: swelling) Qty: 10 0RF losartan 100 mg Tablet 50 mg PO DAILY PRN (Reason: sbp more than 150 mmhg) Qty: 10 0RF Discharge Orders: Discharge Order (Routine); Ordered 11/28/23 Ordered By: Kris Mitchell Discharge Diet: Advance as tolerated Discharge Activity: Limit activity as instructed Patient Instructions: Acute Wound Care (DC), Opioid Safety, Post Anesthesia Care Activity Restrictions/Additional Instructions: Thank you for [facility] for your care! The following is a list of instructions, from your provider, to follow upon your discharge to ensure you have the optimal recovery from your recent injury orsurgery. Follow-up care is a ely part of your treatment and safety. Be sure to make and go to all appointments, and call your doctor if you are having problems. If you do not already have a follow-up appointment made, call Dr. Mitchell office in the next 1-3 days to make follow up appointment for 1 weeks at [phone]. It is also a good idea to know your test results and keep a list of the medicines you take. Medications will be prescribed for you at your provider's discretion. These medications are to be used as instructed; if they are taken more often that prescribed they will not be refilled early and in most cases will not be refilled at all. > When a refill is needed,you should contact shoshana acosta 2-3 business da ys before your prescription runs out. Medications will NOT be refilled by allocation analyst providers after hours! > Many pain medications contain Tylenol (Acetaminophen). Do not consume more than 4,000 mg of Tylenol per day in total with any combination ofmedications. > Pain medications can cause constipation. Please use an over the counter stool softener as directed, while taking pain medications. Consulty our local pharmacist with questions or recommendations on stool softeners. If constipation persists, contact our office or your primary care provider. > While under our care,you are not to receive pain medications or other controlled substances from any other provider unless our office is notified and approves. Any attempts to do so will result in refusal to prescribe any further pain medications and possible dismissal from our practice. ? ? Showering is permitted, however we ask that you do not take a bath, sit in a whirlpool / Jacuzzi, or go swimming for 1 month. For only the first 2 days after surgery, lt wilt be necessary for you to cover your wound/dressing with plastic and tape to keep it dry. ? Walking is essential for the healing process after surgery. We would like you to slowly advance your walking. This should be done on relatively flat clear ground (inside or out) or can be done on a treadmill. Remember this goal does not have to happen all at once, slowly increase your distance and duration. This can be broken into more more than one walk per day as tolerated. Patients who walk as directed after surgery rarely require Physical Therapy. In the unlikely event this issue arises your provider will direct hospital staff to make the appropriate arrangements. ? No lifting over 5 pounds {a gallon of milk) or bending/twisting until further notice. Each of these activities places an unnecessary amount of stress onto the body and can impede the delicate healing process. > Instead of bending at the waist, keep your back straight and bend at the knees. > Instead of twisting your torso, keep your back straight and turn your entire body with your feet. ? You may sleep in any position which makes you comfortable. Many patients find comfort sleeping in a reclining chair. It is not abnormal to have difficulty sleeping for the first several weeks following your surgery. We recom mend trying Benadry! or Tylenol PM as directed to help with your sleeping difficulties. Both medications are over the counter and available withoutprescription. ? NO SMOKING!!! Smoking dramatically increases the probability of developing postoperative wound infections. ? Common complaints after lumbar and/or thoracic spine surgery include, but are not limited to: numbness and/or tingling in the legs, pain around the incision and surrounding tissues, muscle spasms, or stiffness of the middle to low back. Contact our office if these symptoms persist or if an acute change occurs. ? No driving for the first 3-5days, and not while taking narcotics [] until seen at your follow-up appointment and cleared. There are no restrictions for riding on short trips, however if you take a longer trip, arrangements should be made to make regular stops to get out of the vehicle and stretch . ? Swelling is an unfortunate event that will take place with any surgery and is the primary source of your postoperative discomfort. While walking and regular approved activities helps control inflammation, there are additional steps you can take to minimizeswelling. > Place ice over the surgical site and surrounding tissue for twenty minutes, followed by applying a low/medium heat (heating pad) for an additional twenty minutes every 1-2 hours as needed for painrelief. > You may use of over the counter anti-inflammatory medications (Ibuprofen, Motrin, Aleve, Advil, etc) as directed on the package label. These types of medicines wm significantly reduce the amount of discomfort you experience after surgery from swelling. It should be noted that if you have and allergy to any of these medications, or a history of ulcers or kidney disease you should consult you primary care provider prior to starting these medications. Discharge Attestations Time Spent in Discharge Care*: less than 30 min Status at Discharge: Cognitive status at discharge: cognitively intact , Behavioral status at discharge: cooperative , Quality Metrics Clinical Quality Measures [ No reported AMI, CVA or VTE this stay] Coding Level of Care Code Acute Code for Chg Fwd Diagnoses Encounter for postoperative care Z48.89 Essential hypertension I10 Hypertension type: essential hypertension Persistent atrial fibrillation I48.19 Atrial fibrillation type: persistent (not longstanding) Coronary artery disease involving [place] coronary artery of [place] heart without angina pectoris I25.10 Coronary Disease-Associated Artery/Lesion type: [place] artery [place] vs. transplanted heart: [place] heart Associated angina: without angina Type 2 diabetes mellitus E11.9 Diastolic CHF with preserved left ventricular function, NYHA class 2 I50.30
[2023-11-28 10:19] LABS: Glucose Point of Care 264 mg/dL (70-110)
[2023-11-28 11:12] VITALS: BP 101/50; PULSE 75; RESP 17; TEMP 37.1; O2SAT 92
[2023-11-28] MEDS: insulin lispro 100 unit/1 mL SUBCUT (11:29)
--- NOTE | 2023-11-28 11:53 | P.PN_ITS ---
Subjective 2 Subjective: No acute events overnight. Patient states she is feeling comfortable but slightly more in pain than yesterday. Sitting up in chair. Anxiously waiting to be transferred to SNF today. Vitals/I&O/Wt Last Vital Signs Temp 98.7 F 11/28/23 11:12 Pulse 75 11/28/23 11:12 Resp 17 11/28/23 11:12 BP 101/50 11/28/23 11:12 Pulse Ox 92 11/28/23 11:12 O2 Del Method Room Air 11/28/23 11:12 O2 Flow Rate 10 11/25/23 17:20 11/27/23 11/28/23 11/28/23 22:59 06:59 14:59 Intake Total 860 / 1630 50 / 1680 420 / 420 Balance 860 / 1630 50 / 1680 420 / 420 Weight last 48 hrs Weight 101.333 kg Weight 99.11 kg Physical Exam 2 Narrative: General: No acute distress, AO x 3 HEENT: PERRLA, pupils bilaterally equal and reactive Chest: Bronchial breath sounds all over lung [place] with occasional rhonchi CVS: S1-S2 irregularly irregular, no murmurs, no tachycardia, no gallops, no rubs Abdomen: Soft, nontender, no organomegaly, bowel sounds present Neuro: No focal deficits, no facial deformity, moving all limbs, [facility] in place Urinary Catheter Management: [facility]: Cath Placed During This Visit: yes, but has since been removed by the nurse Reason for Continuing Indwelling Catheter: Decision to DC Catheter Urinary Catheter Date of Insertion: 11/25/23 Urinary Catheter Time of Insertion: 13:40 Date Urinary Catheter Removed: 11/27/23 Time Urinary Catheter Discontinued: 13:01 Data 11/28/23 03:18 11/28/23 03:18 A&P Assessment and plan (1) Encounter for postoperative care: Continue to monitor hemoglobin. So far stable. Postoperative anticoagulation with physical therapy as per primary team. (2) HTN (hypertension): Goal blood pressure less than 140/90 mmHg. For now continue with home dose of losartan 100 mg oral daily, metoprolol succinate 12.5 mg oral daily. Will uptitrate as for goal blood pressures. Qualifiers: Hypertension type: essential hypertension Qualified Code(s): I10 - Essential (primary) hypertension (3) Atrial fibrillation: Telemetry. Metoprolol as above. Not on anticoagulation chronically because of history of bleeding Qualifiers: Atrial fibrillation type: persistent (not longstanding) Qualified Code(s): I48.19 - Other persistent atrial fibrillation (4) CAD (coronary artery disease): No active chest pain. Last [employer] visit back in 2020 showed proximal 40% RCA stenosis, mid 30% RCA, 60% circumflex stenosis with FFR of 0.85. Patient was consulted for medical management. Appreciate recent A1c, lipid panel. Plavix 75 mg oral daily, atorvastatin 20 mg oral daily. Qualifiers: Coronary Disease-Associated Artery/Lesion type: [place] artery [place] vs. transplanted heart: [place] heart Associated angina: without angina Qualified Code(s): I25.10 - Atherosclerotic heart disease of [place] coronary artery without angina pectoris (5) Type 2 diabetes mellitus: Recent A1c of 8.4. Insulin sliding scale low-dose protocol. Increase Lantus dose to manage home dose of 30 units nightly. (6) Diastolic CHF with preserved left ventricular function, NYHA class 2: Last echocardiogram from 2021 showed EF of 65% with grade 1 diastolic dysfunction. Strict input charting, daily weights. Euvolemic for now. Stop IV fluids. Hold off on diuretics for now. Plan Full code Protonix for PUD prophylaxis Plan for the day: Hemoglobin stable. Blood pressure stable on as needed losartan. Continue with home dose of metoprolol. To be transferred to SNF today for further rehabitation. Patient is stable to be discharged from medical standpoint. She should be discharged on as needed Lasix and losartan for systolic blood pressure of more than 150 mmHg and for lower limb swelling. She should follow-up with a primary care provider within next 1 week. Plan to discharge to SNF. Patient has been accepted to SNF and most likely can be discharged over the weekend. Can be discharged with losartan and Lasix as needed if hemoglobin remained stable. Thank you for involving us in care of Mr. Cantor. Will continue to follow. Attestations 2 Medical Necessity Statement*: As per primary team Diagnoses Encounter for postoperative care Z48.89 Essential hypertension I10 Hypertension type: essential hypertension Persistent atrial fibrillation I48.19 Atrial fibrillation type: persistent (not longstanding) Coronary artery disease involving [place] coronary artery of [place] heart without angina pectoris I25.10 Coronary Disease-Associated Artery/Lesion type: [place] artery [place] vs. transplanted heart: [place] heart Associated angina: without angina Type 2 diabetes mellitus E11.9 Diastolic CHF with preserved left ventricular function, NYHA class 2 I50.30
--- NOTE | 2023-11-28 13:43 | PC.NURSE ---
Delay in discharge today due to inability to find transportation for pt. [facility] advises that they will put pt on transportation list for today and will try to transport pt in between emergencies. Dr. Mitchell notified that discharge has been delayed and may have to be postponed until tomorrow pending transport.
--- NOTE | 2023-11-28 14:52 | PC.NURSE ---
Report called Carley CARRILLO at [facility] at this time. [facility] here to transport pt.
[2023-11-28 14:58] VITALS: BP 101/50; PULSE 75; RESP 17; TEMP 37.1; O2SAT 92
== END 2023-11-28 15:03 | disposition skilled nursing facility (03) | DRG 460 ==
LOC: MEDSURG 14:25
PROVIDERS: Student in an Organized Health Care Education/Training Program; Admitting Provider Orthopaedic Surgery; PCP Family Medicine; Visit Provider Orthopaedic Surgery
PROC: 0SG1071 Fusion of 2 or more Lumbar Vertebral Joints with Autologous Tissue Substitute, Posterior Approach, Posterior Column, Open Approach (ICD-10-PCS; principal; 2023-11-25 12:25)
PROC: 0SG1071 Fusion of 2 or more Lumbar Vertebral Joints with Autologous Tissue Substitute, Posterior Approach, Posterior Column, Open Approach (ICD-10-PCS; 2023-11-25 12:25)
PROC: 0SG1071 Fusion of 2 or more Lumbar Vertebral Joints with Autologous Tissue Substitute, Posterior Approach, Posterior Column, Open Approach (ICD-10-PCS; CPT 27280; 2023-11-25 12:25)
PROC: 0SG1071 Fusion of 2 or more Lumbar Vertebral Joints with Autologous Tissue Substitute, Posterior Approach, Posterior Column, Open Approach (ICD-10-PCS; CPT 63005; 2023-11-25 12:25)
DX: M47.816 Spondylosis without myelopathy or radiculopathy, lumbar region (principal); I48.19 Other persistent atrial fibrillation; I50.32 Chronic diastolic (congestive) heart failure; M48.062 Spinal stenosis, lumbar region with neurogenic claudication; M47.817 Spondylosis without myelopathy or radiculopathy, lumbosacral region; K21.9 Gastro-esophageal reflux disease without esophagitis; J45.909 Unspecified asthma, uncomplicated; E11.9 Type 2 diabetes mellitus without complications; I25.10 Atherosclerotic heart disease of native coronary artery without angina pectoris; E78.5 Hyperlipidemia, unspecified; I11.0 Hypertensive heart disease with heart failure; Z11.52 Encounter for screening for COVID-19; Z79.85 Long-term (current) use of injectable non-insulin antidiabetic drugs; Z79.4 Long term (current) use of insulin; Z87.440 Personal history of urinary (tract) infections; Z85.828 Personal history of other malignant neoplasm of skin; Z86.12 Personal history of poliomyelitis
CPT/HCPCS: 36415; 36416; 51702; 72100; 76000; 80053; 82962; 85025; 86850; 86900; 87426; 96372; 97110; 97116; 97161; 97530; C1713; G0378; J1100; J1170; J1644; J1815; J1885; J2371; J2405; J2704; J3010; J3370; J3490; J7120

== ENCOUNTER → 2023-12-10 15:06 | Outpatient (BNVA) | payer MEDICARE, OTHER, SELFPAY | PROVIDERS: PCP Family Medicine; Visit Provider Orthopaedic Surgery | DX: Z98.1 Arthrodesis status (principal) | CPT/HCPCS: 99024 ==

== ENCOUNTER → 2024-01-07 13:54 | Outpatient (BNVA) | payer MEDICARE, OTHER, SELFPAY | PROVIDERS: PCP Family Medicine; Visit Provider Orthopaedic Surgery | DX: Z98.1 Arthrodesis status (principal) | CPT/HCPCS: 72100; 99024 ==

== ENCOUNTER 2024-01-10 18:17 | Emergency (ER) | payer MEDICARE, OTHER, SELFPAY ==
[2024-01-10 18:26] VITALS: BP 147/73; PULSE 83; RESP 18; TEMP 36.6; O2SAT 96; BMI 33.6
--- NOTE | 2024-01-10 18:42 | XRR_ITS ---
PROCEDURE INFORMATION: Exam: XR Left Ribs with PA Chest Exam date and time: 01/10/2024 6:44 PM Age: 83 years old Clinical indication: Chest wall pain; Left; Patient HX: Lt lower rib pain post fall; HX lumbar fusion x 6 weeks ago TECHNIQUE: Imaging protocol: Radiologic exam of the left ribs with PA chest. Views: 3 views COMPARISON: CR XR chest 1V portable [id number] 10/30/2023 5:55 PM FINDINGS: Limitations: Under penetrated film does not allow for adequate evaluation of the ribs, which are also partially obscured by superimposition of structures. Lungs: Calcified granulomas throughout the lungs are benign. Pleural spaces: Unremarkable. No pleural effusion. No pneumothorax. Heart/Mediastinum: Moderate cardiomegaly. Vasculature: Calcified aortic knob. Diaphragm: There is nonspecific elevation of the right hemidiaphragm. Bones/joints: Limited evaluation, no significantly displaced fractures. Partially seen lower lumbar fixation hardware. XR/XR ribs LT mn 3V w CXR1V [id number] IMPRESSION: Limited evaluation of the ribs due to film under penetration and superimposition of structures. Specifically, the lower left ribs are very difficult to see. I do not see any significantly displaced mid or upper rib fractures, however would advise correlation with noncontrast chest CT.
--- NOTE | 2024-01-10 18:44 | W.ED.EXTPRO ---
HPI - Extremity Problem General: Chief complaint: Extremity Injury, Upper Stated complaint: Left side rib pain Time Seen by Provider: 01/10/24 18:42 History of Present Illness: 83-year-old female comes in today with complaints of left anterior rib pain. Patient reports that she was getting ready to sit down on her rollator when she missed stepped causing her to fall forward and strike the edge of the rollator against her left anterior ribs. Patient reports that every now and again she does have some rib pain secondary to an old rib fracture. Patient reports some significant pain to the area. Patient does not know if she just aggravated her old injury or fractured her rib. Patient appears nontoxic. Patient appears no acute distress. Vital signs normal. Related Data Home Medications Medication Instructions Recorded Confirmed insulin glargine 100 unit/mL (3 30 unit SUBCUT BEDTIME 07/04/19 01/07/24 mL) subcutaneous pen (Lantus Solostar U-100 Insulin) pantoprazole 40 mg tablet,delayed 40 mg PO DAILY 07/04/19 01/07/24 release (Protonix) insulin aspart U-100 100 unit/mL 8 unit SUBCUT TID 11/01/22 01/07/24 (3 mL) subcutaneous pen (Novolog FlexPen U-100 Insulin aspart) mometasone 0.1 % topical solution See Rx Instructions .Route .COMPLEX 11/01/22 01/07/24 nitroglycerin 0.4 mg sublingual 0.4 mg sublingual Q5M PRN Chest 11/01/22 01/07/24 tablet (Nitrostat) Pain nystatin 100,000 unit/gram topical 1 applic topical BID PRN Rash 11/01/22 01/07/24 cream vit C 250 mg-vit E 90 mg-zinc 40 1 tab PO BID 11/01/22 01/07/24 mg-copper 1 os-dxkvdi-riqill capsule (PreserVision AREDS-2) dulaglutide 1.5 mg/0.5 mL 1.5 mg SUBCUT Q7D 06/08/23 01/07/24 subcutaneous pen injector (Trulicity) amiodarone 200 mg tablet 200 mg PO QAM 10/22/23 01/07/24 bisacodyl 10 mg rectal suppository 10 mg TN DAILY PRN Constipation 10/22/23 01/07/24 diclofenac sodium 1 % topical gel 2 g topical QID PRN PAINFUL AREAS 10/22/23 01/07/24 fluticasone 100 mcg-salmeterol 50 2 inh inhalation DAILY 10/22/23 01/07/24 mcg/dose blistr powdr for inhalation (Advair Diskus) magnesium hydroxide 400 mg/5 mL 30 ml PO DAILY PRN Constipation 10/22/23 01/07/24 oral suspension (Milk of Magnesia) metoprolol succinate 25 mg 12.5 mg PO QAM 10/22/23 01/07/24 tablet,extended release 24 hr sodium phosphates 19 gram-7 118 ml TN DAILY PRN Constipation 10/22/23 01/07/24 gram/118 mL enema (Fleet Enema) Previous Rx's Medication Instructions Recorded methocarbamol 500 mg tablet 1,000 mg (2 x 500 mg) PO Q8H #30 10/08/23 tabs furosemide 20 mg tablet 20 mg PO QAM PRN swelling #10 tabs 11/27/23 losartan 100 mg tablet 50 mg (1/2 x 100 mg) PO DAILY PRN 11/27/23 sbp more than 150 mmhg #10 tabs hydrocodone 5 mg-acetaminophen 325 1 tab PO Q6H PRN Pain, Moderate 01/10/24 mg tablet #10 tabs Allergies Allergy/AdvReac Type Severity Reaction Status Date / Time adhesive tape Allergy Unknown Unknown Verified 12/10/23 15:22 aspirin Allergy Unknown Unknown Verified 12/10/23 15:22 celecoxib [From Celebrex] Allergy Unknown Unknown Verified 12/10/23 15:22 codeine Allergy Unknown Unknown Verified 12/10/23 15:22 egg Allergy Unknown Unknown Verified 12/10/23 15:22 erythromycin base Allergy Unknown Unknown Verified 12/10/23 15:22 exenatide [From Bydureon] Allergy Unknown Unknown Verified 12/10/23 15:22 ezetimibe [From Zetia] Allergy Unknown Unknown Verified 12/10/23 15:22 latex Allergy Unknown Unknown Verified 12/10/23 15:22 metformin Allergy Unknown Unknown Verified 12/10/23 15:22 Penicillins Allergy Unknown Unknown Verified 12/10/23 15:22 sitagliptin [From Janumet] Allergy Unknown Unknown Verified 12/10/23 15:22 Sulfa (Sulfonamide Allergy Unknown Unknown Verified 12/10/23 15:22 Antibiotics) topiramate [From Topamax] Allergy Unknown Unknown Verified 12/10/23 15:22 trazodone Allergy Unknown Unknown Verified 12/10/23 15:22 warfarin [From Coumadin] Allergy Unknown Unknown Verified 12/10/23 15:22 desonide Allergy blisters Verified 12/10/23 15:22 Review of Systems General: Reports: 10 or more systems reviewed and unremarkable except in HPI and below PFSH ED PFSH: Medical History Encounter for postoperative care Chronic edema CAD (coronary artery disease) HTN (hypertension) Weakness Encounter for postoperative care Chronic cystitis Recurrent UTI History of nonmelanoma skin cancer DDD (degenerative disc disease) Chest pain Persistent and recurrent chest pressure despite of optimization of medicine may further require exploration with left heart cath. GERD (gastroesophageal reflux disease) Asthma History of poliomyelitis History of rectocele History of cystocele Cyctocele/Rectocele repair Lower extremity edema Diabetes mellitus Atrial fibrillation Well-controlled on amiodarone. No anticoagulation- bleeding Hyperlipidemia Surgical History History of eye surgery Previous back surgery History of surgery of liver Growth S/P cholecystectomy S/P hysterectomy 1965 Family History Mother , at age 89 Hypertension Bleeding disorder Father , at age 79 Hypertension Heart disease Brother CAD (coronary artery disease) Heart disease Cancer Lung CA Liver disease Sister Heart disease Diabetes Cancer Renal CA and leukemia Social History Smoking and tobacco/nicotine status: never used tobacco/nicotine Second hand smoke exposure: No Alcohol intake: never Substance/Drug Use: never Lives independently: Yes Marital status: / Current occupational status: retired Physical Exam Const: COMMON NORMALS: alert HENMT: COMMON NORMALS: normocephalic HEAD & SCALP: normocephalic Neck/C-Spine: COMMON NORMALS: full ROM Chest: CHEST: Yes tenderness (Left anterior ribs) Neuro: SENSORIUM/ORIENTATION: Yes alert Course Vital Signs: Vital signs: Vital Signs Temperature 97.9 F 01/10/24 18:26 Pulse Rate 83 01/10/24 18:26 Respiratory Rate 18 01/10/24 18:26 Blood Pressure 147/73 01/10/24 18:26 Pulse Oximetry 96 01/10/24 18:26 Oxygen Delivery Me thod Room Air 01/10/24 18:26 MDM - Extremity (Nontraumatic) Medical Decision Making 83-year-old female comes in today for complaints of left rib pain. On exam patient has anterior left rib tenderness. Patient reports that she was going to get into her walker to sit down and slipped falling forward and striking her chest against the seat of the walker. Patient states a history of a prior fracture to the rib. Patient reports increased pain and discomfort. Patient appears nontoxic. Patient appears in moderate pain. Differential diagnosis includes not limited to fracture, contusion, pneumothorax. Wet read of the x-rays of the ribs and chest x-ray noted no obvious fracture or pneumothorax. Patient was given medication for pain for rib contusion. Patient reports understanding of care plan need for follow-up or return to the XR interpretation done by ED provider, pending radiology final review Discharge Plan Discharge Patient Disposition: Home Clinical Impression: Contusion of rib on left side Qualifiers: Encounter type: initial encounter Qualified Code(s): S20.212A - Contusion of left front wall of thorax, initial encounter Condition: Stable Prescriptions: Changed hydrocodone-acetaminophen 5-325 mg tablet 1 tab PO Q6H PRN (Reason: Pain, Moderate) Qty: 10 0RF No Action Lantus Solostar U-100 Insulin 100 unit/mL (3 mL) insulin pen 30 unit SUBCUT BEDTIME pantoprazole [Protonix] 40 mg tablet,delayed release (DR/EC) 40 mg PO DAILY Trulicity 1.5 mg/0.5 mL pen injector 1.5 mg SUBCUT Q7D Rx Instructions: ON THURSDAY methocarbamol 500 mg tablet 1,000 mg PO Q8H Qty: 30 0RF magnesium hydroxide [Milk of Magnesia] 400 mg/5 mL Suspension 30 ml PO DAILY PRN (Reason: Constipation) bisacodyl 10 mg Suppository 10 mg TN DAILY PRN (Reason: Constipation) Fleet Enema 19-7 gram/118 mL Enema 118 ml TN DAILY PRN (Reason: Constipation) fluticasone propion-salmeterol [Advair Diskus] 100-50 mcg/dose Blister With Device 2 inh INHALATION DAILY diclofenac sodium 1 % Gel 2 g TOPICAL QID PRN (Reason: PAINFUL AREAS) amiodarone 200 mg tablet 200 mg PO QAM metoprolol succinate 25 mg tablet extended release 24 hr 12.5 mg PO QAM nystatin 100,000 unit/gram cream 1 applic TOPICAL BID PRN (Reason: Rash) nitroglycerin [Nitrostat] 0.4 mg Tablet, Sublingual 0.4 mg SUBLINGUAL Q5M PRN (Reason: Chest Pain) Rx Instructions: do not exceed 3 doses per episode insulin aspart U-100 [Novolog FlexPen U-100 Insulin] 100 unit/mL (3 mL) insulin pen 8 unit SUBCUT TID mometasone 0.1 % solution See Rx Instructions .ROUTE .COMPLEX Rx Instructions: APPLY SMALL AMOUNT TOPICALLY TWICE DAILY NEEDED FOR RASH. PreserVision AREDS-2 250-90-40-1 mg Capsule 1 tab PO BID furosemide 20 mg tablet 20 mg PO QAM PRN (Reason: swelling) Qty: 10 0RF losartan 100 mg Tablet 50 mg PO DAILY PRN (Reason: sbp more than 150 mmhg) Qty: 10 0RF Discharge Orders: Discharge ED (Routine); Ordered 01/10/24 Ordered By: Garth Abdul Referrals: Kaylynn Munoz DO [Primary Care Provider] - Discharge Diet: Usual diet Discharge Activity: Increase activity as tolerated Patient Instructions: Opioid Safety, Pain Management Activity Restrictions/Additional Instructions: Use hydrocodone as needed for pain. Follow-up with primary care for further instructions. Return to ED for new concerns. Coding Level of Care Code ED Gallery Director for Michael Nice
[2024-01-10] MEDS: HYDROcodone-acetaminophen 7.5-325 mg Tablet 1 TAB PO (19:35)
[2024-01-10] MEDS: HYDROcodone-acetaminophen 5-325 mg Tablet 1 TAB PO (20:24)
[2024-01-10 20:26] VITALS: BP 161/85; PULSE 76; RESP 19; O2SAT 97
== END 2024-01-10 20:21 | disposition home or self-care (01) ==
PROVIDERS: Emergency Provider Nurse Practitioner Family; PCP Family Medicine
DX: S20.212A Contusion of left front wall of thorax, initial encounter (principal); Z79.4 Long term (current) use of insulin; Z79.85 Long-term (current) use of injectable non-insulin antidiabetic drugs; I25.10 Atherosclerotic heart disease of native coronary artery without angina pectoris; I10 Essential (primary) hypertension; E11.9 Type 2 diabetes mellitus without complications; E78.5 Hyperlipidemia, unspecified; W01.198A Fall on same level from slipping, tripping and stumbling with subsequent striking against other object, initial encounter
CPT/HCPCS: 71101; 99283

== ENCOUNTER 2024-02-18 02:06 | Emergency (ER) | payer MEDICARE, OTHER, SELFPAY ==
[2024-02-18] VITALS (8 sets, daily range): BP systolic 120–149; BP diastolic 60–78; PULSE 57–68; RESP 13–18; TEMP 36.8; O2SAT 91–97; BMI 29.2
--- NOTE | 2024-02-18 02:11 | CTR_ITS ---
PROCEDURE INFORMATION: Exam: CT Chest With Contrast; Diagnostic Exam date and time: 02/18/2024 2:55 AM Age: 83 years old Clinical indication: Abdominal pain; Chest pressure and right-sided; Prior surgery; Surgery date: 1-6 months; Surgery type: Back SX #3 in 12/2023. Choley. Hysterectomy. Growth on liver; Additional info: Right rib and abd pain TECHNIQUE: Imaging protocol: Diagnostic computed tomography of the chest with contrast. Radiation optimization: All CT scans at this facility use at least one of these dose optimization techniques: automated exposure control; mA and/or kV adjustment per patient size (includes targeted exams where dose is matched to clinical indication); or iterative reconstruction. Contrast material: OMNI 350; Contrast volume: 100 ml; Contrast route: INTRAVENOUS (IV); COMPARISON: CT angio chest PE protcl [id number] 11/01/2022 11:14 AM RADIATION DOSE METRICS: Total DLP (mGy-cm): 436.4 FINDINGS: Lungs: Left lower lobe calcified granulomas. Bilateral lower lobe linear atelectasis. Pleural spaces: Unremarkable. No pneumothorax. No pleural effusion. Heart: Unremarkable. No cardiomegaly. No pericardial effusion. Coronary arteries: Moderate coronary artery calcifications. Lymph nodes: Unremarkable. No enlarged lymph nodes. Vasculature: Moderate-severe atherosclerotic changes of the aorta and its major branches. Bones/joints: Unremarkable. No acute fracture. Soft tissues: Unremarkable. PROCEDURE INFORMATION: Exam: CT Abdomen And Pelvis With Contrast Exam date and time: 02/18/2024 2:55 AM Age: 83 years old Clinical indication: Abdominal pain; Chest pressure and right-sided; Prior surgery; Surgery date: 1-6 months; Surgery type: Back SX #3 in 12/2023. Choley. Hysterectomy. Growth on liver; Additional info: Right rib and abd pain TECHNIQUE: Imaging protocol: Computed tomography of the abdomen and pelvis with contrast. Radiation optimization: All CT scans at this facility use at least one of these dose optimization techniques: automated exposure control; mA and/or kV adjustment per patient size (includes targeted exams where dose is matched to clinical indication); or iterative reconstruction. Contrast material: OMNI 350; Contrast volume: 100 ml; Contrast route: INTRAVENOUS (IV); COMPARISON: CT abdomen pelvis w con* [id number] 06/09/2021 3:54 AM RADIATION DOSE METRICS: Total DLP (mGy-cm): 862.1 FINDINGS: Liver: Hepatic segment 8 simple cyst. Gallbladder and biliary ducts: Cholecystectomy. Mild postoperative intra and extrahepatic biliary ductal dilation. Pancreas: Pancreatic atrophy. Spleen: Unremarkable. Adrenal glands: Unremarkable. Kidneys and ureters: Bilateral simple cortical renal cysts. Stomach and bowel: Small hiatal hernia. No obstruction. No mucosal thickening. Appendix: Appendix not definitely seen. No right lower quadrant inflammation identified. Intraperitoneal space: No free air or free fluid. Vasculature: Severe atherosclerotic changes of the aorta and its major branches. Lymph nodes: Unremarkable. Urinary bladder: Unremarkable. Reproductive: Hysterectomy. Bones/joints: Multilevel spondylosis. L3-iliac posterior fusion. Bilateral SI joint surgical ankylosis. No evidence of hardware failure. Soft tissues: Small bilateral fat containing inguinal hernias. CT/CT chest abdpel w/*[id number] IMPRESSION: No pulmonary embolus. IMPRESSION: No acute abdominopelvic abnormality. COMMENTS: Consistent with the [employer]'s Incidental Findings Committee white paper (J Am Livan Radiol 2018): Any incidental renal lesion less than 1 cm or classified as too small to characterize, or any incidental cystic renal lesion characterized as simple-appearing, is likely benign. No follow-up imaging is recommended for these lesions per consensus recommendations based on imaging criteria.
[2024-02-18 02:26] LABS: Basophils % 0.3 %; Hematocrit 39.4 % (36-47); Lymphocytes # 2.1 10^3/uL (0.8-4.8); Lymphocytes % 24.2 %; Mean Corpuscular HGB Conc 32.5 g/dL (30-55); Mean Corpuscular Hemoglobin 28.2 pg (27-33); Mean Corpuscular Volume 86.8 fl (85-98); Mean Platelet Volume 8.8 fL (7.4-10.4); Monocytes # 0.9 10^3/uL (0.2-0.9); Monocytes % 9.9 %; Neutrophils % 65.3 %; Nucleated Red Blood Cells % 0 %; Platelet Count 430 10^3/cmm (157-399); Red Blood Count 4.54 10^6/uL (3.85-5.65); Red Cell Distribution Width 16.4 % (12.1-15.1); White Blood Count 8.75 10^3/uL (3.29-11.43)
[2024-02-18] MEDS: HYDROmorphone 1 mg/mL INJ 1 mL IVP ×2 (02:38→05:05)
[2024-02-18 02:43] LABS: Alanine Aminotransferase 22 U/L (0-33); Albumin Level 4.3 g/dL (3.5-5.2); Alkaline Phosphatase 192 U/L (35-105); Anion Gap 17.4 (5-19); Aspartate Amino Transferase 19 U/L (0-32); Blood Urea Nitrogen 26 mg/dL (8-23); Calcium 9.2 mg/dL (8.5-10.5); Carbon Dioxide 24 mmol/L (22-29); Chloride 93 mmol/L (98-107); Creatinine Clr Calc Pharmacy 34.1108; Globulin 3.3 g/dL (1.3-4.6); Glucose 156 mg/dL (65-115); Osmolality Calculated 280 mOsm/kg (285-295); Potassium 3.4 mmol/L (3.5-5.1); Sodium 131 mmol/L (136-145); Total Bilirubin 0.3 mg/dL (0.15-1.2); Total Protein 7.6 g/dL (6.6-8.7)
[2024-02-18 02:44] LABS: Lactic Sepsis W/Reflex 2.2 mmol/L (0.5-2.2)
--- NOTE | 2024-02-18 02:49 | ED_ITS ---
HPI - Abdominal Pain 2 General: Chief Complaint: Abdominal Pain Stated Complaint: ride side and back pain Time Seen by Provider: 02/18/24 02:08 History of Present Illness: 83-year-old female with a history of chr onic pain syndrome on hydrocodone regularly coronary artery disease, hypertension, recurrent UTI, GERD and diabetes who presents to the emergency room with right rib and abdominal pain. She said she had a fall about a week ago and had some pain but it seemed to get better and then since yesterday she was picking up something and felt a pop in her right side and now she has pain all down the right side. Hydrocodone is not helping Related Data Home Medications Medication Instructions Recorded Confirmed insulin glargine 100 unit/mL (3 30 unit SUBCUT BEDTIME 07/04/19 01/07/24 mL) subcutaneous pen (Lantus Solostar U-100 Insulin) pantoprazole 40 mg tablet,delayed 40 mg PO DAILY 07/04/19 01/07/24 release (Protonix) insulin aspart U-100 100 unit/mL 8 unit SUBCUT TID 11/01/22 01/07/24 (3 mL) subcutaneous pen (Novolog FlexPen U-100 Insulin aspart) mometasone 0.1 % topical solution See Rx Instructions .Route .COMPLEX 11/01/22 01/07/24 nitroglycerin 0.4 mg sublingual 0.4 mg sublingual Q5M PRN Chest 11/01/22 01/07/24 tablet (Nitrostat) Pain nystatin 100,000 unit/gram topical 1 applic topical BID PRN Rash 11/01/22 01/07/24 cream vit C 250 mg-vit E 90 mg-zinc 40 1 tab PO BID 11/01/22 01/07/24 mg-copper 1 [id number] capsule (PreserVision AREDS-2) dulaglutide 1.5 mg/0.5 mL 1.5 mg SUBCUT Q7D 06/08/23 01/07/24 subcutaneous pen injector ([facility]) amiodarone 200 mg tablet 200 mg PO QAM 10/22/23 01/07/24 bisacodyl 10 mg rectal suppository 10 mg MI DAILY PRN Constipation 10/22/23 01/07/24 diclofenac sodium 1 % topical gel 2 g topical QID PRN PAINFUL AREAS 10/22/23 01/07/24 fluticasone 100 mcg-salmeterol 50 2 inh inhalation DAILY 10/22/23 01/07/24 mcg/dose blistr powdr for inhalation (Advair Diskus) magnesium hydroxide 400 mg/5 mL 30 ml PO DAILY PRN Constipation 10/22/23 01/07/24 oral suspension (Milk of Magnesia) metoprolol succinate 25 mg 12.5 mg PO QAM 10/22/23 01/07/24 tablet,extended release 24 hr sodium phosphates 19 gram-7 118 ml MI DAILY PRN Constipation 10/22/23 01/07/24 gram/118 mL enema (Fleet Enema) Previous Rx's Medication Instructions Recorded methocarbamol 500 mg tablet 1,000 mg (2 x 500 mg) PO Q8H #30 10/08/23 tabs furosemide 20 mg tablet 20 mg PO QAM PRN swelling #10 tabs 11/27/23 losartan 100 mg tablet 50 mg (1/2 x 100 mg) PO DAILY PRN 11/27/23 sbp more than 150 mmhg #10 tabs hydrocodone 5 mg-acetaminophen 325 1 tab PO Q6H PRN Pain, Moderate 01/10/24 mg tablet #10 tabs oxycodone 5 mg tablet 5 mg PO Q8H PRN pain #20 tabs 02/18/24 Allergies Allergy/AdvReac Type Severity Reaction Status Date / Time adhesive tape Allergy Unknown Unknown Verified 02/18/24 02:16 aspirin Allergy Unknown Unknown Verified 02/18/24 02:16 celecoxib [From Celebrex] Allergy Unknown Unknown Verified 02/18/24 02:16 codeine Allergy Unknown Unknown Verified 02/18/24 02:16 egg Allergy Unknown Unknown Verified 02/18/24 02:16 erythromycin base Allergy Unknown Unknown Verified 02/18/24 02:16 exenatide [From Bydureon] Allergy Unknown Unknown Verified 02/18/24 02:16 ezetimibe [From Zetia] Allergy Unknown Unknown Verified 02/18/24 02:16 latex Allergy Unknown Unknown Verified 02/18/24 02:16 metformin Allergy Unknown Unknown Verified 02/18/24 02:16 Penicillins Allergy Unknown Unknown Verified 02/18/24 02:16 sitagliptin [From Janumet] Allergy Unknown Unknown Verified 02/18/24 02:16 Sulfa (Sulfonamide Allergy Unknown Unknown Verified 02/18/24 02:16 Antibiotics) topiramate [From Topamax] Allergy Unknown Unknown Verified 02/18/24 02:16 trazodone Allergy Unknown Unknown Verified 02/18/24 02:16 warfarin [From Coumadin] Allergy Unknown Unknown Verified 02/18/24 02:16 desonide Allergy blisters Verified 02/18/24 02:16 Review of Systems 2 Narrative: Constitutional symptoms: Negative except as documented in HPI. Skin symptoms: Negative except as documented in HPI. Eye symptoms: Negative except as documented in HPI. ENMT symptoms: Negative except as documented in HPI. Respiratory symptoms: Negative except as documented in HPI. Cardiovascular symptoms: Negative except as documented in HPI. Gastrointestinal symptoms: Negative except as documented in HPI. Genitourinary symptoms: Negative except as documented in HPI. Musculoskeletal symptoms: Negative except as documented in HPI. Neurologic symptoms: Negative except as documented in HPI. Psychiatric symptoms: Negative except as documented in HPI. Endocrine symptoms: Negative except as documented in HPI. PFSH ED 2 PFSH: Medical History Encounter for postoperative care Chronic edema CAD (coronary artery disease) HTN (hypertension) Weakness Encounter for postoperative care Chronic cystitis Recurrent UTI History of nonmelanoma skin cancer DDD (degenerative disc disease) Chest pain Persistent and recurrent chest pressure despite of optimization of medicine may further require exploration with left heart cath. GERD (gastroesophageal reflux disease) Asthma History of poliomyelitis History of rectocele History of cystocele Cyctocele/Rectocele repair Lower extremity edema Diabetes mellitus Atrial fibrillation Well-controlled on amiodarone. No anticoagulation- bleeding Hyperlipidemia Surgical History History of eye surgery Previous back surgery History of surgery of liver Growth S/P cholecystectomy S/P hysterectomy 1965 Family History Mother , at age 89 Hypertension Bleeding disorder Father , at age 79 Hypertension Heart disease Brother CAD (coronary artery disease) Heart disease Cancer Lung CA Liver disease Sister Heart disease Diabetes Cancer Renal CA and leukemia Social History Smoking and tobacco/nicotine status: never used tobacco/nicotine Second hand smoke exposure: No Alcohol intake: never Substance/Drug Use: never Lives independently: Yes Marital status: / Current occupational status: retired Physical Exam 2 Narrative: EXAM NARRATIVE: General: Alert, no acute distress. Skin: Warm, dry. Head: Normocephalic, atraumatic. Neck: Supple, trachea midline. Eye: Extraocular movements are intact. Ears, nose, mouth and throat: mucosa moist. Cardiovascular: Regular, Normal peripheral perfusion. Respiratory: Lungs are clear to auscultation, respirations are non-labored, breath sounds are equal, Symmetrical chest wall expansion. Gastrointestinal: Soft, diffuse right-sided rib and abdominal pain to palpation, Non distended Musculoskeletal: Normal ROM, no deformity. Neurological: Alert and oriented, No focal neurological deficit observed. Psychiatric: Cooperative, appropriate mood & affect. Course 2 Vital Signs: Vital signs: Vital Signs Temperature 98.2 F 02/18/24 02:16 Pulse Rate 59 L 02/18/24 05:08 Respiratory Rate 13 02/18/24 02:38 Blood Pressure 134/60 02/18/24 05:08 Pulse Oximetry 93 02/18/24 05:08 Oxygen Delivery Me thod Room Air 02/18/24 04:00 MDM - Abdominal Pain Medical Decision Making CT of the chest abdomen pelvis shows no acute process. No fractures. No bleeding. This was reviewed and interpreted by myself the emergency room physician. I also reviewed the radiology report. Lab work is fairly unremarkable. Creatinine is slightly above baseline. Advised to increased fluid intake. Assessment and plan: Rib contusion Chronic pain syndrome ?Dilaudid x 2 here in the emergency room. Home with 2 oxycodone. Prescribed some oxycodone as well. She is already on hydrocodone. Will change to oxy because it might be a little stronger. - Discharged home - Discussed findings and plan with patient. Answered any questions. - All laboratory values were reviewed and interpreted personally by myself, the ER physician - All imaging was reviewed and interpreted personally by myself, the ER physician. - Evaluation and treatment of this problem were appropriate in the emergency setting Lab Data 02/18/24 01:35 02/18/24 01:35 Labs/Radiology: Radiology Impressions Chest/Abdomen/Pelvis CT 02/18/24 02:11 IMPRESSION: No pulmonary embolus. IMPRESSION: No acute abdominopelvic abnormality. COMMENTS: Consistent with the [employer]'s Incidental Findings Committee white paper (J Am Livan Radiol 2018): Any incidental renal lesion less than 1 cm or classified as too small to characterize, or any incidental cystic renal lesion characterized as simple-appearing, is likely benign. No follow-up imaging is recommended for these lesions per consensus recommendations based on imaging criteria. Laboratory Results WBC 8.75 10^3/uL (3.29-11.43) 02/18/24 01:35 RBC 4.54 10^6/uL (3.85-5.65) 02/18/24 01:35 Hgb 12.80 g/dL (11.27-16.99) 02/18/24 01:35 Hct 39.4 % (36-47) 02/18/24 01:35 MCV 86.8 fl (85-98) 02/18/24 01:35 MCH 28.2 pg (27-33) 02/18/24 01:35 MCHC 32.5 g/dL (30-55) 02/18/24 01:35 RDW 16.4 % (12.1-15.1) H 02/18/24 01:35 Plt Count 430 10^3/cmm (157-399) H 02/18/24 01:35 MPV 8.8 fL (7.4-10.4) 02/18/24 01:35 Neut % (Auto) 65.3 % 02/18/24 01:35 Lymph % (Auto) 24.2 % 02/18/24 01:35 [place] % (Auto) 9.9 % 02/18/24 01:35 Eos % (Auto) 0.0 % 02/18/24 01:35 Baso % (Auto) 0.3 % 02/18/24 01:35 Neut # (Auto) 5.70 10^3/uL (1.8-7.7) 02/18/24 01:35 Lymph # (Auto) 2.1 10^3/uL (0.8-4.8) 02/18/24 01:35 [place] # (Auto) 0.9 10^3/uL (0.2-0.9) 02/18/24 01:35 Eos # (Auto) 0.0 10^3/uL (0.0-0.8) 02/18/24 01:35 Baso # (Auto) 0.0 10^3/uL (0.0-0.1) 02/18/24 01:35 Nucleated RBC % (auto) 0 % 02/18/24 01:35 Nucleated RBCs # 0.0 /100WBC 02/18/24 01:35 Sodium 131 mmol/L (136-145) L 02/18/24 01:35 Potassium 3.4 mmol/L (3.5-5.1) L 02/18/24 01:35 Chloride 93 mmol/L (98-107) L 02/18/24 01:35 Carbon Dioxide 24 mmol/L (22-29) 02/18/24 01:35 Anion Gap 17.4 (5-19) 02/18/24 01:35 BUN 26 mg/dL (8-23) H 02/18/24 01:35 Creatinine 1.3 mg/dL (0.5-0.9) H 02/18/24 01:35 GFR Calculation Not Reportable 02/18/24 01:35 Glucose 156 mg/dL (65-115) H 02/18/24 01:35 Calculated Osmolality 280 mOsm/kg (285-295) L 02/18/24 01:35 Lactic Acid 2.2 mmol/L (0.5-2.2) 02/18/24 01:35 Calcium 9.2 mg/dL (8.5-10.5) 02/18/24 01:35 Total Bilirubin 0.3 mg/dL (0.15-1.2) 02/18/24 01:35 AST 19 U/L (0-32) 02/18/24 01:35 ALT 22 U/L (0-33) 02/18/24 01:35 Alkaline Phosphatase 192 U/L (35-105) H 02/18/24 01:35 Total Protein 7.6 g/dL (6.6-8.7) 02/18/24 01:35 Albumin 4.3 g/dL (3.5-5.2) 02/18/24 01:35 Globulin 3.3 g/dL (1.3-4.6) 02/18/24 01:35 All radiology interpretation(s) finalized by discharge Discharge Plan Discharge Patient Disposition: Home Clinical Impression: Rib contusion Condition: Stable Prescriptions: New oxycodone 5 mg tablet 5 mg PO Q8H PRN (Reason: pain) Qty: 20 0RF No Action Lantus Solostar U-100 Insulin 100 unit/mL (3 mL) insulin pen 30 unit SUBCUT BEDTIME pantoprazole [Protonix] 40 mg tablet,delayed release (DR/EC) 40 mg PO DAILY Trulicity 1.5 mg/0.5 mL pen injector 1.5 mg SUBCUT Q7D Rx Instructions: ON THURSDAY methocarbamol 500 mg tablet 1,000 mg PO Q8H Qty: 30 0RF magnesium hydroxide [Milk of Magnesia] 400 mg/5 mL Suspension 30 ml PO DAILY PRN (Reason: Constipation) bisacodyl 10 mg Suppository 10 mg MI DAILY PRN (Reason: Constipation) Fleet Enema 19-7 gram/118 mL Enema 118 ml MI DAILY PRN (Reason: Constipation) fluticasone propion-salmeterol [Advair Diskus] 100-50 mcg/dose Blister With Device 2 inh INHALATION DAILY diclofenac sodium 1 % Gel 2 g TOPICAL QID PRN (Reason: PAINFUL AREAS) amiodarone 200 mg tablet 200 mg PO QAM metoprolol succinate 25 mg tablet extended release 24 hr 12.5 mg PO QAM nystatin 100,000 unit/gram cream 1 applic TOPICAL BID PRN (Reason: Rash) nitroglycerin [Nitrostat] 0.4 mg Tablet, Sublingual 0.4 mg SUBLINGUAL Q5M PRN (Reason: Chest Pain) Rx Instructions: do not exceed 3 doses per episode insulin aspart U-100 [Novolog FlexPen U-100 Insulin] 100 unit/mL (3 mL) insulin pen 8 unit SUBCUT TID mometasone 0.1 % solution See Rx Instructions .ROUTE .COMPLEX Rx Instructions: APPLY SMALL AMOUNT TOPICALLY TWICE DAILY NEEDED FOR RASH. PreserVision AREDS-2 250-90-40-1 mg Capsule 1 tab PO BID furosemide 20 mg tablet 20 mg PO QAM PRN (Reason: swelling) Qty: 10 0RF losartan 100 mg Tablet 50 mg PO DAILY PRN (Reason: sbp more than 150 mmhg) Qty: 10 0RF hydrocodone-acetaminophen 5-325 mg tablet 1 tab PO Q6H PRN (Reason: Pain, Moderate) Qty: 10 0RF Discharge Orders: Discharge ED (Routine); Ordered 02/18/24 Ordered By: Shanda Rivero Referrals: Kaylynn Munoz, [Primary Care Provider] - Discharge Diet: Usual diet Discharge Activity: Increase activity as tolerated Patient Instructions: Rib Contusion (ED), Opioid Safety Activity Restrictions/Additional Instructions: Your lab work indicated that you were a bit dehydrated. Please increase your fluid intake. Thank you for choosing [facility] for your healthcare needs today. Please realize this is an emergency room and that we are providing you with a medical screening exam and this may not be complete and all inclusive of all the testing and or work up that you may need to determine your ailment or severity of your illness. You have been screened and evaluated and felt safe for discharge. Health conditions do change or evolve sometimes and as such it is important that you follow up with your Primary Doctor to be re checked, 3-5 days is a general good time frame for follow up. You are always welcome to return to the ED for re assessment if your symptoms are worsening or you have new concerns Coding Level of Care Code ED Machine Etcher for Michael Nice
[2024-02-18] MEDS: iohexol 350 mg/mL 500 mL Btl (per mL) IV (03:02)
[2024-02-18 04:11] LABS: Reflex Lactate Order REFLEX LACTIC ORDERD
== END 2024-02-18 05:41 | disposition home or self-care (01) ==
PROVIDERS: Emergency Provider Emergency Medicine; PCP Family Medicine
DX: S20.211A Contusion of right front wall of thorax, initial encounter (principal); I25.10 Atherosclerotic heart disease of native coronary artery without angina pectoris; I10 Essential (primary) hypertension; E11.9 Type 2 diabetes mellitus without complications; E78.5 Hyperlipidemia, unspecified; Z79.85 Long-term (current) use of injectable non-insulin antidiabetic drugs; Z79.4 Long term (current) use of insulin; W19.XXXA Unspecified fall, initial encounter
CPT/HCPCS: 71260; 74177; 80053; 83605; 85025; 96374; 96375; 99285; J1170

== ENCOUNTER → 2024-02-23 14:18 | Outpatient (BNVA) | payer MEDICARE, OTHER, SELFPAY | PROVIDERS: PCP Family Medicine; Visit Provider Orthopaedic Surgery | DX: Z98.1 Arthrodesis status (principal) | CPT/HCPCS: 72100; 99024 ==

== ENCOUNTER 2024-04-01 09:58 | Outpatient (CLI) | payer MEDICARE, OTHER, SELFPAY ==
--- NOTE | 2024-04-01 10:01 | MM_ITS ---
WS: [id number] BILATERAL SCREENING DIGITAL TOMOSYNTHESIS MAMMOGRAM WITH CAD HISTORY: SCREENING COMPARISON: 03/25/2023, 02/26/2022, 02/05/2021 Bilateral CC and MLO views with tomosynthesis and synthetic mammography submitted. Computer aided det ection analyzed. Limited pectoralis on the LEFT MLO. Breast composition: There are scattered areas of fibroglandular density. No suspicious masses, microc alcifications or architectural distortion. Extensive vascular calcifications in each breast. No suspi cious mass. MM/MM scr BI tomosynthesis [id number] IMPRESSION: BI-RADS: 2 - Benign. FOLLOW UP: 1 Year Follow-up
== END 2024-04-01 09:59 | disposition home or self-care (01) ==
LOC: RAD 09:58
PROVIDERS: PCP Family Medicine; Visit Provider Family Medicine
DX: Z12.31 Encounter for screening mammogram for malignant neoplasm of breast (principal); R92.323 Mammographic fibroglandular density, bilateral breasts; R92.1 Mammographic calcification found on diagnostic imaging of breast
CPT/HCPCS: 77063; 77067

== ENCOUNTER → 2024-04-05 15:02 | Outpatient (BNVA) | payer MEDICARE, OTHER, SELFPAY | PROVIDERS: PCP Family Medicine; Visit Provider Internal Medicine Cardiovascular Disease | DX: I25.10 Atherosclerotic heart disease of native coronary artery without angina pectoris (principal); R60.0 Localized edema; I48.91 Unspecified atrial fibrillation; E78.5 Hyperlipidemia, unspecified; J45.909 Unspecified asthma, uncomplicated; I10 Essential (primary) hypertension | CPT/HCPCS: 99214 ==

== ENCOUNTER 2024-04-29 13:41 | Outpatient (CLI) | payer MEDICARE, OTHER, SELFPAY ==
--- NOTE | 2024-04-29 14:00 | USCV_ITS ---
Elizabeth Cantor Age: 84 Gender: F : 1940 Exam Date: 04/29/2024 14:26 Ordering Phys: Dorian Aguirre MD ([email or web address]) Technologist: Abhi aDy Exam Location: [facility] Indication: sob BP: 125 / 62 HR: 67 Rhythm: Sinus Technical Quality: Adequate MEASUREMENTS (Male / Female) Normal Values 2D ECHO LV Diastolic Diameter PLAX 4.0 cm 4.2 - 5.9 / 3.9 - 5.3 cm IVS Diastolic Thickness 1.2 cm 0.6 - 1.0 / 0.6 - 0.9 cm IVS Systolic Thickness 1.6 cm LVPW Diastolic Thickness 1.8 cm 0.6 - 1.0 / 0.6 - 0.9 cm LVPW Systolic Thickness 1.6 cm LVOT Diameter 2.0 cm LV Ejection Fraction 2D Teich 73.9 % LV Ejection Fraction MOD 4C 80.2 % LV Ejection Fraction MOD 2C 72.4 % LV Ejection Fraction 2C AL 72.2 % LA Diameter 3.2 cm RA Systolic Volume 4C AL 15.8 ml RA Systolic Volume 4C MOD 15.3 ml LA Sys Volume AL 26.8 cm cubed LA Sys Volume Index AL 13.9 cm cubed/m squared Aorta at Sinotubular Diameter 1.8 cm IVC Diameter 1.7 cm M-MODE LA Ao Ratio MM 1.4 AV Cusp Separation MM 1.5 cm DOPPLER AV Peak Velocity 148.0 cm/s LVOT Peak Velocity 98.0 cm/s AV Area Cont Eq vti 2.2 cm squared AV Area Cont Eq pk 2.1 cm squared MV Peak Velocity 276.7 cm/s MV Area PHT 2.8 cm squared Mitral E to A Ratio 0.6 TR Peak Velocity 382.0 cm/s TR Peak Gradient 58.4 mmHg TR Mean Velocity 284.0 cm/s TR Mean Gradient 36.8 mmHg TR Velocity Time Integral 77.6 cm PV Peak Velocity 142.0 cm/s RV Ejection Time 0.3 s FINDINGS Left Ventricle Left ventricle is normal in size. LV systolic function is normal with EF of 60 to 65%. No regional wall motion abnormalities are seen. Grade 1 diastolic dysfunction. Right Ventricle Normal in size and function Right Atrium Normal in size Left Atrium Normal in size Mitral Valve Moderate mitral annular calcification. Mild mitral regurgitation. Aortic Valve Aortic valve is thickened. No significant stenosis or regurgitation. Tricuspid Valve Mild tricuspid regurgitation. Insufficient TR jet to calculate RVSP Pulmonic Valve Not well visualized Pericardium Normal Aorta Normal in size IVC Appears to be normal CONCLUSIONS LV systolic function is normal with EF of 60-65% Grade 1 diastolic dysfunction Mild mitral regurgitation Mild tricuspid regurgitation Trent Rodriguez MD (Electronically Signed) Final Date: 07 May 2024 10:57 S
== END 2024-04-29 13:42 | disposition home or self-care (01) ==
LOC: RAD 13:42
PROVIDERS: PCP Family Medicine; Visit Provider Internal Medicine Cardiovascular Disease
DX: I50.30 Unspecified diastolic (congestive) heart failure (principal); I34.81 Nonrheumatic mitral (valve) annulus calcification; I35.8 Other nonrheumatic aortic valve disorders; R06.02 Shortness of breath; R60.0 Localized edema
CPT/HCPCS: 93306

== ENCOUNTER → 2024-05-26 12:59 | Outpatient (BNVA) | payer MEDICARE, OTHER, SELFPAY | PROVIDERS: PCP Family Medicine; Visit Provider Orthopaedic Surgery | DX: Z98.1 Arthrodesis status (principal) | CPT/HCPCS: 72100; 99213 ==

== ENCOUNTER → 2024-07-04 14:10 | Outpatient (BNVA) | payer MEDICARE, OTHER, SELFPAY | PROVIDERS: PCP Family Medicine; Visit Provider Anesthesiology Pain Medicine | DX: M51.372 Other intervertebral disc degeneration, lumbosacral region with discogenic back pain and lower extremity pain (principal); M48.062 Spinal stenosis, lumbar region with neurogenic claudication; M47.816 Spondylosis without myelopathy or radiculopathy, lumbar region; Z98.890 Other specified postprocedural states | CPT/HCPCS: 99214 ==

== ENCOUNTER → 2024-07-12 14:13 | Outpatient (BNVA) | payer MEDICARE, OTHER, SELFPAY | PROVIDERS: PCP Family Medicine; Visit Provider Anesthesiology Pain Medicine | DX: M54.16 Radiculopathy, lumbar region (principal); E11.9 Type 2 diabetes mellitus without complications; Z01.818 Encounter for other preprocedural examination | CPT/HCPCS: 36416; 64483; 64484; 82962; J1100; J3490; J9999 ==

== ENCOUNTER → 2024-07-22 09:07 | Outpatient (BNVA) | payer MEDICARE, OTHER, SELFPAY | PROVIDERS: PCP Family Medicine; Visit Provider Nurse Practitioner Family | DX: M48.062 Spinal stenosis, lumbar region with neurogenic claudication (principal); M51.372 Other intervertebral disc degeneration, lumbosacral region with discogenic back pain and lower extremity pain; M47.816 Spondylosis without myelopathy or radiculopathy, lumbar region; Z98.890 Other specified postprocedural states; Z98.1 Arthrodesis status | CPT/HCPCS: 99213 ==

== ENCOUNTER → 2024-10-04 13:52 | Outpatient (BNVA) | payer MEDICARE, OTHER, SELFPAY | PROVIDERS: PCP Family Medicine; Visit Provider Internal Medicine Cardiovascular Disease | DX: I25.10 Atherosclerotic heart disease of native coronary artery without angina pectoris (principal); I48.19 Other persistent atrial fibrillation; I10 Essential (primary) hypertension; E78.5 Hyperlipidemia, unspecified | CPT/HCPCS: 99214 ==

== ENCOUNTER → 2024-11-24 12:48 | Outpatient (BNVA) | payer MEDICARE, OTHER, SELFPAY | PROVIDERS: PCP Family Medicine; Visit Provider Orthopaedic Surgery | DX: Z98.1 Arthrodesis status (principal); M54.9 Dorsalgia, unspecified | CPT/HCPCS: 72100; 99213 ==

== ENCOUNTER → 2025-01-10 15:32 | Outpatient (BNVA) | payer MEDICARE, OTHER, SELFPAY | PROVIDERS: PCP Family Medicine; Visit Provider Podiatrist Foot & Ankle Surgery | DX: L60.3 Nail dystrophy (principal); E11.40 Type 2 diabetes mellitus with diabetic neuropathy, unspecified; Z79.4 Long term (current) use of insulin | CPT/HCPCS: 11721; 99203 ==

== ENCOUNTER → 2025-02-17 10:38 | Outpatient (BNVA) | payer MEDICARE, OTHER, SELFPAY | PROVIDERS: PCP Family Medicine; Visit Provider Dermatology | DX: L21.8 Other seborrheic dermatitis (principal); L82.1 Other seborrheic keratosis; D18.01 Hemangioma of skin and subcutaneous tissue; L81.4 Other melanin hyperpigmentation; L57.8 Other skin changes due to chronic exposure to nonionizing radiation; Z08 Encounter for follow-up examination after completed treatment for malignant neoplasm; Z85.828 Personal history of other malignant neoplasm of skin; D48.5 Neoplasm of uncertain behavior of skin; L57.0 Actinic keratosis | CPT/HCPCS: 11102; 17000; 99204 ==

== ENCOUNTER → 2025-03-07 13:58 | Outpatient (BNVA) | payer MEDICARE, OTHER, SELFPAY | PROVIDERS: PCP Family Medicine; Visit Provider Dermatology | DX: C44.311 Basal cell carcinoma of skin of nose (principal) | CPT/HCPCS: 15260; 17311 ==

== ENCOUNTER → 2025-03-15 14:10 | Outpatient (BNVA) | payer MEDICARE, OTHER, SELFPAY | PROVIDERS: PCP Family Medicine; Visit Provider Podiatrist Foot & Ankle Surgery | DX: E11.40 Type 2 diabetes mellitus with diabetic neuropathy, unspecified (principal); L60.3 Nail dystrophy; Z79.4 Long term (current) use of insulin | CPT/HCPCS: 11721; 99213 ==

== ENCOUNTER 2025-03-22 12:01 | Inpatient (IN) | payer MEDICARE, OTHER, SELFPAY ==
--- OUTSIDE RECORDS SUMMARY | 2025-03-16 07:10 | XMS_ITS ---
Author Organization [facility] Address [address] [place] [address] Care Team Providers Care Collar Padder Blindstitch Name Role Phone Kaylynn Munoz DO Primary Care Provider Юлия Tavarez Allergies Allergen (clinical drug ingredient) Drug/Non Drug Allergy documented on EMR Reaction Allergy Type Onset Date Status Sulfur Unknown Drug Allergy Active Penicillin Unknown Drug Allergy Active Results Component Value Reference Range Flag Notes UA Without Micro-Auto, [place] - [id number] Reviewed date:03/16/2025 01:40:47 PM Interpretation: Performing Lab: Notes/Report: Glucose 0 Bili 0 Ketones 0 Sp Garwood 1.010 Blood 1+ pH 6.0 Protein +- Urobili 0 Nitrites 0 Leukocytes 0 Microscopic Urine [id number] Reviewed date:03/17/2025 05:28:34 AM Interpretation: Performing Lab: Notes/Report: Diagnosis Description: Other microscopic hematuria RBC U <1 NA WBC U 6 0-5 /HPF HI Bacteria None Seen NA Hyaline Casts 3 NA SQ EPI 3 NA REASON FOR VISIT [employer] referral for recurrent UTI and urinary retention Medications Medication SIG (Take, Route, Frequency, Duration) Notes Start Date End Date Status Spironolactone 25 MG Tablet 1 tablet Ora lly Once a day Active Bumetanide 1 MG Tablet 1 tablet Orally O nce a day Active Amiodarone HCl 200 MG Tablet 1 tablet Orally Once a day Active Fluticasone-Salmeterol 100-50 MCG/ACT Aerosol Powder Breath Activated 1 puff Inhalation Twice a day Active Dulaglutide 3 MG/0.5ML Solution Auto-injector as directed Subcutaneous Active Nystatin 988336 UNIT/GM Cream 1 application Externally Twice a day Active Fluorouracil 5 % Cream 1 application Ext ernally Twice a day Active Pantoprazole Sodium 40 MG Tablet Delayed Release 1 tablet 1/2 to 1 hour before morning meal Orally Once a day Active Losartan Potassium 100 MG Tablet 1 tablet Orally Once a day Active Nitroglycerin 0.4 MG Tablet Sublingual 1 tablet under the tongue and allow to dissolve as needed. Take every 5 minutes up to 3 times if chest pain persists Sublingual Three times a day Active LORazepam 0.5 MG Tablet 1 tablet at bedt ros as needed Orally Once a day Active Insulin Glargine 100 UNIT/ML Solution Pen-injector as directed Subcutaneous Act willi Macrobid 100 MG Capsule 1 capsule with f ood Orally every 12 hrs Active Stool Softener & Laxative Active Levothyroxine Sodium 50 MCG Tablet 1 tablet in the morning on an empty stomach Orally Once a day Active Gabapentin 100 MG Capsule 1 capsule at b edtime Orally Once a day Active oxyCODONE-Acetaminophen 10-325 MG Tablet 1 tablet as needed Orally every 6 hrs Active Metoprolol Succinate 25 MG Capsule ER 24 Hour Sprinkle 1 capsule Orally Once a day Active Diclofenac Sodium 1 % Gel as directed Externally Active Lidocaine 5 % Patch 1 patch remove after 12 hours Externally Once a day Active Estradiol 0.01 % Cream 1 gram Vaginal tw ice a week; Duration: 24 days 03/16/2025 Active Social History Tobacco Use: Social History Observation Description Date Details (start date - stop date) Never Smoker NA - NA Social History Tobacco Use: Social Info Question Answer Notes Tobacco Control (Standard) Tobacco use: Nonsmoker Section Notes: caffeine-pos denies alcohol Problems Problem Type SNOMED Code ICD Code Onset Dates Problem Status W/U Status Risk Notes Problem Urinary retention (632668671) Urinary retention (R33.9) Active confirmed Problem Microscopic hematuria (826183743) Microhematuria (R31.29) Active confirmed Problem Atrophy of vagina (716405664) Vaginal atrophy (N95.2) Active confirmed Vital Signs Temperature 98.4 degrees Fahrenheit 03/16/20 25 Encounters Encounter Location Date Provider Diagnosis [facility] [address] [place] [address] Dr Wellington [address] [place] [address], [place] [address] 03/16/2025 Юлия Bauman Recurrent UTI N39.0 ; Urinary retention R33.9 ; Microhematuria R31.29 and Vaginal atrophy N95.2 Assessments Encounter Date Diagnosis (ICD Code) Assessment Notes Treatment Notes Treatment Clinical Notes Section Notes 03/16/2025 Recurrent UTI (ICD-10 - N39.0) 03/16/2025 Urinary retention (ICD-10 - R33.9) 03/16/2025 Microhematuria (ICD-10 - R31.29) 03/16/2025 Vaginal atrophy (ICD-10 - N95.2) 03/16/2025 Other PATIENT WILL MONITOR FOR SS OF UTI AND CONTACT CLINIC FOR NV IF SHE HAS SAID SYMPTOMS MICRO UA Patient to start Vaginal estrogen - use pea size or batista size amount on finger twice a week. DO NOT use APPLICATOR. PATIENT NEEDS TO HAVE BOWEL ROUTINE AND CONSTIPATION SOLVED TO HELP WITH UTIs FOLLOW UP IN 1 MONTH WITH UA AND PVR Plan Of Treatment Medication Medication Name Sig Start Date Stop Date Notes Estradiol 0.01 % Cream 1 gram Vaginal tw ice a week; Duration: 24 days 03/16/2025 Treatment Notes Assessment Notes Other PATIENT WILL MONITOR FOR SS OF UTI AND CONTACT CLINIC FOR [place] IF SHE HAS SAID SYMPTOMS MICRO UA Patient to start Vaginal estrogen - use pea size or batista size amount on finger twice a week. DO NOT use APPLICATOR. PATIENT NEEDS TO HAVE BOWEL ROUTINE AND CONSTIPATION SOLVED TO HELP WITH UTIs FOLLOW UP IN 1 MONTH WITH UA AND PVR Next Appt Details Follow Up: 4 Weeks, Reason: SEE OTHER Provider Name:Юлия Wall, 04/17/2025 03:10:00 PM, [address] , [place] [address], [place], [address], History and Physical Notes * HPI (History of Present Illness) Category Sub-Category Detail Notes Category Not es Provider Note Patient is an 85-year-old female who presents to the clinic for new patient evaluation Recurrent UTI and urinary retention I have read her referral information We have 1 culture from October 2024 where she had E. coli, then a second from December 2024 where she was positive for E. coli We also have UAs from both October and December where she was positive for infection. I then received a third culture from January 2025 where she tested positive for E. coli again. Her doctor told her that she would have her try to do a catheter for a few weeks to see if she could empty better, allowing her to rid the infection better. Unknown if Macrobid was the only antibiotic she was given or if she was given other options. Examination Category Sub-Category Detail Notes Category Not es General Examination GENERAL APPEARANCE: pleasant, in n o acute distress HEAD: normocephalic LUNGS: normal respiratory e ffort. PSYCH: alert, oriented, aff ect normal. Progress Notes * Elizabeth TORRESDOB:1940 (85 yo F)Acc No.[id number]:03/16/2025 Progress Notes Patient: Elizabeth Marie Provider: RENATO Tony :1940 A ge:85 Y S ex:Female Date:03/16/2025 Address:[address] [place] [address] Pcp:Kaylynn Munoz, DO Check In:01:10 PM CSTCheck O ut:02:08 PM PLANT CYTOLOGIST Subjective: * Chief Complaints: * N p referral for recurrent UTI and urinary retention * HPI: P rovider Note: Patient is an 85-year-old female who presents to the clinic for new patient evaluation Recurrent UTI and urinary retention I have read her referral information We have 1 culture from October 2024 where she had E. coli, then a second from December 2024 where she was positive for E. coli We also have UAs from both October and December where she was positive for infection. I then received a third culture from January 2025 where she tested positive for E. coli again. Her doctor told her that she would have her try to do a catheter for a few weeks to see if she could empty better, allowing her to rid the infection better. Unknown if Macrobid was the only antibiotic she was given or if she was given other options. * ROS: G eneral - Multi System: Constitutional D enies, fever, chills,. * Medical History: No Medical History Documented Medical History Verified * Surgical History: No Surgical History documented. Surgical History verified. * Hospitalization/Major Diagno stic Procedure: No Hospitalization Documented. Hospitalization Verified. * Family History: F ather: . M other: . F amily History Verified.. * Social History: T obacco Use: T obacco Control (Standard) T obacco use: N onsmoker S ocial History Verified. c affeine-pos denies alcohol. * Medications: T akingAmiodarone HCl 200 MG Tablet 1 tablet Orally Once a day Bumetanide 1 MG Tablet 1 tablet Orally Once a day Diclofenac Sodium 1 % Gel as directed Externally Dulaglutide 3 MG/0.5ML Solution Auto-injector as directed Subcutaneous Fluorouracil 5 % Cream 1 application Externally Twice a day Fluticasone-Salmeterol 100-50 MCG/ACT Aerosol Powder Breath Activated 1 puff Inhalation Twice a day Gabapentin 100 MG Capsule 1 capsule at bedtime Orally Once a day Insulin Glargine 100 UNIT/ML Solution Pen-injector as directed Subcutaneous Levothyroxine Sodium 50 MCG Tablet 1 tablet in the morning on an empty stomach Orally Once a day Lidocaine 5 % Patch 1 patch remove after 12 hours Externally Once a day LORazepam 0.5 MG Tablet 1 tablet at bedtime as needed Orally Once a day Losartan Potassium 100 MG Tablet 1 tablet Orally Once a day Macrobid 100 MG Capsule 1 capsule with food Orally every 12 hrs Metoprolol Succinate 25 MG Capsule ER 24 Hour Sprinkle 1 capsule Orally Once a day Nitroglycerin 0.4 MG Tablet Sublingual 1 tablet under the tongue and allow to dissolve as needed. Take every 5 minutes up to 3 times if chest pain persists Sublingual Three times a day Nystatin 104332 UNIT/GM Cream 1 application Externally Twice a day oxyCODONE-Acetaminophen 10-325 MG Tablet 1 tablet as needed Orally every 6 hrs Pantoprazole Sodium 40 MG Tablet Delayed Release 1 tablet 1/2 to 1 hour before morning meal Orally Once a day Spironolactone 25 MG Tablet 1 tablet Orally Once a day Stool Softener & Laxative Medication List reviewed and reconciled with the patientTaking Amiodarone HCl 200 MG Tablet 1 tablet Orally Once a day Taking Bumetanide 1 MG Tablet 1 tablet Orally Once a day Taking Diclofenac Sodium 1 % Gel as directed Externally Taking Dulaglutide 3 MG/0.5ML Solution Auto-injector as directed Subcutaneous Taking Fluorouracil 5 % Cream 1 application Externally Twice a day Taking Fluticasone-Salmeterol 100-50 MCG/ACT Aerosol Powder Breath Activated 1 puff Inhalation Twice a day Taking Gabapentin 100 MG Capsule 1 capsule at bedtime Orally Once a day Taking Insulin Glargine 100 UNIT/ML Solution Pen-injector as directed Subcutaneous Taking Levothyroxine Sodium 50 MCG Tablet 1 tablet in the morning on an empty stomach Orally Once a day Taking Lidocaine 5 % Patch 1 patch remove after 12 hours Externally Once a day Taking LORazepam 0.5 MG Tablet 1 tablet at bedtime as needed Orally Once a day Taking Losartan Potassium 100 MG Tablet 1 tablet Orally Once a day Taking Macrobid 100 MG Capsule 1 capsule with food Orally every 12 hrs Taking Metoprolol Succinate 25 MG Capsule ER 24 Hour Sprinkle 1 capsule Orally Once a day Taking Nitroglycerin 0.4 MG Tablet Sublingual 1 tablet under the tongue and allow to dissolve as needed. Take every 5 minutes up to 3 times if chest pain persists Sublingual Three times a day Taking Nystatin 710776 UNIT/GM Cream 1 application Externally Twice a day Taking oxyCODONE-Acetaminophen 10-325 MG Tablet 1 tablet as needed Orally every 6 hrs Taking Pantoprazole Sodium 40 MG Tablet Delayed Release 1 tablet 1/2 to 1 hour before morning meal Orally Once a day Taking Spironolactone 25 MG Tablet 1 tablet Orally Once a day Taking Stool Softener & Laxative Medication List reviewed and reconciled with the patient * Allergies: P enicillinSulfuryesAllergies Verified. Objective: * Vitals: T emp:98.4F. * P ast Orders: L ab:UA Without Micro-Auto, Machine - [id number] (Order Date - 03/16/2025) (Collection Date & Time - 03/16/2025) Value Reference Range Glucose 0 Bili 0 Ketones 0 Sp Garwood 1.010 Blood 1+ pH 6.0 Protein +- Urobili 0 Nitrites 0 Leukocytes 0 * Examination: G eneral Examination: GENERAL APPEARANCE: p leasant, in no acute distress. HEAD: n ormocephalic. LUNGS: n ormal respiratory effort. PSYCH: a lert, oriented, affect normal.. ? Assessment: * Assessment: 1. R ecurrent UTI - N39.0 (Primary) 2 . U rinary retention - R33.9 ? 3 . M icrohematuria - R31.29 4 . V aginal atrophy - N95.2 Plan: * Treatment: Value Reference Range G lucose 0 * B telly 0 * K etones 0 * S p Garwood 1.010 * B lood 1+ * p H 6.0 * P rotein +- * U robili 0 * N itrites 0 * L eukocytes 0 2.?Microhematuria?LAB: Microscopic Urine [id number]* Value Reference Range W BC U 6 HI 0-5 - /HPF * R BC U <1 NA - /HPF * S Q EPI 3 NA - /HPF * B acteria None Seen NA - * H yaline Casts 3 NA - /LPF * This lab was reviewed by Wai Bauman on 03/17/2025 at 05:28 AM PLANT CYTOLOGIST 3.?Vaginal atrophy? Start Estradiol Cream, 0.01 %, 1 gram, Vaginal, twice a week, 24 days, 42.5 grams, Start Date: 03/16/2025, Refills 3.??4.?Others? Notes: PATIENT WILL MONITOR FOR SS OF UTI AND CONTACT CLINIC FOR [place] IF SHE HAS SAID SYMPTOMS MICRO UA? Patient to start Vaginal estrogen - use pea size or batista size amount on finger twice a week. DO NOTuse APPLICATOR.? PATIENT NEEDS TO HAVE BOWEL ROUTINE AND CONSTIPATION SOLVED TO HELP WITH UTIs FOLLOW UP IN 1 MONTH WITH UA AND PVR ?? * Procedure Codes: 8 1003 URINALYSIS, AUTO, W/O SCOPE, Modifiers: QW * Follow Up: 4 Weeks (Reason: SEE OTHER) Billing Information: * Visit Code: 95791 Office Visit, Est Pt., Level 2. * Procedure Codes: 26222 URINALYSIS, AUTO, W/O SCOPE. Modifiers: QW * T CYTOLOGIST Sign off status: Completed true * Provider: RENATO Tony Date: 05/16/2024 Generated for Luisa argueta/Hardik/Simoneitting on: 05/22/2024 03:02 PM PLANT CYTOLOGIST
--- OUTSIDE RECORDS SUMMARY | 2025-03-16 23:59 | XMS_ITS | Continuity of Care Document ---
Author Organization [facility] Address [address] [place] [address]- Care Team Providers Care Insurance Defense Attorney Name Role Phone Юлия Bauman Primary Car e Physician Encounter [facility] Financial Number [id number] Date(s): 03/16/25 - 03/16/[address] [place] [address]- Discharge Disposition: Home:Self-Care Attending Physician: Юлия Bauman APRN Admitting Physician: Юлия Bauman APRN Encounter Type: Non Patient Results Laboratory List Name Date Microscopic Urine (Microscopic Urine 810 15) 03/16/25 Most recent to oldest [Reference Range]: 1 SQ EPI 3 /HPF *NA* (03/16/25 2:25 PM) Hyaline Casts 3 /LPF *NA* (03/16/25 2:25 PM) WBC U [0-5 /HPF] 6 /HPF *HI* (03/16/25 2:25 PM) RBC U <1 /HPF *NA* (03/16/25 2:25 PM) Bacteria None Seen *NA* (03/16/25 2:25 PM) Social History Social History Type Response Sex Female Sex Representation Female (finding) Patient Care team information Care Team Personnel Name: Юлия Bauman APRN Position: [employer]/PA Member Role: Primary Care Physician [address]: [address] [place] [address], [place] [address]- [employer]: Insurance Providers Guarantor name: GERARDO Health Plan Information #: 2 Payer: [employer] Member Number: [id number] Policy Number: NA Group Number: NA Payer Identifier: NA Health Plan Information #: 1 Payer: MEDICARE A AND B Member Number: [id number] Policy Number: NA Group Number: NA Payer Identifier: NA
[2025-03-22] VITALS (21 sets, daily range): BP systolic 79–125; BP diastolic 37–64; PULSE 53–112; RESP 12–26; TEMP 36.6–36.9; O2SAT 92–99; BMI 27.4; BMI 29.6
--- NOTE | 2025-03-22 12:05 | XR_ITS ---
WS: [id number] XR chest 1V portable [id number] REASON FOR EXAM: weakness FINDINGS: Moderate tortuosity and ectasia of the thoracic aorta with calcified aortic arch. Cardiomegaly. Significant elevation of the right hemidiaphragm with areas of linear atelectasis. 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 XR/XR chest 1V portable [id number] IMPRESSION: Likely the chest is unchanged compared to the examination of 01/10/2024 with no a cute pulmonary parenchymal or pleural abnormality.
--- NOTE | 2025-03-22 12:14 | W.ED.WEAKNES ---
HPI - Weakness General: Chief complaint: Weakness Stated complaint: VAG BLEED Time Seen by Provider: 03/22/25 12:03 Source: patient and EMS Mode of arrival: EMS Limitations: no limitations History of Present Illness: 85-year-old female states that she has been having general fatigue weakness been going on for 2 days. States she is also had a slight tremor as well. She states she has gradually gotten weaker and had to call EMS today because she was not able to stand off the toilet or ambulate on her own. She denies any fevers denies any or vomiting or diarrhea. States she has had some mild vaginal bleeding has had a history of a hysterectomy. Related Data Home Medications ?Medication ?Instructions ?Recorded ?Confirmed insulin glargine 100 unit/mL (3 30 unit SUBCUT BEDTIME 07/04/19 03/15/25 mL) subcutaneous pen (Lantus Solostar U-100 Insulin) pantoprazole 40 mg tablet,delayed 40 mg PO DAILY 07/04/19 03/15/25 release (Protonix) insulin aspart U-100 100 unit/mL 8 unit SUBCUT TID 11/01/22 03/15/25 (3 mL) subcutaneous pen (Novolog FlexPen U-100 Insulin aspart) mometasone 0.1 % topical solution See Rx Instructions .Route .COMPLEX 11/01/22 03/15/25 nystatin 100,000 unit/gram topical 1 applic topical BID PRN Rash 11/01/22 03/15/25 cream vit C 250 mg-vit E 90 mg-zinc 40 1 tab PO BID 11/01/22 03/15/25 mg-copper 1 [id number] capsule (PreserVision AREDS-2) dulaglutide 1.5 mg/0.5 mL 1.5 mg SUBCUT Q7D 06/08/23 03/15/25 subcutaneous pen injector (Trulicity) amiodarone 200 mg tablet 200 mg PO QAM 10/22/23 03/15/25 diclofenac sodium 1 % topical gel 2 g topical QID PRN PAINFUL AREAS 10/22/23 03/15/25 fluticasone 100 mcg-salmeterol 50 2 inh inhalation DAILY 10/22/23 03/15/25 mcg/dose blistr powdr for inhalation (Advair Diskus) magnesium hydroxide 400 mg/5 mL 30 ml PO DAILY PRN Constipation 10/22/23 03/15/25 oral suspension (Milk of Magnesia) metoprolol succinate 25 mg 12.5 mg PO QAM 10/22/23 03/15/25 tablet,extended release 24 hr bumetanide 1 mg tablet 1 mg PO BID 10/04/24 03/15/25 fluorouracil 0.5 % topical cream 1 applic topical DAILY 10/04/24 03/15/25 levothyroxine 50 mcg capsule 50 mcg PO DAILY 10/04/24 03/15/25 lorazepam 0.5 mg tablet 0.5 mg PO DAILY PRN 10/04/24 03/15/25 losartan 100 1 tab PO DAILY 10/04/24 03/15/25 mg-hydrochlorothiazide 25 mg tablet spironolactone 25 mg tablet 25 mg PO DAILY 10/04/24 03/15/25 tramadol 50 mg tablet 50 mg PO Q4H PRN 10/04/24 03/15/25 Previous Rx's ?Medication ?Instructions ?Recorded furosemide 20 mg tablet 20 mg PO QAM PRN swelling #10 tabs 11/27/23 losartan 100 mg tablet 50 mg (1/2 x 100 mg) PO DAILY PRN 11/27/23 sbp more than 150 mmhg #10 tabs hydrocodone 5 mg-acetaminophen 325 1 tab PO Q6H PRN Pain, Moderate 01/10/24 mg tablet #10 tabs oxycodone 5 mg tablet 5 mg PO Q8H PRN pain #20 tabs 02/18/24 nitroglycerin 0.4 mg sublingual 0.4 mg sublingual Q5M PRN Chest 04/05/24 tablet (Nitrostat) Pain #25 tabs Allergies Allergy/AdvReac Type Severity Reaction Status Date / Time adhesive tape Allergy Unknown Unknown Verified 03/15/25 14:14 aspirin Allergy Unknown Unknown Verified 03/15/25 14:14 celecoxib (From Celebrex) Allergy Unknown Unknown Verified 03/15/25 14:14 codeine Allergy Unknown Unknown Verified 03/15/25 14:14 egg Allergy Unknown Unknown Verified 03/15/25 14:14 erythromycin base Allergy Unknown Unknown Verified 03/15/25 14:14 exenatide (From Bydureon) Allergy Unknown Unknown Verified 03/15/25 14:14 ezetimibe (From Zetia) Allergy Unknown Unknown Verified 03/15/25 14:14 latex Allergy Unknown Unknown Verified 03/15/25 14:14 metformin Allergy Unknown Unknown Verified 03/15/25 14:14 Penicillins Allergy Unknown Unknown Verified 03/15/25 14:14 sitagliptin (From Janumet) Allergy Unknown Unknown Verified 03/15/25 14:14 Sulfa (Sulfonamide Allergy Unknown Unknown Verified 03/15/25 14:14 Antibiotics) topiramate (From Topamax) Allergy Unknown Unknown Verified 03/15/25 14:14 trazodone Allergy Unknown Unknown Verified 03/15/25 14:14 warfarin (From Coumadin) Allergy Unknown Unknown Verified 03/15/25 14:14 desonide Allergy blisters Verified 03/15/25 14:14 Review of Systems Const: Reports: malaise PFSH ED PFSH: Medical History (Updated 03/22/25 @ 14:06 by Vicente Thomas MD) Encounter for postoperative care Chronic edema CAD (coronary artery disease) HTN (hypertension) Weakness Encounter for postoperative care Chronic cystitis Recurrent UTI History of nonmelanoma skin cancer DDD (degenerative disc disease) Chest pain Persistent and recurrent chest pressure despite of optimization of medicine may further require exploration with left heart cath. GERD (gastroesophageal reflux disease) Asthma History of poliomyelitis History of rectocele History of cystocele Cyctocele/Rectocele repair Lower extremity edema Diabetes mellitus Atrial fibrillation Well-controlled on amiodarone. No anticoagulation- bleeding Hyperlipidemia Surgical History History of eye surgery Previous back surgery History of surgery of liver Growth S/P cholecystectomy S/P hysterectomy 1965 Family History Mother , at age 89 Hypertension Bleeding disorder Father , at age 79 Hypertension Heart disease Brother CAD (coronary artery disease) Heart disease Cancer Lung CA Liver disease Sister Heart disease Diabetes Cancer Renal CA and leukemia Social History Smoking and tobacco/nicotine status: never used tobacco/nicotine Second hand smoke exposure: No Alcohol intake: never Substance/Drug Use: never Lives independently: Yes Marital status: / Current occupational status: retired Physical Exam Const: COMMON NORMALS: patient oriented x3 and healthy appearing HENMT: COMMON NORMALS: normocephalic and atraumatic HEAD & SCALP: normocephalic and atraumatic Eye: COMMON NORMALS: Equal, round and reactive pupils present and EOMs intact bilaterally PUPIL: Yes Equal, round and reactive pupils present Neck/C-Spine: COMMON NORMALS: full ROM and supple Chest: COMMONS NORMALS: normal inspection of the chest Resp: COMMON NORMALS: normal respiratory effort, No retractions, No use of accessory muscles and clear to auscultation bilaterally AUSCULTATION: clear to auscultation bilaterally Cardio: COMMON NORMALS: regular rhythm and No murmurs present (Cardio) RATE: tachycardic RHYTHM: regular rhythm GI: COMMON NORMALS: Normal to inspection, nondistended, normoactive bowel sounds present, Soft to palpation, non-tender and no masses PALPATION: Yes Soft to palpation Extremity: COMMON NORMALS: normal to inspection and full ROM Neuro: COMMON NORMALS: patient oriented x3, moves all extremities and no focal motor deficits Psych: COMMON NORMALS: mental status grossly normal, Normal thought process present and cooperative THOUGHT PROCESS: Normal thought process present Skin: COMMON NORMALS: no rashes or lesions noted and no wounds GENERAL SKIN EXAM: no rashes or lesions noted Course Vital Signs: Vital signs: Vital Signs Temperature 98.4 F 03/22/25 12:03 Pulse Rate 58 L 03/22/25 13:49 Respiratory Rate 23 H 03/22/25 12:31 Blood Pressure 109/51 03/22/25 13:49 Pulse Oximetry 94 03/22/25 13:49 Oxygen Delivery Me thod Room Air 03/22/25 12:31 MDM - Weakness Medical Decision Making 85-year-old female presents for general weakness was not able to get off her toilet. Differential includes infection, dehydration, CVA. Patient had no signs of stroke here no focal deficits did review her imaging showed no acute abnormality chest x-ray showed no acute abnormality. She has had no chest pain her EKG showed normal sinus bradycardia heart rate [address] elevation QRS 106 QTc 456. Patient does appear dehydrated she has elevated creatinine along with magnesium with acute kidney injury likely from dehydration did give her IV fluids here I spoke to the hospitalist and will admit at this time for her DEMARCO along with weakness Medical Records I reviewed the patient's medical records. Lab Data I reviewed the patient's lab results. 03/22/25 12:16 03/22/25 12:16 Radiology Impressions Chest X-Ray 03/22/25 12:05 IMPRESSION: Likely the chest is unchanged compared to the examination of 01/10/2024 with no acute pulmonary parenchymal or pleural abnormality. Abdomen/Pelvis CT 03/22/25 12:57 IMPRESSION: 1. Over distended bladder. 2. No pelvic masses. 3. Mild skin thickening and subcutaneous fat stranding at the gluteal region to be correlated with exam to rule out cellulitis. 4. Mild constipation. 5. Moderate degenerative hip changes. COMMENTS: Consistent with the [employer]'s Incidental Findings Committee white paper (J Am Livan Radiol 2018): Any incidental renal lesion less than 1 cm or classified as too small to characterize, or any incidental cystic renal lesion characterized as simple-appearing, is likely benign. No follow-up imaging is recommended for these lesions per consensus recommendations based on imaging criteria. ADDENDUM: 03/22/25 1331 IMPRESSION: 1. Over distended bladder. 2. No pelvic masses. 3. Mild skin thickening and subcutaneous fat stranding at the gluteal region to be correlated with exam to rule out cellulitis. 4. Mild constipation. 5. Moderate degenerative hip changes. COMMENTS: Consistent with the [employer]'s Incidental Findings Committee white paper (J Am Livan Radiol 2018): Any incidental renal lesion less than 1 cm or classified as too small to characterize, or any incidental cystic renal lesion characterized as simple-appearing, is likely benign. No follow-up imaging is recommended for these lesions per consensus recommendations based on imaging criteria. Laboratory Results WBC 8.29 10^3/uL (3.29-11.43) 03/22/25 12:16 RBC 3.76 10^6/uL (3.85-5.65) L 03/22/25 12:16 Hgb 11.80 g/dL (11.27-16.99) 03/22/25 12:16 Hct 35.9 % (36-47) L 03/22/25 12:16 MCV 95.5 fl (85-98) 03/22/25 12:16 MCH 31.4 pg (27-33) 03/22/25 12:16 MCHC 32.9 g/dL (30-55) 03/22/25 12:16 RDW 12.8 % (12.1-15.1) 03/22/25 12:16 Plt Count 341 10^3/cmm (157-399) 03/22/25 12:16 MPV 9.6 fL (7.4-10.4) 03/22/25 12:16 Neut % (Auto) 68.8 % 03/22/25 12:16 Lymph % (Auto) 20.4 % 03/22/25 12:16 Lake % (Auto) 8.4 % 03/22/25 12:16 Eos % (Auto) 1.8 % 03/22/25 12:16 Baso % (Auto) 0.2 % 03/22/25 12:16 Neut # (Auto) 5.70 10^3/uL (1.8-7.7) 03/22/25 12:16 Lymph # (Auto) 1.7 10^3/uL (0.8-4.8) 03/22/25 12:16 Lake # (Auto) 0.7 10^3/uL (0.2-0.9) 03/22/25 12:16 Eos # (Auto) 0.2 10^3/uL (0.0-0.8) 03/22/25 12:16 Baso # (Auto) 0.0 10^3/uL (0.0-0.1) 03/22/25 12:16 Nucleated RBC % (auto) 0 % 03/22/25 12:16 Nucleated RBCs # 0.0 /100WBC 03/22/25 12:16 Sodium 133 mmol/L (136-145) L 03/22/25 12:16 Potassium 3.7 mmol/L (3.5-5.1) 03/22/25 12:16 Chloride 91 mmol/L (98-107) L 03/22/25 12:16 Carbon Dioxide 31 mmol/L (22-29) H 03/22/25 12:16 Anion Gap 14.7 (5-19) 03/22/25 12:16 BUN 99 mg/dL (8-23) H* D 03/22/25 12:16 Creatinine 2.8 mg/dL (0.5-0.9) H 03/22/25 12:16 GFR Calculation Not Reportable 03/22/25 12:16 Glucose 207 mg/dL (65-115) H 03/22/25 12:16 Calculated Osmolality 313 mOsm/kg (285-295) H 03/22/25 12:16 Calcium 8.6 mg/dL (8.5-10.5) 03/22/25 12:16 Magnesium 4.9 mg/dL (1.7-2.3) H* 03/22/25 12:16 Total Bilirubin 0.5 mg/dL (0.15-1.2) 03/22/25 12:16 AST 30 U/L (0-32) 03/22/25 12:16 ALT 29 U/L (0-33) 03/22/25 12:16 Alkaline Phosphatase 103 U/L (35-105) 03/22/25 12:16 Total Protein 7.0 g/dL (6.6-8.7) 03/22/25 12:16 Albumin 3.8 g/dL (3.5-5.2) 03/22/25 12:16 Globulin 3.2 g/dL (1.3-4.6) 03/22/25 12:16 TSH 1.56 uIU/mL (0.27-4.20) 03/22/25 12:16 Urine Color Yellow (Yellow) 03/22/25 12:45 Urine Appearance Clear (CLEAR) 03/22/25 12:45 Urine pH 5.5 (5-7) 03/22/25 12:45 Ur Specific [place] 1.011 (1.005-1.030) 03/22/25 12:45 Urine Protein Trace (Negative) A 03/22/25 12:45 Urine Glucose (UA) Negative (Normal) 03/22/25 12:45 Urine Ketones Negative (Negative) 03/22/25 12:45 Urine Blood Trace (Negative) A 03/22/25 12:45 Urine Nitrate Negative (Negative) 03/22/25 12:45 Urine Bilirubin Negative (Negative) 03/22/25 12:45 Urine Urobilinogen 0.2 mg/dL (Negative) 03/22/25 12:45 Ur Leukocyte Esterase Negative (Negative) 03/22/25 12:45 Urine RBC 0-2 /hpf (0-2) 03/22/25 12:45 Urine WBC 0-5 /hpf (0-5) 03/22/25 12:45 Ur Squamous Epith Cells 0-5 /hpf (0-5) 03/22/25 12:45 Amorphous Sediment Not Reportable 03/22/25 12:45 Urine Bacteria None seen /hpf (NONE) 03/22/25 12:45 Hyaline Casts 11.16 /lpf 03/22/25 12:45 All radiology interpretation(s) finalized by discharge EKG Data EKG 1: I personally reviewed and interpreted this EKG as follows: EKG interpretation date: 03/22/25 EKG interpretation time: 12:32 Interpretation: sinus khurram hr [address] elevation qrs 106 qtc 456 Discharge Plan Discharge Patient Disposition: Admitted As Inpatient Clinical Impression: Acute kidney injury, Hypermagnesemia, Generalized weakness Condition: Stable Coding Level of Care Code ED [employer] Faculty Member for Michael Nice
[2025-03-22 12:25] LABS: Hematocrit 35.9 % (36-47); Hemoglobin 11.80 g/dL (11.27-16.99); Mean Corpuscular HGB Conc 32.9 g/dL (30-55); Mean Corpuscular Hemoglobin 31.4 pg (27-33); Mean Corpuscular Volume 95.5 fl (85-98); Nucleated Red Blood Cells % 0 %; Platelet Count 341 10^3/cmm (157-399); Red Blood Count 3.76 10^6/uL (3.85-5.65); White Blood Count 8.29 10^3/uL (3.29-11.43)
--- NOTE | 2025-03-22 12:32 | ECG_ITS ---
[facility] Test Date: 2025-03-22 Pat Name: Elizabeth Cantor Department: Room: Gender: Female Conservation Assistant: : 1940 Requested By: Vicente Thomas Order Number: [id number] Shai MD: Bob Dunlap M.D. Measurements Intervals [place] Rate: 55 P: 0 ID: 0 QRS: -89 QRSD: 106 T: 11 QT: 467 QTc: 448 Interpretive Statements SUPRAVENTRICULAR BRADYCARDIA LOW QRS VOLTAGE IN PRECORDIAL LEADS [QRS DEFLECTION < 1.0 mV IN CHEST LEADS] PATTERN CONSISTENT WITH PULMONARY DISEASE LEFT ANTERIOR FASCICULAR BLOCK [QRS AXIS <= -45, QR IN I, RS IN II] Compared to ECG 10/30/2023 17:45:46 Left anterior fascicular block now present Sinus rhythm no longer present Left-axis deviation no longer present Myocardial infarct finding no longer present Baseline artifacts, need to repeat Electronically Signed On 03-22-2025 23:56:23 SAW GRINDER by Bob Dunlap M.D. [email or web address]
[2025-03-22 12:48] LABS: Alanine Aminotransferase 29 U/L (0-33); Albumin Level 3.8 g/dL (3.5-5.2); Alkaline Phosphatase 103 U/L (35-105); Anion Gap 14.7 (5-19); Aspartate Amino Transferase 30 U/L (0-32); Calcium 8.6 mg/dL (8.5-10.5); Carbon Dioxide 31 mmol/L (22-29); Chloride 91 mmol/L (98-107); Globulin 3.2 g/dL (1.3-4.6); Glucose 207 mg/dL (65-115); Osmolality Calculated 313 mOsm/kg (285-295); Potassium 3.7 mmol/L (3.5-5.1); Sodium 133 mmol/L (136-145); Thyroid Stimulating Hormone 1.56 uIU/mL (0.27-4.20); Total Protein 7.0 g/dL (6.6-8.7)
[2025-03-22 12:51] LABS: Glucose Urine UA Negative (Normal); Nitrate Urine Negative (Negative); Specific Gravity, Urine 1.011 (1.005-1.030)
[2025-03-22 12:52] LABS: Blood Urea Nitrogen 99 mg/dL (8-23); Magnesium 4.9 mg/dL (1.7-2.3)
[2025-03-22 12:53] LABS: Add Urine Microscopic? YES
[2025-03-22 12:55] LABS: UA Slide Review UA Slide Review Perf
--- NOTE | 2025-03-22 12:57 | CTR_ITS ---
PROCEDURE INFORMATION: Exam: CT Abdomen And Pelvis Without Contrast Exam date and time: 03/22/2025 1:08 PM Age: 85 years old Clinical indication: Abdominal pain; Vag bleeding; Additional info: Abd pain TECHNIQUE: Imaging protocol: Computed tomography of the abdomen and pelvis without contrast. Radiation optimization: All CT scans at this facility use at least one of these dose optimization techniques: automated exposure control; mA and/or kV adjustment per patient size (includes targeted exams where dose is matched to clinical indication); or iterative reconstruction. COMPARISON: CT abdomen pelvis w con* [id number] 06/09/2021 3:54 AM RADIATION DOSE METRICS: Total DLP (mGy-cm): 1119.35 FINDINGS: Lungs: Nonspecific bibasilar consolidation is present, consistent with atelectasis, edema, or pneumonia. Calcified granulomas in the left lower lobe. Coronary arteries: There is moderate atherosclerotic calcification of the coronary arteries. Liver: Multiple hypodense liver lesions measuring up to 2.1 cm in segment 4, stable and likely representing cysts. Gallbladder and biliary ducts: There has been a cholecystectomy. Pancreas: There is diffuse atrophy of the pancreatic parenchyma. Spleen: Normal. No splenomegaly. Adrenal glands: Normal. No mass. Kidneys and ureters: There are multiple simple renal cysts. There is no hydronephrosis. Stomach and bowel: There is mildly excessive colonic stool content. Appendix: No evidence of appendicitis. Intraperitoneal space: Unremarkable. No free air. No significant fluid collection. Vasculature: The vasculature demonstrates diffuse mild atherosclerotic calcification. The vasculature demonstrates diffuse moderate atherosclerotic calcification. There are numerous benign phleboliths in the pelvis. Lymph nodes: Unremarkable. No enlarged lymph nodes. Urinary bladder: Over distended bladder. Reproductive: There has been a hysterectomy. Bones/joints: Curvature of the lumbar spine convex to the right. The pubic symphysis demonstrates moderate degenerative changes. There are moderate degenerative changes of the hip joints. The lumbar spine demonstrates moderate degenerative changes at multiple levels. Post posterior instrumentation at L3 to the pelvis. Soft tissues: There are bilateral fat containing inguinal hernias. Mild skin thickening and subcutaneous fat stranding at the gluteal region. CT/CT abdomen pelvis wo con [id number] IMPRESSION: 1. Over distended bladder. 2. No pelvic masses. 3. Mild skin thickening and subcutaneous fat stranding at the gluteal region to be correlated with exam to rule out cellulitis. 4. Mild constipation. 5. Moderate degenerative hip changes. COMMENTS: Consistent with the [employer]'s Incidental Findings Committee white paper (J Am Livan Radiol 2018): Any incidental renal lesion less than 1 cm or classified as too small to characterize, or any incidental cystic renal lesion characterized as simple-appearing, is likely benign. No follow-up imaging is recommended for these lesions per consensus recommendations based on imaging criteria.
--- NOTE | 2025-03-22 14:01 | PM.HP ---
Providers/Chief Complaint Primary Care Provider: Kaylynn Munoz DO Chief Complaint: VAG BLEED History of Present Illness Elizabeth Cantor is a 85 year old female with a past medical history of hypertension, atrial fibrillation, coronary artery disease, diabetes mellitus type 2, diastolic failure with preserved EF, basal cell carcinoma, chronic dysuria, and osteoarthritis who presented to the ER with weakness, muscle spasms, and dehydration. Patient was seen and treated in the ER by provider . Patient reported that she has had increasing weakness over the last 2 days and was unable to stand up after she sat down on the toilet this morning. Patient also reported light vaginal bleeding, this has been ongoing and is managed outpatient with her doctor. Patient also states chronic sore to her buttocks with spreading erythema and surrounding tissues. Patient denies current chest pain, shortness of breath, nausea, vomiting, diarrhea, abdominal pain, dark or tarry stools, or syncope. Patient does state chronic constipation of which she had previously been hospitalized for, no great bowel movement in the last several days. Patient has acute kidney injury with elevated BUN 99, creatinine 2.8, magnesium 4.9. Admitting B/p 109/51, pulse 59, Resp 23, Temp 98.4, room air saturation 94%. Review of Systems General: Reports: 10 or more systems reviewed and unremarkable except in HPI and below GI: Reports: constipation : Reports: difficulty voiding and vaginal bleeding Musc: Reports: extremity pain, muscle cramps and muscle weakness Neuro: Reports: weakness in extremities Medications/Allergies Home Medications ?Medication ?Instructions ?Recorded ?Confirmed ?Last Taken ?Type pantoprazole 40 mg tablet,delayed 40 mg PO DAILY 07/04/19 03/15/25 11/24/23 History release (Protonix) mometasone 0.1 % topical solution See Rx Instructions .Route .COMPLEX 11/01/22 03/15/25 Unknown History nystatin 100,000 unit/gram topical 1 applic topical BID PRN Rash 11/01/22 03/15/25 Unknown History cream vit C 250 mg-vit E 90 mg-zinc 40 1 tab PO BID 11/01/22 03/15/25 11/24/23 History mg-copper 1 [id number] capsule (PreserVision AREDS-2) amiodarone 200 mg tablet 200 mg PO QAM 10/22/23 03/22/25 03/21/25 History diclofenac sodium 1 % topical gel 2 g topical QID PRN PAINFUL AREAS 10/22/23 03/15/25 Unknown History fluticasone 100 mcg-salmeterol 50 2 inh inhalation DAILY 10/22/23 03/15/25 11/24/23 History mcg/dose blistr powdr for inhalation (Advair Diskus) metoprolol succinate 25 mg 12.5 mg PO QAM 10/22/23 03/15/25 11/25/23 History tablet,extended release 24 hr nitroglycerin 0.4 mg sublingual 0.4 mg sublingual Q5M PRN Chest 04/05/24 03/15/25 Unknown Rx tablet (Nitrostat) Pain #25 tabs bumetanide 1 mg tablet 1 mg PO BID 10/04/24 03/22/25 03/21/25 History fluorouracil 0.5 % topical cream 1 applic topical DAILY 10/04/24 03/15/25 Unknown History levothyroxine 50 mcg capsule 50 mcg PO DAILY 10/04/24 03/15/25 Unknown History losartan 100 1 tab PO DAILY 10/04/24 03/15/25 Unknown History mg-hydrochlorothiazide 25 mg tablet spironolactone 25 mg tablet 25 mg PO DAILY 10/04/24 03/22/25 03/21/25 History dulaglutide 3 mg/0.5 mL 3 mg SUBCUT Q7D 03/22/25 03/22/25 03/17/25 History subcutaneous pen injector (Trulicity) estradiol 0.01% (0.1 mg/gram) See Rx Instructions .Route .COMPLEX 03/22/25 03/22/25 Unknown History vaginal cream gabapentin 100 mg capsule See Rx Instructions .Route .COMPLEX 03/22/25 03/22/25 03/21/25 History insulin glargine 100 unit/mL (3 14 unit SUBCUT QID 03/22/25 03/22/25 03/21/25 History mL) subcutaneous pen (Lantus Solostar U-100 Insulin) mupirocin 2 % topical ointment See Rx Instructions .Route .COMPLEX 03/22/25 03/22/25 03/21/25 History oxycodone-acetaminophen 10 mg-325 See Rx Instructions .Route .COMPLEX 11/03/22/25 03/21/25 History mg tablet sennosides 8.6 mg-docusate sodium 2 tab PO DAILY 03/22/25 03/22/25 03/21/25 History 50 mg tablet (Stool Softener-Laxative) Allergies Allergy/AdvReac Type Severity Reaction Status Date / Time adhesive tape Allergy Unknown Unknown Verified 03/15/25 14:14 aspirin Allergy Unknown Unknown Verified 03/15/25 14:14 celecoxib (From Celebrex) Allergy Unknown Unknown Verified 03/15/25 14:14 codeine Allergy Unknown Unknown Verified 03/15/25 14:14 egg Allergy Unknown Unknown Verified 03/15/25 14:14 erythromycin base Allergy Unknown Unknown Verified 03/15/25 14:14 exenatide (From Bydureon) Allergy Unknown Unknown Verified 03/15/25 14:14 ezetimibe (From Zetia) Allergy Unknown Unknown Verified 03/15/25 14:14 latex Allergy Unknown Unknown Verified 03/15/25 14:14 metformin Allergy Unknown Unknown Verified 03/15/25 14:14 Penicillins Allergy Unknown Unknown Verified 03/15/25 14:14 sitagliptin (From Janumet) Allergy Unknown Unknown Verified 03/15/25 14:14 Sulfa (Sulfonamide Allergy Unknown Unknown Verified 03/15/25 14:14 Antibiotics) topiramate (From Topamax) Allergy Unknown Unknown Verified 03/15/25 14:14 trazodone Allergy Unknown Unknown Verified 03/15/25 14:14 warfarin (From Coumadin) Allergy Unknown Unknown Verified 03/15/25 14:14 desonide Allergy blisters Verified 03/15/25 14:14 PFSH Acute PFSH: Medical History (Updated 03/22/25 @ 16:05 by Neena Mcghee NP) Encounter for postoperative care Chronic edema CAD (coronary artery disease) HTN (hypertension) Weakness Encounter for postoperative care Chronic cystitis Recurrent UTI History of nonmelanoma skin cancer DDD (degenerative disc disease) Chest pain Persistent and recurrent chest pressure despite of optimization of medicine may further require exploration with left heart cath. GERD (gastroesophageal reflux disease) Asthma History of poliomyelitis History of rectocele History of cystocele Cyctocele/Rectocele repair Lower extremity edema Diabetes mellitus Atrial fibrillation Well-controlled on amiodarone. No anticoagulation- bleeding Hyperlipidemia Surgical History History of eye surgery Previous back surgery History of surgery of liver Growth S/P cholecystectomy S/P hysterectomy 1965 Family History Mother , at age 89 Hypertension Bleeding disorder Father , at age 79 Hypertension Heart disease Brother CAD (coronary artery disease) Heart disease Cancer Lung CA Liver disease Sister Heart disease Diabetes Cancer Renal CA and leukemia Social History Smoking and tobacco/nicotine status: never used tobacco/nicotine Second hand smoke exposure: No Alcohol intake: never Substance/Drug Use: never Lives independently: Yes Marital status: / Current occupational status: retired Vitals/I&O/Wt Last Vital Signs Temp 98.4 F 03/22/25 12:03 Pulse 58 L 03/22/25 13:49 Resp 23 H 03/22/25 12:31 BP 109/51 03/22/25 13:49 Pulse Ox 94 03/22/25 13:49 O2 Del Method Room Air 03/22/25 12:31 03/21/25 03/22/25 03/22/25 22:59 06:59 14:59 Intake Total 1000 / 1000 Balance 1000 / 1000 Weight last 48 hrs Weight 72.575 kg Physical Exam Narrative: Disheveled 85-year-old female, sitting up in bed with muscle spasms and generalized weakness. HENMT: COMMON NORMALS: normocephalic and Normal external nose present MOUTH: other (White coating over tongue and cheeks) Eye: COMMON NORMALS: Equal, round and reactive pupils present Resp: COMMON NORMALS: normal respiratory effort and clear to auscultation bilaterally Cardio: COMMON NORMALS: regular rate, S1 normal heart sound present and S2 normal heart sound present GI: COMMON NORMALS: Normal to inspection, nondistended, normoactive bowel sounds present Extremity: NARRATIVE EXTREMITY EXAM: Bilateral dependent edema 1+, generalized weakness Neuro: OTHER: Bodily tremor and spasms Psych: COMMON NORMALS: cooperative, normal affect and speech normal Skin: NARRATIVE SKIN EXAM: Unstable jumble pressure ulcer with poor blanching to coccyx, surrounding tissue with erythema Data 03/22/25 12:16 03/22/25 12:16 A&P Assessment and plan 1. Acute kidney injury: 2. Hypermagnesemia: 3. Generalized weakness: 4. Urinary retention: 5. Diabetes mellitus with diabetic neuropathy: 6. HTN (hypertension): 7. Hyperlipidemia: 8. Atrial fibrillation: 9. Diastolic CHF with preserved left ventricular function, NYHA class 2: 10. Recurrent UTI: 11. Pressure ulcer: Plan: Acute kidney injury Hypermagnesemia Hypermagnesemia Generalized weakness, muscle spasms - CT abdomen/pelvis: Over distended bladder, no pelvic masses, mild skin thickening and subcutaneous fat stranding at the gluteal region to be correlated with exam to rule out cellulitis, mild constipation, moderate degenerative hip changes. - Admitting BUN 99, creatinine 2.8, magnesium 4.9 - Given 1 L NS fluids in the ER' - Continue IV fluid hydration with NS 100 mL/h, monitor carefully for volume overload given patient's CHF history - Renally dose medications, avoid nephrotoxic agents - Monitor - Consider nephrology consultation if creatinine worsens Urinary retention Recurrent UTI - Chronic urinary retention, managed outpatient by urology - [facility] catheter placement - Measure LITZY's DM-II Diabetic Neuropathy - Carb controlled diet - Sliding scale insulin, POC - Resume home medications after verification Pressure Ulcer, non-stageable Cellulitis, as seen on CT - IV Rocephin 1gm q 24hr - Pending Blood Culture x2 - Wound care Atrial Fibrillation - Rate Controlled - Continue amiodarone Essential hypertension - Admitting blood pressure 109/51 - Hold blood pressure medications in setting of hypotension, resume when able Diastolic CHF with pEF - Hypovolemic on admission - CXR: Likely the chest is unchanged compared to the examination of 01/30/2024 with no acute pulmonary parenchymal or pleural abnormality. - Continue cardioprotective medications - Weight daily Constipation - Bowel regimen VTE PPX: GI PPX: Code Status: Full Code PDMP PDMP Reviewed: Not Reviewed Attestations Medical Necessity Statement*: Admit to inpatient expected greater than 2 midnights due to DEMARCO, generalized weakness, urinary retention, need for PT/OT, IV fluids, IV antibiotics, and medical management. and High Time for a total of 75 minutes, includes reviewing past or interval history, examining/interviewing patient, placing orders, counseling patient/family/other support, updating patient/family/other support, discussing plan of care with staff, documenting encounter and coordinating care Diagnoses Acute kidney injury N17.9 Hypermagnesemia E83.41 Generalized weakness R53.1 Urinary retention R33.9 Diabetes mellitus with diabetic neuropathy E11.40 HTN (hypertension) I10 Hyperlipidemia E78.5 Atrial fibrillation I48.91 Diastolic CHF with preserved left ventricular function, NYHA class 2 I50.30 Recurrent UTI N39.0 Pressure ulcer L89.90
[2025-03-22] MEDS: lactulose oral liq 20 gm/30 mL UDC PO ×2 (15:00→21:54)
--- OUTSIDE RECORDS SUMMARY | 2025-03-22 15:00 | XMS_ITS | Clinical Summary ---
Author Organization [facility] Address [address] [place] [address] Care Team Providers Care Surgical Services Assistant Name Role Phone Kaylynn Munoz DO Primary Care Provider Allergies Active Allergy Reactions Criticality Noted Date Comments Adhesive Tape Rash Low Aspirin Other (See Comments) Causes ulcers. Canagliflozin Other (See Comments) 05/11/2014 Chronic yeast infection while taking med. Celecoxib Nausea and Vomiting Low Codeine Headache Low Doxycycline Other (See Comments) 05/14/2017 Severe heartburn Egg Shortness of Breath/Wheezing,Denzel sea and Vomiting High 02/15/2008 Erythromycin Nausea and Vomiting,Palpitatio ns,Headache Low Exenatide Microspheres Nausea and Vomiting Low 07/2014 Ezetimibe Nausea and Vomiting,Headache Low Latex Shortness of Breath/Wheezing,Phuc h High 11/06/2008 Metformin Diarrhea Low 10/10/2013 Penicillins Hives,Swelling High Sitagliptin Phos-Metformin Other (See Comments) 08/17/2014 Yeast infection Sucralfate Nausea and Vomiting Low 10/07/2017 Sulfa (Sulfonamide Antibiotics) Nausea and Vomiting,Headache Low Topiramate Other (See Comments) puts pt to sleep Tretinoin Other (See Comments) 03/12/2017 Made face burn and itch Medications acetaminophen (TYLENOL) 500 mg Oral tablet Take 500 mg by mouth every 6 hours as needed. Active multivitamins with minerals (HAIR,SKIN AND NAILS) Tablet Take 1 Tablet by mouth daily. Active vit C/E/Zn/coppr/lutei n/zeaxan (PRESERVISION AREDS-2 ORAL) Take by mouth daily. Active diphenhydrAMINE (BENADRYL) 25 mg tablet Take 25 mg by mouth every 6 hours as needed for Allergies. Active pantoprazole (PROTONIX) 40 mg Tablet, Delayed Release (E.C.)Indications: Gastroesophageal reflux disease without esophagitis TAKE 1 TABLET DAILY 90 Tablet 4 1 Active losartan-hydroCHLO ROthiazide (HYZAAR) 100-25 mg tabletIndications: Essential hypertension Take 1 Tablet by mouth daily. 90 Tablet 4 1 Active isosorbide dinitrate (ISORDIL) 30 mg TabletIndications: Atherosclerosis of [place] coronary artery of [place] heart with stable angina pectoris TAKE 1 TABLET TWICE A DAY 180 Tablet 4 1 Active insulin glargine (Lantus Solostar U-100 Insulin) 100 unit/mL pen syringeIndications :Type 2 diabetes mellitus with other circulatory complication, with long-term current use of insulin (CMS/[facility]) INJECT 14 UNITS UNDER THE SKIN FOUR TIMES A DAY 30 mL 5 1 Active fluticasone propionate (FLONASE) 50 mcg/spray [place], Suspension nasal inhaler Administer 2 Sprays in each nostril daily. 16 Gram 6 1 Active dronedarone (Multaq) 400 mg TabletIndications: Paroxysmal atrial fibrillation (CMS/HCC) Take 1 Tablet (400 mg) by mouth 2 times daily with meals. 180 Tablet 4 1 Active clopidogreL (PLAVIX) 75 mg TabletIndications: Atherosclerosis of [place] coronary artery of [place] heart with stable angina pectoris Take 1 Tablet (75 mg) by mouth daily. 90 Tablet 4 1 Active carvediloL (COREG) 6.25 mg tablet Take 1 Tablet (6.25 mg) by mouth 2 times daily with meals. 180 Tablet 2 1 Active traMADoL (ULTRAM) 50 mg tabletIndications: Primary osteoarthritis involving multiple joints,History of compression fracture of spine,Chronic midline low back pain with bilateral sciatica TAKE ONE TO TWO TABLETS BY MOUTH EVERY FOUR HOURS NEEDED FOR PAIN 180 Tablet 2 1 Active lidocaine (Lidoderm) 5 % Adhesive Patch, Medicated Apply 1-3 Patches to affected area every 12 hours. 270 Patch 4 1 Active Active Problems Problem Noted Date Diagnosed Date Type 2 diabetes mellitus wit h diabetic peripheral angiopathy without gangrene, with long-term current use of insulin 09/21/2020 Type 2 diabetes mellitus wit h circulatory disorder, with long-term current use of insulin 01/30/2019 Prolonged grief disorder 04/05/2018 Essential hypertension 04/05/2018 Vitamin D deficiency 09/15/2016 Gastroesophageal reflux disease without esophagi tis 05/28/2013 Paroxysmal atrial fibrillation 05/28/2013 Age-related osteoporosis wit h current pathological fracture with routine healing 05/28/2013 Chronic midline low back pain with bilateral sci atica 02/15/2009 History of compression fracture of spine 009 ASD (atrial septal defect) 07/13/2008 Late effect acute polio 07/13/2008 Primary osteoarthritis involving multiple joints Primary insomnia Atherosclerosis of [place] co ronary artery of [place] heart with stable angina pectoris Mixed hyperlipidemia H/O ovarian cancer Mild intermittent asthma without complication Resolved Problems Problem Noted Date Diagnosed Date Resolved Date Acquired scoliosis 02/15/2009 4 Nonspecific abnormal unspeci fied cardiovascular function study 12/13/2008 05/28/2013 Overview (12/13/2008): Nuclear ST (11/2008) IMPRESSION: 1. This study shows a reversible perfusion abnormality in a small area of the inferior wall that is most prominent at the level of the mid ventricle towards the base. No other clinically significant reversible or fixed perfusion abnormality is seen in any other left ventricular segment. This finding may be consistent with a coronary flow reserve abnormality / ischemia in the right coronary artery distribution. 2. Hyperdynamic global left ventricular systolic function with a calculated left ventricular ejection fraction of 76%. No left ventricular regional wall motion abnormalities are detected Chest pain at rest 11/22/2008 4 Previous back surgery 10/13/20082013 Chronic low back pain 10/13/20082014 Narcotic dependence 10/13/2008 05/28/19 14 Overview (10/13/2008): X 12 years. Gait abnormality 10/13/2008 05/28/2013 Asthma 07/10/2008 05/28/2013 Other prolapse of vaginal wa lls without mention of uterine prolapse 02/29/2008 05/28/2013 Left leg pain 11/17/2007 05/28/2013 Postmenopausal bleeding 05/05 Chronic pain syndrome 2014 Immunizations Immunization Administration Dates Next Due Influenza Vaccine High Dose 65+ Yrs IM 7 Family History Medical History Relation Name Comments Hypertension Brother 1 Heart Disease Brother 2 Liver Disease Brother 4 Lung Cancer Brother 4 Heart Disease Father Hypertension Father Bleeding Problem Mother Hypertension Mother Other Mother Crippled from b irth. Diabetes Sister 1 Heart Disease Sister 1 Cancer Sister 2 Kidney spread a ll over Cancer Sister 3 Leukemia Relation Name Status Comments Brother 1 Alive Brother 2 Brother 3 Brother 4 Father Maternal Grandfather Maternal Grandmother Mother Paternal Grandfather Paternal Grandmother Sister 1 Alive Sister 2 Sister 3 Son 1 Alive Son 2 Alive Son 3 Alive Son 4 Alive Social History Tobacco Use Types Packs/Day Years Used Date Smoking Tobacco: Never Smokeless Tobacco: Never Alcohol Use Standard Drinks/Week Comments No 0 (1 standard drink = 0.6 oz pur e alcohol) Comments No Sex and Gender Information Value Date Recorded Sex Assigned at Not on file Legal Sex Female 5:59 AM TWIST PACKER Gender Identity Not on file Sexual Orientation Not on file Occupation Industry Job Start Date Job End Date Multiple jobs. Not on file Not on file Not on file Last Filed Vital Signs Vital Sign Reading Time Taken Comments Blood Pressure 124/74 09/21/2020 10:06 AM CDT Pulse 75 09/21/2020 10:06 AM CDT Temperature 36.7 C (98.1 F) 09/21/2020 10:06 AM CDT Respiratory Rate 20 09/21/2020 10:06 AM CDT Oxygen Saturation 94% 09/21/2020 10:06 AM CDT Inhaled Oxygen Concentration - - Weight 90.7 kg (200 lb) 09/21/2020 10:06 AM CDT Height 167.6 cm (5' 6 ) 09/21/2020 10:06 AM CDT Body Mass Index 32.28 09/21/2020 10:06 AM CDT Plan of Treatment Health Maintenance Due Date Last Done Comments DTAP/TDAP/TD VACCINES (1 - Tdap) 1961 PNEUMOCOCCAL VACCINE 50+ YEA RS (1 of 2 - PCV) 1961 ZOSTER VACCINE (1 of 2) 1992 DIABETES MICROALBUMIN ANNUAL SCREEN 07/05/2015 07/04/2014, 08/26/2006 RSV VACCINE (60+ or ) (1 - 1-dose 75+ series) 2017 OSTEOPOROSIS SCREENING 06/18/2020 6, 03/23/2013, 11/15/2008, Additional history exists DIABETES HBA1C Q 6 MONTHS 02/22/20212020, 04/20/2020, 11/14/2019, Additional history exists Traditional Medicare (ACO) A nnual Wellness Visit 04/21/2021 04/20/2020, 04/21/2019, 04/19/2018, Additional history exists DIABETES ANNUAL FOOT EXAM 08/23/2021 08/23/2020, LDL CHOLESTEROL ANNUAL 08/23/2021 , 11/14/2019, 07/12/2019, Additional history exists COLORECTAL SCREENING 03/07/2024 03/07/2019, 12/16/2010, 11/15/2008, Additional history exists INFLUENZA VACCINE (#1) 2024 02/09/2018, 2016 DIABETES ANNUAL RETINAL EXAM 09/20/2025, 09/09/2023, 03/06/2022, Additional history exists Medical Devices Explanted Type Area Memorial Counselor Device Identifier Shelf Expiration Date Model / Serial / Lot Lead Specify 5-6-5 Kit 40148-49 - [id number] Explanted:Qty: 1 at [facility] Lead N/A: Thoracic [employer]- NEUROLOGIC TECH 00901-13 / [id number] / Description:no longer needed Neurostimulator Restore [id number] - [id number] Explanted:Qty: 1 at [facility] N/A: Thoracic [employer]- NEUROLOGIC TECH 46587 / [id number] / Description:no longer needed Procedures Procedure Name Priority Date/Time Associated Diagnosis Comments LIPID PANEL Routine 08/23/2020 10:02 AM CDT Type 2 diabetes mellitus with diabetic peripheral angiopathy without gangrene, with long-term current use of insulin ([facility]) HEMOGLOBIN A1C Routine 08/23/2020 10:02 AM CDT Type 2 diabetes mellitus with diabetic peripheral angiopathy without gangrene, with long-term current use of insulin ([facility]) HM DIABETES EYE EXAM Routine 04/18/2020 XR DEXA BONE DENSITY AXIAL 1 OR MORE SITES Routine 06/18/2015 1:31 PM TWIST PACKER Osteoporosis MICROALBUMIN/CREATI NINE RATIO, RANDOM UR Routine 07/04/2014 2:40 PM TWIST PACKER DM w/o Complication Type II ENDOSCOPY, COLON, SCREENING Routine 12/16/2010 from Last 3 Months or Most Recently Relevant to Health Maintenance Results * (ABNORMAL) HEMOGLOBIN A1C (08/23/2020 10:02 AM CDT) HEMOGLOBIN A1C 7.2(H) See Comment % 08/23/2020 8:15 PM CDT [facility] EST. AVG GLUCOSE, A1C 160 mg/dL 08/23/2020 8:15 PM CDT [facility] Blood Venipuncture / Unknown 08/23/2020 10:02 AM CDT 08/23/2020 7:54 PM CDT Narrative [facility] - 08/23/2020 8:15 PM CDT HGB A1C INTERPRETATION NORMAL: <5.7% PRE-DIABETES: 5.7 - 6.4% DIABETES: 6.5% OR GREATER Falsely low A1C measurements can occur when: 1. Anemia and/or hemolytic anemia is present. 2. Hemoglobin variants present. 3. Renal failure. 4. Transfusion of blood product in the last 120 days. We recommend ordering a fructosamine test([id number]) to more accurately assess glycemic status if any of the above conditions are present. us Kaylynn Munoz DO CHEMISTRY ORDERABLES Final Result [facility] CLIA# [id number] [facility] [place] [address] * (ABNORMAL) LIPID PANEL (08/23/2020 10:02 AM CDT) CHOLESTEROL 219(H) <200 mg/dL 08/23/2020 8:35 PM CDT [facility] TRIGLYCERIDE 146 <150 mg/dL 08/23/2020 8:35 PM CDT [facility] HDL 62(H) 40 - 59 mg/dL 08/23/2020 8:35 PM CDT [facility] LDL CALCULATED 128(H) <100 mg/dL 08/23/2020 8:35 PM CDT [facility] NON-HDL CHOLESTEROL 157(H) <130 mg/dL 08/23/2020 8:35 PM CDT [facility] Blood Venipuncture / Unknown 08/23/2020 10:02 AM CDT 08/23/2020 7:54 PM CDT Narrative [facility] - 08/23/2020 8:35 PM CDT TOTAL CHOLESTEROL mg/dL Desirable <200 Borderline high 200-239 High >=240 TRIGLYCERIDES mg/dL Normal <150 Borderline high 150-199 High 200-499 Very high >=500 HDL CHOLESTEROL mg/dL Low <40 Normal 40-59 Desirable >=60 NON HDL CHOLESTEROL mg/dL Optimal <130 Near Optimal 130-159 Borderline High 160-189 Very High >=190 CALCULATED LDL mg/dL LDL <70, OPTIMAL if have Atherosclerotic cardiovascular disease (ASCVD) or intermediate or higher (>7.5%) 10 year risk of ASCVD including most adults with diabetes. LDL <100, Optimal in adult patients with low (<7.5%) 10 year ASCVD risk LDL 100-160, Suboptimal LDL >160, High LDL >190, Very high ATPIII Guidelines Reference Ranges for Lipid Panels (NCEP/AMA) . us Kaylynn Munoz DO CHEMISTRY ORDERABLES Final Result [facility] CLIA# [id number] [facility] [place] [address] * DIABETES EYE EXAM (04/18/2020) Abstract Spg Provider HEALTH MAINTENANCE Final R esult * XR DEXA BONE DENSITY AXIAL 1 OR MORE SITES (06/18/2015 1:31 PM TWIST PACKER) Anatomical Region Laterality Modality Digital Radiogra phy 06/18/2015 1:31 PM TWIST PACKER Impressions 06/18/2015 3:39 PM TWIST PACKER IMPRESSION: 1. Normal bone mineral density. There is no increased risk of fracture. [id number] Narrative 06/18/2015 3:39 PM TWIST PACKER Exam: XR DEXA BONE DENSITY AXIAL 1 OR MORE SITES Date/Time of Exam: 06/18/2015 1:31 PM Reason For Exam: Osteoporosis. Findings: Bone densitometry demonstrates the bone mineral density to be 1.0 g/sq cm with a T-score being -0.4. Z-score is 1.09. Based on world health organization classifications the bone mineral density is considered to be normal. Trini Menendez WAREHOUSE ADMINISTRATIVE ASSISTANT DIAGNOSTIC IMAGING ORDERABLES Final Result * MICROALBUMIN/CREATININE RATIO, RANDOM UR (07/04/2014 2:40 PM TWIST PACKER) MICROALBUMIN URINE <0.3 MG/DL [facility] Creatinine, Urine 33 MG/DL [facility] MICROALBUMIN/CREA T RATIO, UR <9.1 MCG/MG CREAT. [facility] Comment: NORMAL: <30 MCG/MG CREAT MICROALBUMINURIA: 30-300 MCG/MG CREAT CLINICAL ALBUMINURIA: >300 MCG/MG CREAT Urine specimen (specimen) 07/04/2014 2:40 PM TWIST PACKER 07/04/2014 2:41 PM TWIST PACKER Kaylynn Munoz DO URINE ORDERABLES Final Resu lt [facility] CLIA# [id number] [facility] [place] [address] * ENDOSCOPY, COLON, SCREENING (12/16/2010) us Abstract Spg Provider GI PROCEDURE ORDERABLES Fi nal Result from Last 3 Months or Most Recently Relevant to Health Maintenance Insurance MEDICARE PART A AND B [employer] Advance Directives For more information, please contact: [phone] * Full Code (Latest Code Status on File) Date Activated Date Inactivated Comments 03/07/2019 9:33 AM 03/07/2019 12:52 PM * Full Code Date Activated Date Inactivated Comments 11/07/2011 8:27 AM 11/07/2011 12:26 PM * Full Code Date Activated Date Inactivated Comments 11/07/2011 7:15 AM 11/07/2011 8:27 AM * Full Code Date Activated Date Inactivated Comments 12/18/2008 9:37 AM 12/19/2008 2:12 AM * Full Code Date Activated Date Inactivated Comments 12/18/2008 8:37 AM 12/18/2008 9:37 AM Care Teams Surgical Services Assistant Relationship Specialty Start Date End Date Kaylynn Munoz DO [address] [place] [address] PCP - General Family Practice 05/17/13
--- OUTSIDE RECORDS SUMMARY | 2025-03-22 15:00 | XMS_ITS | Encounter Summary ---
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); Thoracic or lumbosacral neuritis or radiculitis, unspecified; Lumbosacral spondylosis; Backache, unspecified Social History Tobacco Use Types Packs/Day Years Used Date Smoking Tobacco: Never Assessed Comments Unknown Sex and Gender Information Value Date Recorded Sex Assigned at Not on file Legal Sex Female 5:59 AM DIRECT SALES 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 Gender Identity Not on file Sexual Orientation Not on file documented as of this encounter Plan of Treatment Not on file documented as of this encounter Visit Diagnoses Diagnosis Degeneration of lumbar or lumbosacral intervertebral disc- Primary Thoracic or lumbosacral neuritis or radiculitis, unspecified Lumbosacral spondylosis Lumbosacral spondylosis without myelopathy Backache, unspecified documented in this encounter Care Teams Medical Coding Specialist Relationship Specialty Start Date End Date Kaylynn Munoz DO [address] [place] [address] PCP - General Family Practice 05/17/13 documented as of this encounter
--- OUTSIDE RECORDS SUMMARY | 2025-03-22 15:00 | XMS_ITS | Encounter Summary ---
Author Organization [facility] Address [address] [place] [address] Care Team Providers Care Cloud Physicist Name Role Phone Kaylynn Munoz DO Primary Care Provider Encounter Details Date Type Department Care Team (Late st Contact Info) Description 05/13/2006 Outpatient Historical [facility] Internal Medicine- [address] [place] [id number] Vishal Bernabe MD [address] [facility] [place] [address] Chronic Pain Syndrome (Primary Dx); DM w/o Complication Type II (CMS/HCC); Pain in Limb Social History Tobacco Use Types Packs/Day Years Used Date Smoking Tobacco: Never Assessed Comments Unknown Sex and Gender Information Value Date Recorded Sex Assigned at Not on file Legal Sex Female 5:59 AM LIQUEFIED 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
--- OUTSIDE RECORDS SUMMARY | 2025-03-22 15:00 | XMS_ITS | Encounter Summary ---
Author Organization [facility] Address [address] [place] [address] Care Team Providers Care Childbirth And Infant Care Teacher Name Role Phone Kaylynn Munoz DO Primary Care Provider [phone]- [phone] Encounter Details Date Type Department Care Team (Latest Contact Info) Description 02/11/2000 Outpatient Historical [facility] Mor Berrios MD [address] [place] [address] Backache, unspecified (Primary Dx); Lumbosacral spondylosis; Thoracic or lumbosacral neuritis or radiculitis, unspecified; Other symptoms referable to back Social History Tobacco Use Types Packs/Day Years Used Date Smoking Tobacco: Never Assessed Comments Unknown Sex and Gender Information Value Date Recorded Sex Assigned at Not on file Legal Sex Female 5:59 AM FRONT DESK AGENT Gender Identity Not on file Sexual Orientation Not on file documented as of this encounter Plan of Treatment Not on file documented as of this encounter Visit Diagnoses Diagnosis Backache, unspecified- Primary Lumbosacral spondylosis Lumbosacral spondylosis without myelopathy Thoracic or lumbosacral neuritis or radiculitis, unspecified Other symptoms referable to back documented in this encounter Care Teams Childbirth And Infant Care Teacher Relationship Specialty Start Date End Date Kaylynn Munoz DO [address] [place] [address] PCP - General Family Practice 05/17/13 documented as of this encounter
--- OUTSIDE RECORDS SUMMARY | 2025-03-22 15:00 | XMS_ITS | Encounter Summary ---
Author Organization [facility] Address [address] [facility] Attn: [place] [address] Care Team Providers Care Dip Brazier Name Role Phone Kaylynn Munoz DO Primary Care Provider [phone]- [phone] Encounter Details Date Type Department Care Team (Late st Contact Info) Description 01/30/2000 Outpatient Historical Brian Mak MD NO ADDRESS ON FILE Social History Tobacco Use Types Packs/Day Years Used Date Smoking Tobacco: Never Assessed Comments Unknown Sex and Gender Information Value Date Recorded Sex Assigned at Not on file Legal Sex Female 5:59 AM 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
--- OUTSIDE RECORDS SUMMARY | 2025-03-22 15:00 | XMS_ITS | Encounter Summary ---
Author Organization [facility] Address [address] [place] [address] Care Team Providers Care Field Court Researcher Name Role Phone Kaylynn Munoz DO Primary Care Provider Encounter Details Date Type Department Care Team (Late st Contact Info) Description 01/13/2012 Ancillary Orders [facility] [place] [facility]3] Orthopedics- [address] [place] [address] Garth Cook III, MD [address] [place] [address] Hip pain Social History Tobacco Use Types Packs/Day Years Used Date Smoking Tobacco: Never Alcohol Use Standard Drinks/Week Comments No 0 (1 standard drink = 0.6 oz pur e alcohol) Comments No Sex and Gender Information Value Date Recorded Sex Assigned at Not on file Legal Sex Female 5:59 AM LIVE IN HOUSEKEEPER Gender Identity Not on file Sexual Orientation Not on file Occupation Industry Job Start Date Job End Date Multiple jobs. Not on file Not on file Not on file documented as of this encounter Plan of Treatment Not on file documented as of this encounter Results * XR PELVIS 3+ VW (01/13/2012 11:04 AM CDT) Anatomical Region Laterality Modality Pelvis Computed Radiogr aphy Narrative 02/04/2012 7:17 AM CDT AP radiograph of the pelvis shows no evidence of fracture, dislocation, or tumor. There is only mild degenerative change about bilateral hips. Lateral radiograph of the right hip shows again no evidence of fracture, dislocation, or tumor. There is mild degenerative joint disease. Lateral radiograph of the left hip again shows no evidence of fracture, dislocation, or tumor. There is mild degenerative joint disease of the left hip on the lateral radiograph. Procedure Note Garth Cook III, MD - 02/04/2012 AP radiograph of the pelvis shows no evidence of fracture, dislocation, ortumor. There is only mild degenerative change about bilateral hips.Lateral radiograph of the right hip shows again no evidence of fracture,dislocation, or tumor. There is mild degenerative joint disease. Lateralradiograph of the left hip again shows no evidence of fracture,dislocation, or tumor. There is mild degenerative joint disease of theleft hip on the lateral radiograph. Garth Cook III, MD DIAGNOSTIC IMAGING ORD ERABLES Final Result documented in this encounter Visit Diagnoses Diagnosis Hip pain Pain in joint, pelvic region and thigh documented in this encounter Care Teams Field Court Researcher Relationship Specialty Start Date End Date Kaylynn Munoz DO [address] [place] [address] PCP - General Family Practice 05/17/13 documented as of this encounter
--- OUTSIDE RECORDS SUMMARY | 2025-03-22 15:00 | XMS_ITS | Encounter Summary ---
Author Organization [facility] Address [address] [place] [address] Care Team Providers Care Electric Organ Checker Name Role Phone Kaylynn Munoz DO Primary Care Provider Encounter Details Date Type Department Care Team (Latest Contact Info) Description 03/12/2000 Outpatient Historical [facility] Chance Jimenez MD [address] [place] [address] Pure hypercholesterolem (Primary Dx); Encounter for long-term (current) use of other medications Social History Tobacco Use Types Packs/Day Years Used Date Smoking Tobacco: Never Assessed Comments Unknown Sex and Gender Information Value Date Recorded Sex Assigned at Not on file Legal Sex Female 5:59 AM SHELVING SUPERVISOR Gender Identity Not on file Sexual Orientation Not on file documented as of this encounter Plan of Treatment Not on file documented as of this encounter Visit Diagnoses Diagnosis Pure hypercholesterolem- Primary Pure hypercholesterolemia Encounter for long-term (current) use of other medications documented in this encounter Care Teams Electric Organ Checker Relationship Specialty Start Date End Date Kaylynn Munoz DO [address] [place] [address] PCP - General Family Practice 05/17/13 documented as of this encounter
--- OUTSIDE RECORDS SUMMARY | 2025-03-22 15:00 | XMS_ITS | Encounter Summary ---
Author Organization [facility] Address [address] [place] [address] Care Team Providers Care Grain Scooper Name Role Phone Kaylynn Munoz DO Primary Care Provider Encounter Details Date Type Department Care Team (Latest Contact Info) Description 03/23/2000 Outpatient Historical [facility] Chance Jimenez MD [address] [place] [address] Nonallopathic lesion of abdomen and other sites, not elsewhere classified (Primary Dx); Headache(784.0) Social History Tobacco Use Types Packs/Day Years Used Date Smoking Tobacco: Never Assessed Comments Unknown Sex and Gender Information Value Date Recorded Sex Assigned at Not on file 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
--- OUTSIDE RECORDS SUMMARY | 2025-03-22 15:00 | XMS_ITS | Encounter Summary ---
Author Organization [facility] Address [address] [facility] Attn: [place] [address] Care Team Providers Care Outside Deliverer Name Role Phone Kaylynn Munoz DO Primary Care Provider [phone] Encounter Details Date Type Department Care Team (Late st Contact Info) Description 02/14/2000 Outpatient Historical Mor Berrios MD [address] [place] [address] Social History Tobacco Use Types Packs/Day Years Used Date Smoking Tobacco: Never Assessed Comments Unknown Sex and Gender Information Value Date Recorded Sex Assigned at Not on file 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
--- OUTSIDE RECORDS SUMMARY | 2025-03-22 15:00 | XMS_ITS | Encounter Summary ---
Author Organization [facility] Address [address] [place] [address] Care Team Providers Care Photography Intern Name Role Phone Kaylynn Munoz DO Primary Care Provider [phone]- [phone] Encounter Details Date Type Department Care Team (Latest Contact Info) Description 01/10/2000 Outpatient Historical [facility] Mor Berrios MD [address] [place] [address] Thoracic or lumbosacral neuritis or radiculitis, unspecified (Primary Dx); Degeneration of lumbar or lumbosacral intervertebral disc; Lumbosacral spondylosis; Backache, unspecified Social History Tobacco Use Types Packs/Day Years Used Date Smoking Tobacco: Never Assessed Comments Unknown Sex and Gender Information Value Date Recorded Sex Assigned at Not on file 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 Gender Identity Not on file Sexual Orientation Not on file documented as of this encounter Plan of Treatment Not on file documented as of this encounter Visit Diagnoses Diagnosis Thoracic or lumbosacral neuritis or radiculitis, unspecified- Primary 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
--- OUTSIDE RECORDS SUMMARY | 2025-03-22 15:00 | XMS_ITS | Encounter Summary ---
Author Organization [facility] Address [address] [place] [address] Care Team Providers Care Teachers Aide Name Role Phone Kaylynn Munoz DO Primary Care Provider Encounter Details Date Type Department Care Team (Late st Contact Info) Description 05/15/2006 Outpatient Historical [facility] [address] 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
--- OUTSIDE RECORDS SUMMARY | 2025-03-22 15:00 | XMS_ITS | Encounter Summary ---
Author Organization [facility] Address [address] [facility] Attn: [place] [address] Care Team Providers Care Dress Cutter Name Role Phone Kaylynn Munoz DO Primary Care Provider [phone]- [phone] Encounter Details Date Type Department Care Team (Late st Contact Info) Description 02/18/2000 Outpatient Historical Mor Berrios MD [address] [place] [address] Social History Tobacco Use Types Packs/Day Years Used Date Smoking Tobacco: Never Assessed Comments Unknown Sex and Gender Information Value Date Recorded Sex Assigned at Not on file 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
--- OUTSIDE RECORDS SUMMARY | 2025-03-22 15:00 | XMS_ITS | Encounter Summary ---
Author Organization [facility] Address [address] [place] [address] Care Team Providers Care Magnetic Prospecting Operator Name Role Phone Kaylynn Munoz DO Primary Care Provider [phone] Encounter Details Date Type Department Care Team (Latest Contact Info) Description 12/26/1999 Outpatient Historical [facility] Chance Jimenez MD [address] [place] [address] Sprain lumbosacral (Primary Dx); Lumbago; Thoracic or lumbosacral neuritis or radiculitis, unspecified Social History Tobacco Use Types Packs/Day Years Used Date Smoking Tobacco: Never Assessed Comments Unknown Sex and Gender Information Value Date Recorded Sex Assigned at Not on file 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
--- OUTSIDE RECORDS SUMMARY | 2025-03-22 15:00 | XMS_ITS | Encounter Summary ---
Author Organization [facility] Address [address] [place] [address] Care Team Providers Care Legal Compliance Officer Name Role Phone Kaylynn Munoz DO Primary Care Provider Encounter Details Date Type Department Care Team (Late st Contact Info) Description 05/15/2006 Outpatient Historical [facility] [place] [facility] 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 Gender Identity Not on file Sexual Orientation Not on file documented as of this encounter Plan of Treatment Not on file documented as of this encounter Procedures Procedure Name Priority Date/Time Associated Diagnosis Comments MRI ANKLE WO CONTRAST LEFT Routine 05/15/2006 12:01 AM COLLECTION DEVELOPMENT LIBRARIAN documented in this encounter Results * MRI ANKLE WO CONTRAST LEFT (05/15/2006 12:01 AM COLLECTION DEVELOPMENT LIBRARIAN) Anatomical Region Laterality Modality Ankle / Foot Other 05/15/2006 12:0 1 AM COLLECTION DEVELOPMENT LIBRARIAN Narrative 05/15/2006 12:01 AM COLLECTION DEVELOPMENT LIBRARIAN MRI of the left ankle was performed without contrast. The patient has leg pain. The patientindicated that there was a recent bruise of the lower leg above the ankle and pain above the ankleis getting worse. The articular surface of the talar dome is smooth. The deltoid ligament is mildly thickened with somemild increased signal that may reflect subacute strain or mucinous degeneration from prior oldinjury. The anterior and posterior tibiofibular ligaments and the anterior and posteriortalofibular ligaments are intact. The peroneal tendons are intact and the extensor tendons areappropriate. The tibialis posterior flexor digitorum longus and flexor hallucis longus are intact. The Achilles tendon is mildly thickened with a trace amount of increased signal in its substancesuperior to the ankle and the appearance suggests some mild tendinopathy of the Achilles tendon. There is a small amount of edema in the fat and soft tissues adjacent to the distal Achillestendon. These findings are very subtle. There is also some thickening of the plantar aponeurosis as it approaches its insertion to thecalcaneus and there is some mild edema. These findings are suggestive of some mild low-gradeplantar fasciitis. No bone contusion is identified. The patient does have some mild subcutaneousedema especially along the medial leg, but no localized fluid collection. This appearance couldreflect some mild venous stasis or lymphedema changes. There are some varicosities in the medialleg. Otherwise, there is no stress or insufficiency fracture and no abnormal bone signal in thedistal tibia or fibula. Impression: 1. Mild enlargement with some increased signal within and adjacent to the distal Achilles tendon mayindicate some mild Achilles tendinopathy and inflammatory changes. There is also thickening andsome mild increased signal in the plantar aponeurosis of the calcaneal attachment site consistentwith mild low-grade plantar fasciitis. - Dictated By: Irena Zamudio M.D. Electronically Signed By: Irena Zamudio M.D. Date Signed: 05/18/06 [facility] Procedure Note 03/23/2009 MRI of the left ankle was performed without contrast. The patient has legpain. The patientindicated that there was a recent bruise of the lower leg above the ankle and pain abovethe ankleis getting worse. The articular surface of the talar dome is smooth. The deltoid ligament ismildly thickened with somemild increased signal that may reflect subacute strain or mucinousdegeneration from prior oldinjury. The anterior and posterior tibiofibular ligaments and the anterior andposteriortalofibular ligaments are intact. The peroneal tendons are intact and the extensor tendonsareappropriate. The tibialis posterior flexor digitorum longus and flexor hallucis longus are intact. The Achilles tendon is mildly thickened with a trace amount of increasedsignal in its substancesuperior to the ankle and the appearance suggests some mild tendinopathy of theAchilles tendon. There is a small amount of edema in the fat and soft tissues adjacent tothe distal Achillestendon. These findings are very subtle. There is also some thickening of the plantar aponeurosis as it approachesits insertion to thecalcaneus and there is some mild edema. These findings are suggestive of some mildlow-gradeplantar fasciitis. No bone contusion is identified. The patient does have some mildsubcutaneousedema especially along the medial leg, but no localized fluid collection. This appearancecouldreflect some mild venous stasis or lymphedema changes. There are some varicosities in the medialleg.Otherwise, there is no stress or insufficiency fracture and no abnormal bone signal in thedistal tibia orfibula. Impression: 1. Mild enlargement with some increased signal within and adjacent to thedistal Achilles tendon mayindicate some mild Achilles tendinopathy and inflammatory changes.There is also thickening andsome mild increased signal in the plantar aponeurosis of the calcanealattachment site consistentwith mild low-grade plantar fasciitis. - Dictated By: Irena Zamudio M.D. Electronically Signed By: Irena Zamudio M.D. Date Signed: 05/18/06 [facility] us Historical Provider MR ORDERABLES Final Result documented in this encounter Visit Diagnoses Not on filedocumented in this encounter Care Teams Legal Compliance Officer Relationship Specialty Start Date End Date Kaylynn Munoz DO [address] [place] [address] PCP - General Family Practice 05/17/13 documented as of this encounter
--- OUTSIDE RECORDS SUMMARY | 2025-03-22 15:00 | XMS_ITS | Encounter Summary ---
Author Organization [facility] Address [address] [place] [address] Care Team Providers Care Film Washer Name Role Phone Kaylynn Munoz DO Primary Care Provider Encounter Details Date Type Department Care Team (Late st Contact Info) Description 04/09/2006 Outpatient Historical [facility] Internal Medicine- [address] [place] [phone] Vishal Bernabe MD [address] [facility] [place] [address] Chronic Pain Syndrome (Primary Dx); DM w/o Complication Type II (CMS/HCC); Unspecified Myalgia and Myositis Social History Tobacco Use Types Packs/Day Years Used Date Smoking Tobacco: Never Assessed Comments Unknown Sex and Gender Information Value Date Recorded Sex Assigned at Not on file Legal Sex Female 5:59 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
--- OUTSIDE RECORDS SUMMARY | 2025-03-22 15:00 | XMS_ITS | Encounter Summary ---
Author Organization [facility] Address [address] [place] [address] Care Team Providers Care Semiconductor Wafer Inspector Name Role Phone Kaylynn Munoz DO Primary Care Provider [phone] Encounter Details Date Type Department Care Team (Late st Contact Info) Description 03/10/2006 Outpatient Historical [facility] Internal Medicine- [place] [address] [facility] [address] [place] [address] Vishal Bernabe MD [address] [facility] [place] [address] Other Chest Pain (Primary Dx); Chronic Pain Syndrome; Esophageal Reflux; Unspecified Sleep Disturbance Social History Tobacco Use Types Packs/Day Years Used Date Smoking Tobacco: Never Assessed Comments Unknown Sex and Gender Information Value Date Recorded Sex Assigned at Not on file Legal Sex Female 5:59 AM PRACTICE ADVISOR Gender Identity Not on file Sexual Orientation Not on file documented as of this encounter Plan of Treatment Not on file documented as of this encounter Visit Diagnoses Diagnosis Other chest pain- Primary Chronic pain syndrome Esophageal reflux Sleep disturbance, unspecified documented in this encounter Care Teams Semiconductor Wafer Inspector Relationship Specialty Start Date End Date Kaylynn Munoz DO [address] [place] [address] PCP - General Family Practice 05/17/13 documented as of this encounter
--- OUTSIDE RECORDS SUMMARY | 2025-03-22 15:00 | XMS_ITS | Encounter Summary ---
Author Organization [facility] Address [address] [place] [address] Care Team Providers Care Circular Knitter Helper Name Role Phone Kaylynn Munoz DO Primary Care Provider Encounter Details Date Type Department Care Team (Latest Contact Info) Description 05/25/2000 Outpatient Historical [facility] Chance Jimenez MD [address] [place] [address] Gynecologic examination (Primary Dx); Screening for malignant neoplasm of the cervix; Dyspepsia and other specified disorders of function of stomach Social History Tobacco Use Types Packs/Day Years Used Date Smoking Tobacco: Never Assessed Comments Unknown Sex and Gender Information Value Date Recorded Sex Assigned at Not on file Legal 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
--- OUTSIDE RECORDS SUMMARY | 2025-03-22 15:01 | XMS_ITS | Encounter Summary ---
Author Organization [facility] Address [address] [place] [address] Care Team Providers Care Public Information Coordinator Name Role Phone Kaylynn Munoz DO Primary Care Provider Encounter Details Date Type Department Care Team (Latest Contact Info) Description 08/12/2001 Outpatient Historical [facility] Chance Jimenez MD [address] [place] [address] LUMBAGO (Primary Dx); DISC DISPLACEMENT NOS; NEURALGIA/NEURITIS NOS; HYPERLIPIDEMIA NEC/NOS Social History Tobacco Use Types Packs/Day Years Used Date Smoking Tobacco: Never Assessed Comments Unknown Sex and Gender Information Value Date Recorded Sex Assigned at Not on file 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
--- OUTSIDE RECORDS SUMMARY | 2025-03-22 15:01 | XMS_ITS | Encounter Summary ---
Author Organization [facility] Address [address] [place] [address] Care Team Providers Care Galvanizer Zinc Name Role Phone Kaylynn Munoz DO Primary Care Provider Encounter Details Date Type Department Care Team (Latest Contact Info) Description 10/29/2000 Outpatient Historical [facility] Chance Jimenez MD [address] [place] [address] Lumbago (Primary Dx); Neuralgia, neuritis, and radiculitis, unspecified; Dyspepsia and other specified disorders of function of stomach; Esophageal reflux Social History Tobacco Use Types Packs/Day Years Used Date Smoking Tobacco: Never Assessed Comments Unknown Sex and Gender Information Value Date Recorded Sex Assigned at Not on file 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
--- OUTSIDE RECORDS SUMMARY | 2025-03-22 15:01 | XMS_ITS | Encounter Summary ---
Author Organization [facility] Address [address] [place] [address] Care Team Providers Care Shake Cutter Name Role Phone Kaylynn Munoz DO Primary Care Provider Encounter Details Date Type Department Care Team (Latest Contact Info) Description 06/08/2001 Outpatient Historical [facility] Mor Berrios MD [address] [place] [address] LUMBOSACRAL NEURITIS NOS (Primary Dx); Lumbosacral spondylosis; BACKACHE NOS Social History Tobacco Use Types Packs/Day Years Used Date Smoking Tobacco: Never Assessed Comments Unknown Sex and Gender Information Value Date Recorded Sex Assigned at Not on file Legal Sex Female 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
--- OUTSIDE RECORDS SUMMARY | 2025-03-22 15:01 | XMS_ITS | Encounter Summary ---
Author Organization [facility] Address [address] [place] [address] Care Team Providers Care Size Changer Name Role Phone Kaylynn Munoz DO Primary Care Provider Encounter Details Date Type Department Care Team (Latest Contact Info) Description 06/30/2000 Outpatient Historical HIS 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
--- OUTSIDE RECORDS SUMMARY | 2025-03-22 15:01 | XMS_ITS | Encounter Summary ---
Author Organization [facility] Address [address] [place] [address] Care Team Providers Care Cafeteria Cook Name Role Phone Kaylynn Munoz DO Primary Care Provider Encounter Details Date Type Department Care Team (Latest Contact Info) Description 07/01/2001 Outpatient Historical HIS [facility] Chance Jimenez MD [address] [place] [id number] RENAL & URETERAL DIS NOS (Primary Dx) Social History Tobacco Use Types Packs/Day Years Used Date Smoking Tobacco: Never Assessed Comments Unknown Sex and Gender Information Value Date Recorded Sex Assigned at Not on file Legal Sex Female 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
--- OUTSIDE RECORDS SUMMARY | 2025-03-22 15:01 | XMS_ITS | Encounter Summary ---
Author Organization [facility] Address [address] [place] [address] Care Team Providers Care Legal Investigator Name Role Phone Kaylynn Munoz DO Primary Care Provider Encounter Details Date Type Department Care Team (Latest Contact Info) Description 11/13/2000 Outpatient Historical HIS [facility] Chance Jimenez MD [address] [place] [address] Nonallopathic lesion of abdomen and other sites, not elsewhere classified (Primary Dx); Sprain of unspecified site of back Social History Tobacco Use Types Packs/Day Years Used Date Smoking Tobacco: Never Assessed Comments Unknown Sex and Gender Information Value Date Recorded Sex Assigned at Not on file Legal Sex Female 5:59 AM BOND TRADER Gender Identity Not on file Sexual Orientation Not on file documented as of this encounter Plan of Treatment Not on file documented as of this encounter Visit Diagnoses Diagnosis Nonallopathic lesion of abdomen and other sites, not elsewhere classified- Primary Sprain of unspecified site of back documented in this encounter Care Teams Legal Investigator Relationship Specialty Start Date End Date Kaylynn Munoz DO [address] [place] [address] PCP - General Family Practice 05/17/13 documented as of this encounter
--- OUTSIDE RECORDS SUMMARY | 2025-03-22 15:01 | XMS_ITS | Encounter Summary ---
Author Organization [facility] Address [address] [place] [address] Care Team Providers Care Pattern Cutter Name Role Phone Kaylynn Munoz DO Primary Care Provider Encounter Details Date Type Department Care Team (Late st Contact Info) Description 10/05/2006 Outpatient Historical [facility] [address] [place] [address] Amrit Tan MD [address] [facility] [address] [place] [address] Unspecified Chest Pain (Primary Dx) Social History Tobacco Use Types Packs/Day Years Used Date Smoking Tobacco: Never Assessed Comments Unknown Sex and Gender Information Value Date Recorded Sex Assigned at Not on file Legal Sex Female 5:59 AM VP LEGAL AFFAIRS Gender Identity Not on file Sexual Orientation Not on file documented as of this encounter Plan of Treatment Not on file documented as of this encounter Visit Diagnoses Diagnosis Chest pain, unspecified- Primary documented in this encounter Care Teams Pattern Cutter Relationship Specialty Start Date End Date Kaylynn Munoz DO [address] [place] [address] PCP - General Family Practice 05/17/13 documented as of this encounter
--- OUTSIDE RECORDS SUMMARY | 2025-03-22 15:01 | XMS_ITS | Encounter Summary ---
Author Organization [facility] Address [address] [place] [address] Care Team Providers Care Sports Complex Attendant Name Role Phone Kaylynn Munoz DO Primary Care Provider [phone] Encounter Details Date Type Department Care Team (Latest Contact Info) Description 10/19/2001 Outpatient Historical HIS [facility] Chance Jimenez MD [address] [place] [phone] LUMBAGO (Primary Dx); General symptoms NEC; UNS ASTHMA WOSTATUS ASTHMATICUS; BRONCHITIS NOS Social History Tobacco Use Types Packs/Day Years Used Date Smoking Tobacco: Never Assessed Comments Unknown Sex and Gender Information Value Date Recorded Sex Assigned at Not on file Legal Sex Female 5:59 AM IRRIGATION SPECIALIST Gender Identity Not on file Sexual Orientation Not on file documented as of this encounter Plan of Treatment Not on file documented as of this encounter Visit Diagnoses Diagnosis Lumbago- Primary General symptoms NEC Other general symptoms Unspecified asthma(493.90) Unspecified asthma Bronchitis, not specified as acute or chronic documented in this encounter Care Teams Sports Complex Attendant Relationship Specialty Start Date End Date Kaylynn Munoz DO [address] [place] [address] PCP - General Family Practice 05/17/13 documented as of this encounter
--- OUTSIDE RECORDS SUMMARY | 2025-03-22 15:01 | XMS_ITS | Encounter Summary ---
Author Organization [facility] Address [address] [place] [address] Care Team Providers Care Repulping Supervisor Name Role Phone Kaylynn Munoz DO Primary Care Provider Encounter Details Date Type Department Care Team (Latest Contact Info) Description 02/15/2001 Outpatient Historical HIS [facility] Chance Jimenez MD [address] [place] [address] Type II or unspecified type diabetes mellitus without mention of complication, not stated as uncontrolled (Primary Dx); Esophageal reflux; Other and unspecified hyperlipidemia; General symptoms NEC Social History Tobacco Use Types Packs/Day Years Used Date Smoking Tobacco: Never Assessed Comments Unknown Sex and Gender Information Value Date Recorded Sex Assigned at Not on file Legal Sex Female 5:59 AM RN CLINICAL DOCUMENTATION SPECIALIST Gender Identity Not on file Sexual Orientation Not on file documented as of this encounter Plan of Treatment Not on file documented as of this encounter Visit Diagnoses Diagnosis Type II or unspecified type diabetes mellitus without mention of complication, not stated as uncontrolled- Primary Esophageal reflux Other and unspecified hyperlipidemia General symptoms NEC Other general symptoms documented in this encounter Care Teams Repulping Supervisor Relationship Specialty Start Date End Date Kaylynn Munoz DO [address] [place] [address] PCP - General Family Practice 05/17/13 documented as of this encounter
--- OUTSIDE RECORDS SUMMARY | 2025-03-22 15:01 | XMS_ITS | Encounter Summary ---
Author Organization [facility] Address [address] [place] [address] Care Team Providers Care Pot Annealer Name Role Phone Kaylynn Munoz DO Primary Care Provider Encounter Details Date Type Department Care Team (Latest Contact Info) Description 06/25/2001 Outpatient Historical [facility] Mor Berrios MD [address] [place] [address] CERVICALGIA (Primary Dx); Cervical spondylosis; JOINT PAIN-SHLDER Social History Tobacco Use Types Packs/Day Years Used Date Smoking Tobacco: Never Assessed Comments Unknown Sex and Gender Information Value Date Recorded Sex Assigned at Not on file Legal Sex Female 5:59 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
--- OUTSIDE RECORDS SUMMARY | 2025-03-22 15:01 | XMS_ITS | Encounter Summary ---
Author Organization [facility] Address [address] [place] [address] Care Team Providers Care Home Health Care Provider Name Role Phone Kaylynn Munoz DO Primary Care Provider Encounter Details Date Type Department Care Team (Latest Contact Info) Description 06/19/2000 Outpatient Historical HIS [facility] Chance Jimenez MD [address] [place] [address] Other and unspecified hyperlipidemia (Primary Dx); Coronary atherosclerosis of unspecified type of vessel, rosebud or graft Social History Tobacco Use Types Packs/Day Years Used Date Smoking Tobacco: Never Assessed Comments Unknown Sex and Gender Information Value Date Recorded Sex Assigned at Not on file Legal Sex Female 5:59 AM DIRECTOR HEART Gender Identity Not on file Sexual Orientation Not on file documented as of this encounter Plan of Treatment Not on file documented as of this encounter Visit Diagnoses Diagnosis Other and unspecified hyperlipidemia- Primary Coronary atherosclerosis of unspecified type of vessel, rosebud or graft documented in this encounter Care Teams Home Health Care Provider Relationship Specialty Start Date End Date Kaylynn Munoz DO [address] [place] [address] PCP - General Family Practice 05/17/13 documented as of this encounter
--- OUTSIDE RECORDS SUMMARY | 2025-03-22 15:01 | XMS_ITS | Encounter Summary ---
Author Organization [facility] Address [address] [place] [address] Care Team Providers Care Hardware Engineering Manager Name Role Phone Kaylynn Munoz DO Primary Care Provider Encounter Details Date Type Department Care Team (Latest Contact Info) Description 09/13/2001 Outpatient Historical HIS [facility] Chance Jimenez MD [address] [place] [address] DISC DISPLACEMENT NOS (Primary Dx); NEURALGIA/NEURITIS NOS; HYPERLIPIDEMIA NEC/NOS; AFTERCARE VP INTEGRITY USE MEDICATN Social History Tobacco Use Types Packs/Day Years Used Date Smoking Tobacco: Never Assessed Comments Unknown Sex and Gender Information Value Date Recorded Sex Assigned at Not on file Legal Sex Female 5:59 AM GENERAL OPERATIONS AGENT Gender Identity Not on file Sexual Orientation Not on file documented as of this encounter Plan of Treatment Not on file documented as of this encounter Visit Diagnoses Diagnosis Displacement of intervertebral disc, site unspecified, without myelopathy- Primary Neuralgia, neuritis, and radiculitis, unspecified Other and unspecified hyperlipidemia Encounter for long-term (current) use of other medications documented in this encounter Care Teams Hardware Engineering Manager Relationship Specialty Start Date End Date Kaylynn Munoz DO [address] [place] [address] PCP - General Family Practice 05/17/13 documented as of this encounter
--- OUTSIDE RECORDS SUMMARY | 2025-03-22 15:01 | XMS_ITS | Encounter Summary ---
Author Organization [facility] Address [address] [place] [address] Care Team Providers Care Utility Worker Roller Shop Name Role Phone Kaylynn Munoz DO Primary Care Provider [phone] Encounter Details Date Type Department Care Team (Late st Contact Info) Description 08/26/2006 Outpatient Historical [facility] Internal Medicine- [address] [place] [address] Vishal Bernabe MD [address] [facility] [place] [address] Acute Bronchitis (Primary Dx); Chronic Pain Syndrome; DM w/o Complication Type II (CMS/HCC); Contact Dermatitis and Other Eczema, due to Unspecified Cause Social History Tobacco Use Types Packs/Day Years Used Date Smoking Tobacco: Never Assessed Comments Unknown Sex and Gender Information Value Date Recorded Sex Assigned at Not on file Legal Sex Female 5:59 AM STORE KEEPER Gender Identity Not on file Sexual Orientation Not on file documented as of this encounter Plan of Treatment Not on file documented as of this encounter Visit Diagnoses Diagnosis Acute bronchitis- Primary Chronic pain syndrome Type II or unspecified type diabetes mellitus without mention of complication, not stated as uncontrolled Contact dermatitis and other eczema, due to unspecified cause documented in this encounter Care Teams Utility Worker Roller Shop Relationship Specialty Start Date End Date Kaylynn Munoz DO [address] [place] [address] PCP - General Family Practice 05/17/13 documented as of this encounter
--- OUTSIDE RECORDS SUMMARY | 2025-03-22 15:01 | XMS_ITS | Encounter Summary ---
Author Organization [facility] Address [address] [place] [address] Care Team Providers Care Retort Engineer Name Role Phone Kaylynn Munoz DO Primary Care Provider Encounter Details Date Type Department Care Team (Late st Contact Info) Description 07/21/2006 Outpatient Historical [facility] Internal Medicine- [address] [place] [address] Vishal Bernabe MD [address] [facility] [place] [address] DM w/o Complication Type II (CMS/HCC) (Primary Dx); Chronic Pain Syndrome; Coronary Atherosclerosis of [place] Coronary Artery Social History Tobacco Use Types Packs/Day Years Used Date Smoking Tobacco: Never Assessed Comments Unknown Sex and Gender Information Value Date Recorded Sex Assigned at Not on file Legal Sex Female 5:59 AM DISPATCHER CLERK Gender Identity Not on file Sexual Orientation Not on file documented as of this encounter Plan of Treatment Not on file documented as of this encounter Visit Diagnoses Diagnosis Type II or unspecified type diabetes mellitus without mention of complication, not stated as uncontrolled- Primary Chronic pain syndrome Coronary atherosclerosis of [place] coronary artery documented in this encounter Care Teams Retort Engineer Relationship Specialty Start Date End Date Kaylynn Munoz DO [address] [place] [address] PCP - General Family Practice 05/17/13 documented as of this encounter
--- OUTSIDE RECORDS SUMMARY | 2025-03-22 15:01 | XMS_ITS | Encounter Summary ---
Author Organization [facility] Address [address] [place] [address] Care Team Providers Care Business English Instructor Name Role Phone Kaylynn Munoz DO Primary Care Provider [phone] Encounter Details Date Type Department Care Team (Late st Contact Info) Description 06/19/2006 Outpatient Historical [facility] Internal Medicine- [address] [place] [address] Vishal Bernabe MD [address] [facility] [place] [address] Chronic Pain Syndrome (Primary Dx); DM w/o Complication Type II (CMS/HCC); Esophageal Reflux; Female Stress Incontinence Social History Tobacco Use Types Packs/Day Years Used Date Smoking Tobacco: Never Assessed Comments Unknown Sex and Gender Information Value Date Recorded Sex Assigned at Not on file Legal Sex Female 5:59 AM EXERCISE SCIENCE INSTRUCTOR Gender Identity Not on file Sexual Orientation Not on file documented as of this encounter Plan of Treatment Not on file documented as of this encounter Visit Diagnoses Diagnosis Chronic pain syndrome- Primary Type II or unspecified type diabetes mellitus without mention of complication, not stated as uncontrolled Esophageal reflux Female stress incontinence documented in this encounter Care Teams Business English Instructor Relationship Specialty Start Date End Date Kaylynn Munoz DO [address] [place] [address] PCP - General Family Practice 05/17/13 documented as of this encounter
--- OUTSIDE RECORDS SUMMARY | 2025-03-22 15:01 | XMS_ITS | Encounter Summary ---
Author Organization [facility] Address [address] [place] [address] Care Team Providers Care Staff Genetic Counselor Name Role Phone Kaylynn Munoz DO Primary Care Provider [phone] Encounter Details Date Type Department Care Team (Latest Contact Info) Description 05/06/2001 Outpatient Historical HIS [facility] Chance Jimenez MD [address] [place] [address] ALLERGIC RHINITIS NOS (Primary Dx); STOMACH FUNCTION DIS NEC; HYPERLIPIDEMIA NEC/NOS; EDEMA Social History Tobacco Use Types Packs/Day Years Used Date Smoking Tobacco: Never Assessed Comments Unknown Sex and Gender Information Value Date Recorded Sex Assigned at Not on file Legal Sex Female 5:59 AM PLATING STRIPPER Gender Identity Not on file Sexual Orientation Not on file documented as of this encounter Plan of Treatment Not on file documented as of this encounter Visit Diagnoses Diagnosis Allergic rhinitis, cause unspecified- Primary Dyspepsia and other specified disorders of function of stomach Other and unspecified hyperlipidemia Edema documented in this encounter Care Teams Staff Genetic Counselor Relationship Specialty Start Date End Date Kaylynn Munoz DO [address] [place] [address] PCP - General Family Practice 05/17/13 documented as of this encounter
--- OUTSIDE RECORDS SUMMARY | 2025-03-22 15:01 | XMS_ITS | Encounter Summary ---
Author Organization [facility] Address [address] [place] [address] Care Team Providers Care Cloth Baler Name Role Phone Kaylynn Munoz DO Primary Care Provider Encounter Details Date Type Department Care Team (Latest Contact Info) Description 03/22/2001 Outpatient Historical HIS [facility] Chance Jimenez MD [address] [place] [address] CORONARY ATHEROSCLER UNSPEC VESSEL (Primary Dx); HYPERLIPIDEMIA NEC/NOS; HYPERTENSION NOS Social History Tobacco Use Types Packs/Day Years Used Date Smoking Tobacco: Never Assessed Comments Unknown Sex and Gender Information Value Date Recorded Sex Assigned at Not on file Legal Sex Female 5:59 AM PHARMACY INTAKE TECHNICIAN Gender Identity Not on file Sexual Orientation Not on file documented as of this encounter Plan of Treatment Not on file documented as of this encounter Visit Diagnoses Diagnosis Coronary atherosclerosis of unspecified type of vessel, [place] or graft- Primary Other and unspecified hyperlipidemia Unspecified essential hypertension documented in this encounter Care Teams Cloth Baler Relationship Specialty Start Date End Date Kaylynn Munoz DO [address] [place] [address] PCP - General Family Practice 05/17/13 documented as of this encounter
--- OUTSIDE RECORDS SUMMARY | 2025-03-22 15:01 | XMS_ITS | Encounter Summary ---
Author Organization [facility] Address [address] [facility] Attn: [place] [address] Care Team Providers Care Energy Projects Lead Name Role Phone Kaylynn Munoz DO Primary Care Provider [phone] Encounter Details Date Type Department Care Team (Late st Contact Info) Description 06/15/2000 Inpatient Historical Hieu Lott MD NO ADDRESS ON FILE Social History Tobacco Use Types Packs/Day Years Used Date Smoking Tobacco: Never Assessed Comments Unknown Sex and Gender Information Value Date Recorded Sex Assigned at Not on file Legal Sex Female 5:59 AM COIL WINDER REPAIR Gender Identity Not on file Sexual Orientation Not on file documented as of this encounter Plan of Treatment Not on file documented as of this encounter Visit Diagnoses Not on filedocumented in this encounter Care Teams Energy Projects Lead Relationship Specialty Start Date End Date Kaylynn Munoz DO [address] [place] [address] PCP - General Family Practice 05/17/13 documented as of this encounter
--- OUTSIDE RECORDS SUMMARY | 2025-03-22 15:01 | XMS_ITS | Encounter Summary ---
Author Organization [facility] Address [address] [place] [address] Care Team Providers Care Roll Off Driver Name Role Phone Kaylynn Munoz DO Primary Care Provider [phone] Encounter Details Date Type Department Care Team (Latest Contact Info) Description 10/28/2001 Outpatient Historical HIS [facility] Chance Jimenez MD [address] [place] [address] OSTEOARTHROS NOS-PELVIS (Primary Dx); SACROILIITIS NEC Social History Tobacco Use Types Packs/Day Years Used Date Smoking Tobacco: Never Assessed Comments Unknown Sex and Gender Information Value Date Recorded Sex Assigned at Not on file Legal Sex Female 5:59 AM GRAPHIC DESIGNER Gender Identity Not on file Sexual Orientation Not on file documented as of this encounter Plan of Treatment Not on file documented as of this encounter Visit Diagnoses Diagnosis Osteoarthrosis, unspecified whether generalized or localized, pelvic region and thigh- Primary Sacroiliitis, not elsewhere classified documented in this encounter Care Teams Roll Off Driver Relationship Specialty Start Date End Date Kaylynn Munoz DO [address] [place] [address] PCP - General Family Practice 05/17/13 documented as of this encounter
--- OUTSIDE RECORDS SUMMARY | 2025-03-22 15:01 | XMS_ITS | Encounter Summary ---
Author Organization [facility] Address [address] [place] [address] Care Team Providers Care Coronary Care Unit Nurse Name Role Phone Kaylynn Munoz DO Primary Care Provider Encounter Details Date Type Department Care Team (Latest Contact Info) Description 11/27/2000 Outpatient Historical HIS [facility] Chance Jimenez MD [address] [place] [address] Intermediate coronary syndrome (CMS/HCC) (Primary Dx) Social History Tobacco Use Types Packs/Day Years Used Date Smoking Tobacco: Never Assessed Comments Unknown Sex and Gender Information Value Date Recorded Sex Assigned at Not on file Legal Sex Female 5:59 AM PAPER CORE MACHINE OPERATOR Gender Identity Not on file Sexual Orientation Not on file documented as of this encounter Plan of Treatment Not on file documented as of this encounter Visit Diagnoses Diagnosis Intermediate coronary syndrome (CMS/HCC)- Primary Intermediate coronary syndrome documented in this encounter Care Teams Coronary Care Unit Nurse Relationship Specialty Start Date End Date Kaylynn Munoz DO [address] [place] [address] PCP - General Family Practice 05/17/13 documented as of this encounter
--- OUTSIDE RECORDS SUMMARY | 2025-03-22 15:01 | XMS_ITS | Encounter Summary ---
Author Organization [facility] Address [address] [place] [address] Care Team Providers Care Finish Inspector Name Role Phone Kaylynn Munoz DO Primary Care Provider Encounter Details Date Type Department Care Team (Late st Contact Info) Description 11/25/2006 Outpatient Historical [facility] Internal Medicine- [address] [place] [address] Vishal Bernabe MD [address] [facility] [place] [address] DM w/o Complication Type II (CMS/HCC) (Primary Dx); Chronic Pain Syndrome; Lumbago; Muscle Weakness Social History Tobacco Use Types Packs/Day Years Used Date Smoking Tobacco: Never Assessed Comments Unknown Sex and Gender Information Value Date Recorded Sex Assigned at Not on file Legal Sex Female 5:59 AM PETROLEUM REFINERY OPERATOR Gender Identity Not on file Sexual Orientation Not on file documented as of this encounter Plan of Treatment Not on file documented as of this encounter Visit Diagnoses Diagnosis Type II or unspecified type diabetes mellitus without mention of complication, not stated as uncontrolled- Primary Chronic pain syndrome Lumbago Muscle weakness Muscle weakness (generalized) documented in this encounter Care Teams Finish Inspector Relationship Specialty Start Date End Date Kaylynn Munoz DO [address] [place] [address] PCP - General Family Practice 05/17/13 documented as of this encounter
--- OUTSIDE RECORDS SUMMARY | 2025-03-22 15:01 | XMS_ITS | Encounter Summary ---
Author Organization [facility] Address [address] [place] [address] Care Team Providers Care Supervisor Blast Furnace Name Role Phone Kaylynn Munoz DO Primary Care Provider Encounter Details Date Type Department Care Team (Latest Contact Info) Description 10/08/2001 Outpatient Historical [facility] Neurology [address], [address] [place] [address] [place] [address] [place] [address] Pain in limb (Primary Dx); MUSCLE/LIGAMENT DIS NOS Social History Tobacco Use Types Packs/Day Years Used Date Smoking Tobacco: Never Assessed Comments Unknown Sex and Gender Information Value Date Recorded Sex Assigned at Not on file Legal Sex Female 5:59 AM WATER PUMPER Gender Identity Not on file Sexual Orientation Not on file documented as of this encounter Plan of Treatment Not on file documented as of this encounter Visit Diagnoses Diagnosis Pain in limb- Primary Pain in soft tissues of limb Unspecified disorder of muscle, ligament, and fascia documented in this encounter Care Teams Supervisor Blast Furnace Relationship Specialty Start Date End Date Kaylynn Munoz DO [address] [place] [address] PCP - General Family Practice 05/17/13 documented as of this encounter
--- OUTSIDE RECORDS SUMMARY | 2025-03-22 15:01 | XMS_ITS | Encounter Summary ---
Author Organization [facility] Address [address] [place] [address] Care Team Providers Care Breakfast And Room Attendant Name Role Phone Kaylynn Munoz DO Primary Care Provider [phone] Encounter Details Date Type Department Care Team (Latest Contact Info) Description 07/31/2000 Outpatient Historical [facility] Chance Jimenez MD [address] [place] [address] Lumbago (Primary Dx); Neuralgia, neuritis, and radiculitis, unspecified; Intermediate coronary syndrome (CMS/HCC); Edema Social History Tobacco Use Types Packs/Day Years Used Date Smoking Tobacco: Never Assessed Comments Unknown Sex and Gender Information Value Date Recorded Sex Assigned at Not on file Legal Sex Female 5:59 AM TAX PROCESSOR Gender Identity Not on file Sexual Orientation Not on file documented as of this encounter Plan of Treatment Not on file documented as of this encounter Visit Diagnoses Diagnosis Lumbago- Primary Neuralgia, neuritis, and radiculitis, unspecified Intermediate coronary syndrome (CMS/HCC) Intermediate coronary syndrome Edema documented in this encounter Care Teams Breakfast And Room Attendant Relationship Specialty Start Date End Date Kaylynn Munoz DO [address] [place] [address] PCP - General Family Practice 05/17/13 documented as of this encounter
--- OUTSIDE RECORDS SUMMARY | 2025-03-22 15:01 | XMS_ITS | Encounter Summary ---
Author Organization [facility] Address [address] [place] [address] Care Team Providers Care Plc Engineer Name Role Phone Kaylynn Munoz DO Primary Care Provider Encounter Details Date Type Department Care Team (Latest Contact Info) Description 02/16/2001 Outpatient Historical [facility] Chance Jimenez MD [address] [place] [address] Other and unspecified hyperlipidemia (Primary Dx); Encounter for long-term (current) use of other medications Social History Tobacco Use Types Packs/Day Years Used Date Smoking Tobacco: Never Assessed Comments Unknown Sex and Gender Information Value Date Recorded Sex Assigned at Not on file Legal Sex Female 5:59 AM ACID EXTRACTOR Gender Identity Not on file Sexual Orientation Not on file documented as of this encounter Plan of Treatment Not on file documented as of this encounter Visit Diagnoses Diagnosis Other and unspecified hyperlipidemia- Primary Encounter for long-term (current) use of other medications documented in this encounter Care Teams Plc Engineer Relationship Specialty Start Date End Date Kaylynn Munoz DO [address] [place] [address] PCP - General Family Practice 05/17/13 documented as of this encounter
--- OUTSIDE RECORDS SUMMARY | 2025-03-22 15:01 | XMS_ITS | Encounter Summary ---
Author Organization [facility] Address [address] [place] [address] Care Team Providers Care Auto Tester Name Role Phone Kaylynn Munoz DO Primary Care Provider Encounter Details Date Type Department Care Team (Latest Contact Info) Description 12/11/2000 Outpatient Historical [facility] Chance Jimenez MD [address] [place] [address] Other chest pain (Primary Dx); Other malaise and fatigue; Other and unspecified adverse effect of drug, medicinal and biological substance Social History Tobacco Use Types Packs/Day Years Used Date Smoking Tobacco: Never Assessed Comments Unknown Sex and Gender Information Value Date Recorded Sex Assigned at Not on file Legal Sex Female 5:59 AM TRAIN MASTER Gender Identity Not on file Sexual Orientation Not on file documented as of this encounter Plan of Treatment Not on file documented as of this encounter Visit Diagnoses Diagnosis Other chest pain- Primary Other malaise and fatigue Other and unspecified adverse effect of drug, medicinal and biological substance documented in this encounter Care Teams Auto Tester Relationship Specialty Start Date End Date Kaylynn Munoz DO [address] [place] [address] PCP - General Family Practice 05/17/13 documented as of this encounter
--- OUTSIDE RECORDS SUMMARY | 2025-03-22 15:01 | XMS_ITS | Encounter Summary ---
Author Organization [facility] Address [address] [place] [address] Care Team Providers Care Engineering Equipment Operator Name Role Phone Kaylynn Munoz DO Primary Care Provider Encounter Details Date Type Department Care Team (Late st Contact Info) Description 09/25/2006 Outpatient Historical [facility] Internal Medicine- [address] [place] [address] Vishal Bernabe MD [address] [facility] [place] [address] Unspecified Asthma (Primary Dx); Unspecified Chest Pain; Chronic Pain Syndrome Social History Tobacco Use Types Packs/Day Years Used Date Smoking Tobacco: Never Assessed Comments Unknown Sex and Gender Information Value Date Recorded Sex Assigned at Not on file Legal Sex Female 5:59 AM SANDWICH PEDDLER Gender Identity Not on file Sexual Orientation Not on file documented as of this encounter Plan of Treatment Not on file documented as of this encounter Visit Diagnoses Diagnosis Unspecified asthma(493.90)- Primary Unspecified asthma Chest pain, unspecified Chronic pain syndrome documented in this encounter Care Teams Engineering Equipment Operator Relationship Specialty Start Date End Date Kaylynn Munoz DO [address] [place] [address] PCP - General Family Practice 05/17/13 documented as of this encounter
--- OUTSIDE RECORDS SUMMARY | 2025-03-22 15:01 | XMS_ITS | Encounter Summary ---
Author Organization [facility] Address [address] [place] [address] Care Team Providers Care Comic Book Designer Name Role Phone Kaylynn Munoz DO Primary Care Provider [phone] Encounter Details Date Type Department Care Team (Latest Contact Info) Description 06/15/2000 Outpatient Historical [facility] Chance Jimenez MD [address] [place] [address] Chest pain, unspecified (Primary Dx) Social History Tobacco Use Types Packs/Day Years Used Date Smoking Tobacco: Never Assessed Comments Unknown Sex and Gender Information Value Date Recorded Sex Assigned at Not on file Legal Sex Female 5:59 AM RED CAP Gender Identity Not on file Sexual Orientation Not on file documented as of this encounter Plan of Treatment Not on file documented as of this encounter Visit Diagnoses Diagnosis Chest pain, unspecified- Primary documented in this encounter Care Teams Comic Book Designer Relationship Specialty Start Date End Date Kaylynn Munoz DO [address] [place] [address] PCP - General Family Practice 05/17/13 documented as of this encounter
--- OUTSIDE RECORDS SUMMARY | 2025-03-22 15:01 | XMS_ITS | Encounter Summary ---
Author Organization [facility] Address [address] [place] [address] Care Team Providers Care Finish Mender Name Role Phone Kaylynn Munoz Primary Care Provider Reason for Referral * Outpatient Services (Routine) - Closed Specialty Diagnoses / Procedures Referred By Le t Referred To Contact Radiology Diagnoses Dysuria Procedures XR ABDOMEN 1 VW Thee Skelton MD [address] [place] [address] Phone: tel: fax: [facility] Imaging Services [address] [place] [address] Referral ID Status Reason Start Date Expiration Date Visits Re quested Visits Authorized [id number] Closed 02/10/2014 03/13/2015 1 1 Encounter Details Date Type Department Care Team (Late st Contact Info) Description 02/10/2014 Ancillary Orders [facility] Urology- [address], 3[address] [place] [address] Thee Skelton MD [address] [place] [address] Dysuria (Primary Dx) Social History Tobacco Use Types Packs/Day Years Used Date Smoking Tobacco: Never Alcohol Use Standard Drinks/Week Comments No 0 (1 standard drink = 0.6 oz pur e alcohol) Comments No Sex and Gender Information Value Date Recorded Sex Assigned at Not on file Legal Sex Female 5:59 AM BLACKJACK DEALER Gender Identity Not on file Sexual Orientation Not on file Occupation Industry Job Start Date Job End Date Multiple jobs. Not on file Not on file Not on file documented as of this encounter Plan of Treatment Not on file documented as of this encounter Results * XR ABDOMEN 1 VW (02/13/2014 10:25 AM CDT) Anatomical Region Laterality Modality Abdomen Computed Radiogr aphy 02/13/2014 10:0 5 AM CDT Impressions 02/13/2014 12:39 PM CDT IMPRESSION: See report below. {SYSTEM CR headings}[ ] No free air or free fluid is seen within the abdomen. The intestinal gas pattern is normal. No soft tissue masses are seen. There is one small calcification overlying the upper left sacrum which potentially could be a ureteral calculus. This needs clinical correlation. Some phleboliths are present within the pelvis. Mild degenerative changes involve the lower lumbar spine. Impression: Possible left ureteral calculus. Degenerative changes spine per Narrative Procedure Note Jackson Frost MD - 02/13/2014 IMPRESSION IMPRESSION: See report below. {SYSTEM CR headings}[ ] No free air or free fluid is seen within the abdomen. The intestinal gas pattern is normal. No soft tissue masses are seen. There is one small calcification overlying the upper left sacrum which potentially could be a ureteral calculus. This needs clinical correlation. Some phleboliths are present within the pelvis. Mild degenerative changes involve the lower lumbar spine. Impression: Possible left ureteral calculus. Degenerative changes spine per us Thee Skelton MD DIAGNOSTIC IMAGING ORDERABLE S Final Result documented in this encounter Visit Diagnoses Diagnosis Dysuria- Primary Dysuria documented in this encounter Care Teams Finish Mender Relationship Specialty Start Date End Date Kaylynn Munoz DO [address] [place] [address] PCP - General Family Practice 05/17/13 documented as of this encounter
--- OUTSIDE RECORDS SUMMARY | 2025-03-22 15:01 | XMS_ITS | Encounter Summary ---
Author Organization [facility] Address [address] [place] [address] Care Team Providers Care Applied Psychology Professor Name Role Phone Kaylynn Munoz DO Primary Care Provider [phone] Encounter Details Date Type Department Care Team (Late st Contact Info) Description 10/26/2006 Outpatient Historical [facility] Internal Medicine- [address] [place] [address] Vishal Bernabe MD [address] [facility] [place] [address] Chronic Pain Syndrome (Primary Dx); Unspecified Hereditary and Idiopathic Peripheral Neuropathy; Abnormality of Gait Social History Tobacco Use Types Packs/Day Years Used Date Smoking Tobacco: Never Assessed Comments Unknown Sex and Gender Information Value Date Recorded Sex Assigned at Not on file Legal Sex Female 5:59 AM SENIOR QA AUTOMATION ENGINEER Gender Identity Not on file Sexual Orientation Not on file documented as of this encounter Plan of Treatment Not on file documented as of this encounter Visit Diagnoses Diagnosis Chronic pain syndrome- Primary Unspecified hereditary and idiopathic peripheral neuropathy Abnormality of gait documented in this encounter Care Teams Applied Psychology Professor Relationship Specialty Start Date End Date Kaylynn Munoz DO [address] [place] [address] PCP - General Family Practice 05/17/13 documented as of this encounter
--- OUTSIDE RECORDS SUMMARY | 2025-03-22 15:01 | XMS_ITS | Encounter Summary ---
Author Organization [facility] Address [address] [place] [address] Care Team Providers Care Restaurant Crew Name Role Phone Kaylynn Munoz DO Primary Care Provider Encounter Details Date Type Department Care Team (Latest Contact Info) Description 11/17/2006 Outpatient Historical [facility] Neurology [address] [facility], [address] [place] [address] Megha Ortega MD [address] [place] [address] Muscle Weakness (Primary Dx) Social History Tobacco Use Types Packs/Day Years Used Date Smoking Tobacco: Never Assessed Comments Unknown Sex and Gender Information Value Date Recorded Sex Assigned at Not on file Legal Sex Female 5:59 AM ENTOMOLOGY TEACHER Gender Identity Not on file Sexual Orientation Not on file documented as of this encounter Plan of Treatment Not on file documented as of this encounter Visit Diagnoses Diagnosis Muscle weakness- Primary Muscle weakness (generalized) documented in this encounter Care Teams Restaurant Crew Relationship Specialty Start Date End Date Kaylynn Munoz DO [address] [place] [address] PCP - General Family Practice 05/17/13 documented as of this encounter
--- OUTSIDE RECORDS SUMMARY | 2025-03-22 15:01 | XMS_ITS | Encounter Summary ---
Author Organization [facility] Address [address] [place] [address] Care Team Providers Care Optics Technical Officer Name Role Phone Kaylynn Munoz DO Primary Care Provider Encounter Details Date Type Department Care Team (Latest Contact Info) Description 06/22/2000 Outpatient Historical [facility] Kemar Luna MD [address] [facility] [address] [place] [address] Lump or mass in breast (Primary Dx); Mastodynia Social History Tobacco Use Types Packs/Day Years Used Date Smoking Tobacco: Never Assessed Comments Unknown Sex and Gender Information Value Date Recorded Sex Assigned at Not on file Legal Sex Female 5:59 AM SENIOR OFFICER Gender Identity Not on file Sexual Orientation Not on file documented as of this encounter Plan of Treatment Not on file documented as of this encounter Visit Diagnoses Diagnosis Lump or mass in breast- Primary Mastodynia documented in this encounter Care Teams Optics Technical Officer Relationship Specialty Start Date End Date Kaylynn Munoz DO [address] [place] [address] PCP - General Family Practice 05/17/13 documented as of this encounter
--- OUTSIDE RECORDS SUMMARY | 2025-03-22 15:02 | XMS_ITS | Encounter Summary ---
Author Organization [facility] Address [address] [place] [address] Care Team Providers Care Asphalt Heater Tender Name Role Phone Kaylynn Munoz DO Primary Care Provider Encounter Details Date Type Department Care Team (Late st Contact Info) Description 12/01/2001 Outpatient Historical [facility] Dermatology- [address] [place] [address] Carlos Lobo MD [address] [place] [address] DYSCHROMIA OTHER (Primary Dx); Inflamed seborr keratos Social History Tobacco Use Types Packs/Day Years Used Date Smoking Tobacco: Never Assessed Comments Unknown Sex and Gender Information Value Date Recorded Sex Assigned at Not on file Legal Sex Female 5:59 AM FREIGHT TEAM ASSOCIATE Gender Identity Not on file Sexual Orientation Not on file documented as of this encounter Plan of Treatment Not on file documented as of this encounter Visit Diagnoses Diagnosis Other dyschromia- Primary Inflamed seborr keratos Inflamed seborrheic keratosis documented in this encounter Care Teams Asphalt Heater Tender Relationship Specialty Start Date End Date Kaylynn Munoz DO [address] [place] [address] PCP - General Family Practice 05/17/13 documented as of this encounter
--- OUTSIDE RECORDS SUMMARY | 2025-03-22 15:02 | XMS_ITS | Encounter Summary ---
Author Organization [facility] Address [address] [place] [address] Care Team Providers Care Ships Equipment Engineer Name Role Phone Kaylynn Munoz DO Primary Care Provider Encounter Details Date Type Department Care Team (Late st Contact Info) Description 09/15/2005 Outpatient Historical [facility] Internal Medicine- [address] [place] [address] Vishal Bernabe MD [address] [facility] [place] [address] Other General Symptoms (Primary Dx); Lumbago; Coronary Atherosclerosis of [place] Coronary Artery Social History Tobacco Use Types Packs/Day Years Used Date Smoking Tobacco: Never Assessed Comments Unknown Sex and Gender Information Value Date Recorded Sex Assigned at Not on file Legal Sex Female 5:59 AM RETAIL FIELD SUPERVISOR Gender Identity Not on file Sexual Orientation Not on file documented as of this encounter Plan of Treatment Not on file documented as of this encounter Visit Diagnoses Diagnosis Other general symptoms(780.99)- Primary Other general symptoms Lumbago Coronary atherosclerosis of [place] coronary artery documented in this encounter Care Teams Ships Equipment Engineer Relationship Specialty Start Date End Date Kaylynn Munoz DO [address] [place] [address] PCP - General Family Practice 05/17/13 documented as of this encounter
--- OUTSIDE RECORDS SUMMARY | 2025-03-22 15:02 | XMS_ITS | Encounter Summary ---
Author Organization [facility] Address [address] [place] [address] Care Team Providers Care Tire Setter Name Role Phone Kaylynn Munoz DO Primary Care Provider [phone] Encounter Details Date Type Department Care Team (Late st Contact Info) Description 07/15/2005 Outpatient Historical [facility] Internal Medicine- [place] [address] [place] [address] Vishal Bernabe MD [address] [facility] [place] [address] Other General Symptoms (Primary Dx); Unspecified Asthma Social History Tobacco Use Types Packs/Day Years Used Date Smoking Tobacco: Never Assessed Comments Unknown Sex and Gender Information Value Date Recorded Sex Assigned at Not on file Legal Sex Female 5:59 AM ACUPUNCTURIST Gender Identity Not on file Sexual Orientation Not on file documented as of this encounter Plan of Treatment Not on file documented as of this encounter Visit Diagnoses Diagnosis Other general symptoms(780.99)- Primary Other general symptoms Unspecified asthma(493.90) Unspecified asthma documented in this encounter Care Teams Tire Setter Relationship Specialty Start Date End Date Kaylynn Munoz DO [address] [place] [address] PCP - General Family Practice 05/17/13 documented as of this encounter
--- OUTSIDE RECORDS SUMMARY | 2025-03-22 15:02 | XMS_ITS | Encounter Summary ---
Author Organization [facility] Address [address] [place] [address] Care Team Providers Care Assembler Tester Name Role Phone Kaylynn Munoz DO Primary Care Provider Encounter Details Date Type Department Care Team (Late st Contact Info) Description 12/14/2008 [facility]illary Orders [facility] [address] [place] [address] Bradley Walsh MD [address] [place], [place] [address] [place] [address] [place], [place] [address] Social History Tobacco Use Types Packs/Day Years Used Date Smoking Tobacco: Never Alcohol Use Standard Drinks/Week Comments No 0 (1 standard drink = 0.6 oz pur e alcohol) Comments No Sex and Gender Information Value Date Recorded Sex Assigned at Not on file Legal Sex Female 5:59 AM PUBLIC HEALTH AIDES TEACHER Gender Identity Not on file Sexual Orientation Not on file Occupation Industry Job Start Date Job End Date Multiple jobs. Not on file Not on file Not on file documented as of this encounter Plan of Treatment Not on file documented as of this encounter Visit Diagnoses Not on filedocumented in this encounter Care Teams Assembler Tester Relationship Specialty Start Date End Date Kaylynn Munoz DO [address] [place] [address] PCP - General Family Practice 05/17/13 documented as of this encounter
--- OUTSIDE RECORDS SUMMARY | 2025-03-22 15:02 | XMS_ITS | Encounter Summary ---
Author Organization [facility] Address [address] [place] [address] Care Team Providers Care Film Washer Name Role Phone Kaylynn Munoz DO Primary Care Provider [phone] Encounter Details Date Type Department Care Team (Late st Contact Info) Description 05/10/2007 Outpatient Historical [facility] Internal Medicine- [address] [place] [address] Vishal Bernabe MD [address] [facility] [place] [address] Social History Tobacco Use Types Packs/Day Years Used Date Smoking Tobacco: Never Assessed Comments No Sex and Gender Information Value Date Recorded Sex Assigned at Not on file Legal Sex Female 5:59 AM DAIRY WORKER Gender Identity Not on file Sexual Orientation Not on file documented as of this encounter Plan of Treatment Not on file documented as of this encounter Visit Diagnoses Not on filedocumented in this encounter Care Teams Film Washer Relationship Specialty Start Date End Date Kaylynn Munoz DO [address] [place] [address] PCP - General Family Practice 05/17/13 documented as of this encounter
--- OUTSIDE RECORDS SUMMARY | 2025-03-22 15:02 | XMS_ITS | Encounter Summary ---
Author Organization [facility] Address [address] [place] [address] Care Team Providers Care Casino Surveillance Officer Name Role Phone Kaylynn Munoz DO Primary Care Provider Encounter Details Date Type Department Care Team (Late st Contact Info) Description 09/16/2005 Outpatient Historical [facility] Internal Medicine- [address] [place] [phone] Social History Tobacco Use Types Packs/Day Years Used Date Smoking Tobacco: Never Assessed Comments Unknown Sex and Gender Information Value Date Recorded Sex Assigned at Not on file Legal Sex Female 5:59 AM PATTERN KEEPER Gender Identity Not on file Sexual Orientation Not on file documented as of this encounter Plan of Treatment Not on file documented as of this encounter Visit Diagnoses Not on filedocumented in this encounter Care Teams Casino Surveillance Officer Relationship Specialty Start Date End Date Kaylynn Munoz DO [address] [place] [address] PCP - General Family Practice 05/17/13 documented as of this encounter
--- OUTSIDE RECORDS SUMMARY | 2025-03-22 15:02 | XMS_ITS | Encounter Summary ---
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); Other General Symptoms; Other and Unspecified Hyperlipidemia Social History Tobacco Use Types Packs/Day Years Used Date Smoking Tobacco: Never Assessed Comments Unknown Sex and Gender Information Value Date Recorded Sex Assigned at Not on file Legal Sex Female 5:59 AM LAUNDRY ROUTEMAN Gender Identity Not on file Sexual Orientation Not on file documented as of this encounter Plan of Treatment Not on file documented as of this encounter Visit Diagnoses Diagnosis Type II or unspecified type diabetes mellitus without mention of complication, not stated as uncontrolled- Primary Other general symptoms(780.99) Other general symptoms Other and unspecified hyperlipidemia documented in this encounter Care Teams Chief Wharfinger Relationship Specialty Start Date End Date Kaylynn Munoz DO [address] [place] [address] PCP - General Family Practice 05/17/13 documented as of this encounter
--- OUTSIDE RECORDS SUMMARY | 2025-03-22 15:02 | XMS_ITS | Encounter Summary ---
Author Organization [facility] Address [address] [place] [address] Care Team Providers Care Pot Builder Name Role Phone Kaylynn Munoz DO Primary Care Provider Encounter Details Date Type Department Care Team (Latest Contact Info) Description 12/14/2008 Ancillary Orders [facility] Cardiac Information Technology Data Analyst [address] [place] [address] Bradley Walsh MD [address] [place], [place] [address]y [place] [address] [place] [address] Cor Athrscl-Uns Vessel; Other Chest Pain; Nonspecific Abnormal Unspecified Cardiovascular Function Study Social History Tobacco Use Types Packs/Day Years Used Date Smoking Tobacco: Never Alcohol Use Standard Drinks/Week Comments No 0 (1 standard drink = 0.6 oz pur e alcohol) Comments No Sex and Gender Information Value Date Recorded Sex Assigned at Not on file Legal 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 Not on file Not on file Not on file documented as of this encounter Plan of Treatment Not on file documented as of this encounter Results * CL LT HEART CATHETERIZATION (12/18/2008 1:31 PM CDT) [facility] - 12/18/2008 3:21 PM CDT 1. No obstructive coronary artery disease. 2. Normal left ventricular function. 3. No mitral insufficiency. tsb/ / D [id number] V [id number] [facility] - 12/18/2008 3:21 PM CDT DATE: 12/18/2008 INDICATION: Diabetic patient with recurrent episodes of chest pain and nuclear stress test suggesting reversible inferior ischemia. The patient was draped and prepped in the usual sterile manner, the right groin anesthetized with 1% local lidocaine solution. Access to the right femoral artery was obtained with an argon needle with placement of a 6 Swazi introducer. Left ventricular pressures, selective coronary angiography, left ventriculography were performed with 6 Swazi right and left Philip 4 catheters and straight pigtail catheter. Angio-Seal was used to close the right femoral puncture site at the end of the procedure with good hemostasis. RESULTS: A. Hemodynamic data: Left ventricular systolic pressure 160 mmHg, left ventricular end-diastolic pressure 18 mmHg, aortic pressure 160/84 mmHg. B. Right coronary artery is a dominant vessel giving rise to a small posterior descending artery and 3 small posterolateral branches. The right coronary artery is free of obstructive plaque. C. Left coronary system: The left main coronary artery is free of obstructive plaque. The circumflex gives off a medium-size marginal and a small posterolateral branch. The circumflex is free of obstructive plaque. The left anterior descending artery gives off a small diagonal branch. Left anterior descending is free of obstructive plaque. D. Left ventriculogram: Left ventricular systolic function is normal, left ventricular ejection fraction 65%. No mitral insufficiency. Procedure Note Bradley Walsh MD - 12/18/2008 DATE: 12/18/2008 INDICATION: Diabetic patient with recurrent episodes of chest pain andnuclear stress test suggesting reversible inferior ischemia. The patient was draped and prepped in the usual sterile manner, the rightgroin anesthetized with 1% local lidocaine solution. Access to the rightfemoral artery was obtained with an argon needle with placement of a 6French introducer. Left ventricular pressures, selective coronaryangiography, left ventriculography were performed with 6 Swazi right andleft Philip 4 catheters and straight pigtail catheter. Angio-Seal wasused to close the right femoral puncture site at the end of the procedurewith good hemostasis. RESULTS: A. Hemodynamic data: Left ventricular systolic pressure 160 mmHg, leftventricular end-diastolic pressure 18 mmHg, aortic pressure 160/84 mmHg. B. Right coronary artery is a dominant vessel giving rise to a smallposterior descending artery and 3 small posterolateral branches. The rightcoronary artery is free of obstructive plaque. C. Left coronary system: The left main coronary artery is free ofobstructive plaque. The circumflex gives off a medium-size marginal and asmall posterolateral branch. The circumflex is free of obstructive plaque.The left anterior descending artery gives off a small diagonal branch.Left anterior descending is free of obstructive plaque. D. Left ventriculogram: Left ventricular systolic function is normal, leftventricular ejection fraction 65%. No mitral insufficiency. IMPRESSION 1. No obstructive coronary artery disease. 2. Normal left ventricular function. 3. No mitral insufficiency. tsb/ / D [id number] V [id number] Bradley Walsh MD FLUOROSCOPY ORDERABLES Final R esult [facility] documented in this encounter Visit Diagnoses Diagnosis Coronary atherosclerosis of unspecified type of vessel, lytton or graft Other chest pain Nonspecific abnormal unspecified cardiovascular function study Nonspecific abnormal unspecified cardiovascular function study Chest pain at rest Chest pain, unspecified Coronary atherosclerosis of unspecified type of vessel, lytton or graft Other chest pain documented in this encounter Care Teams Pot Builder Relationship Specialty Start Date End Date Kaylynn Munoz DO [address] [place] [address] PCP - General Family Practice 05/17/13 documented as of this encounter
--- OUTSIDE RECORDS SUMMARY | 2025-03-22 15:02 | XMS_ITS | Encounter Summary ---
Author Organization [facility] Address [address] [place] [address] Care Team Providers Care Shrimp Trawler Name Role Phone Kaylynn Munoz DO Primary Care Provider Encounter Details Date Type Department Care Team (Latest Contact Info) Description 05/23/2002 Outpatient Historical [facility] Chance Jimenez MD [address] [place] [phone] Acute gastritis (Primary Dx); LUMBAGO Social History Tobacco Use Types Packs/Day Years Used Date Smoking Tobacco: Never Assessed Comments Unknown Sex and Gender Information Value Date Recorded Sex Assigned at Not on file Legal Sex Female 5:59 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
--- OUTSIDE RECORDS SUMMARY | 2025-03-22 15:02 | XMS_ITS | Encounter Summary ---
Author Organization [facility] Address [address] [place] [address] Care Team Providers Care Gradall Operator Name Role Phone Kaylynn Munoz DO Primary Care Provider Encounter Details Date Type Department Care Team (Late st Contact Info) Description 05/06/2005 Outpatient Historical [facility] Internal Medicine- [address] [place] [phone] Vishal Bernabe MD [address] [facility] [place] [address] OTHER GENERAL SYMPTOMS (Primary Dx); ASTHMA UNSPECIFIED; ACUTE SINUSITIS NOS Social History Tobacco Use Types Packs/Day Years Used Date Smoking Tobacco: Never Assessed Comments Unknown Sex and Gender Information Value Date Recorded Sex Assigned at Not on file 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
--- OUTSIDE RECORDS SUMMARY | 2025-03-22 15:02 | XMS_ITS | Encounter Summary ---
Author Organization [facility] Address [address] [place] [address] Care Team Providers Care Healthcare Facility Administrator Name Role Phone Kaylynn Munoz DO Primary Care Provider Encounter Details Date Type Department Care Team (Late st Contact Info) Description 07/04/2020 Chart Note [facility] Non Integrated Provider [address] [place] [address] Adam Nicholson MD NO ADDRESS ON FILE Social History Tobacco Use Types Packs/Day Years Used Date Smoking Tobacco: Never Smokeless Tobacco: Never Alcohol Use Standard Drinks/Week Comments No 0 (1 standard drink = 0.6 oz pur e alcohol) Comments No Sex and Gender Information Value Date Recorded Sex Assigned at Not on file Legal Sex Female 5:59 AM IMPORT COORDINATOR Gender Identity Not on file Sexual Orientation Not on file Occupation Industry Job Start Date Job End Date Multiple jobs. Not on file Not on file Not on file COVID-19 Exposure Response Date Recorded In the last month, have you been in contact with someone who was confirmed or suspected to have Coronavirus / COVID-19? No / Unsure 07/05/2020 9:10 AM IMPORT COORDINATOR documented as of this encounter Plan of Treatment Not on file documented as of this encounter Visit Diagnoses Not on filedocumented in this encounter Additional Health Concerns Assessment Noted Time PHQ-9 Depression Total Score: 2 05/02/20 20 10:00 PM IMPORT COORDINATOR documented as of this encounter Care Teams Healthcare Facility Administrator Relationship Specialty Start Date End Date Kaylynn Munoz DO [address] [place] [address] PCP - General Family Practice 05/17/13 documented as of this encounter
--- OUTSIDE RECORDS SUMMARY | 2025-03-22 15:02 | XMS_ITS | Encounter Summary ---
Author Organization [facility] Address [address] [place] [address] Care Team Providers Care Otr Driver Name Role Phone Kaylynn Munoz DO Primary Care Provider Encounter Details Date Type Department Care Team (Latest Contact Info) Description 04/22/2019 Ancillary Orders [facility] [address] [place] [address] Kaylynn Munoz DO [address] [place] [address] Chronic midline low back pain with bilateral sciatica; Osteoporosis without current pathological fracture, unspecified osteoporosis type Social History Tobacco Use Types Packs/Day Years Used Date Smoking Tobacco: Never Alcohol Use Standard Drinks/Week Comments No 0 (1 standard drink = 0.6 oz pur e alcohol) Comments No Sex and Gender Information Value Date Recorded Sex Assigned at Not on file Legal Sex Female 5:59 AM TRAVEL COORDINATOR Gender Identity Not on file Sexual Orientation Not on file Occupation Industry Job Start Date Job End Date Multiple jobs. Not on file Not on file Not on file documented as of this encounter Plan of Treatment Not on file documented as of this encounter Results * XR THORACIC SPINE 3 VW (04/22/2019 11:23 AM TRAVEL COORDINATOR) Anatomical Region Laterality Modality Spine Computed Radiogr aphy 04/22/2019 11:2 3 AM TRAVEL COORDINATOR Impressions 04/22/2019 12:11 PM TRAVEL COORDINATOR IMPRESSION: Please see below. Exam: XR THORACIC SPINE 3 VW Date/Time of Exam: 04/22/2019 11:23 AM Reason For Exam: See Diagnosis. Diagnosis: Chronic midline low back pain with bilateral sciatica; Chronic midline low back pain with bilateral sciatica; Chronic midline low back pain with bilateral sciatica; Osteoporosis without current pathological fracture, unspecified osteoporosis type. Comparison: None FINDINGS: Frontal and lateral projections show mild kyphoscoliosis. Moderate diffuse disc degeneration and spondylosis. No compression fracture or subluxation. Narrative Procedure Note Matteo Martins DO - 04/22/2019 IMPRESSION: Please see below. Exam: XR THORACIC SPINE 3 VW Date/Time of Exam: 04/22/2019 11:23 AM Reason For Exam: See Diagnosis. Diagnosis: Chronic midline low back pain with bilateral sciatica; Chronic midline low back pain with bilateral sciatica; Chronic midline low back pain with bilateral sciatica; Osteoporosis without current pathological fracture, unspecified osteoporosis type. Comparison: None FINDINGS: Frontal and lateral projections show mild kyphoscoliosis. Moderate diffuse disc degeneration and spondylosis. No compression fracture or subluxation. Kaylynn Munoz DO DIAGNOSTIC IMAGING ORDERABL ES Final Result documented in this encounter Visit Diagnoses Diagnosis Chronic midline low back pain with bilateral sciatica Osteoporosis without current pathological fracture, unspecified osteoporosis type Chronic midline low back pain with bilateral sciatica Osteoporosis without current pathological fracture, unspecified osteoporosis type documented in this encounter Additional Health Concerns Assessment Noted Time PHQ-9 Depression Total Score: 2 04/21/20 19 10:00 AM TRAVEL COORDINATOR documented as of this encounter Care Teams Otr Driver Relationship Specialty Start Date End Date Kaylynn Munoz DO [address] [place] [address] PCP - General Family Practice 05/17/13 documented as of this encounter
--- OUTSIDE RECORDS SUMMARY | 2025-03-22 15:02 | XMS_ITS | Patient Health Record ---
Author Organization [facility] Address [address] [place] [address] Care Team Providers Care Assistant To The President Name Role Phone Kaylynn Munoz DO Primary Care Provider Юлия Tavarez Unavailable Fercho Domínguez Unavailable [phone] Allergies Allergen (clinical drug ingredient) Drug/Non Drug Allergy documented on EMR Reaction Allergy Type Onset Date Status Sulfur Unknown Drug Allergy Active Penicillin Unknown Drug Allergy Active Results Component Value Reference Range Flag Notes Microscopic Urine [id number] Reviewed date:03/17/2025 05:28:34 AM Interpretation: Performing Lab: Notes/Report: Diagnosis Description: Other microscopic hematuria RBC U <1 NA WBC U 6 0-5 /HPF HI Bacteria None Seen NA Hyaline Casts 3 NA SQ EPI 3 NA UA Without [place], [place] - [address] Reviewed date:03/16/2025 01:40:47 PM Interpretation: Performing Lab: Notes/Report: Glucose 0 Bili 0 Ketones 0 Sp [place] 1.010 Blood 1+ pH 6.0 Protein +- Urobili 0 Nitrites 0 Leukocytes 0 Reason For Referral Reason Recurrent UTI and ur inary retention Diagnosis 1 Urinary retention (R 33.9) Referred Organization [facility] Referred Provider Fercho Domínguez Referred Address [address],[place], [place],[address], Referred Provider Specialty Urology Referral Priority Routine Medications Medication SIG (Take, Route, Frequency, Duration) Notes Start Date End Date Status LORazepam 0.5 MG Tablet 1 tablet at bedt ros as needed Orally Once a day Active Estradiol 0.01 % Cream 1 gram Vaginal tw ice a week; Duration: 24 days 03/16/2025 Active Gabapentin 100 MG Capsule 1 capsule at b edtime Orally Once a day Active oxyCODONE-Acetaminophen 10-325 MG Tablet 1 tablet as needed Orally every 6 hrs Active Nystatin 379940 UNIT/GM Cream 1 application Externally Twice a day Active Spironolactone 25 MG Tablet 1 tablet Ora lly Once a day Active Insulin Glargine 100 UNIT/ML Solution Pen-injector as directed Subcutaneous Act willi Fluorouracil 5 % Cream 1 application Ext ernally Twice a day Active Bumetanide 1 MG Tablet 1 tablet Orally O nce a day Active Macrobid 100 MG Capsule 1 capsule with f ood Orally every 12 hrs Active Pantoprazole Sodium 40 MG Tablet Delayed Release 1 tablet 1/2 to 1 hour before morning meal Orally Once a day Active Amiodarone HCl 200 MG Tablet 1 tablet Orally Once a day Active Metoprolol Succinate 25 MG Capsule ER 24 Hour Sprinkle 1 capsule Orally Once a day Active Stool Softener & Laxative Active Diclofenac Sodium 1 % Gel as directed Externally Active Losartan Potassium 100 MG Tablet 1 tablet Orally Once a day Active Fluticasone-Salmeterol 100-50 MCG/ACT Aerosol Powder Breath Activated 1 puff Inhalation Twice a day Active Lidocaine 5 % Patch 1 patch remove after 12 hours Externally Once a day Active Levothyroxine Sodium 50 MCG Tablet 1 tablet in the morning on an empty stomach Orally Once a day Active Nitroglycerin 0.4 MG Tablet Sublingual 1 tablet under the tongue and allow to dissolve as needed. Take every 5 minutes up to 3 times if chest pain persists Sublingual Three times a day Active Dulaglutide 3 MG/0.5ML Solution Auto-injector as directed Subcutaneous Active Social History Tobacco Use: Social History Observation Description Date Details (start date - stop date) Never Smoker NA - NA Social History Tobacco Use: Social Info Question Answer Notes Tobacco Control (Standard) Tobacco use: Nonsmoker Section Notes: caffeine-pos denies alcohol Problems Problem Type SNOMED Code ICD Code Onset Dates Problem Status W/U Status Risk Notes Problem Urinary retention (063505032) Urinary retention (R33.9) Active confirmed Problem Microscopic hematuria (844374499) Microhematuria (R31.29) Active confirmed Problem Atrophy of vagina (245931912) Vaginal atrophy (N95.2) Active confirmed Vital Signs Temperature 98.4 degrees Fahrenheit 03/16/2025 Encounters Encounter Location Date Provider Diagnosis [facility] [address] [place] [address] Dr Wellington [address] [place] [address] 03/16/2025 Юлия Bauman Recurrent UTI N39.0 ; Urinary retention R33.9 ; Microhematuria R31.29 and Vaginal atrophy N95.2 [facility] [address] [place] [address] [address] [place] [address] 03/16/2025 Юлия Bauman [facility] [address] [place] [address] Dr [address] [place] [address] 03/15/2025 Fercho Domínguez Assessments Encounter Date Diagnosis (ICD Code) Assessment Notes Treatment Notes Treatment Clinical Notes Section Notes 03/16/2025 Urinary retention (ICD-10 - R33.9) 03/16/2025 Recurrent UTI (ICD-10 - N39.0) 03/16/2025 Microhematuria (ICD-10 - R31.29) 03/16/2025 Vaginal [...] WITH UA AND PVR Plan Of Treatment Next Appt Details Provider Name:Юлия Wall, 04/17/2025 03:10:00 PM, [address], [place], [address], Insurance Providers Payer Name Payer Address Payer Phone Subscriber Number Group Number Insured Name Patient Relationship to Insured Coverage Start Date Coverage End Date [place] [address] [place] [phone] [id number] Elizabeth Cantor Self - patient is the insured for Life Secondary to Medicare [address] [place] [address] [id number] Elizabeth Cantor Self - patient is the insured
--- OUTSIDE RECORDS SUMMARY | 2025-03-22 15:02 | XMS_ITS | Encounter Summary ---
Author Organization [facility] Address [address] [place] [address] Care Team Providers Care Film Historian Name Role Phone Kaylynn Munoz DO Primary Care Provider Encounter Details Date Type Department Care Team (Late st Contact Info) Description 02/06/2006 Outpatient Historical [facility] Internal Medicine- [address] [place] [address] Vishal Bernabe MD [address] [facility] [place] [address] DM w/o Complication Type II (CMS/HCC) (Primary Dx); Other General Symptoms; Acute Sinusitis, Unspecified Social History Tobacco Use Types Packs/Day Years Used Date Smoking Tobacco: Never Assessed Comments Unknown Sex and Gender Information Value Date Recorded Sex Assigned at Not on file Legal Sex Female 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
--- OUTSIDE RECORDS SUMMARY | 2025-03-22 15:02 | XMS_ITS | Encounter Summary ---
Author Organization [facility] Address [address] [place] [address] Care Team Providers Care Um Rn Name Role Phone Kaylynn Muonz DO Primary Care Provider [phone] Encounter Details Date Type Department Care Team (Latest Contact Info) Description 02/10/2002 Outpatient Historical [facility] Chance Jimenez MD [address] [place] [address] ABDOMINAL PAIN UNSPEC SITE (Primary Dx); LUMBAGO; General symptoms NEC Social History Tobacco Use Types Packs/Day Years Used Date Smoking Tobacco: Never Assessed Comments Unknown Sex and Gender Information Value Date Recorded Sex Assigned at Not on file Legal Sex Female 5:59 AM CORRECTIONAL MANAGER Gender Identity Not on file Sexual Orientation Not on file documented as of this encounter Plan of Treatment Not on file documented as of this encounter Visit Diagnoses Diagnosis Abdominal pain, unspecified site- Primary Lumbago General symptoms NEC Other general symptoms documented in this encounter Care Teams Um Rn Relationship Specialty Start Date End Date Kaylynn Munoz DO [address] [place] [address] PCP - General Family Practice 05/17/13 documented as of this encounter
--- OUTSIDE RECORDS SUMMARY | 2025-03-22 15:02 | XMS_ITS | Encounter Summary ---
Author Organization [facility] Address [address] [place] [address] Care Team Providers Care Unix System Administrator Name Role Phone Kaylynn Munoz DO Primary Care Provider Encounter Details Date Type Department Care Team (Latest Contact Info) Description 12/17/2001 Outpatient Historical [facility] Chance Jimenez MD [address] [place] [address] General symptoms NEC (Primary Dx); DIABETES UNCOMPL ADULT-TYPE II ([facility]) Social History Tobacco Use Types Packs/Day Years Used Date Smoking Tobacco: Never Assessed Comments Unknown Sex and Gender Information Value Date Recorded Sex Assigned at Not on file Legal Sex Female 5:59 AM DIAMOND PICKER Gender Identity Not on file Sexual Orientation Not on file documented as of this encounter Plan of Treatment Not on file documented as of this encounter Visit Diagnoses Diagnosis General symptoms NEC- Primary Other general symptoms Type II or unspecified type diabetes mellitus without mention of complication, not stated as uncontrolled documented in this encounter Care Teams Unix System Administrator Relationship Specialty Start Date End Date Kaylynn Munoz DO [address] [place] [address] PCP - General Family Practice 05/17/13 documented as of this encounter
--- OUTSIDE RECORDS SUMMARY | 2025-03-22 15:02 | XMS_ITS | Encounter Summary ---
Author Organization [facility] Address [address] [place] [address] Care Team Providers Care Environmental Health And Safety Manager Name Role Phone Kaylynn Munoz DO Primary Care Provider Encounter Details Date Type Department Care Team (Latest Contact Info) Description 05/16/2002 Outpatient Historical HIS [facility] CherylKemar MD [address] [facility] [address] [place] [address] FAMILY HX-GI DISORDERS (Primary Dx); ABDOMINAL PAIN UNSPEC SITE; NAUSEA ALONE; VOMITING ALONE Social History Tobacco Use Types Packs/Day Years Used Date Smoking Tobacco: Never Assessed Comments Unknown Sex and Gender Information Value Date Recorded Sex Assigned at Not on file Legal Sex Female 5:59 AM T RAIL TURNER Gender Identity Not on file Sexual Orientation Not on file documented as of this encounter Plan of Treatment Not on file documented as of this encounter Visit Diagnoses Diagnosis Family history of digestive disorders- Primary Abdominal pain, unspecified site Nausea alone Vomiting alone documented in this encounter Care Teams Environmental Health And Safety Manager Relationship Specialty Start Date End Date Kaylynn Munoz DO [address] [place] [address] PCP - General Family Practice 05/17/13 documented as of this encounter
--- OUTSIDE RECORDS SUMMARY | 2025-03-22 15:02 | XMS_ITS | Encounter Summary ---
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); Coronary Atherosclerosis of [place] Coronary Artery; Chronic Pain Syndrome; Unspecified Constipation Social History Tobacco Use Types Packs/Day Years Used Date Smoking Tobacco: Never Assessed Comments Unknown Sex and Gender Information Value Date Recorded Sex Assigned at Not on file Legal Sex Female 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 Gender Identity Not on file Sexual Orientation Not on file documented as of this encounter Plan of Treatment Not on file documented as of this encounter Visit Diagnoses Diagnosis Type II or unspecified type diabetes mellitus without mention of complication, not stated as uncontrolled- Primary Coronary atherosclerosis of [place] coronary artery Chronic pain syndrome Unspecified constipation documented in this encounter Care Teams Circus Train Supervisor Relationship Specialty Start Date End Date Kaylynn Munoz DO [address] [place] [address] PCP - General Family Practice 05/17/13 documented as of this encounter
--- OUTSIDE RECORDS SUMMARY | 2025-03-22 15:02 | XMS_ITS | Encounter Summary ---
Author Organization [facility] Address [address] [place] [address] Care Team Providers Care Drugless Doctor Name Role Phone Kaylynn Munoz DO Primary Care Provider Encounter Details Date Type Department Care Team (Latest Contact Info) Description 02/24/2002 Outpatient Historical [facility] Chance Jimenez MD [address] [place] [address] SEBACEOUS CYST (Primary Dx); General symptoms NEC Social History Tobacco Use Types Packs/Day Years Used Date Smoking Tobacco: Never Assessed Comments Unknown Sex and Gender Information Value Date Recorded Sex Assigned at Not on file Legal Sex Female 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
--- OUTSIDE RECORDS SUMMARY | 2025-03-22 15:02 | XMS_ITS | Encounter Summary ---
Author Organization [facility] Address [address] [place] [address] Care Team Providers Care Autocad Electrical Designer Name Role Phone Kaylynn Munoz DO Primary Care Provider Encounter Details Date Type Department Care Team (Late st Contact Info) Description 12/03/2005 Outpatient Historical [facility] Internal Medicine- [place] [address] [facility] [address] [place] [address] Vishal Bernabe MD [address] [facility] [place] [address] Other and Unspecified Hyperlipidemia (Primary Dx); Other Abnormal Blood Chemistry; Other General Symptoms Social History Tobacco Use Types Packs/Day Years Used Date Smoking Tobacco: Never Assessed Comments Unknown Sex and Gender Information Value Date Recorded Sex Assigned at Not on file Legal Sex Female 5:59 AM SALESPERSON BURIAL NEEDS Gender Identity Not on file Sexual Orientation Not on file documented as of this encounter Plan of Treatment Not on file documented as of this encounter Visit Diagnoses Diagnosis Other and unspecified hyperlipidemia- Primary Other abnormal blood chemistry Other general symptoms(780.99) Other general symptoms documented in this encounter Care Teams Autocad Electrical Designer Relationship Specialty Start Date End Date Kaylynn Munoz DO [address] [place] [address] PCP - General Family Practice 05/17/13 documented as of this encounter
--- OUTSIDE RECORDS SUMMARY | 2025-03-22 15:02 | XMS_ITS | Encounter Summary ---
Author Organization [facility] Address [address] [place] [address] Care Team Providers Care Diorama Model Maker Name Role Phone Kaylynn Munoz DO Primary Care Provider [phone] Encounter Details Date Type Department Care Team (Late st Contact Info) Description 06/11/2005 Outpatient Historical [facility] Internal Medicine- [address] [place] [address] Vishal Bernabe MD [address] [facility] [place] [address] ASTHMA UNSPECIFIED (Primary Dx); ESOPHAGEAL REFLUX; OTHER GENERAL SYMPTOMS Social History Tobacco Use Types Packs/Day Years Used Date Smoking Tobacco: Never Assessed Comments Unknown Sex and Gender Information Value Date Recorded Sex Assigned at Not on file Legal Sex Female 5: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
--- OUTSIDE RECORDS SUMMARY | 2025-03-22 15:02 | XMS_ITS | Encounter Summary ---
Author Organization [facility] Address [address] [place] [address] Care Team Providers Care Batch Trucker Name Role Phone Kaylynn Munoz DO Primary Care Provider Encounter Details Date Type Department Care Team (Latest Contact Info) Description 11/19/2001 Outpatient Historical HIS [facility] Chance Jimenez MD [address] [place] [address] ACTINIC KERATOSIS (Primary Dx) Social History Tobacco Use Types Packs/Day Years Used Date Smoking Tobacco: Never Assessed Comments Unknown Sex and Gender Information Value Date Recorded Sex Assigned at Not on file Legal Sex Female 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
--- OUTSIDE RECORDS SUMMARY | 2025-03-22 15:02 | XMS_ITS | Encounter Summary ---
Author Organization [facility] Address [address] [place] [address] Care Team Providers Care Plant Puller Name Role Phone Kaylynn Munoz DO Primary Care Provider Encounter Details Date Type Department Care Team (Late st Contact Info) Description 04/05/[address] 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
--- OUTSIDE RECORDS SUMMARY | 2025-03-22 15:02 | XMS_ITS | Encounter Summary ---
Author Organization [facility] Address [address] [place] [address] Care Team Providers Care Loom Setter Fourdrinier Name Role Phone Kaylynn Munoz DO Primary Care Provider Encounter Details Date Type Department Care Team (Latest Contact Info) Description 04/20/2009 Ancillary Orders [facility] Cardiovascular Services [address] [place] [address] Terrence Haney MD [address] [place] [address] Other Symptoms Involving Cardiovascular System Social History Tobacco Use Types Packs/Day Years Used Date Smoking Tobacco: Never Alcohol Use Standard Drinks/Week Comments No 0 (1 standard drink = 0.6 oz pur e alcohol) Comments No Sex and Gender Information Value Date Recorded Sex Assigned at Not on file Legal Sex Female 5:59 AM STRATEGIC PARTNERSHIP 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 Not on file Not on file Not on file documented as of this encounter Plan of Treatment Not on file documented as of this encounter Results * US DOPPLER ARTERIAL LEGS BILATERAL (05/01/2009 11:38 AM STRATEGIC PARTNERSHIP REPRESENTATIVE) Anatomical Region Laterality Modality Lower Extremity Ultrasound Impressions 05/01/2009 2:56 PM STRATEGIC PARTNERSHIP REPRESENTATIVE : Normal resting ankle brachial indices bilaterally. By color flow arterial duplex imaging, there is no evidence of hemodynamically significant peripheral arterial occlusive disease in either lower extremity. Tech: CHEN Narrative 05/01/2009 2:56 PM STRATEGIC PARTNERSHIP REPRESENTATIVE DATE OF EXAM: 05-01-09 11:38 INDICATION: bilateral leg pain, hypertension, diabetes, history of back problems Systolic pressure of the right ankle is 170 mm Hg with an index of 1.3. Systolic pressure of the left ankle is also 170 mm Hg with an index of 1.3. Color flow arterial duplex imaging of both lower extremities is performed. The arterial waveforms appear normal and triphasic bilaterally at all levels with normal velocities. A three vessel runoff is noted bilaterally. Procedure Note Amrit Tan MD - 05/01/2009 DATE OF EXAM: 05-01-09 11:38 INDICATION: bilateral leg pain, hypertension, diabetes, history of backproblems Systolic pressure of the right ankle is 170 mm Hg with an index of 1.3.Systolic pressure of the left ankle is also 170 mm Hg with an index of1.3. Color flow arterial duplex imaging of both lower extremities is performed.The arterial waveforms appear normal and triphasic bilaterally at alllevels with normal velocities. A three vessel runoff is noted bilaterally. IMPRESSION: Normal resting ankle brachial indices bilaterally. By color flow arterial duplex imaging, there is no evidence ofhemodynamically significant peripheral arterial occlusive disease ineither lower extremity. Tech: CHEN us External Provider [facility] ORDERABLES Final Resu lt documented in this encounter Visit Diagnoses Diagnosis Other symptoms involving cardiovascular system Other symptoms involving cardiovascular system documented in this encounter Care Teams Loom Setter Fourdrinier Relationship Specialty Start Date End Date Kaylynn Munoz DO [address] [place] [address] PCP - General Family Practice 05/17/13 documented as of this encounter
--- OUTSIDE RECORDS SUMMARY | 2025-03-22 15:02 | XMS_ITS | Encounter Summary ---
Author Organization [facility] Address [address] [place] [address] Care Team Providers Care Children'S Court Magistrate Name Role Phone Kaylynn Munoz DO Primary Care Provider Encounter Details Date Type Department Care Team (Latest Contact Info) Description 04/21/2002 Outpatient Historical [facility] Chance Jimenez MD [address] [place] [address] LUMBAGO (Primary Dx); NEURALGIA/NEURITIS NOS; General symptoms NEC; STOMACH FUNCTION DIS NEC Social History Tobacco Use Types Packs/Day Years Used Date Smoking Tobacco: Never Assessed Comments Unknown Sex and Gender Information Value Date Recorded Sex Assigned at Not on file Legal Sex Female 5:59 AM ORIENTAL MEDICINE PRACTITIONER Gender Identity Not on file Sexual Orientation Not on file documented as of this encounter Plan of Treatment Not on file documented as of this encounter Visit Diagnoses Diagnosis Lumbago- Primary Neuralgia, neuritis, and radiculitis, unspecified General symptoms NEC Other general symptoms Dyspepsia and other specified disorders of function of stomach documented in this encounter Care Teams Children'S Court Magistrate Relationship Specialty Start Date End Date Kaylynn Munoz DO [address] [place] [address] PCP - General Family Practice 05/17/13 documented as of this encounter
--- OUTSIDE RECORDS SUMMARY | 2025-03-22 15:03 | XMS_ITS | Encounter Summary ---
Author Organization [facility] Address [address] [place] [address] Care Team Providers Care Companion Name Role Phone Kaylynn Munoz DO Primary Care Provider Encounter Details Date Type Department Care Team (Late st Contact Info) Description 08/16/2004 Outpatient [facility] 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
--- OUTSIDE RECORDS SUMMARY | 2025-03-22 15:03 | XMS_ITS | Encounter Summary ---
Author Organization [facility] Address [address] [place] [address] Care Team Providers Care Jewelry Sales Coordinator Name Role Phone Kaylynn Munoz DO Primary Care Provider [phone] Encounter Details Date Type Department Care Team (Late st Contact Info) Description 01/31/2015 Ancillary Orders [facility] [address] [place] [address] Trini Menendez, GANG SUPERVISOR [address] [place] [address] Midline thoracic back pain (Primary Dx) Social History Tobacco Use Types Packs/Day Years Used Date Smoking Tobacco: Never Alcohol Use Standard Drinks/Week Comments No 0 (1 standard drink = 0.6 oz pur e alcohol) Comments No Sex and Gender Information Value Date Recorded Sex Assigned at Not on file Legal Sex Female 5:59 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 Not on file Not on file Not on file documented as of this encounter Plan of Treatment Not on file documented as of this encounter Results * XR THORACIC SPINE 3 VW (01/31/2015 9:43 AM CDT) Anatomical Region Laterality Modality Spine Computed Radiogr aphy 01/31/2015 9:32 AM CDT Narrative 01/31/2015 10:36 AM CDT PROCEDURE XR THORACIC SPINE, 3 views, 31 January 2015 DESCRIPTION AP and lateral thoracic spine views and collimated lateral swimmer projection of the cervical thoracic junction show no acute fracture or loss of alignment. Pedicles and paraspinal lines appear normal. Alignment is maintained at the cervical thoracic junction. There is slight loss of height of the disc and anterior osteophyte at the L2-L3 level. Metallic clips in the right upper quadrant of the abdomen are likely status post cholecystectomy. IMPRESSION unremarkable thoracic spine series Procedure Note Soto Goodman MD - 01/31/2015 PROCEDURE XR THORACIC SPINE, 3 views, 31 January 2015 DESCRIPTION AP and lateral thoracic spine views and collimated lateral swimmer projection of the cervical thoracic junction show no acute fracture or loss of alignment. Pedicles and paraspinal lines appear normal. Alignment is maintained at the cervical thoracic junction. There is slight loss of height of the disc and anterior osteophyte at the L2-L3 level. Metallic clips in the right upper quadrant of the abdomen are likely status post cholecystectomy. IMPRESSION unremarkable thoracic spine series us Trini Menendez GANG SUPERVISOR DIAGNOSTIC IMAGING ORDERABLES Final Result documented in this encounter Visit Diagnoses Diagnosis Midline thoracic back pain Midline thoracic back pain- Primary documented in this encounter Care Teams Jewelry Sales Coordinator Relationship Specialty Start Date End Date Kaylynn Munoz DO [address] [place] [address] PCP - General Family Practice 05/17/13 documented as of this encounter
--- OUTSIDE RECORDS SUMMARY | 2025-03-22 15:03 | XMS_ITS | Encounter Summary ---
Author Organization [facility] Address [address] [place] [address] Care Team Providers Care Crinkling Machine Operator Name Role Phone Kaylynn Munoz DO Primary Care Provider Encounter Details Date Type Department Care Team (Late st Contact Info) Description 09/09/2004 Outpatient Historical [facility] Internal Medicine- [place] [address] [facility] [address] [place] [address] Vishal Bernabe MD [address] [facility] [place] [address] Dermatitis due to plant (Primary Dx); OTHER GENERAL SYMPTOMS; UNSPEC CONSTIPATION; LUMBAGO Social History Tobacco Use Types Packs/Day Years Used Date Smoking Tobacco: Never Assessed Comments Unknown Sex and Gender Information Value Date Recorded Sex Assigned at Not on file Legal Sex Female 5:59 AM BIOTECHNICIAN Gender Identity Not on file Sexual Orientation Not on file documented as of this encounter Plan of Treatment Not on file documented as of this encounter Visit Diagnoses Diagnosis Dermatitis due to plant- Primary Contact dermatitis and other eczema due to plants (except food) Other general symptoms(780.99) Other general symptoms Unspecified constipation Lumbago documented in this encounter Care Teams Crinkling Machine Operator Relationship Specialty Start Date End Date Kaylynn Munoz DO [address] [place] [address] PCP - General Family Practice 05/17/13 documented as of this encounter
--- OUTSIDE RECORDS SUMMARY | 2025-03-22 15:03 | XMS_ITS | Encounter Summary ---
Author Organization [facility] Address [address] [place] [address] Care Team Providers Care Dual Rate Supervisor Name Role Phone Kaylynn Munoz DO Primary Care Provider Encounter Details Date Type Department Care Team (Latest Contact Info) Description 11/07/2004 Outpatient [facility] [address] [place] [address] [place], Crystal Ana, BRILLIANDEER LOPPER [address] [facility] [address] [facility] [address] [place] [address] LUMBOSACRAL SPONDYLOSIS (Primary Dx) Social History Tobacco Use Types Packs/Day Years Used Date Smoking Tobacco: Never Assessed Comments Unknown Sex and Gender Information Value Date Recorded Sex Assigned at Not on file Legal Sex Female 5:59 AM HYDROLOGICAL TECHNICAL OFFICER Gender Identity Not on file Sexual Orientation Not on file documented as of this encounter Plan of Treatment Not on file documented as of this encounter Visit Diagnoses Diagnosis Lumbosacral spondylosis without myelopathy- Primary documented in this encounter Care Teams Dual Rate Supervisor Relationship Specialty Start Date End Date Kaylynn Munoz DO [address] [place] [address] PCP - General Family Practice 05/17/13 documented as of this encounter
--- OUTSIDE RECORDS SUMMARY | 2025-03-22 15:03 | XMS_ITS | Encounter Summary ---
Author Organization [facility] Address [address] [place] [address] Care Team Providers Care Console Attendant Name Role Phone Kaylynn Munoz DO Primary Care Provider Encounter Details Date Type Department Care Team (Late st Contact Info) Description 08/16/2004 Outpatient Historical [facility] Imaging Services [facility] [place] [address] 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
--- OUTSIDE RECORDS SUMMARY | 2025-03-22 15:03 | XMS_ITS | Encounter Summary ---
Author Organization [facility] Address [address] [place] [address] Care Team Providers Care Mirror Framer Name Role Phone Kaylynn Munoz DO Primary Care Provider Encounter Details Date Type Department Care Team (Late st Contact Info) Description 10/09/2004 Outpatient Historical [facility] Internal Medicine- [place] [address] [address] [place] [address] Vishal Bernabe MD [address] [facility] [place] [address] OTHER GENERAL SYMPTOMS (Primary Dx); LUMBAGO; IRRITABLE COLON Social History Tobacco Use Types Packs/Day Years Used Date Smoking Tobacco: Never Assessed Comments Unknown Sex and Gender Information Value Date Recorded Sex Assigned at Not on file Legal Sex Female 5:59 AM FLARE WORKER Gender Identity Not on file Sexual Orientation Not on file documented as of this encounter Plan of Treatment Not on file documented as of this encounter Visit Diagnoses Diagnosis Other general symptoms(780.99)- Primary Other general symptoms Lumbago Irritable bowel syndrome documented in this encounter Care Teams Mirror Framer Relationship Specialty Start Date End Date Kaylynn Munoz DO [address] [place] [address] PCP - General Family Practice 05/17/13 documented as of this encounter
--- OUTSIDE RECORDS SUMMARY | 2025-03-22 15:03 | XMS_ITS | Encounter Summary ---
Author Organization [facility] Address [address] [place] [address] Care Team Providers Care City Jailer Name Role Phone Kaylynn Munoz DO Primary Care Provider Encounter Details Date Type Department Care Team (Latest Contact Info) Description 09/26/2004 Outpatient Historical [facility] [address] [place] [address] Brian Mak MD NO ADDRESS ON FILE POSTLAMINECT SYND-LUMBAR (Primary Dx); LUMBOSACRAL NEURITIS NOS; Lumbosacral spondylosis; RECURR DEPR PSYCHOS-UNSP ([facility]/HCC) Social History Tobacco Use Types Packs/Day Years Used Date Smoking Tobacco: Never Assessed Comments Unknown Sex and Gender Information Value Date Recorded Sex Assigned at Not on file Legal Sex Female 5:59 AM SALES ARCHITECT Gender Identity Not on file Sexual Orientation Not on file documented as of this encounter Plan of Treatment Not on file documented as of this encounter Visit Diagnoses Diagnosis Postlaminectomy syndrome, lumbar region- Primary Thoracic or lumbosacral neuritis or radiculitis, unspecified Lumbosacral spondylosis Lumbosacral spondylosis without myelopathy Major depressive disorder, recurrent episode, unspecified (CMS/HCC) Major depressive disorder, recurrent episode, unspecified documented in this encounter Care Teams City Jailer Relationship Specialty Start Date End Date Kaylynn Munoz DO [address] [place] [address] PCP - General Family Practice 05/17/13 documented as of this encounter
--- OUTSIDE RECORDS SUMMARY | 2025-03-22 15:03 | XMS_ITS | Encounter Summary ---
Author Organization [facility] Address [address] [place] [address] Care Team Providers Care Tube Draw Helper Name Role Phone Kaylynn Munoz DO Primary Care Provider Encounter Details Date Type Department Care Team (Late st Contact Info) Description 11/05/2004 Outpatient Historical [facility] Internal Medicine- [place] [address] [address] [place] [address] Vishal Bernabe MD [address] [facility] [place] [address] OTHER GENERAL SYMPTOMS (Primary Dx); UNSPEC CONSTIPATION; CONJUNCTIVITIS NOS Social History Tobacco Use Types Packs/Day Years Used Date Smoking Tobacco: Never Assessed Comments Unknown Sex and Gender Information Value Date Recorded Sex Assigned at Not on file Legal Sex Female 5:59 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
--- OUTSIDE RECORDS SUMMARY | 2025-03-22 15:03 | XMS_ITS | Encounter Summary ---
Author Organization [facility] Address [address] [place] [address] Care Team Providers Care Emergency Response Coordinator Name Role Phone Kaylynn Munoz DO Primary Care Provider Encounter Details Date Type Department Care Team (Late st Contact Info) Description 08/20/2004 Outpatient Historical 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
--- OUTSIDE RECORDS SUMMARY | 2025-03-22 15:04 | XMS_ITS | Encounter Summary ---
Author Organization [facility] Address [address] [place] [address] Care Team Providers Care Candy Spreader Name Role Phone Kaylynn Munoz DO Primary Care Provider [phone] Encounter Details Date Type Department Care Team (Latest Contact Info) Description 10/05/1998 Outpatient Historical [facility] Chance Jimenez MD [address] [place] [address] Other and unspecified angina pectoris (Primary Dx); Abdominal pain, unspecified site; Nonallopathic lesion of thoracic region, not elsewhere classified; Other dyspnea and respiratory abnormality Social History Tobacco Use Types Packs/Day Years Used Date Smoking Tobacco: Never Assessed Comments Unknown Sex and Gender Information Value Date Recorded Sex Assigned at Not on file 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
--- OUTSIDE RECORDS SUMMARY | 2025-03-22 15:04 | XMS_ITS | Encounter Summary ---
Author Organization [facility] Address [address] [place] [address] Care Team Providers Care Web Marketing Assistant Name Role Phone Kaylynn Munoz DO Primary Care Provider Encounter Details Date Type Department Care Team (Latest Contact Info) Description 10/26/1998 Outpatient Historical [facility] Chance Jimenez MD [address] [place] [address] Dyspepsia and other specified disorders of function of stomach (Primary Dx); Other and unspecified angina pectoris; Obesity, unspecified Social History Tobacco Use Types Packs/Day Years Used Date Smoking Tobacco: Never Assessed Comments Unknown Sex and Gender Information Value Date Recorded Sex Assigned at Not on file 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
--- OUTSIDE RECORDS SUMMARY | 2025-03-22 15:04 | XMS_ITS | Encounter Summary ---
Author Organization [facility] Address [address] [place] [address] Care Team Providers Care Echo Vascular Tech Name Role Phone Kaylynn Munoz DO Primary Care Provider Encounter Details Date Type Department Care Team (Latest Contact Info) Description 02/19/1999 Outpatient Historical [facility] Chance Jimenez MD [address] [place] [address] Insomnia, unspecified (Primary Dx); Osteoarthrosis, unspecified whether generalized or localized, unspecified site; Sciatica Social History Tobacco Use Types Packs/Day Years Used Date Smoking Tobacco: Never Assessed Comments Unknown Sex and Gender Information Value Date Recorded Sex Assigned at Not on file 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
--- OUTSIDE RECORDS SUMMARY | 2025-03-22 15:04 | XMS_ITS | Encounter Summary ---
Author Organization [facility] Address [address] [place] [address] Care Team Providers Care Inbound Sales Advisor Name Role Phone Kaylynn Munoz DO Primary Care Provider [phone] Encounter Details Date Type Department Care Team (Late st Contact Info) Description 04/09/2005 Outpatient Historical [facility] Internal Medicine- [address] [place] [address] Vishal Bernabe MD [address] [facility] [place] [address] GENERAL OSTEOARTHROSIS (Primary Dx); IDIO PERIPH NEURPTHY NOS; CONSTIPATION NOS; OTHER GENERAL SYMPTOMS Social History Tobacco Use Types Packs/Day Years Used Date Smoking Tobacco: Never Assessed Comments Unknown Sex and Gender Information Value Date Recorded Sex Assigned at Not on file 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 Gender Identity Not on file Sexual Orientation Not on file documented as of this encounter Plan of Treatment Not on file documented as of this encounter Visit Diagnoses Diagnosis Generalized osteoarthrosis, unspecified site- Primary Unspecified hereditary and idiopathic peripheral neuropathy Unspecified constipation Other general symptoms(780.99) Other general symptoms documented in this encounter Care Teams Inbound Sales Advisor Relationship Specialty Start Date End Date Kaylynn Munoz DO [address] [place] [address] PCP - General Family Practice 05/17/13 documented as of this encounter
--- OUTSIDE RECORDS SUMMARY | 2025-03-22 15:04 | XMS_ITS | Encounter Summary ---
Author Organization [facility] Address [address] [place] [address] Care Team Providers Care Order Puller Name Role Phone Kaylynn Munoz DO Primary Care Provider Encounter Details Date Type Department Care Team (Latest Contact Info) Description 06/21/2002 Outpatient Historical [facility] Chronic Pain [address] [place] [address] Brian Mak MD NO ADDRESS ON FILE POSTLAMINECT SYND-LUMBAR (Primary Dx) Social History Tobacco Use Types Packs/Day Years Used Date Smoking Tobacco: Never Assessed Comments Unknown Sex and Gender Information Value Date Recorded Sex Assigned at Not on file 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
--- OUTSIDE RECORDS SUMMARY | 2025-03-22 15:04 | XMS_ITS | Encounter Summary ---
Author Organization [facility] Address [address] [place] [address] Care Team Providers Care Circus Agent Name Role Phone Kaylynn Munoz DO Primary Care Provider Encounter Details Date Type Department Care Team (Late st Contact Info) Description 10/02/2004 Outpatient Historical [facility] Pain Management Procedures [address] 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
--- OUTSIDE RECORDS SUMMARY | 2025-03-22 15:04 | XMS_ITS | Encounter Summary ---
Author Organization [facility] Address [address] [place] [address] Care Team Providers Care Cutter Operator Brick Name Role Phone Kaylynn Munoz DO Primary Care Provider Encounter Details Date Type Department Care Team (Latest Contact Info) Description 06/17/2002 Outpatient Historical [facility] Chance Jimenez MD [address] [place] [address] ABDOMINAL PAIN UNSPEC SITE (Primary Dx); LUMBAGO Social History Tobacco Use Types Packs/Day Years Used Date Smoking Tobacco: Never Assessed Comments Unknown Sex and Gender Information Value Date Recorded Sex Assigned at Not on file 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
--- OUTSIDE RECORDS SUMMARY | 2025-03-22 15:04 | XMS_ITS | Encounter Summary ---
Author Organization [facility] Address [address] [place] [address] Care Team Providers Care Aix System Administrator Name Role Phone Kaylynn Munoz DO Primary Care Provider Encounter Details Date Type Department Care Team (Late st Contact Info) Description 08/11/2007 Outpatient Historical HIS IN BED Sj Ed, Physician NO ADDRESS ON FILE Celestine Ellis MD NO ADDRESS ON FILE Vishal Bernabe MD [address] [place] [place] [address] Unspecified Chest Pain Social History Tobacco Use Types Packs/Day Years Used Date Smoking Tobacco: Never Assessed Comments No Sex and Gender Information Value Date Recorded Sex Assigned at Not on file 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 Gender Identity Not on file Sexual Orientation Not on file documented as of this encounter Plan of Treatment Not on file documented as of this encounter Procedures Procedure Name Priority Date/Time Associated Diagnosis Comments POC GLUCOSE Routine 08/12/2007 11:29 AM CDT NM MYOCARD PERF IMAG SPECT SINGL Routine 08/12/2007 7:35 AM CDT NM MYOCARD PERF IMAG SPECT MULT Routine 08/12/2007 7:34 AM CDT POC GLUCOSE Routine 08/12/2007 6:51 AM CDT CARDIAC ENZYMES Routine 08/12/2007 1:40 AM CDT BASIC METABOLIC PANEL Routine 08/12/2007 1:40 AM CDT POC GLUCOSE Routine 08/11/2007 8:21 PM CDT CARDIAC ENZYMES Routine 08/11/2007 6:25 PM CDT POC GLUCOSE Routine 08/11/2007 5:25 PM CDT XR CHEST PA OR AP 1 VW Routine 08/11/2007 2:00 PM CDT CARDIAC ENZYMES Stat 08/11/2007 1:30 PM CDT CBC WITH DIFFERENTIAL Stat 08/11/2007 1:30 PM CDT PTT Stat 08/11/2007 1:30 PM CDT PROTIME-INR Stat 08/11/2007 1:30 PM CDT BASIC METABOLIC PANEL Stat 08/11/2007 1:30 PM CDT documented in this encounter Results * (ABNORMAL) POC GLUCOSE (08/12/2007 11:29 AM CDT) GLUCOSE POC 148(H) 60 - 100 mg/dL [facility] Venous blood specimen (specimen) 08/12/2007 11:29 AM CDT 08/13/2007 11:52 AM CDT us Vishal Bernabe MD POINT OF CARE TESTING Final R esult [facility] [address] [place] [address] * NM MYOCARD PERF IMAG SPECT SINGL (08/12/2007 7:35 AM CDT) 08/12/2007 7:35 AM CDT Narrative INTERFACE SYSTEM - 08/12/2007 9:58 AM CDT Cardiovascular Stress Test with Persantine Provocation, Monitoring, and Interpretation: Reason for Consultation: Precordial chest pain. Evaluation of myocardial perfusion. This study was supervised and monitored by Dr. Sanchez Maurer. Following the intravenous administration of 47.7 mg of Persantine over a four - minute period, the patient remained in the supine position for an additional three minutes. The above radiopharmaceutical was then injected, and the patient remained in the supine position for imaging. The patient's blood pressure went from 136/70 to 156/70 at peak Persantine effect. The heart rate went from a baseline of 75 to a peak of 115 beats per minute during the same interval. She developed some epigastric discomfort, headache and flushing with the Persantine infusion. Aminophylline 125mg was administered intravenously with good symptom relief. No ischemic electrocardiographic changes were noted. No arrhythmias were induced during or after the procedure. Impression: The patient had a nonischemic electrocardiographic response to Persantine infusion. No arrhythmias were induced during the procedure. Myocardial perfusion imaging report to follow. - Dictated By: Sanchez Maurer M.D. Electronically Signed By: Sanchez Maurer M.D. Date Signed: 08/12/07 Procedure Note Sanchez Maurer - 08/12/2007 Cardiovascular Stress Test with Persantine Provocation, Monitoring, andInterpretation: Reason for Consultation: Precordial chest pain. Evaluation of myocardialperfusion. This study was supervised and monitored by Dr. Sanchez Maurer. Following the intravenous administration of 47.7 mg of Persantine over afour - minute period, the patient remained in the supine position for an additional three minutes. Theabove radiopharmaceutical was then injected, and the patient remained in the supine position forimaging. The patient's blood pressure went from 136/70 to 156/70 at peak Persantine effect. The heart ratewent from a baseline of 75 to a peak of 115 beats per minute during the same interval. She developed someepigastric discomfort, headache and flushing with the Persantine infusion. Aminophylline 125mg wasadministered intravenously with good symptom relief. No ischemic electrocardiographic changes were noted. Noarrhythmias were induced during or after the procedure. Impression: The patient had a nonischemic electrocardiographic response to Persantineinfusion. No arrhythmias were induced during the procedure. Myocardial perfusion imaging report to follow. - Dictated By: Sanchez Maurer M.D. Electronically Signed By: Sanchez Maurer M.D. Date Signed: 08/12/07 us Vishal [facility] ORDERABLES Final Result INTERFACE SYSTEM Refer to clinic/hospital department * NM MYOCARD PERF IMAG SPECT MULT (08/12/2007 7:34 AM CDT) 08/12/2007 7:34 AM CDT Narrative INTERFACE SYSTEM - 08/12/2007 10:09 AM CDT Radionuclide Myocardial Perfusion SPECT Rest/Persantine Stress Wall Motion and Ejection Fraction Evaluation: Radiopharmaceutical: Tc-99m (technetium-99m) Myoview Dose: 9.8 mCi (rest) / 30.1 mCi (stress) Reason for Consultation: Precordial chest pain. Evaluation of myocardial perfusion. The initial static images demonstrate that the heart is overall normal in size. There is a normal level of activity throughout the lungs. Right ventricular activity appears normal. The left ventricular wall does not appear thickened. The left ventricular cavity did not appear to dilate with the Persantine stress. The distribution of tracer around the left ventricle is relatively uniform on the immediate post Persantine images. There were no areas that showed obvious interval improvement in tracer concentration on the resting study. Evaluation of left ventricular wall motion demonstrates normal wall motion and wall thickening throughout the left ventricular myocardium. The resting left ventricular ejection fraction was 85 %. Impression: There is no obvious evidence for Persantine induced cardiac ischemia or failure on this examination. There is normal resting left ventricular systolic function. The previous examination of 08/16/2002 suggested mild reversible ischemia in the anterior and anterolateral mcknight. This is not evident on today's study. The previous LVEF was 87%. - Dictated By: Sanchez Maurer M.D. Electronically Signed By: Sanchez Maurer M.D. Date Signed: 08/12/07 Procedure Note Sanchez Maurer - 08/12/2007 Radionuclide Myocardial Perfusion SPECT Rest/Persantine Stress Wall Motionand Ejection Fraction Evaluation: Radiopharmaceutical: Tc-99m (technetium-99m) Myoview Dose: 9.8 mCi (rest) / 30.1 mCi (stress) Reason for Consultation: Precordial chest pain. Evaluation of myocardialperfusion. The initial static images demonstrate that the heart is overall normal insize. There is a normal level of activity throughout the lungs. Right ventricular activity appearsnormal. The left ventricular wall does not appear thickened. The left ventricular cavity did not appear todilate with the Persantine stress. The distribution of tracer around the left ventricle isrelatively uniform on the immediate post Persantine images. There were no areas that showed obvious intervalimprovement in tracer concentration on the resting study. Evaluation of left ventricular wall motion demonstrates normal wall motionand wall thickening throughout the left ventricular myocardium. The resting left ventricular ejection fraction was 85 %. Impression: There is no obvious evidence for Persantine induced cardiac ischemia orfailure on this examination. There is normal resting left ventricular systolic function. The previousexamination of 08/16/2002 suggested mild reversible ischemia in the anterior and anterolateralwalls. This is not evident on today's study. The previous LVEF was 87%. - Dictated By: Sanchez Maurer M.D. Electronically Signed By: Sanchez Maurer M.D. Date Signed: 08/12/07 Vishal Bernabe MD NM ORDERABLES Final Result Performing Organization Address [facility] de Phone Number INTERFACE SYSTEM Refer to clinic/hospital department * (ABNORMAL) POC GLUCOSE (08/12/2007 6:51 AM CDT) GLUCOSE POC 124(H) 60 - 100 mg/dL [facility] Venous blood specimen (specimen) 08/12/2007 6:51 AM CDT 08/13/2007 11:51 AM CDT Vishal Bernabe MD POINT OF CARE TESTING Final R esult Performing Organization Address [facility] de Phone Number [facility] [address] [place] [address] * (ABNORMAL) BASIC METABOLIC PANEL (08/12/2007 1:40 AM CDT) CREATININE 0.5(L) 0.7 - 1.2 mg/dL [facility] CALCIUM 9.2 8.4 - 10.5 mg/dL [facility] GLUCOSE 103 70 - 110 mg/dL [facility] CHLORIDE 103 95 - 110 mEq/L [facility] SODIUM 139 136 - 145 mEq/L [facility] ANION GAP 14 9 - 20 mEq/L [facility] BUN 11 7 - 17 mg/dL [facility] CO2 26 22 - 32 mmol/l [facility] OSMOLALITY, CALCULATED 285 275 - 295 mOsm/Kg [facility] POTASSIUM 3.8 3.5 - 5.0 mEq/L [facility] Blood specimen (specimen) 08/12/2007 1:40 AM CDT 08/12/2007 1:51 AM CDT us Vishal Bernabe MD CHEMISTRY ORDERABLES Final Re sult Performing Organization Address [facility] Co de Phone Number [facility] [address] [place] [address] * CARDIAC ENZYMES (08/12/2007 1:40 AM CDT) TROPONIN I <0.1 0.0 - 1.3 ng/mL [facility] CKMB 0.6 0.0 - 5.0 ng/mL [facility] Blood specimen (specimen) 08/12/2007 1:40 AM CDT 08/12/2007 1:51 AM CDT us Celestine Ellis MD CHEMISTRY ORDERABLES Amira l Result Performing Organization Address [facility] Co de Phone Number [facility] [address] [place] [address] * (ABNORMAL) POC GLUCOSE (08/11/2007 8:21 PM CDT) GLUCOSE POC 213(H) 60 - 100 mg/dL [facility] Venous blood specimen (specimen) 08/11/2007 8:21 PM CDT 08/12/2007 2:09 AM CDT Vishal Bernabe MD POINT OF CARE TESTING Final R esult Performing Organization Address [facility] de Phone Number [facility] [address] [place] [address] * CARDIAC ENZYMES (08/11/2007 6:25 PM CDT) CKMB 0.9 0.0 - 5.0 ng/mL [facility] TROPONIN I <0.1 0.0 - 1.3 ng/mL [facility] Blood specimen (specimen) 08/11/2007 6:25 PM CDT 08/11/2007 7:01 PM CDT Celestine Ellis MD CHEMISTRY ORDERABLES Amira l Result Performing Organization Address [facility] de Phone Number [facility] [address] [place] [address] * (ABNORMAL) POC GLUCOSE (08/11/2007 5:25 PM CDT) GLUCOSE POC 137(H) 60 - 100 mg/dL [facility] Venous blood specimen (specimen) 08/11/2007 5:25 PM CDT 08/12/2007 2:09 AM CDT Vishal Bernabe MD POINT OF CARE TESTING Final R amandault Performing Organization Address [facility] de Phone Number [facility] [address] [place] [address] * XR CHEST PA OR AP (08/11/2007 2:00 PM CDT) Anatomical Region Laterality Modality Chest Other 08/11/2007 2:00 PM CDT Narrative 08/11/2007 2:00 PM CDT Exam: Chest - Portable Date/Time of Exam: Aug 11, 2007 2:00:14 PM History: Chest pain. Findings: Elevation of the right hemidiaphragm. No acute pulmonary disease. No pleural effusion. Evidence of old granulomatous disease. Cardiomediastinal contours are unremarkable given AP technique. Impression: No acute pathology. - Dictated By: Emigdio Maya M.D. Electronically Signed By: Emigdio Maya M.D. Date Signed: 08/12/07 [facility] Procedure Note Emigdio Maya E - 08/12/2007 Exam: Chest - Portable Date/Time of Exam: Aug 11, 2007 2:00:14 PM History: Chest pain. Findings: Elevation of the right hemidiaphragm. No acute pulmonarydisease. No pleural effusion. Evidence of old granulomatous disease. Cardiomediastinal contours are unremarkablegiven AP technique. Impression: No acute pathology. - Dictated By: Emigdio Maya M.D. Electronically Signed By: Emigdio Maya M.D. Date Signed: 08/12/07 [facility] us Celestine Ellis MD DIAGNOSTIC IMAGING ORDERA BLES Final Result * (ABNORMAL) BASIC METABOLIC PANEL (08/11/2007 1:30 PM CDT) CREATININE 0.7 0.7 - 1.2 mg/dL [facility] CALCIUM 9.5 8.4 - 10.5 mg/dL [facility] GLUCOSE 157(H) 70 - 110 mg/dL [facility] CHLORIDE 104 95 - 110 mEq/L [facility] ANION GAP 12 9 - 20 mEq/L [facility] SODIUM 139 136 - 145 mEq/L [facility] BUN 11 7 - 17 mg/dL [facility] CO2 27 22 - 32 mmol/l [facility] POTASSIUM 4.0 3.5 - 5.0 mEq/L [facility] OSMOLALITY, CALCULATED 289 275 - 295 mOsm/Kg [facility] Blood specimen (specimen) 08/11/2007 1:30 PM CDT 08/11/2007 1:33 PM CDT us Celestine Ellis MD CHEMISTRY ORDERABLES Amira buck Result [facility] [address] [place] [address] * CBC WITH DIFFERENTIAL (08/11/2007 1:30 PM CDT) BASOPHILS 0.3 0.0 - 1.0 % [facility] MPV 9.5 8.9 - 12.8 Fl [facility] BASOPHILS ABSOLUTE 0.0 0.0 - 0.2 K/ul [facility] HEMOGLOBIN 14.8 12.0 - 16.0 g/dL [facility] MONOCYTES 6.6 2.0 - 10.0 % [facility] RDW 13.4 11.0 - 14.5 % [facility] MONOCYTE ABSOLUTE 0.4 0.1 - 0.6 K/ul [facility] WBC 6.5 4.8 - 10.8 K/ul [facility] NEUTROPHILS 60.8 42.2 - 75.2 % [facility] MCH 30.0 27.0 - 34.0 pg [facility] NEUTROPHIL ABSOLUTE 4.0 2.0 - 8.0 K/ul [facility] HEMATOCRIT 44.8 36.0 - 46.0 % [facility] PLATELETS 274 140 - 440 K/ul [facility] EOSINOPHIL ABSOLUTE 0.1 0.0 - 0.7 K/ul [facility] EOSINOPHILS 1.1 0.0 - 7.0 % [facility] RBC 4.94 4.20 - 5.40 Mil/ul [facility] MCHC 33.0 30.0 - 35.0 g/dL [facility] LYMPHOCYTE ABSOLUTE 2.0 1.2 - 4.0 K/ul [facility] LYMPHOCYTES 31.2 24.0 - 44.0 % [facility] MCV 90.7 84.0 - 103.0 Fl [facility] Blood specimen (specimen) 08/11/2007 1:30 PM CDT 08/11/2007 1:33 PM CDT Celestine Ellis MD HEMATOLOGY ORDERABLES Fin al Result Performing Organization Address [facility] de Phone Number [facility] [address] [place] [address] * PTT (08/11/2007 1:30 PM CDT) PTT 26.5 22.5 - 36.5 Secs [facility] Comment: Therapeutic Range: Hi-level PE/DVT heparin protocol 80.1 -95.0 sec Lo-level PE/DVT heparin protocol 67.1 - 80.0 sec Cardiac Heparin Protocol 67.1 - 85.0 sec Neuro Heparin Protocol 67.1 - 80.0 sec As of 07/22/2007 note change in APTT Normal Range. Blood specimen (specimen) 08/11/2007 1:30 PM CDT 08/11/2007 1:33 PM CDT Celestine Ellis MD HEMATOLOGY ORDERABLES Fin al Result Performing Organization Address [facility] Phone Number [facility] [address] [place] [address] * (ABNORMAL) PROTIME-INR (08/11/2007 1:30 PM CDT) INR 0.8 [facility] Comment: Expected Values for INR: DVT/PE Goal INR 2.5; range 2.0 - 3.0 Valve Replacement Tissue Goal INR 2.5; range 2.0 - 3.0 Mechanical Goal INR 3.0; range 2.5 - 3.5 POST-KS Goal INR 2.5; range 2.0 - 3.0 or Goal 3.0; range 2.5 - 3.5 Atrial Fibrillation Goal INR 2.5; range 2.0 - 3.0 Ischemic Stroke Goal INR 2.5; range 2.0 - 3.0 For additional information see Guidelines for Anticoagulation available from the pharmacy Sara Torrez [phone] PROTIME 12.3(L) 12.8 - 15.8 Secs [facility] Comment:As of 2007 not e change in normal range. Blood specimen (specimen) 08/11/2007 1:30 PM CDT 08/11/2007 1:33 PM CDT Celestine Ellis MD HEMATOLOGY ORDERABLES Fin al Result Performing Organization Address [facility] de Phone Number [facility] [address] [place] [address] * CARDIAC ENZYMES (08/11/2007 1:30 PM CDT) CKMB 1.0 0.0 - 5.0 ng/mL [facility] TROPONIN I <0.1 0.0 - 1.3 ng/mL [facility] Blood specimen (specimen) 08/11/2007 1:30 PM CDT 08/11/2007 1:33 PM CDT Celestine Ellis MD CHEMISTRY ORDERABLES Amira l Result Performing Organization Address [facility] de Phone Number [facility] [address] [place] [address] documented in this encounter Visit Diagnoses Diagnosis Chest pain, unspecified documented in this encounter Care Teams Aix System Administrator Relationship Specialty Start Date End Date Kaylynn Munoz DO [address] [place] [address] PCP - General Family Practice 05/17/13 documented as of this encounter
--- OUTSIDE RECORDS SUMMARY | 2025-03-22 15:04 | XMS_ITS | Encounter Summary ---
Author Organization [facility] Address [address] [place] [address] Care Team Providers Care Casting Wheel Operator Helper Name Role Phone Kaylynn Munoz DO Primary Care Provider Encounter Details Date Type Department Care Team (Latest Contact Info) Description 06/25/1998 Outpatient Historical HIS [facility] Chance Jimenez MD [address] [place] [address] Hypopotassemia (Primary Dx); Obesity, unspecified Social History Tobacco Use Types Packs/Day Years Used Date Smoking Tobacco: Never Assessed Comments Unknown Sex and Gender Information Value Date Recorded Sex Assigned at Not on file 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
--- OUTSIDE RECORDS SUMMARY | 2025-03-22 15:04 | XMS_ITS | Encounter Summary ---
Author Organization [facility] Address [address] [place] [address] Care Team Providers Care Effervescent Salts Compounder Name Role Phone Kaylynn Munoz DO Primary Care Provider Encounter Details Date Type Department Care Team (Latest Contact Info) Description 06/27/1998 Outpatient Historical HIS [facility] Kemar Luna MD [address] [facility] [address] [place] [address] Mastodynia (Primary Dx) Social History Tobacco Use Types Packs/Day Years Used Date Smoking Tobacco: Never Assessed Comments Unknown Sex and Gender Information Value Date Recorded Sex Assigned at Not on file 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
--- OUTSIDE RECORDS SUMMARY | 2025-03-22 15:04 | XMS_ITS | Encounter Summary ---
Author Organization [facility] Address [address] [place] [address] Care Team Providers Care Outreach Manager Name Role Phone Kaylynn Munoz DO Primary Care Provider Encounter Details Date Type Department Care Team (Latest Contact Info) Description 06/03/2002 Outpatient Historical [facility] Mor Berrios MD [address] [place] [address] BACKACHE NOS (Primary Dx); STRIAE ATROPHICAE; LUMB/LUMBOSAC DISC DEGEN; DISORDERS OF SACRUM Social History Tobacco Use Types Packs/Day Years Used Date Smoking Tobacco: Never Assessed Comments Unknown Sex and Gender Information Value Date Recorded Sex Assigned at Not on file 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
--- OUTSIDE RECORDS SUMMARY | 2025-03-22 15:04 | XMS_ITS | Encounter Summary ---
Author Organization [facility] Address [address] [place] [address] Care Team Providers Care Ell Teacher Name Role Phone Kaylynn Munoz DO Primary Care Provider Encounter Details Date Type Department Care Team (Latest Contact Info) Description 10/21/1999 Outpatient Historical HIS [facility] Chance Jimenez MD [address] [place] [address] Urinary tract infection, site not specified (Primary Dx); Unspecified urinary incontinence Social History Tobacco Use Types Packs/Day Years Used Date Smoking Tobacco: Never Assessed Comments Unknown Sex and Gender Information Value Date Recorded Sex Assigned at Not on file 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
--- OUTSIDE RECORDS SUMMARY | 2025-03-22 15:04 | XMS_ITS | Encounter Summary ---
Author Organization [facility] Address [address] [place] [address] Care Team Providers Care Principal Systems Architect Name Role Phone Kaylynn Munoz DO Primary Care Provider [phone] Encounter Details Date Type Department Care Team (Latest Contact Info) Description 06/13/2002 Outpatient Historical [facility] CherylKemar MD [address] [facility] [address] [place] [address] CHOLELITHIASIS NOS (Primary Dx) Social History Tobacco Use Types Packs/Day Years Used Date Smoking Tobacco: Never Assessed Comments Unknown Sex and Gender Information Value Date Recorded Sex Assigned at Not on file 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
--- OUTSIDE RECORDS SUMMARY | 2025-03-22 15:04 | XMS_ITS | Encounter Summary ---
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
--- OUTSIDE RECORDS SUMMARY | 2025-03-22 15:04 | XMS_ITS | Encounter Summary ---
Author Organization [facility] Address [address] [place] [address] Care Team Providers Care Explosive Specialist Name Role Phone Kaylynn Munoz DO Primary Care Provider Encounter Details Date Type Department Care Team (Late st Contact Info) Description 06/10/2007 Outpatient Historical [facility] Internal Medicine- [place] [address] [facility] [address] [place] [address] Vishal Bernabe MD [address] [facility] [place] [address] Social History Tobacco Use Types Packs/Day Years Used Date Smoking Tobacco: Never Assessed Comments No Sex and Gender Information Value Date Recorded Sex Assigned at Not on file Legal Sex Female 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 CHIEF COMPLAINT: The patient comes in today followup chronic pain, diabetes, coronary artery disease. HISTORY OF PRESENT ILLNESS: This is a 67-year-old white female with the above mentioned medical problems who comes in today for followup. Still having the same problems, left leg sciatica, pain keeping her awake. We are going to go ahead and try getting her the Lidoderm this time and see how she does with it. The patients blood sugars are still very labile. She is on metformin 1000 mg b.i.d. After some discussion will go ahead and switch her over to Janumet b.i.d. and see how she does. REVIEW OF SYSTEMS: As above. PHYSICAL EXAMINATION: GENERAL: Awake, alert, oriented times 3, in no acute distress. Uncomfortable white female. VITAL SIGNS: Afebrile, blood pressure 140/72, pulse is 64, respirations 14, weight 184 pounds. Physical exam is normal except for chronic low back pain. IMPRESSION: 1. Patient with chronic low pain, still on medications. 2. Diabetes, labile, changing from metformin to Janumet b.i.d. 3. Coronary artery disease, stable at this time. Followup in one month. Vishal Bernabe M.D. Internal Medicine [facility] Electronically Signed by Vishal Bernabe M.D. 06/21/2007 08:56 , P, 685 Document #: [id number] cc: SHING RANGE OPERATOR documented in this encounter Plan of Treatment Not on file documented as of this encounter Visit Diagnoses Not on filedocumented in this encounter Care Teams Explosive Specialist Relationship Specialty Start Date End Date Kaylynn Munoz DO [address] [place] [address] PCP - General Family Practice 05/17/13 documented as of this encounter
--- OUTSIDE RECORDS SUMMARY | 2025-03-22 15:04 | XMS_ITS | Encounter Summary ---
Author Organization [facility] Address [address] [place] [address] Care Team Providers Care Cullet Crusher Name Role Phone Kaylynn Munoz DO Primary Care Provider Encounter Details Date Type Department Care Team (Late st Contact Info) Description 01/07/2005 Outpatient Historical [facility] Internal Medicine- [place] [address] [facility] [address] [place] [phone] Vishal Bernabe MD [address] [facility] [place] [address] INSECT BITE HEAD (Primary Dx); LYMPHADENITIS NOS; SLEEP DISTURBANCE NOS; OTHER GENERAL SYMPTOMS Social History Tobacco Use Types Packs/Day Years Used Date Smoking Tobacco: Never Assessed Comments Unknown Sex and Gender Information Value Date Recorded Sex Assigned at Not on file Legal Sex Female 5:59 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 Gender Identity Not on file Sexual Orientation Not on file documented as of this encounter Plan of Treatment Not on file documented as of this encounter Visit Diagnoses Diagnosis Face, neck, and scalp except eye, insect bite, nonvenomous, without mention of infection(910.4)- Primary Face, neck, and scalp except eye, insect bite, nonvenomous, without mention of infection Lymphadenitis, unspecified, except mesenteric Sleep disturbance, unspecified Other general symptoms(780.99) Other general symptoms documented in this encounter Care Teams Cullet Crusher Relationship Specialty Start Date End Date Kaylynn Munoz DO [address] [place] [address] PCP - General Family Practice 05/17/13 documented as of this encounter
--- OUTSIDE RECORDS SUMMARY | 2025-03-22 15:04 | XMS_ITS | Encounter Summary ---
Author Organization [facility] Address [address] [place] [address] Care Team Providers Care Historian Research Assistant Name Role Phone Kaylynn Munoz DO Primary Care Provider [phone] Encounter Details Date Type Department Care Team (Latest Contact Info) Description 11/07/2004 Outpatient Historical [facility] Pain [facility] [address] [place] [address] D[place] Crystal A, SHOE STICKS REPAIRER [address] [facility] [address] [place] [address] LUMB/LUMBOSAC DISC DEGEN (Primary Dx); LUMBOSACRAL NEURITIS NOS Social History Tobacco Use Types Packs/Day Years Used Date Smoking Tobacco: Never Assessed Comments Unknown Sex and Gender Information Value Date Recorded Sex Assigned at Not on file Legal Sex Female 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
--- OUTSIDE RECORDS SUMMARY | 2025-03-22 15:04 | XMS_ITS | Encounter Summary ---
Author Organization [facility] Address [address] [place] [address] Care Team Providers Care Cell Tuber Hand Name Role Phone Kaylynn Munoz DO Primary Care Provider Encounter Details Date Type Department Care Team (Latest Contact Info) Description 06/01/2002 Outpatient Historical [facility] CherylKemar MD [address] [facility] [address] [place] [address] ABDOMINAL PAIN EPIGASTRIC (Primary Dx) Social History Tobacco Use Types Packs/Day Years Used Date Smoking Tobacco: Never Assessed Comments Unknown Sex and Gender Information Value Date Recorded Sex Assigned at Not on file Legal Sex Female 5:59 AM PLANS EXAMINER Gender Identity Not on file Sexual Orientation Not on file documented as of this encounter Plan of Treatment Not on file documented as of this encounter Visit Diagnoses Diagnosis Abdominal pain, epigastric- Primary documented in this encounter Care Teams Cell Tuber Hand Relationship Specialty Start Date End Date Kaylynn Munoz DO [address] [place] [address] PCP - General Family Practice 05/17/13 documented as of this encounter
--- OUTSIDE RECORDS SUMMARY | 2025-03-22 15:04 | XMS_ITS | Encounter Summary ---
Author Organization [facility] Address [address] [place] [address] Care Team Providers Care Evp Operations Name Role Phone Kaylynn Munoz DO Primary Care Provider Encounter Details Date Type Department Care Team (Late st Contact Info) Description 03/10/2005 Outpatient Historical [facility] Internal Medicine- [address] [place] [address] Vishal Bernabe MD [address] [facility] [place] [address] GENERAL OSTEOARTHROSIS (Primary Dx); OTHER GENERAL SYMPTOMS; ASTHMA UNSPECIFIED Social History Tobacco Use Types Packs/Day Years Used Date Smoking Tobacco: Never Assessed Comments Unknown Sex and Gender Information Value Date Recorded Sex Assigned at Not on file Legal 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
--- OUTSIDE RECORDS SUMMARY | 2025-03-22 15:04 | XMS_ITS | Encounter Summary ---
Author Organization [facility] Address [address] [place] [address] Care Team Providers Care Coping Machine Assembler Name Role Phone Kaylynn Munoz DO Primary Care Provider [phone] Encounter Details Date Type Department Care Team (Late st Contact Info) Description 12/05/[address] [facility] [place] [facility] Internal Medicine- [place] [address] [address] [address] [place] [address] Vishal Bernabe MD [address] [facility] [place] [address] OTHER GENERAL SYMPTOMS (Primary Dx); EDEMA; REFLUX ESOPHAGITIS Social History Tobacco Use Types Packs/Day Years Used Date Smoking Tobacco: Never Assessed Comments Unknown Sex and Gender Information Value Date Recorded Sex Assigned at Not on file Legal Sex Female 5:59 AM MANAGER OF COMMUNITY RELATIONS Gender Identity Not on file Sexual Orientation Not on file documented as of this encounter Plan of Treatment Not on file documented as of this encounter Visit Diagnoses Diagnosis Other general symptoms(780.99)- Primary Other general symptoms Edema Reflux esophagitis documented in this encounter Care Teams Coping Machine Assembler Relationship Specialty Start Date End Date Kaylynn Munoz DO [address] [place] [address] PCP - General Family Practice 05/17/13 documented as of this encounter
--- OUTSIDE RECORDS SUMMARY | 2025-03-22 15:04 | XMS_ITS | Encounter Summary ---
Author Organization [facility] Address [address] [place] [address] Care Team Providers Care Flake Or Shred Roll Operator Name Role Phone Kaylynn Munoz DO Primary Care Provider Encounter Details Date Type Department Care Team (Late st Contact Info) Description 09/26/2004 Outpatient Historical [facility] [address] [facility] [address] [place] [address] Brian Mak MD NO ADDRESS ON FILE LUMBOSACRAL NEURITIS NOS (Primary Dx) Social History Tobacco Use Types Packs/Day Years Used Date Smoking Tobacco: Never Assessed Comments Unknown Sex and Gender Information Value Date Recorded Sex Assigned at Not on file Legal Sex Female 5:59 AM PLUGGER Gender Identity Not on file Sexual Orientation Not on file documented as of this encounter Plan of Treatment Not on file documented as of this encounter Visit Diagnoses Diagnosis Thoracic or lumbosacral neuritis or radiculitis, unspecified- Primary documented in this encounter Care Teams Flake Or Shred Roll Operator Relationship Specialty Start Date End Date Kaylynn Munoz DO [address] [place] [address] PCP - General Family Practice 05/17/13 documented as of this encounter
--- OUTSIDE RECORDS SUMMARY | 2025-03-22 15:04 | XMS_ITS | Encounter Summary ---
Author Organization [facility] Address [address] [place] [address] Care Team Providers Care Parts Sales Associate Name Role Phone Kaylynn Munoz DO Primary Care Provider [phone] Encounter Details Date Type Department Care Team (Latest Contact Info) Description 10/10/1998 Outpatient Historical [facility] [place] NO ADDRESS ON FILE Chest pain, unspecified (Primary Dx) Social History Tobacco Use Types Packs/Day Years Used Date Smoking Tobacco: Never Assessed Comments Unknown Sex and Gender Information Value Date Recorded Sex Assigned at Not on file Legal Sex Female 5:59 AM 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
--- OUTSIDE RECORDS SUMMARY | 2025-03-22 15:04 | XMS_ITS | Encounter Summary ---
Author Organization [facility] Address [address] [place] [address] Care Team Providers Care Custody Officer Name Role Phone Kaylynn Munoz DO Primary Care Provider [phone] Encounter Details Date Type Department Care Team (Latest Contact Info) Description 03/05/1999 Outpatient Historical [facility] Chance Jimenez MD [address] [place] [address] Insomnia, unspecified (Primary Dx); Osteoarthrosis, unspecified whether generalized or localized, unspecified site; Encounter for long-term (current) use of other medications; Dyspepsia and other specified disorders of function of stomach Social History Tobacco Use Types Packs/Day Years Used Date Smoking Tobacco: Never Assessed Comments Unknown Sex and Gender Information Value Date Recorded Sex Assigned at Not on file Legal Sex Female 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 Gender Identity Not on file Sexual Orientation Not on file documented as of this encounter Plan of Treatment Not on file documented as of this encounter Visit Diagnoses Diagnosis Insomnia, unspecified- Primary Osteoarthrosis, unspecified whether generalized or localized, unspecified site Encounter for long-term (current) use of other medications Dyspepsia and other specified disorders of function of stomach documented in this encounter Care Teams Custody Officer Relationship Specialty Start Date End Date Kaylynn Munoz DO [address] [place] [address] PCP - General Family Practice 05/17/13 documented as of this encounter
--- OUTSIDE RECORDS SUMMARY | 2025-03-22 15:04 | XMS_ITS | Encounter Summary ---
Author Organization [facility] Address [address] [place] [address] Care Team Providers Care Development Spec Name Role Phone Kaylynn Munoz DO Primary Care Provider [phone] Encounter Details Date Type Department Care Team (Latest Contact Info) Description 10/03/1999 Outpatient Historical [facility] Chance Jimenez MD [address] [place] [address] Abdominal pain, unspecified site (Primary Dx); Dyspepsia and other specified disorders of function of stomach Social History Tobacco Use Types Packs/Day Years Used Date Smoking Tobacco: Never Assessed Comments Unknown Sex and Gender Information Value Date Recorded Sex Assigned at Not on file Legal Sex Female 5:59 AM 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
--- OUTSIDE RECORDS SUMMARY | 2025-03-22 15:04 | XMS_ITS | Encounter Summary ---
Author Organization [facility] Address [address] [place] [address] Care Team Providers Care Operations And Maintenance Manager Name Role Phone Kaylynn Munoz DO Primary Care Provider [phone] Encounter Details Date Type Department Care Team (Latest Contact Info) Description 10/17/1999 Outpatient Historical [facility] Chance Jimenez MD [address] [place] [address] Urinary tract infection, site not specified (Primary Dx) Social History Tobacco Use Types Packs/Day Years Used Date Smoking Tobacco: Never Assessed Comments Unknown Sex and Gender Information Value Date Recorded Sex Assigned at Not on file Legal Sex Female 5:59 AM MANAGEMENT COORDINATOR Gender Identity Not on file Sexual Orientation Not on file documented as of this encounter Plan of Treatment Not on file documented as of this encounter Visit Diagnoses Diagnosis Urinary tract infection, site not specified- Primary documented in this encounter Care Teams Operations And Maintenance Manager Relationship Specialty Start Date End Date Kaylynn Munoz DO [address] [place] [address] PCP - General Family Practice 05/17/13 documented as of this encounter
--- OUTSIDE RECORDS SUMMARY | 2025-03-22 15:04 | XMS_ITS | Encounter Summary ---
Author Organization [facility] Address [address] [place] [address] Care Team Providers Care Label Sewer Name Role Phone Kaylynn Munoz DO Primary Care Provider [phone] Encounter Details Date Type Department Care Team (Latest Contact Info) Description 04/24/1998 Outpatient Historical [facility] Chance Jimenez MD [address] [place] [address] Bronchitis, not specified as acute or chronic (Primary Dx); Acute laryngitis Social History Tobacco Use Types Packs/Day Years Used Date Smoking Tobacco: Never Assessed Comments Unknown Sex and Gender Information Value Date Recorded Sex Assigned at Not on file Legal Sex Female 5:59 AM DEMAND 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
--- OUTSIDE RECORDS SUMMARY | 2025-03-22 15:05 | XMS_ITS | Encounter Summary ---
Author Organization [facility] Address [address] [place] [address] Care Team Providers Care Studio Coordinator Name Role Phone Kaylynn Munoz DO Primary Care Provider Encounter Details Date Type Department Care Team (Late st Contact Info) Description 07/25/2002 Outpatient Historical [facility] [address] [place] [address] Brian Mak MD NO ADDRESS ON FILE LUMBAGO (Primary Dx) Social History Tobacco Use Types Packs/Day Years Used Date Smoking Tobacco: Never Assessed Comments Unknown Sex and Gender Information Value Date Recorded Sex Assigned at Not on file Legal Sex Female 5:59 AM PROCESS SAFETY MANAGER Gender Identity Not on file Sexual Orientation Not on file documented as of this encounter Plan of Treatment Not on file documented as of this encounter Visit Diagnoses Diagnosis Lumbago- Primary documented in this encounter Care Teams Studio Coordinator Relationship Specialty Start Date End Date Kaylynn Munoz DO [address] [place] [address] PCP - General Family Practice 05/17/13 documented as of this encounter
--- OUTSIDE RECORDS SUMMARY | 2025-03-22 15:05 | XMS_ITS | Encounter Summary ---
Author Organization [facility] Address [address] [place] [address] Care Team Providers Care Record Cutter Name Role Phone Kaylynn Munoz DO Primary Care Provider Encounter Details Date Type Department Care Team (Late st Contact Info) Description 06/21/2003 Outpatient Historical [facility] [place] [address] [place] [address] Vishal Bernabe MD [address] [facility] [place] [address] Social History Tobacco Use Types Packs/Day Years Used Date Smoking Tobacco: Never Assessed Comments Unknown Sex and Gender Information Value Date Recorded Sex Assigned at Not on file Legal Sex Female 5:59 AM RETORT ENGINEER Gender Identity Not on file Sexual Orientation Not on file documented as of this encounter Plan of Treatment Not on file documented as of this encounter Visit Diagnoses Not on filedocumented in this encounter Care Teams Record Cutter Relationship Specialty Start Date End Date Kaylynn Munoz DO [address] [place] [address] PCP - General Family Practice 05/17/13 documented as of this encounter
--- OUTSIDE RECORDS SUMMARY | 2025-03-22 15:05 | XMS_ITS | Encounter Summary ---
Author Organization [facility] Address [address] [place] [address] Care Team Providers Care Powder Blender And Pourer Name Role Phone Kaylynn Munoz DO Primary Care Provider [phone] Encounter Details Date Type Department Care Team (Late st Contact Info) Description 02/13/2003 Outpatient Historical [facility]3] Internal Medicine- [address] [place] [address] Vishal Bernabe MD [address] [facility] [place] [address] OTHER GENERAL SYMPTOMS (Primary Dx); REFLUX ESOPHAGITIS; GENERAL OSTEOARTHROSIS; ALLERGIC RHINITIS NOS Social History Tobacco Use Types Packs/Day Years Used Date Smoking Tobacco: Never Assessed Comments Unknown Sex and Gender Information Value Date Recorded Sex Assigned at Not on file Legal Sex Female 5:59 AM MAYONNAISE MIXER Gender Identity Not on file Sexual Orientation Not on file documented as of this encounter Plan of Treatment Not on file documented as of this encounter Visit Diagnoses Diagnosis Other general symptoms(780.99)- Primary Other general symptoms Reflux esophagitis Generalized osteoarthrosis, unspecified site Allergic rhinitis, cause unspecified documented in this encounter Care Teams Powder Blender And Pourer Relationship Specialty Start Date End Date Kaylynn Munoz DO [address] [place] [phone] PCP - General Family Practice 05/17/13 documented as of this encounter
--- OUTSIDE RECORDS SUMMARY | 2025-03-22 15:05 | XMS_ITS | Encounter Summary ---
Author Organization [facility] Address [address] [place] [address] Care Team Providers Care Printing Supervisor Name Role Phone Kaylynn Munoz DO Primary Care Provider Encounter Details Date Type Department Care Team (Late st Contact Info) Description 10/25/2002 Outpatient Historical [facility] Internal Medicine- [place] [address] [facility] [address] [place] [address] Vishal Bernabe MD [address] [facility] [place] [address] DERMATOPHYTOSIS OF NAIL (Primary Dx); LUMBAGO; OTHER GENERAL SYMPTOMS; CELLULITIS NOS Social History Tobacco Use Types Packs/Day Years Used Date Smoking Tobacco: Never Assessed Comments Unknown Sex and Gender Information Value Date Recorded Sex Assigned at Not on file Legal Sex Female 5:59 AM TRACE EVIDENCE TECHNICIAN Gender Identity Not on file Sexual Orientation Not on file documented as of this encounter Plan of Treatment Not on file documented as of this encounter Visit Diagnoses Diagnosis Dermatophytosis of nail- Primary Lumbago Other general symptoms(780.99) Other general symptoms Cellulitis and abscess of unspecified site documented in this encounter Care Teams Printing Supervisor Relationship Specialty Start Date End Date Kaylynn Munoz DO [address] [place] [phone] PCP - General Family Practice 05/17/13 documented as of this encounter
--- OUTSIDE RECORDS SUMMARY | 2025-03-22 15:05 | XMS_ITS | Encounter Summary ---
Author Organization [facility] Address [address] [place] [address] Care Team Providers Care Ict Support And Test Engineers Name Role Phone Kaylynn Munoz DO Primary Care Provider Encounter Details Date Type Department Care Team (Latest Contact Info) Description 01/10/2008 Outpatient Historical [facility] Imaging and Laboratory Services [place] [address] [facility] [address] [place] [address] Thee Skelton MD [address] [place] [address] Female Stress Incontinence Social History Tobacco Use Types Packs/Day Years Used Date Smoking Tobacco: Never Assessed Comments No Sex and Gender Information Value Date Recorded Sex Assigned at Not on file Legal Sex Female 5:59 AM EVENT CREW TECHNICIAN Gender Identity Not on file Sexual Orientation Not on file documented as of this encounter Plan of Treatment Not on file documented as of this encounter Visit Diagnoses Diagnosis Female stress incontinence documented in this encounter Care Teams Ict Support And Test Engineers Relationship Specialty Start Date End Date Kaylynn Munoz DO [address] [place] [phone] PCP - General Family Practice 05/17/13 documented as of this encounter
--- OUTSIDE RECORDS SUMMARY | 2025-03-22 15:05 | XMS_ITS | Encounter Summary ---
Author Organization [facility] Address [address] [place] [address] Care Team Providers Care Donkey Ride Operator Name Role Phone Kaylynn Munoz DO Primary Care Provider Encounter Details Date Type Department Care Team (Late st Contact Info) Description 03/14/2008 Outpatient Historical [facility] [address] [place] [address] Thee Skelton MD [address] [address] Social History Tobacco Use Types Packs/Day Years Used Date Smoking Tobacco: Never Assessed Comments No Sex and Gender Information Value Date Recorded Sex Assigned at Not on file Legal Sex Female 5:59 AM BONSAI CULTURIST Gender Identity Not on file Sexual Orientation Not on file documented as of this encounter Plan of Treatment Not on file documented as of this encounter Procedures Procedure Name Priority Date/Time Associated Diagnosis Comments URINE CULTURE Stat 03/14/2008 11:56 AM BONSAI CULTURIST XR CHEST PA OR AP 1 VW Routine 8 10:36 AM BONSAI CULTURIST ABORH TYPING Stat 03/14/2008 10:02 AM BONSAI CULTURIST CBC WITH DIFFERENTIAL Stat 03/14/2008 10:02 AM BONSAI CULTURIST BLOOD BANK ANTIBODY SCREEN Stat 03/14/2008 10:02 AM BONSAI CULTURIST COMPREHENSIVE METABOLIC PANEL Stat 03/14/2008 10:02 AM BONSAI CULTURIST documented in this encounter Results * URINE CULTURE (03/14/2008 11:56 AM BONSAI CULTURIST) FINAL REPORT Mixed gram positive jimmy suggestive of genital/skin jimmy. If clinically indicated, please submit an appropriately collected specimen. INTERFACE SYSTEM 03/14/2008 11:5 6 AM BONSAI CULTURIST 03/14/2008 11:56 AM BONSAI CULTURIST Thee Skelton MD MICROBIOLOGY - GENERAL ORDER KULDEEP Final Result INTERFACE SYSTEM Refer to clinic/hospital department * XR CHEST PA OR AP (03/14/2008 10:36 AM BONSAI CULTURIST) Anatomical Region Laterality Modality Chest Other 03/14/2008 10:3 6 AM BONSAI CULTURIST Narrative 03/14/2008 12:42 PM BONSAI CULTURIST Exam: Chest - PA Date/Time of Exam: Mar 14, 2008 10:36:17 AM History: Pre-operative. Findings: Comparison study 08/11/2007. Old granulomatous residuals. Redemonstration of mild plate atelectasis and/or scarring of right middle lobe. Cardiovascular silhouette stable and within normal limits. Impression: Stable exam. No apparent acute disease. - Dictated By: Renetta Ann M.D. Electronically Signed By: Renetta Ann M.D. Date Signed: 03/14/08 JAW Procedure Note Renetta Ann MD - 03/14/2008 Exam: Chest - PA Date/Time of Exam: Mar 14, 2008 10:36:17 AM History: Pre-operative. Findings: Comparison study 08/11/2007. Old granulomatous residuals.Redemonstration of mild plate atelectasis and/or scarring of right middle lobe. Cardiovascularsilhouette stable and within normal limits. Impression: Stable exam. No apparent acute disease. - Dictated By: Renetta Ann M.D. Electronically Signed By: Renetta Ann M.D. Date Signed: 03/14/08 JAW Thee Skelton MD DIAGNOSTIC IMAGING ORDERABLE S Final Result * CBC WITH DIFFERENTIAL (03/14/2008 10:02 AM BONSAI CULTURIST) HEMATOCRIT 44.0 36.0 - 46.0 % [facility] EOSINOPHILS 2.8 0.0 - 7.0 % [facility] PLATELETS 255 140 - 440 K/ul [facility] EOSINOPHIL ABSOLUTE 0.2 0.0 - 0.7 K/ul [facility] RBC 4.93 4.20 - 5.40 Mil/ul [facility] LYMPHOCYTES 33.7 24.0 - 44.0 % [facility] MCHC 34.1 30.0 - 35.0 g/dL [facility] LYMPHOCYTE ABSOLUTE 2.3 1.2 - 4.0 K/ul [facility] MCV 89.2 84.0 - 103.0 Fl [facility] MPV 9.3 8.9 - 12.8 Fl [facility] BASOPHILS ABSOLUTE 0.0 0.0 - 0.2 K/ul [facility] BASOPHILS 0.4 0.0 - 1.0 % [facility] HEMOGLOBIN 15.0 12.0 - 16.0 g/dL [facility] RDW 13.3 11.0 - 14.5 % [facility] MONOCYTE ABSOLUTE 0.6 0.1 - 0.6 K/ul [facility] MONOCYTES 8.1 2.0 - 10.0 % [facility] WBC 6.8 4.8 - 10.8 K/ul [facility] MCH 30.4 27.0 - 34.0 pg [facility] NEUTROPHIL ABSOLUTE 3.8 2.0 - 8.0 K/ul [facility] NEUTROPHILS 55.0 42.2 - 75.2 % [facility] Blood specimen (specimen) 03/14/2008 10:02 AM BONSAI CULTURIST 03/14/2008 10:11 AM BONSAI CULTURIST Thee Skelton MD HEMATOLOGY ORDERABLES Final Result Performing Organization Address [facility] de Phone Number INTERFACE SYSTEM Refer to clinic/hospital department [facility] CLIA# [id number] [address] [place] [address] * ANTIBODY SCREEN (03/14/2008 10:02 AM BONSAI CULTURIST) ANTIBODY SCREEN Negative [facility] Blood specimen (specimen) 03/14/2008 10:02 AM BONSAI CULTURIST 03/14/2008 10:11 AM BONSAI CULTURIST Thee Skelton MD BLOOD BANK ORDERABLES Edited Performing Organization Address [facility] de Phone Number INTERFACE SYSTEM Refer to clinic/hospital department [facility] CLIA# [id number] [address] [place] [address] * ABORH TYPING (03/14/2008 10:02 AM BONSAI CULTURIST) Pathologist [facility] ABO/RH TYPE A Negative [facility] Blood specimen (specimen) 03/14/2008 10:02 AM BONSAI CULTURIST 03/14/2008 10:11 AM BONSAI CULTURIST Thee Skelton MD BLOOD BANK ORDERABLES Final Result Performing Organization Address [facility] Phone Number INTERFACE SYSTEM Refer to clinic/hospital department [facility] CLIA# [id number] [address] [place] [address] * (ABNORMAL) COMPREHENSIVE METABOLIC PANEL (03/14/2008 10:02 AM BONSAI CULTURIST) BILIRUBIN TOTAL 0.5 0.3 - 1.2 mg/dL [facility] TOTAL PROTEIN 7.1 6.3 - 8.2 g/dL [facility] BUN 15 7 - 17 mg/dL [facility] CO2 29 22 - 32 mmol/l [facility] AST 22 8 - 33 U/L [facility] ANION GAP 13 9 - 20 mEq/L [facility] POTASSIUM 4.3 3.5 - 5.0 mEq/L [facility] ALBUMIN 4.5 3.5 - 5.0 g/dL [facility] GLOBULIN (CALC) 2.6 2.4 - 3.9 g/dL [facility] CREATININE 0.7 0.7 - 1.2 mg/dL [facility] CALCIUM 9.9 8.4 - 10.5 mg/dL [facility] OSMOLALITY, CALCULATED 294 275 - 295 mOsm/Kg [facility] ALT 20 4 - 36 IU/L [facility] GLUCOSE 122(H) 70 - 110 mg/dL [facility] CHLORIDE 104 95 - 110 mEq/L [facility] ALBUMIN/GLOBULIN RATIO 1.7 1.0 - 2.3 [facility] ALKALINE PHOSPHATASE 73 25 - 100 U/L [facility] SODIUM 142 136 - 145 mEq/L [facility] Blood specimen (specimen) 03/14/2008 10:02 AM BONSAI CULTURIST 03/14/2008 10:11 AM BONSAI CULTURIST Thee Skelton MD CHEMISTRY ORDERABLES Final R esult INTERFACE SYSTEM Refer to clinic/hospital department [facility] CLIA# [id number] [address] [place] [address] documented in this encounter Visit Diagnoses Not on filedocumented in this encounter Care Teams Donkey Ride Operator Relationship Specialty Start Date End Date Kaylynn Munoz DO [address] [place] [address] PCP - General Family Practice 05/17/13 documented as of this encounter
--- OUTSIDE RECORDS SUMMARY | 2025-03-22 15:05 | XMS_ITS | Encounter Summary ---
Author Organization [facility] Address [address] [place] [address] Care Team Providers Care Milk Truck Driver Name Role Phone Kaylynn Munoz DO Primary Care Provider Encounter Details Date Type Department Care Team (Late st Contact Info) Description 04/17/2003 Outpatient Historical [facility] Internal Medicine- [place] [address] [facility] [address] [place] [address] Vishal Bernabe MD [address] [facility] [place] [place] [address] LUMBAGO (Primary Dx); IDIO PERIPH NEURPTHY NOS Social History Tobacco Use Types Packs/Day Years Used Date Smoking Tobacco: Never Assessed Comments Unknown Sex and Gender Information Value Date Recorded Sex Assigned at Not on file Legal Sex Female 5:59 AM SCHOOL PLANT CONSULTANT Gender Identity Not on file Sexual Orientation Not on file documented as of this encounter Plan of Treatment Not on file documented as of this encounter Visit Diagnoses Diagnosis Lumbago- Primary Unspecified hereditary and idiopathic peripheral neuropathy documented in this encounter Care Teams Milk Truck Driver Relationship Specialty Start Date End Date Kaylynn Munoz DO [address] [place] [address] PCP - General Family Practice 05/17/13 documented as of this encounter
--- OUTSIDE RECORDS SUMMARY | 2025-03-22 15:05 | XMS_ITS | Encounter Summary ---
Author Organization [facility] Address [address] [place] [address] Care Team Providers Care Medical Doctor Md/Medical Director Name Role Phone Kaylynn Munoz DO Primary Care Provider Encounter Details Date Type Department Care Team (Late st Contact Info) Description 12/14/2002 Outpatient Historical [facility] Internal Medicine- [place] [address] [facility] [address] [place] [address] Vishal Bernabe MD [address] [facility] [place] [address] OTHER GENERAL SYMPTOMS (Primary Dx); MONONEURITIS NOS Social History Tobacco Use Types Packs/Day Years Used Date Smoking Tobacco: Never Assessed Comments Unknown Sex and Gender Information Value Date Recorded Sex Assigned at Not on file Legal Sex Female 5:59 AM MEDICAL RECORDS ANALYST Gender Identity Not on file Sexual Orientation Not on file documented as of this encounter Plan of Treatment Not on file documented as of this encounter Visit Diagnoses Diagnosis Other general symptoms(780.99)- Primary Other general symptoms Mononeuritis of unspecified site documented in this encounter Care Teams Medical Doctor Md/Medical Director Relationship Specialty Start Date End Date Kaylynn Munoz DO [address] [place] [address] PCP - General Family Practice 05/17/13 documented as of this encounter
--- OUTSIDE RECORDS SUMMARY | 2025-03-22 15:05 | XMS_ITS | Encounter Summary ---
Author Organization [facility] Address [address] [place] [address] Care Team Providers Care Legal Internship Name Role Phone Kaylynn Munoz DO Primary Care Provider Encounter Details Date Type Department Care Team (Latest Contact Info) Description 02/02/2003 Outpatient Historical [facility] Juan Borrero, DPM NO ADDRESS ON FILE INGROWING NAIL (Primary Dx); LOCAL SKIN INFECTION NOS Social History Tobacco Use Types Packs/Day Years Used Date Smoking Tobacco: Never Assessed Comments Unknown Sex and Gender Information Value Date Recorded Sex Assigned at Not on file Legal Sex Female 5:59 AM DEMAND PLANNER Gender Identity Not on file Sexual Orientation Not on file documented as of this encounter Plan of Treatment Not on file documented as of this encounter Visit Diagnoses Diagnosis Ingrowing nail- Primary Unspecified local infection of skin and subcutaneous tissue documented in this encounter Care Teams Legal Internship Relationship Specialty Start Date End Date Kaylynn Munoz DO [address] [place] [address] PCP - General Family Practice 05/17/13 documented as of this encounter
--- OUTSIDE RECORDS SUMMARY | 2025-03-22 15:05 | XMS_ITS | Encounter Summary ---
Author Organization [facility] Address [address] [place] [address] Care Team Providers Care Mediation Commissioner Name Role Phone Kaylynn Munoz DO Primary Care Provider Encounter Details Date Type Department Care Team (Latest Contact Info) Description 02/20/2003 Outpatient Historical [facility] Juan Borrero, DPM NO ADDRESS ON FILE INGROWING NAIL (Primary Dx) Social History Tobacco Use Types Packs/Day Years Used Date Smoking Tobacco: Never Assessed Comments Unknown Sex and Gender Information Value Date Recorded Sex Assigned at Not on file Legal Sex Female 5:59 AM RV SERVICE TECHNICIAN Gender Identity Not on file Sexual Orientation Not on file documented as of this encounter Plan of Treatment Not on file documented as of this encounter Visit Diagnoses Diagnosis Ingrowing nail- Primary documented in this encounter Care Teams Mediation Commissioner Relationship Specialty Start Date End Date Kaylynn Munoz DO [address] [place] [address] PCP - General Family Practice 05/17/13 documented as of this encounter
--- OUTSIDE RECORDS SUMMARY | 2025-03-22 15:05 | XMS_ITS | Encounter Summary ---
Author Organization [facility] Address [address] [place] [address] Care Team Providers Care Head Control Clerk Name Role Phone Kaylynn Munoz DO Primary Care Provider [phone] Encounter Details Date Type Department Care Team (Late st Contact Info) Description 07/25/2002 Outpatient Historical [facility] Procedures [address] 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
--- OUTSIDE RECORDS SUMMARY | 2025-03-22 15:05 | XMS_ITS | Encounter Summary ---
Author Organization [facility] Address [address] [place] [address] Care Team Providers Care Small Parts Assembler Name Role Phone Kaylynn Munoz DO Primary Care Provider Encounter Details Date Type Department Care Team (Late st Contact Info) Description 12/20/2002 Outpatient Historical [facility] Imaging Services [address] [place] [address] Vishal Bernabe MD [address] [facility] [place] [address] CYST OF BONE NOS (Primary Dx) Social History Tobacco Use Types Packs/Day Years Used Date Smoking Tobacco: Never Assessed Comments Unknown Sex and Gender Information Value Date Recorded Sex Assigned at Not on file Legal Sex Female 5:59 AM LEAD MANUFACTURING TECHNICIAN Gender Identity Not on file Sexual Orientation Not on file documented as of this encounter Plan of Treatment Not on file documented as of this encounter Visit Diagnoses Diagnosis Cyst of bone (localized), unspecified- Primary documented in this encounter Care Teams Small Parts Assembler Relationship Specialty Start Date End Date Kaylynn Munoz DO [address] [place] [address] PCP - General Family Practice 05/17/13 documented as of this encounter
--- OUTSIDE RECORDS SUMMARY | 2025-03-22 15:05 | XMS_ITS | Encounter Summary ---
Author Organization [facility] Address [address] [place] [address] Care Team Providers Care Fulling Machine Operator Name Role Phone Kaylynn Munoz DO Primary Care Provider Encounter Details Date Type Department Care Team (Late st Contact Info) Description 03/26/2004 Outpatient Historical [facility] Internal Medicine- [address] [place] [address] Vishal Bernabe MD [address] [facility] [place] [address] ASTHMA UNSPECIFIED (Primary Dx); LUMBAGO; OTHER GENERAL SYMPTOMS; EDEMA Social History Tobacco Use Types Packs/Day Years Used Date Smoking Tobacco: Never Assessed Comments Unknown Sex and Gender Information Value Date Recorded Sex Assigned at Not on file Legal Sex Female 5:59 AM PARTS ANALYST Gender Identity Not on file Sexual Orientation Not on file documented as of this encounter Plan of Treatment Not on file documented as of this encounter Visit Diagnoses Diagnosis Unspecified asthma(493.90)- Primary Unspecified asthma Lumbago Other general symptoms(780.99) Other general symptoms Edema documented in this encounter Care Teams Fulling Machine Operator Relationship Specialty Start Date End Date Kaylynn Munoz DO [address] [place] [phone] PCP - General Family Practice 1/14/14 documented as of this encounter
--- OUTSIDE RECORDS SUMMARY | 2025-03-22 15:05 | XMS_ITS | Encounter Summary ---
Author Organization [facility] Address [address] [place] [address] Care Team Providers Care Location Director Name Role Phone Kaylynn Munoz DO Primary Care Provider [phone] Encounter Details Date Type Department Care Team (Late st Contact Info) Description 03/14/2008 Outpatient Historical [facility] Thee Skelton MD [address] [facility] [address] [place] [address] Social History Tobacco Use Types Packs/Day Years Used Date Smoking Tobacco: Never Assessed Comments No Sex and Gender Information Value Date Recorded Sex Assigned at Not on file Legal Sex Female 5:59 AM LOCATION DIRECTOR Gender Identity Not on file Sexual Orientation Not on file documented as of this encounter Plan of Treatment Not on file documented as of this encounter Procedures Procedure Name Priority Date/Time Associated Diagnosis Comments CBC WITHOUT DIFFERENTIAL Routine 03/23/2008 6:21 AM LOCATION DIRECTOR POC GLUCOSE Routine 03/22/2008 8:56 AM LOCATION DIRECTOR POC GLUCOSE Routine 03/22/2008 5:47 AM LOCATION DIRECTOR documented in this encounter Results * CBC WITHOUT DIFFERENTIAL (03/23/2008 6:21 AM LOCATION DIRECTOR) RBC 4.74 4.20 - 5.40 Mil/ul [facility] PLATELETS 251 140 - 440 K/ul [facility] HEMOGLOBIN 14.4 12.0 - 16.0 g/dL [facility] WBC 7.9 4.8 - 10.8 K/ul [facility] HEMATOCRIT 43.2 36.0 - 46.0 % [facility] Blood specimen (specimen) 03/23/2008 6:21 AM LOCATION DIRECTOR 03/23/2008 6:30 AM LOCATION DIRECTOR us Thee Skelton MD HEMATOLOGY ORDERABLES Final Result Performing Organization Address [facility] de Phone Number INTERFACE SYSTEM Refer to clinic/hospital department [facility] CLIA# [id number] [address] [place] [address] * (ABNORMAL) POC GLUCOSE (03/22/2008 8:56 AM LOCATION DIRECTOR) GLUCOSE POC 195(H) 60 - 100 mg/dL [facility] Venous blood specimen (specimen) 03/22/2008 8:56 AM LOCATION DIRECTOR 03/23/2008 4:16 AM LOCATION DIRECTOR us Thee Skelton MD POINT OF CARE TESTING Final Result Performing Organization Address [facility] Phone Number INTERFACE SYSTEM Refer to clinic/hospital department [facility] CLIA# [id number] [address] [place] [address] * (ABNORMAL) POC GLUCOSE (03/22/2008 5:47 AM LOCATION DIRECTOR) GLUCOSE POC 145(H) 60 - 100 mg/dL [facility] Venous blood specimen (specimen) 03/22/2008 5:47 AM LOCATION DIRECTOR 03/22/2008 5:58 AM LOCATION DIRECTOR us Thee Skelton MD POINT OF CARE TESTING Final Result Performing Organization Address [facility] Phone Number INTERFACE SYSTEM Refer to clinic/hospital department [facility] CLIA# [id number] [address] [place] [address] documented in this encounter Visit Diagnoses Not on filedocumented in this encounter Care Teams Location Director Relationship Specialty Start Date End Date Kaylynn Munoz DO [address] [place] [address] PCP - General Family Practice 05/17/13 documented as of this encounter
--- OUTSIDE RECORDS SUMMARY | 2025-03-22 15:05 | XMS_ITS | Encounter Summary ---
Author Organization [facility] Address [address] [place] [address] Care Team Providers Care Timber Killer Name Role Phone Kaylynn Munoz DO Primary Care Provider Encounter Details Date Type Department Care Team (Late st Contact Info) Description 05/10/2003 Outpatient Historical [facility] Internal Medicine- [address] [place] [address] Vishal Bernabe MD [address] [facility] [place] [address] URIN TRACT INFECTION NOS (Primary Dx); LUMBAGO Social History Tobacco Use Types Packs/Day Years Used Date Smoking Tobacco: Never Assessed Comments Unknown Sex and Gender Information Value Date Recorded Sex Assigned at Not on file Legal Sex Female 5:59 AM BILLET GRINDER Gender Identity Not on file Sexual Orientation Not on file documented as of this encounter Plan of Treatment Not on file documented as of this encounter Visit Diagnoses Diagnosis Urinary tract infection, site not specified- Primary Lumbago documented in this encounter Care Teams Timber Killer Relationship Specialty Start Date End Date Kaylynn Munoz DO [address] [place] [address] PCP - General Family Practice 05/17/13 documented as of this encounter
--- OUTSIDE RECORDS SUMMARY | 2025-03-22 15:05 | XMS_ITS | Encounter Summary ---
Author Organization [facility] Address [address] [place] [address] Care Team Providers Care Road Worker Name Role Phone Kaylynn Munoz DO Primary Care Provider Encounter Details Date Type Department Care Team (Late st Contact Info) Description 08/15/2002 Inpatient Historical [facility] Tyrone Lopez MD NO ADDRESS ON FILE CHEST PAIN NEC (Primary Dx) Social History Tobacco Use Types Packs/Day Years Used Date Smoking Tobacco: Never Assessed Comments Unknown Sex and Gender Information Value Date Recorded Sex Assigned at Not on file Legal Sex Female 5:59 AM ENVIRONMENTAL CONSTRUCTION ENGINEER Gender Identity Not on file Sexual Orientation Not on file documented as of this encounter Plan of Treatment Not on file documented as of this encounter Visit Diagnoses Diagnosis Other chest pain- Primary documented in this encounter Care Teams Road Worker Relationship Specialty Start Date End Date Kaylynn Munoz DO [address] [place] [address] PCP - General Family Practice 05/17/13 documented as of this encounter
--- OUTSIDE RECORDS SUMMARY | 2025-03-22 15:05 | XMS_ITS | Encounter Summary ---
Author Organization [facility] Address [address] [place] [address] Care Team Providers Care Intravenous Therapy Nurse Name Role Phone Kaylynn Munoz DO Primary Care Provider [phone] Encounter Details Date Type Department Care Team (Late st Contact Info) Description 01/13/2003 Outpatient Historical [facility] Internal Medicine- [place] [address] [address] [address] [place] [address] Vishal Bernabe MD [address] [facility] [place] [address] OTHER GENERAL SYMPTOMS (Primary Dx); INGROWING NAIL; CELLULITIS OF LEG; MONONEURITIS NOS Social History Tobacco Use Types Packs/Day Years Used Date Smoking Tobacco: Never Assessed Comments Unknown Sex and Gender Information Value Date Recorded Sex Assigned at Not on file Legal Sex Female 5:59 AM AIR BRUSH OPERATOR Gender Identity Not on file Sexual Orientation Not on file documented as of this encounter Plan of Treatment Not on file documented as of this encounter Visit Diagnoses Diagnosis Other general symptoms(780.99)- Primary Other general symptoms Ingrowing nail Cellulitis and abscess of leg, except foot Mononeuritis of unspecified site documented in this encounter Care Teams Intravenous Therapy Nurse Relationship Specialty Start Date End Date Kaylynn Munoz DO [address] [place] [address] PCP - General Family Practice 05/17/13 documented as of this encounter
--- OUTSIDE RECORDS SUMMARY | 2025-03-22 15:05 | XMS_ITS | Encounter Summary ---
Author Organization [facility] Address [address] [place] [address] Care Team Providers Care Lace Cutter Name Role Phone Kaylynn Munoz DO Primary Care Provider [phone] Encounter Details Date Type Department Care Team (Late st Contact Info) Description 08/15/2002 Outpatient Historical [facility] Pain Management Procedures [address] 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
--- OUTSIDE RECORDS SUMMARY | 2025-03-22 15:05 | XMS_ITS | Encounter Summary ---
Author Organization [facility] Address [address] [place] [address] Care Team Providers Care Twitchell Operator Name Role Phone Kaylynn Munoz DO Primary Care Provider [phone] Encounter Details Date Type Department Care Team (Late st Contact Info) Description 11/15/2003 Outpatient Historical [facility] Internal Medicine- [address] [place] [address] Vishal Bernabe MD [address] [facility] [place] [address] ABDOMINAL PAIN UNSPEC SITE (Primary Dx); LUMBAGO; OTHER GENERAL SYMPTOMS; UNSPEC CONSTIPATION Social History Tobacco Use Types Packs/Day Years Used Date Smoking Tobacco: Never Assessed Comments Unknown Sex and Gender Information Value Date Recorded Sex Assigned at Not on file Legal Sex Female 5:59 AM HEAD OF CONSERVATION Gender Identity Not on file Sexual Orientation Not on file documented as of this encounter Plan of Treatment Not on file documented as of this encounter Visit Diagnoses Diagnosis Abdominal pain, unspecified site- Primary Lumbago Other general symptoms(780.99) Other general symptoms Unspecified constipation documented in this encounter Care Teams Twitchell Operator Relationship Specialty Start Date End Date Kaylynn Munoz DO [address] [place] [phone] PCP - General Family Practice 05/17/13 documented as of this encounter
--- OUTSIDE RECORDS SUMMARY | 2025-03-22 15:05 | XMS_ITS | Encounter Summary ---
Author Organization [facility] Address [address] [place] [address] Care Team Providers Care Machine Maintenance Repairer Name Role Phone Kaylynn Munoz DO Primary Care Provider Encounter Details Date Type Department Care Team (Late st Contact Info) Description 11/25/2002 Outpatient Historical [facility] [address] [place] [phone] Vishal Bernabe MD [address] [place] [address] PAIN IN LIMB (Primary Dx) Social History Tobacco Use Types Packs/Day Years Used Date Smoking Tobacco: Never Assessed Comments Unknown Sex and Gender Information Value Date Recorded Sex Assigned at Not on file Legal Sex Female 5:59 AM 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
--- OUTSIDE RECORDS SUMMARY | 2025-03-22 15:05 | XMS_ITS | Encounter Summary ---
Author Organization [facility] Address [address] [place] [address] Care Team Providers Care Career Development Associate Name Role Phone Kaylynn Munoz DO Primary Care Provider Encounter Details Date Type Department Care Team (Late st Contact Info) Description 07/11/2002 Outpatient Historical [facility] [address] [place] [address] Brian Mak MD NO ADDRESS ON FILE DISORDERS OF SACRUM (Primary Dx) Social History Tobacco Use Types Packs/Day Years Used Date Smoking Tobacco: Never Assessed Comments Unknown Sex and Gender Information Value Date Recorded Sex Assigned at Not on file Legal Sex Female 5:59 AM GLOBAL SALES EXECUTIVE Gender Identity Not on file Sexual Orientation Not on file documented as of this encounter Plan of Treatment Not on file documented as of this encounter Visit Diagnoses Diagnosis Disorders of sacrum- Primary documented in this encounter Care Teams Career Development Associate Relationship Specialty Start Date End Date Kaylynn Munoz DO [address] [place] [address] PCP - General Family Practice 05/17/13 documented as of this encounter
--- OUTSIDE RECORDS SUMMARY | 2025-03-22 15:05 | XMS_ITS | Encounter Summary ---
Author Organization [facility] Address [address] [place] [address] Care Team Providers Care Mud Analysis Well Logging Operator Name Role Phone Kaylynn Munoz DO Primary Care Provider Encounter Details Date Type Department Care Team (Late st Contact Info) Description 12/20/2003 Outpatient Historical [facility] Internal Medicine- [place] [address] [address] [place] [address] Vishal Bernabe MD [address] [facility] [place] [address] ADMINISTRTVE ENCOUNAlanna NEC (Primary Dx) Social History Tobacco Use Types Packs/Day Years Used Date Smoking Tobacco: Never Assessed Comments Unknown Sex and Gender Information Value Date Recorded Sex Assigned at Not on file Legal Sex Female 5:59 AM TRAFFIC 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
--- OUTSIDE RECORDS SUMMARY | 2025-03-22 15:05 | XMS_ITS | Encounter Summary ---
Author Organization [facility] Address [address] [place] [address] Care Team Providers Care Inter Com Servicer Name Role Phone Kaylynn Munoz DO Primary Care Provider Encounter Details Date Type Department Care Team (Late st Contact Info) Description 10/16/2003 Outpatient Historical [facility] Internal Medicine- [place] [address] [facility] [address] [place] [address] Vishal Bernabe MD [address] [facility] [place] [address] LUMBAGO (Primary Dx); REFLUX ESOPHAGITIS; OTHER GENERAL SYMPTOMS Social History Tobacco Use Types Packs/Day Years Used Date Smoking Tobacco: Never Assessed Comments Unknown Sex and Gender Information Value Date Recorded Sex Assigned at Not on file Legal Sex Female 5:59 AM SOLAR 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
--- OUTSIDE RECORDS SUMMARY | 2025-03-22 15:05 | XMS_ITS | Encounter Summary ---
Author Organization [facility] Address [address] [place] [address] Care Team Providers Care Print Production Manager Name Role Phone Kaylynn Munoz DO Primary Care Provider Encounter Details Date Type Department Care Team (Late st Contact Info) Description 11/15/2002 Outpatient Historical [facility] Internal Medicine- [address] [place] [address] Vishal Bernabe MD [address] [facility] [place] [address] OTHER GENERAL SYMPTOMS (Primary Dx); Pain in limb; DERMATOPHYTOSIS OF NAIL Social History Tobacco Use Types Packs/Day Years Used Date Smoking Tobacco: Never Assessed Comments Unknown Sex and Gender Information Value Date Recorded Sex Assigned at Not on file Legal Sex Female 5:59 AM UNDERWRITING CLERKS SUPERVISOR Gender Identity Not on file Sexual Orientation Not on file documented as of this encounter Plan of Treatment Not on file documented as of this encounter Visit Diagnoses Diagnosis Other general symptoms(780.99)- Primary Other general symptoms Pain in limb Pain in soft tissues of limb Dermatophytosis of nail documented in this encounter Care Teams Print Production Manager Relationship Specialty Start Date End Date Kaylynn Munoz DO [address] [place] [address] PCP - General Family Practice 05/17/13 documented as of this encounter
--- OUTSIDE RECORDS SUMMARY | 2025-03-22 15:05 | XMS_ITS | Encounter Summary ---
Author Organization [facility] Address [address] [place] [address] Care Team Providers Care Hat And Cap Opener Name Role Phone Kaylynn Munoz DO Primary Care Provider Encounter Details Date Type Department Care Team (Late st Contact Info) Description 07/11/2002 Outpatient Historical [facility] Pain Management Procedures [address] 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
--- OUTSIDE RECORDS SUMMARY | 2025-03-22 15:05 | XMS_ITS | Encounter Summary ---
Author Organization [facility] Address [address] [place] [address] Care Team Providers Care Communications Attendant Name Role Phone Kaylynn Munoz DO Primary Care Provider Encounter Details Date Type Department Care Team (Late st Contact Info) Description 07/19/2003 Outpatient Historical [facility] [address] [place] [phone] [place] [address] [facility] [address] [place] [address] LUMB/LUMBOSAC DISC DEGEN (Primary Dx); POSTLAMINECT SYND-LUMBAR; SPINAL STENOSIS-LUMBAR Social History Tobacco Use Types Packs/Day Years Used Date Smoking Tobacco: Never Assessed Comments Unknown Sex and Gender Information Value Date Recorded Sex Assigned at Not on file Legal Sex Female 5:59 AM GENERATOR OPERATOR Gender Identity Not on file Sexual Orientation Not on file documented as of this encounter Plan of Treatment Not on file documented as of this encounter Visit Diagnoses Diagnosis 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
--- OUTSIDE RECORDS SUMMARY | 2025-03-22 15:05 | XMS_ITS | Encounter Summary ---
Author Organization [facility] Address [address] [place] [address] Care Team Providers Care It Program Engagement Director Name Role Phone Kaylynn Munoz DO Primary Care Provider Encounter Details Date Type Department Care Team (Late st Contact Info) Description 08/12/2004 Outpatient Historical [facility] Imaging Services-[facility] [place] [address] [place] [address] Vishal Bernabe MD [address] [facility] [place] [address] CHRONIC LIVER DIS NEC (Primary Dx) Social History Tobacco Use Types Packs/Day Years Used Date Smoking Tobacco: Never Assessed Comments Unknown Sex and Gender Information Value Date Recorded Sex Assigned at Not on file Legal Sex Female 5:59 AM MANAGER HEALTH Gender Identity Not on file Sexual Orientation Not on file documented as of this encounter Plan of Treatment Not on file documented as of this encounter Procedures Procedure Name Priority Date/Time Associated Diagnosis Comments POC CREATININE Routine 08/12/2004 1:15 PM CDT documented in this encounter Results * (ABNORMAL) POC CREATININE (08/12/2004 1:15 PM CDT) CREATININE POC 0.7(L) 0.7 - 1.2 mg/dL INTERFACE SYSTEM 08/12/2004 1:15 PM CDT us Vishal Bernabe MD POINT OF CARE TESTING Final R esult INTERFACE SYSTEM Refer to clinic/hospital department documented in this encounter Visit Diagnoses Diagnosis Other chronic nonalcoholic liver disease- Primary documented in this encounter Care Teams It Program Engagement Director Relationship Specialty Start Date End Date Kaylynn Munoz DO [address] [place] [phone] PCP - General Family Practice 05/17/13 documented as of this encounter
--- OUTSIDE RECORDS SUMMARY | 2025-03-22 15:05 | XMS_ITS | Encounter Summary ---
Author Organization [facility] Address [address] [place] [address] Care Team Providers Care Sailing Master Name Role Phone Kaylynn Munoz DO Primary Care Provider Encounter Details Date Type Department Care Team (Late st Contact Info) Description 06/20/2004 Outpatient Historical [facility] Internal Medicine- [place] [address] [address] [facility] [address] [place] [address] Vishal Bernabe MD [address] [facility] [place] [address] ACUTE BRONCHITIS (Primary Dx); ASTHMA UNSPECIFIED; OTHER GENERAL SYMPTOMS; ACUTE SINUSITIS NOS Social History Tobacco Use Types Packs/Day Years Used Date Smoking Tobacco: Never Assessed Comments Unknown Sex and Gender Information Value Date Recorded Sex Assigned at Not on file Legal Sex Female 5:59 AM MANAGER PRINTING Gender Identity Not on file Sexual Orientation Not on file documented as of this encounter Plan of Treatment Not on file documented as of this encounter Visit Diagnoses Diagnosis Acute bronchitis- Primary Unspecified asthma(493.90) Unspecified asthma Other general symptoms(780.99) Other general symptoms Acute sinusitis, unspecified documented in this encounter Care Teams Sailing Master Relationship Specialty Start Date End Date Kaylynn Munoz DO [address] [place] [phone] PCP - General Family Practice 05/17/13 documented as of this encounter
--- OUTSIDE RECORDS SUMMARY | 2025-03-22 15:05 | XMS_ITS | Encounter Summary ---
Author Organization [facility] Address [address] [place] [address] Care Team Providers Care Entry Level Software Engineer Name Role Phone Kaylynn Munoz DO Primary Care Provider Encounter Details Date Type Department Care Team (Late st Contact Info) Description 09/14/2003 Outpatient Historical [facility] Internal Medicine- [address] [place] [address] Vishal Bernabe MD [address] [facility] [place] [address] LUMBAGO (Primary Dx); URETHRAL FISTULA; OTHER MALAISE AND FATIGUE Social History Tobacco Use Types Packs/Day Years Used Date Smoking Tobacco: Never Assessed Comments Unknown Sex and Gender Information Value Date Recorded Sex Assigned at Not on file Legal Sex Female 5:59 AM SUPERVISOR DIALS Gender Identity Not on file Sexual Orientation Not on file documented as of this encounter Plan of Treatment Not on file documented as of this encounter Visit Diagnoses Diagnosis Lumbago- Primary Urethral fistula Other malaise and fatigue documented in this encounter Care Teams Entry Level Software Engineer Relationship Specialty Start Date End Date Kaylynn Munoz DO [address] [place] [address] PCP - General Family Practice 05/17/13 documented as of this encounter
--- OUTSIDE RECORDS SUMMARY | 2025-03-22 15:05 | XMS_ITS | Encounter Summary ---
Author Organization [facility] Address [address] [place] [address] Care Team Providers Care Machine Stamper Name Role Phone Kaylynn Munoz DO Primary Care Provider Encounter Details Date Type Department Care Team (Latest Contact Info) Description 06/29/2002 Outpatient Historical [facility] CherylKemar MD [address] [facility] [address] [place] [address] SURGERY FOLLOWUP, UNSPEC (Primary Dx) Social History Tobacco Use Types Packs/Day Years Used Date Smoking Tobacco: Never Assessed Comments Unknown Sex and Gender Information Value Date Recorded Sex Assigned at Not on file Legal Sex Female 5:59 AM CHARGE ENTRY CLERK Gender Identity Not on file Sexual Orientation Not on file documented as of this encounter Plan of Treatment Not on file documented as of this encounter Visit Diagnoses Diagnosis Follow-up examination, following unspecified surgery- Primary documented in this encounter Care Teams Machine Stamper Relationship Specialty Start Date End Date Kaylynn Munoz DO [address] [place] [address] PCP - General Family Practice 05/17/13 documented as of this encounter
--- OUTSIDE RECORDS SUMMARY | 2025-03-22 15:05 | XMS_ITS | Encounter Summary ---
Author Organization [facility] Address [address] [place] [address] Care Team Providers Care Talent Sourcer Name Role Phone Kaylynn Munoz DO Primary Care Provider Encounter Details Date Type Department Care Team (Late st Contact Info) Description 03/15/2003 Outpatient Historical [facility] Internal Medicine- [place] [address] [facility] [address] [place] [address] Vishal Bernabe MD [address] [facility] [place] [address] ALLERGIC RHINITIS NOS (Primary Dx); ABN BLOOD CHEMISTRY NEC; CELLULITIS, TOE NOS Social History Tobacco Use Types Packs/Day Years Used Date Smoking Tobacco: Never Assessed Comments Unknown Sex and Gender Information Value Date Recorded Sex Assigned at Not on file Legal Sex Female 5:59 AM WRECKER OPERATOR Gender Identity Not on file Sexual Orientation Not on file documented as of this encounter Plan of Treatment Not on file documented as of this encounter Visit Diagnoses Diagnosis Allergic rhinitis, cause unspecified- Primary Other abnormal blood chemistry Cellulitis and abscess of toe, unspecified documented in this encounter Care Teams Talent Sourcer Relationship Specialty Start Date End Date Kaylynn Munoz DO [address] [place] [phone] PCP - General Family Practice 05/17/13 documented as of this encounter
--- OUTSIDE RECORDS SUMMARY | 2025-03-22 15:05 | XMS_ITS | Encounter Summary ---
Author Organization [facility] Address [address] [place] [address] Care Team Providers Care Bolt Sorter Name Role Phone Kaylynn Munoz DO Primary Care Provider Encounter Details Date Type Department Care Team (Late st Contact Info) Description 08/08/2004 Outpatient Historical [facility] Internal Medicine- [place] [address] [address] [facility] [address] [place] [address] Vishal Bernabe MD [address] [facility] [place] [place] [address] LUMBAGO (Primary Dx); OTHER GENERAL SYMPTOMS; REFLUX ESOPHAGITIS Social History Tobacco Use Types Packs/Day Years Used Date Smoking Tobacco: Never Assessed Comments Unknown Sex and Gender Information Value Date Recorded Sex Assigned at Not on file Legal Sex Female 5:59 AM VOCATIONAL CHILDCARE 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
--- OUTSIDE RECORDS SUMMARY | 2025-03-22 15:05 | XMS_ITS | Encounter Summary ---
Author Organization [facility] Address [address] [place] [address] Care Team Providers Care Ride Mechanic Name Role Phone Kaylynn Munoz DO Primary Care Provider Encounter Details Date Type Department Care Team (Late st Contact Info) Description 06/16/2003 Outpatient Historical [facility] Internal Medicine- [address] [place] [phone] Vishal Bernabe MD [address] [facility] [place] [address] OTHER GENERAL SYMPTOMS (Primary Dx); LUMBAGO Social History Tobacco Use Types Packs/Day Years Used Date Smoking Tobacco: Never Assessed Comments Unknown Sex and Gender Information Value Date Recorded Sex Assigned at Not on file Legal Sex Female 5:59 AM ONCOLOGY ADMIN Gender Identity Not on file Sexual Orientation Not on file documented as of this encounter Plan of Treatment Not on file documented as of this encounter Visit Diagnoses Diagnosis Other general symptoms(780.99)- Primary Other general symptoms Lumbago documented in this encounter Care Teams Ride Mechanic Relationship Specialty Start Date End Date Kaylynn Munoz DO [address] [place] [address] PCP - General Family Practice 05/17/13 documented as of this encounter
--- OUTSIDE RECORDS SUMMARY | 2025-03-22 15:05 | XMS_ITS | Encounter Summary ---
Author Organization [facility] Address [address] [place] [address] Care Team Providers Care Clinical Science Liaison Name Role Phone Kaylynn Munoz DO Primary Care Provider Encounter Details Date Type Department Care Team (Late st Contact Info) Description 05/07/2004 Outpatient Historical [facility] Internal Medicine- [address] [place] [address] Vishal Bernabe MD [address] [facility] [place] [address] OTHER GENERAL SYMPTOMS (Primary Dx); ASTHMA UNSPECIFIED; OTHER BACK SYMPTOMS Social History Tobacco Use Types Packs/Day Years Used Date Smoking Tobacco: Never Assessed Comments Unknown Sex and Gender Information Value Date Recorded Sex Assigned at Not on file Legal Sex Female 5:59 AM FIRESTOPPER TECHNICIAN Gender Identity Not on file Sexual Orientation Not on file documented as of this encounter Plan of Treatment Not on file documented as of this encounter Visit Diagnoses Diagnosis Other general symptoms(780.99)- Primary Other general symptoms Unspecified asthma(493.90) Unspecified asthma Other symptoms referable to back documented in this encounter Care Teams Clinical Science Liaison Relationship Specialty Start Date End Date Kaylynn Munoz DO [address] [place] [id number] PCP - General Family Practice 1/14/14 documented as of this encounter
--- OUTSIDE RECORDS SUMMARY | 2025-03-22 15:05 | XMS_ITS | Encounter Summary ---
Author Organization [facility] Address [address] [place] [address] Care Team Providers Care Black Powder Glazing Operator Name Role Phone Kaylynn Munoz DO Primary Care Provider Encounter Details Date Type Department Care Team (Late st Contact Info) Description 07/17/2003 Outpatient Historical [facility] Internal Medicine- [address] [place] [phone] Vishal Bernabe MD 1850 [facility] [place] [address] OTHER GENERAL SYMPTOMS (Primary Dx); LUMBOSACRAL NEURITIS NOS; UNSPEC CONSTIPATION Social History Tobacco Use Types Packs/Day Years Used Date Smoking Tobacco: Never Assessed Comments Unknown Sex and Gender Information Value Date Recorded Sex Assigned at Not on file Legal Sex Female 5:59 AM DISTRIBUTOR OPERATOR Gender Identity Not on file Sexual Orientation Not on file documented as of this encounter Plan of Treatment Not on file documented as of this encounter Visit Diagnoses Diagnosis Other general symptoms(780.99)- Primary Other general symptoms Thoracic or lumbosacral neuritis or radiculitis, unspecified Unspecified constipation documented in this encounter Care Teams Black Powder Glazing Operator Relationship Specialty Start Date End Date Kaylynn Munoz DO [address] [place] [phone] PCP - General Family Practice 05/17/13 documented as of this encounter
--- OUTSIDE RECORDS SUMMARY | 2025-03-22 15:05 | XMS_ITS | Encounter Summary ---
Author Organization [facility] Address [address] [place] [address] Care Team Providers Care Floor Inspector Name Role Phone Kaylynn Munoz DO Primary Care Provider Encounter Details Date Type Department Care Team (Late st Contact Info) Description 07/19/2003 Outpatient [facility] [address] [place] [address] [facility] [address] [place] [address] [place] [address] [facility] [address] [place] [address] LUMB/LUMBOSAC DISC DEGEN (Primary Dx) Social History Tobacco Use Types Packs/Day Years Used Date Smoking Tobacco: Never Assessed Comments Unknown Sex and Gender Information Value Date Recorded Sex Assigned at Not on file Legal Sex Female 5:59 AM BURNT LIME DRAWER Gender Identity Not on file Sexual Orientation Not on file documented as of this encounter Plan of Treatment Not on file documented as of this encounter Visit Diagnoses Diagnosis Degeneration of lumbar or lumbosacral intervertebral disc- Primary documented in this encounter Care Teams Floor Inspector Relationship Specialty Start Date End Date Kaylynn Munoz DO [address] [place] [address] PCP - General Family Practice 05/17/13 documented as of this encounter
--- OUTSIDE RECORDS SUMMARY | 2025-03-22 15:05 | XMS_ITS | Encounter Summary ---
Author Organization [facility] Address [address] [place] [address] Care Team Providers Care Appliance Service Supervisor Name Role Phone Kaylynn Munoz DO Primary Care Provider Encounter Details Date Type Department Care Team (Late st Contact Info) Description 02/19/2004 Outpatient Historical [facility] Internal Medicine- [place] [address] [address] [place] [phone] Vishal Bernabe MD [address] [facility] [place] [address] OTHER GENERAL SYMPTOMS (Primary Dx); IDIO PERIPH NEURPTHY NOS Social History Tobacco Use Types Packs/Day Years Used Date Smoking Tobacco: Never Assessed Comments Unknown Sex and Gender Information Value Date Recorded Sex Assigned at Not on file Legal Sex Female 5:59 AM PLANT PROTECTION SUPERVISOR Gender Identity Not on file Sexual Orientation Not on file documented as of this encounter Plan of Treatment Not on file documented as of this encounter Visit Diagnoses Diagnosis Other general symptoms(780.99)- Primary Other general symptoms Unspecified hereditary and idiopathic peripheral neuropathy documented in this encounter Care Teams Appliance Service Supervisor Relationship Specialty Start Date End Date Kaylynn Munoz DO [address] [place] [phone] PCP - General Family Practice 05/17/13 documented as of this encounter
--- OUTSIDE RECORDS SUMMARY | 2025-03-22 15:05 | XMS_ITS | Encounter Summary ---
Author Organization [facility] Address [address] [place] [address] Care Team Providers Care District Associate Judge Name Role Phone Kaylynn Munoz DO Primary Care Provider Encounter Details Date Type Department Care Team (Late st Contact Info) Description 07/09/2004 Outpatient Historical [facility] Internal Medicine- [place] [address] [address] [facility] [address] [place] [address] Vishal Bernabe MD [address] [facility] [place] [address] LUMBAGO (Primary Dx); OTHER GENERAL SYMPTOMS; GENERAL OSTEOARTHROSIS Social History Tobacco Use Types Packs/Day Years Used Date Smoking Tobacco: Never Assessed Comments Unknown Sex and Gender Information Value Date Recorded Sex Assigned at Not on file Legal 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
--- OUTSIDE RECORDS SUMMARY | 2025-03-22 15:05 | XMS_ITS | Encounter Summary ---
Author Organization [facility] Address [address] [place] [address] Care Team Providers Care Pecan Picker Name Role Phone Kaylynn Munoz DO Primary Care Provider [phone] Encounter Details Date Type Department Care Team (Late st Contact Info) Description 12/16/2002 Outpatient Historical [facility] [address] 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
--- OUTSIDE RECORDS SUMMARY | 2025-03-22 15:05 | XMS_ITS | Encounter Summary ---
Author Organization [facility] Address [address] [place] [address] Care Team Providers Care Tire Servicer Name Role Phone Kaylynn Munoz DO Primary Care Provider Encounter Details Date Type Department Care Team (Late st Contact Info) Description 05/21/[address] 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
--- OUTSIDE RECORDS SUMMARY | 2025-03-22 15:05 | XMS_ITS | Encounter Summary ---
Author Organization [facility] Address [address] [place] [address] Care Team Providers Care Lap Polisher Name Role Phone Kaylynn Munoz DO Primary Care Provider Encounter Details Date Type Department Care Team (Late st Contact Info) Description 01/19/2004 Outpatient Historical [facility] Internal Medicine- [address] [place] [phone] Vishal Bernabe MD [address] [facility] [place] [address] LUMBAGO (Primary Dx); OTHER GENERAL SYMPTOMS; UNSPEC CONSTIPATION; OTHER MALAISE AND FATIGUE Social History Tobacco Use Types Packs/Day Years Used Date Smoking Tobacco: Never Assessed Comments Unknown Sex and Gender Information Value Date Recorded Sex Assigned at Not on file 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
[2025-03-22] MEDS: morphine 4 mg/mL SDV 1 mL 2 MG IVP (18:14)
--- NOTE | 2025-03-22 19:38 | ECG_ITS ---
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 Measurements Intervals [place] Rate: 61 P: 78 HI: 235 QRS: 261 QRSD: 100 T: -38 QT: 427 QTc: 431 Interpretive Statements SINUS RHYTHM WITH FIRST DEGREE AV BLOCK PATTERN CONSISTENT WITH PULMONARY DISEASE.Low voltage complexes in the limb leads POSSIBLE RIGHT VENTRICULAR HYPERTROPHY [SOME/ALL OF: PROMINENT R IN V1, LATE TRANSITION, RAD, MARY, SSS] INFERIOR MYOCARDIAL INFARCTION , PROBABLY OLD [40+ ms Q WAVE AND/OR ST/T ABNORMALITY IN II/aVF] Compared to ECG 03/22/2025 12:32:48 First degree AV block now present Myocardial infarct finding now present Left anterior fascicular block no longer present Baseline artifacts, need to repeat Electronically Signed On 03-22-2025 23:51:49 PROCESSING OPERATOR by Bob Dunlap M.D. [email or web address]
[2025-03-22 19:47] LABS: Hemoglobin 10.00 g/dL (11.27-16.99)
[2025-03-22 20:35] LABS: Troponin T (5th) Once 127 ng/L (0-10)
--- NOTE | 2025-03-22 20:39 | PC.NURSE ---
Lab called with critical lab value of Trop [address] Diop notified at 2037 via telephone call. No new orders.
--- NOTE | 2025-03-22 21:37 | PC.NURSE ---
IV Fluids: NS @100ml/hr off on arrival to ICU @2121. MAR edited to reflect this. Awaiting second IV to restart IV fluids.
[2025-03-22] MEDS: oxyCODONE-APAP 10-325 mg Tablet 1 TAB PO (21:59)
--- NOTE | 2025-03-22 22:15 | PC.NURSE ---
Patient Belongings: Max took all patient belongings home.
--- NOTE | 2025-03-22 22:30 | PC.NURSE ---
Sacral Wound: Picture of sacrum sent to Dr. Albrecht via secured messaging. New order to apply non-occlusive dressing tonight and ensure non-pressure. Plans for wound care consult.
--- NOTE | 2025-03-22 23:11 | PC.NURSE ---
Low BP: Notified Dr. Albrecht that BP began to trend down post IV fluid bolus and most recent BP of 84/41, HR 56, SpO2 93. New order fro 1L NS BOLUS NOW and to change Ceftriaxone 1000mg IVP first dose @9am to NOW.
[2025-03-22] MEDS: norepinephrine 4 MG/250 ML BAG 30 MG IV (23:37)
--- NOTE | 2025-03-22 23:43 | PC.NURSE ---
Low BP: Notified Dr. Albrecht @8910 of persistently low BP despite pt receiving fluid bolus. BP 79/37, HR 53. New order to start Levophed per protocol, increased Rocephin from 1 gram to 2 gram, and pharmacy to dose Vancomycin.
[2025-03-23] VITALS (65 sets, daily range): BP systolic 94–141; BP diastolic 35–89; PULSE 52–70; RESP 9–26; TEMP 36.2–37.2; O2SAT 91–96
[2025-03-23] MEDS: cefTRIAXone 2,000 mg SDV 2000 MG IVP (00:30)
[2025-03-23 01:14] LABS: Troponin T (5th) Once 93 ng/L (0-10)
[2025-03-23] MEDS: lactulose oral liq 20 gm/30 mL UDC PO (01:27)
--- NOTE | 2025-03-23 04:29 | PC.NURSE ---
Bumex 1mg: Communicated w/ Dr. Albrecht @0428 concerning PO Bumex scheduled for 5am. New order to hold this mornings dose.
[2025-03-23] MEDS: oxyCODONE-APAP 10-325 mg Tablet 1 TAB PO ×2 (04:49→13:29)
[2025-03-23 05:19] LABS: Hematocrit 33.0 % (36-47); Hemoglobin 10.40 g/dL (11.27-16.99); Mean Corpuscular HGB Conc 31.5 g/dL (30-55); Mean Corpuscular Hemoglobin 30.6 pg (27-33); Mean Corpuscular Volume 97.1 fl (85-98); Nucleated Red Blood Cells % 0 %; Platelet Count 308 10^3/cmm (157-399); Red Blood Count 3.40 10^6/uL (3.85-5.65); White Blood Count 10.32 10^3/uL (3.29-11.43)
[2025-03-23 05:40] LABS: Alanine Aminotransferase 32 U/L (0-33); Albumin Level 3.0 g/dL (3.5-5.2); Alkaline Phosphatase 87 U/L (35-105); Aspartate Amino Transferase 46 U/L (0-32); Blood Urea Nitrogen 72 mg/dL (8-23); Calcium 7.2 mg/dL (8.5-10.5); Carbon Dioxide 23 mmol/L (22-29); Chloride 108 mmol/L (98-107); Globulin 2.1 g/dL (1.3-4.6); Glucose 148 mg/dL (65-115); Magnesium 4.0 mg/dL (1.7-2.3); Osmolality Calculated 318 mOsm/kg (285-295); Sodium 142 mmol/L (136-145); Total Protein 5.1 g/dL (6.6-8.7)
[2025-03-23 05:43] LABS: Anion Gap 14.7 (5-19); Potassium 3.7 mmol/L (3.5-5.1)
[2025-03-23 05:49] LABS: Troponin T (5th) Once 114 ng/L (0-10)
--- NOTE | 2025-03-23 10:01 | P.PN_ITS ---
Subjective 2 Subjective: Patient is seen this morning in the ICU. She is an 85-year-old female who was admitted yesterday because of reported increasing weakness at home. Lastly, she was reported to become severely hypotensive, therefore also transferred to the ICU. She is currently on Levophed drip, albumin given some fluid boluses. She responded to this. Otherwise, she reports no new symptoms. Vitals/I&O/Wt Last Vital Signs Temp 97.2 F L 03/23/25 04:08 Pulse 64 03/23/25 09:30 Resp 15 03/23/25 09:30 BP 125/49 03/23/25 09:30 Pulse Ox 95 03/23/25 09:30 O2 Del Method Room Air 03/23/25 06:00 03/22/25 03/23/25 03/23/25 22:59 06:59 14:59 Intake Total 1635 / 2635 2551.959 / 5186.959 300 / 300 Output Total 475 / 475 1125 / 1600 Balance 1160 / 2160 1426.959 / 3586.959 300 / 300 Weight last 48 hrs Weight 82.826 kg Weight 82.826 kg Weight 80.83 kg Weight 72.575 kg Physical Exam 2 Narrative: General: Awake and alert. Cooperative. Chest/Resp: Normal respiratory chest movts; no obvious respiratory distress. CVS: Regular heart rate and rhythm. GI: Non-distended; No obvious organomegaly. Extremities: No obvious pitting pedal edema. Skin: Few areas of senile purpura noted. Decubitus gluteal area exam deferred. The RN shows me today's picture of the decubitus area, which looks very necrotic. Urinary Catheter Management: [facility]: Cath Placed During This Visit: yes Reason for Continuing Indwelling Catheter: Accurate Measurement of Urinary Output in Critically Ill Patients Urinary Catheter Date of Insertion: 03/22/25 Urinary Catheter Time of Insertion: 16:52 Data 03/23/25 04:49 03/23/25 04:49 Micro: Microbiology 03/22/25 17:14 Blood Culture - Preliminary Blood SPECIMEN COLLECTED 03/22/25 17:12 Blood Culture - Preliminary Blood SPECIMEN COLLECTED A&P Assessment and plan 1. Acute hypotension: Likely due to hypovolemia versus infection 2. Renal azotemia: Very likely due to poor oral intake. 3. Infected pressure ulcer: Possibly contributing to ongoing symptomatology. 4. Acute kidney injury: Likely secondary to the above problems. 5. Hypermagnesemia: Decreasing/resolving. 6. Diabetes mellitus with diabetic neuropathy: 7. Essential hypertension: 8. 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 Recheck BMP plus magnesium level in the morning, and actually every day. Another elevated troponin; this is likely due to type II leak. Otherwise, we will discuss more with cardiology on that. Continue IV antibiotics; add something that has coverage against anaerobes. Unfortunately, she is allergic to many antiobitics, therefore limiting our options. I have gone ahead and consulted general surgery for evaluation of the wound, and explore the options of wound debridement. WE will try and get better control of blood sugar by escalating the sliding scale insulin plus basal insulin as needed. Continue to monitor in the ICU for the rest of the day, and transfer back to the medical floor if she feels better. PDMP PDMP Reviewed: Not Reviewed Attestations 2 Medical Necessity Statement*: Patient admitted for apparent severe clinical condition, as outlined in the Assessment & Plan section above. Patient will need up to 2 midnight stay, estimated, at least, to adequately and appropriately treat and optimally control above-named clinical conditions,. Coding Level of Care Code Acute Code for [facility] Diagnoses Acute hypotension I95.9 Renal azotemia R79.89 Infected pressure ulcer L89.90; L08.9 Acute kidney injury N17.9 Hypermagnesemia E83.41 Diabetes mellitus with diabetic neuropathy E11.40 Diabetes mellitus salvage determiner insulin use: with correction use Essential hypertension I10 Coronary artery disease involving [place] tribes coronary artery of grand [place] tribes heart without angina pectoris I25.10
--- NOTE | 2025-03-23 11:20 | PC.NURSE ---
awake and alert resp even and reqular, position on side off decub on coccyx area family at bedside feed pt liquid diet levophed gtt infusing
[2025-03-23] MEDS: norepinephrine 4 MG/250 ML BAG 15 MG IV (12:23)
--- NOTE | 2025-03-23 12:42 | PHA.VACGOAL ---
Vancomycin Goal - Goal Vancomycin Goal:: 15-20 mg/L Vancomycin Indication:: Pneumonia - Therapy Day of therpy:: Day []of [] . Actual body weight (kg): 182 lb 9.6 oz - Data Labs: WBC 10.32 10^3/uL (3.29-11.43) 03/23/25 04:49 RBC 3.40 10^6/uL (3.85-5.65) L 03/23/25 04:49 Hgb 10.40 g/dL (11.27-16.99) L 03/23/25 04:49 Hct 33.0 % (36-47) L 03/23/25 04:49 MCV 97.1 fl (85-98) 03/23/25 04:49 MCH 30.6 pg (27-33) 03/23/25 04:49 MCHC 31.5 g/dL (30-55) 03/23/25 04:49 RDW 12.8 % (12.1-15.1) 03/23/25 04:49 Sodium 142 mmol/L (136-145) 03/23/25 04:49 Potassium 3.7 mmol/L (3.5-5.1) 03/23/25 04:49 Chloride 108 mmol/L (98-107) H 03/23/25 04:49 Carbon Dioxide 23 mmol/L (22-29) 03/23/25 04:49 Anion Gap 14.7 (5-19) 03/23/25 04:49 BUN 72 mg/dL (8-23) H 03/23/25 04:49 Creatinine 1.8 mg/dL (0.5-0.9) H 03/23/25 04:49 GFR Calculation Not Reportable 03/23/25 04:49 Treatment plan:: new consult Regimen:: 2000 MG GIVEN PREVIOUS PULSE DOSE WITH TROUGH DUE 11 AM LABS NEXT DOSE BASED ON LAB RESULT
--- NOTE | 2025-03-23 16:59 | PM.CONSULT ---
Providers/Reason For Consult Consulting Physician/Specialty*: Will Colvin DO Reason for Consult*: Sacral Ulcer Attending Physician: Joe Mobley MD Primary Care Provider: Kaylynn Munoz DO History of Present Illness History of Present Illness Elizabeth Cantor is a 85 year old female who presented to the hospital with some pain at home. On admission to the hospital she was found to have multimedical problems and one of them was a sacral decubitus ulcer. She is very stationary at home and since also over time in her reclining chair and even sleeps in the chair and states that she is unable to move from [id number] in the chair and she developed some pain in her back as well as some vaginal bleeding which is why she came to the hospital. On examination she is resting comfortably in bed with her family at bedside. She still remains on small dose of Levophed to maintain her systolic blood pressure. Nursing has been doing twice daily dressing changes of her decubitus ulcer and noted some foul-smelling drainage from the area. She denies any fevers or chills. No other complaints at the time of consultation. Review of Systems General: Reports: 10 or more systems reviewed and unremarkable except in HPI and below GI: Reports: constipation : Reports: difficulty voiding and vaginal bleeding Musc: Reports: extremity pain, muscle cramps and muscle weakness Neuro: Reports: weakness in extremities Medications/Allergies Home Medications ?Medication ?Instructions ?Recorded ?Confirmed ?Last Taken ?Type pantoprazole 40 mg tablet,delayed 40 mg PO DAILY 07/04/19 03/22/25 03/21/25 History release (Protonix) mometasone 0.1 % topical solution See Rx Instructions .Route .COMPLEX 11/01/22 03/22/25 Unknown History nystatin 100,000 unit/gram topical 1 applic topical BID PRN Rash 11/01/22 03/22/25 Unknown History cream vit C 250 mg-vit E 90 mg-zinc 40 1 tab PO BID 11/01/22 03/22/25 03/21/25 History mg-copper 1 [id number] capsule (PreserVision AREDS-2) amiodarone 200 mg tablet 200 mg PO QAM 10/22/23 03/22/25 03/21/25 History diclofenac sodium 1 % topical gel 2 g topical QID PRN PAINFUL AREAS 10/22/23 03/22/25 Unknown History fluticasone 100 mcg-salmeterol 50 2 inh inhalation DAILY 10/22/23 03/22/25 03/21/25 History mcg/dose blistr powdr for inhalation (Advair Diskus) metoprolol succinate 25 mg 12.5 mg PO QAM 10/22/23 03/22/25 03/21/25 History tablet,extended release 24 hr nitroglycerin 0.4 mg sublingual 0.4 mg sublingual Q5M PRN Chest 04/05/24 03/22/25 Unknown Rx tablet (Nitrostat) Pain #25 tabs bumetanide 1 mg tablet 1 mg PO BID 10/04/24 03/22/25 03/21/25 History fluorouracil 0.5 % topical cream 1 applic topical DAILY 10/04/24 03/22/25 Unknown History levothyroxine 50 mcg capsule 50 mcg PO DAILY 10/04/24 03/22/25 03/21/25 History losartan 100 1 tab PO DAILY 10/04/24 03/22/25 03/21/25 History mg-hydrochlorothiazide 25 mg tablet (Hyzaar) spironolactone 25 mg tablet 25 mg PO DAILY 10/04/24 03/22/25 03/21/25 History dulaglutide 3 mg/0.5 mL 3 mg SUBCUT Q7D 03/22/25 03/22/25 03/17/25 History subcutaneous pen injector (Trulicity) estradiol 0.01% (0.1 mg/gram) See Rx Instructions .Route .COMPLEX 03/22/25 03/22/25 Unknown History vaginal cream gabapentin 100 mg capsule See Rx Instructions .Route .COMPLEX 03/22/25 03/22/25 03/21/25 History insulin glargine 100 unit/mL (3 14 unit SUBCUT QID 03/22/25 03/22/25 03/21/25 History mL) subcutaneous pen (Lantus Solostar U-100 Insulin) mupirocin 2 % topical ointment See Rx Instructions .Route .COMPLEX 03/22/25 03/22/25 03/21/25 History oxycodone-acetaminophen 10 mg-325 See Rx Instructions .Route .COMPLEX 03/22/25 03/22/25 03/21/25 History mg tablet sennosides 8.6 mg-docusate sodium 2 tab PO DAILY 03/22/25 03/22/25 03/21/25 History 50 mg tablet (Stool Softener-Laxative) Allergies Allergy/AdvReac Type Severity Reaction Status Date / Time adhesive tape Allergy Unknown Unknown Verified 03/15/25 14:14 aspirin Allergy Unknown Unknown Verified 03/15/25 14:14 celecoxib (From Celebrex) Allergy Unknown Unknown Verified 03/15/25 14:14 codeine Allergy Unknown Unknown Verified 03/15/25 14:14 egg Allergy Unknown Unknown Verified 03/15/25 14:14 erythromycin base Allergy Unknown Unknown Verified 03/15/25 14:14 exenatide (From Bydureon) Allergy Unknown Unknown Verified 03/15/25 14:14 ezetimibe (From Zetia) Allergy Unknown Unknown Verified 03/15/25 14:14 latex Allergy Unknown Unknown Verified 03/15/25 14:14 metformin Allergy Unknown Unknown Verified 03/15/25 14:14 Penicillins Allergy Unknown Unknown Verified 03/15/25 14:14 sitagliptin (From Janumet) Allergy Unknown Unknown Verified 03/15/25 14:14 Sulfa (Sulfonamide Allergy Unknown Unknown Verified 03/15/25 14:14 Antibiotics) topiramate (From Topamax) Allergy Unknown Unknown Verified 03/15/25 14:14 trazodone Allergy Unknown Unknown Verified 03/15/25 14:14 warfarin (From Coumadin) Allergy Unknown Unknown Verified 03/15/25 14:14 desonide Allergy blisters Verified 03/15/25 14:14 Current Medications Generic Name Dose Route Start Last Admin Trade Name Freq PRN Reason Stop Dose Admin Acetaminophen 650 mg 03/22/25 13:54 03/22/25 15:00 Acetaminophen 325 Mg Tablet PO 650 mg Q6H PRN Administration Mild/Mod Pain Or Temp >/= 101 Amiodarone HCl 200 mg 03/23/25 05:00 03/23/25 04:49 Amiodarone 200 Mg Tablet PO 200 mg QAM TUNG Administration Bumetanide 1 mg 03/23/25 05:00 03/23/25 04:29 Bumetanide 1 Mg Tablet PO Not Given BID TUNG Fluconazole 100 mg 03/23/25 05:00 03/23/25 04:49 Fluconazole 100 Mg Tablet PO 100 mg DAILY TUNG Administration Gabapentin 100 mg 03/22/25 21:00 03/23/25 13:21 Gabapentin 100 Mg Capsule PO 100 mg TID TUNG Administration Sodium Chloride 1,000 mls @ 100 mls/hr 03/22/25 14:00 03/23/25 13:21 Sodium Chloride 0.9% IV 100 mls/hr .Q10H TUNG Administration Norepinephrine Bitartrate 4 mg in 250 mls @ 0 mls/hr 03/22/25 23:45 03/23/25 12:23 Levophed IV 4 mcg/min .Q0M TUNG 15 mls/hr Protocol Administration Per Protocol Insulin Human Lispro 0 unit 03/22/25 18:00 03/23/25 12:24 Insulin Lispro 100 Unit/1 Ml SUBCUT 8 unit WM&BEDTIME TUNG Administration Protocol Lanolin 1 applic 03/22/25 23:14 03/23/25 05:12 Lanolin Oint 7 Gm TOPICAL 1 applic PRN PRN Administration DRYNESS Levothyroxine Sodium 50 mcg 03/23/25 05:00 03/23/25 04:49 Levothyroxine 50 Mcg Tablet PO 50 mcg DAILY TUNG Administration Metoprolol Succinate 12.5 mg 03/23/25 05:00 03/23/25 04:48 Metoprolol Succinate Er (24 Hr) 25 Mg Tablet PO Not Given QAM [facility] Morphine Sulfate 2 mg 03/22/25 17:38 03/22/25 18:14 Morphine 4 Mg/Ml Sdv 1 Ml IVP 2 mg Q4H PRN Administration SEVERE PAIN Oxycodone/Acetaminophen 1 tab 03/22/25 17:45 03/23/25 13:29 Oxycodone-Apap 10-325 Mg Tablet PO 1 tab Q4H PRN Administration SEVERE PAIN Pantoprazole Sodium 40 mg 03/23/25 05:00 03/23/25 04:[address] 40 Mg Tablet PO 40 mg DAILY TUNG Administration PFSH Acute PFSH: Medical History (Updated 03/23/25 @ 16:57 by Joe Mobley MD) Encounter for postoperative care Chronic edema CAD (coronary artery disease) Essential hypertension Weakness Encounter for postoperative care Chronic cystitis Recurrent UTI History of nonmelanoma skin cancer DDD (degenerative disc disease) Chest pain Persistent and recurrent chest pressure despite of optimization of medicine may further require exploration with left heart cath. GERD (gastroesophageal reflux disease) Asthma History of poliomyelitis History of rectocele History of cystocele Cyctocele/Rectocele repair Lower extremity edema Diabetes mellitus Atrial fibrillation Well-controlled on amiodarone. No anticoagulation- bleeding Hyperlipidemia Surgical History History of eye surgery Previous back surgery History of surgery of liver Growth S/P cholecystectomy S/P hysterectomy 1965 Family History Mother , at age 89 Hypertension Bleeding disorder Father , at age 79 Hypertension Heart disease Brother CAD (coronary artery disease) Heart disease Cancer Lung CA Liver disease Sister Heart disease Diabetes Cancer Renal CA and leukemia Social History Smoking and tobacco/nicotine status: never used tobacco/nicotine Second hand smoke exposure: No Alcohol intake: never Substance/Drug Use: never Lives independently: Yes Marital status: / Current occupational status: retired Vitals/I&O/Wt Last Vital Signs Temp 97.2 F L 03/23/25 04:08 Pulse 63 03/23/25 15:30 Resp 19 H 03/23/25 15:30 BP 113/50 03/23/25 15:30 Pulse Ox 93 03/23/25 15:30 O2 Del Method Room Air 03/23/25 06:00 03/23/25 03/23/25 03/23/25 06:59 14:59 22:59 Intake Total 2551.959 / 5186.959 1369.25 / 1369.25 Output Total 1125 / 1600 Balance 1426.959 / 3586.959 1369.25 / 1369.25 Weight last 48 hrs Weight 182 lb 9.6 oz Weight 182 lb 9.6 oz Weight 178 lb 3.2 oz Weight 160 lb Physical Exam Narrative: General: Awake and alert. Cooperative. Chest/Resp: Normal respiratory chest movts; no obvious respiratory distress. CVS: Regular heart rate and rhythm. Abdomen: Soft nontender nondistended no masses or fluid shifts : Back does have approximately a 7 x 8 cm sacral decubitus ulcer that is apparently stage III into the muscular layer with some granulation tissue as well as some ischemic areas of tissue from the skin and subcutaneous area with no obvious abscess or erythema extending outwards from the site. No exposed bone seen. GI: Non-distended; No obvious organomegaly. Extremities: No obvious pitting pedal edema. Skin: Few areas of senile purpura noted. Decubitus gluteal area exam deferred. The RN shows me today's picture of the decubitus area, which looks very necrotic. Urinary Catheter Management: [facility]: Cath Placed During This Visit: yes Reason for Continuing Indwelling Catheter: Accurate Measurement of Urinary Output in Critically Ill Patients Urinary Catheter Date of Insertion: 03/22/25 Urinary Catheter Time of Insertion: 16:52 Data 03/23/25 04:49 03/23/25 04:49 Micro: Microbiology 03/22/25 17:14 Blood Culture - Preliminary Blood SPECIMEN COLLECTED 03/22/25 17:12 Blood Culture - Preliminary Blood SPECIMEN COLLECTED CT Abd/Pel: Radiologist's impression: See radiology reports A&P Assessment and plan 1. Infected pressure ulcer: Will plan 4 OR tomorrow for debridement and washout of the infected decubitus ulcer. Continue IV antibiotics for now. N.p.o. after midnight. Hold anticoagulation. Continue supportive care per hospitalist team. 2. Pressure ulcer: 3. Diabetes mellitus with diabetic neuropathy: 4. Acute hypotension: Likely due to hypovolemia versus infection 5. Renal azotemia: Very likely due to poor oral intake. 6. Acute kidney injury: Likely secondary to the above problems. 7. Hypermagnesemia: Decreasing/resolving. 8. Essential hypertension: 9. Coronary artery disease involving wainwright coronary artery of wainwright heart without angina pectoris: Plan: Patient currently getting some Bumex and normal saline; I will stop the Bumex, and just cautiously rehydrate IV with normal saline; weaned off Levophed drip as needed or tolerated. Recheck BMP plus magnesium level in the morning, and actually every day. Another elevated troponin; this is likely due to type II leak. Otherwise, we will discuss more with cardiology on that. Continue IV antibiotics; add something that has coverage against anaerobes. Unfortunately, she is allergic to lower medications, therefore limiting our options. I have gone ahead and consulted general surgery for evaluation of the wound, and explore the options of wound debridement. Get better control of blood sugar by escalating the sliding scale insulin plus basal insulin as needed. Continue to monitor in the ICU for the rest of the day, and transfer back to the medical floor if she feels better. PDMP PDMP Reviewed: Not Reviewed Coding Level of Care Code 82188 Diagnoses Infected pressure ulcer L89.90; L08.9 Pressure ulcer L89.90 Diabetes mellitus with diabetic neuropathy E11.40 Acute hypotension I95.9 Renal azotemia R79.89 Acute kidney injury N17.9 Hypermagnesemia E83.41 Essential hypertension I10 Coronary artery disease involving wainwright coronary artery of wainwright heart without angina pectoris I25.10
[2025-03-23 18:35] LABS: Magnesium 3.6 mg/dL (1.7-2.3)
[2025-03-23] MEDS: insulin glargine 100 units/1 mL 15 UNIT SUBCUT (21:16)
[2025-03-23] MEDS: cefTRIAXone 1,000 mg SDV 2000 MG IVP (23:21)
[2025-03-24] VITALS (63 sets, daily range): BP systolic 94–146; BP diastolic 35–92; PULSE 55–90; RESP 7–32; TEMP 36.9–37.3; O2SAT 92–97
[2025-03-24] MEDS: norepinephrine 4 MG/250 ML BAG 7.5 MG IV (04:18)
[2025-03-24 05:20] LABS: Hematocrit 32.2 % (36-47); Hemoglobin 10.30 g/dL (11.27-16.99); Mean Corpuscular HGB Conc 32.0 g/dL (30-55); Mean Corpuscular Hemoglobin 31.3 pg (27-33); Mean Corpuscular Volume 97.9 fl (85-98); Nucleated Red Blood Cells % 0 %; Platelet Count 305 10^3/cmm (157-399); Red Blood Count 3.29 10^6/uL (3.85-5.65); White Blood Count 9.52 10^3/uL (3.29-11.43)
[2025-03-24 05:46] LABS: Troponin T (5th) Once 92 ng/L (0-10)
[2025-03-24 05:48] LABS: Alanine Aminotransferase 26 U/L (0-33); Albumin Level 3.0 g/dL (3.5-5.2); Alkaline Phosphatase 84 U/L (35-105); Anion Gap 12.0 (5-19); Aspartate Amino Transferase 21 U/L (0-32); Blood Urea Nitrogen 35 mg/dL (8-23); Calcium 7.3 mg/dL (8.5-10.5); Carbon Dioxide 25 mmol/L (22-29); Chloride 110 mmol/L (98-107); Creatinine Clr Calc Pharmacy 41.1889; Globulin 1.9 g/dL (1.3-4.6); Glucose 96 mg/dL (65-115); Magnesium 3.3 mg/dL (1.7-2.3); Osmolality Calculated 304 mOsm/kg (285-295); Potassium 4.0 mmol/L (3.5-5.1); Sodium 143 mmol/L (136-145); Total Protein 4.9 g/dL (6.6-8.7)
--- NOTE | 2025-03-24 09:35 | ANES.PREANE2 ---
Pre-Anesthetic Assessment Height/Weight: Height 1.65 m Weight 82.554 kg Temp Pulse Resp BP Pulse Ox O2 Del Method 99 F 57 L 15 112/39 95 Room Air 03/23/25 20:00 03/24/25 06:00 03/24/25 06:00 03/24/25 06:00 03/24/25 06:00 03/24/25 04:00 Preop Diagnosis: sacral decubitus ulcer Operation Date: 03/24/25 09:20 Proposed Procedures p Debridement Ischium/Sacrum(Not Applicable) - Will Colvin DO Familial anesthetic complications: slow to wake Was Beta Andrews taken within 24 hours: N/A Was Clonidine taken within 24 hours: N/A Last intake: > 8 hrs Social No alcohol and No tobacco Exam alert, oriented x 3, clear to auscultation bilaterally and regular rate & rhythm CV/HEM Coronary Artery Disease, Congestive Heart Failure and Hypertension GI Gastroesophageal Reflux Disease Metabolic Diabetes Mellitus and Thyroid Disease Anesthetic Plan ASA status: 4 Anesthesia: General Risk of > 500 ml blood loss (7ml/kg in children): No Medications/Allergies Home Medications ?Medication ?Instructions ?Recorded ?Confirmed ?Last Taken ?Type pantoprazole 40 mg tablet,delayed 40 mg PO DAILY 07/04/19 03/22/25 03/21/25 History release (Protonix) mometasone 0.1 % topical solution See Rx Instructions .Route .COMPLEX 11/01/22 03/22/25 Unknown History nystatin 100,000 unit/gram topical 1 applic topical BID PRN Rash 11/01/22 03/22/25 Unknown History cream vit C 250 mg-vit E 90 mg-zinc 40 1 tab PO BID 11/01/22 03/22/25 03/21/25 History mg-copper 1 [id number] capsule (PreserVision AREDS-2) amiodarone 200 mg tablet 200 mg PO QAM 10/22/23 03/22/25 03/21/25 History diclofenac sodium 1 % topical gel 2 g topical QID PRN PAINFUL AREAS 10/22/23 03/22/25 Unknown History fluticasone 100 mcg-salmeterol 50 2 inh inhalation DAILY 10/22/23 03/22/25 03/21/25 History mcg/dose blistr powdr for inhalation (Advair Diskus) metoprolol succinate 25 mg 12.5 mg PO QAM 10/22/23 03/22/25 03/21/25 History tablet,extended release 24 hr nitroglycerin 0.4 mg sublingual 0.4 mg sublingual Q5M PRN Chest 04/05/24 03/22/25 Unknown Rx tablet (Nitrostat) Pain #25 tabs bumetanide 1 mg tablet 1 mg PO BID 10/04/24 03/22/25 03/21/25 History fluorouracil 0.5 % topical cream 1 applic topical DAILY 10/04/24 03/22/25 Unknown History levothyroxine 50 mcg capsule 50 mcg PO DAILY 10/04/24 03/22/25 03/21/25 History losartan 100 1 tab PO DAILY 10/04/24 03/22/25 03/21/25 History mg-hydrochlorothiazide 25 mg tablet (Hyzaar) spironolactone 25 mg tablet 25 mg PO DAILY 10/04/24 03/22/25 03/21/25 History dulaglutide 3 mg/0.5 mL 3 mg SUBCUT Q7D 03/22/25 03/22/25 03/17/25 History subcutaneous pen injector (Trulicity) estradiol 0.01% (0.1 mg/gram) See Rx Instructions .Route .COMPLEX 03/22/25 03/22/25 Unknown History vaginal cream gabapentin 100 mg capsule See Rx Instructions .Route .COMPLEX 03/22/25 03/22/25 03/21/25 History insulin glargine 100 unit/mL (3 14 unit SUBCUT QID 03/22/25 03/22/25 03/21/25 History mL) subcutaneous pen (Lantus Solostar U-100 Insulin) mupirocin 2 % topical ointment See Rx Instructions .Route .COMPLEX 03/22/25 03/22/25 03/21/25 History oxycodone-acetaminophen 10 mg-325 See Rx Instructions .Route .COMPLEX 03/22/25 03/22/25 03/21/25 History mg tablet sennosides 8.6 mg-docusate sodium 2 tab PO DAILY 03/22/25 03/22/25 03/21/25 History 50 mg tablet (Stool Softener-Laxative) Allergies Allergy/AdvReac Type Severity Reaction Status Date / Time adhesive tape Allergy Unknown Unknown Verified 03/15/25 14:14 aspirin Allergy Unknown Unknown Verified 03/15/25 14:14 celecoxib (From Celebrex) Allergy Unknown Unknown Verified 03/15/25 14:14 codeine Allergy Unknown Unknown Verified 03/15/25 14:14 egg Allergy Unknown Unknown Verified 03/15/25 14:14 erythromycin base Allergy Unknown Unknown Verified 03/15/25 14:14 exenatide (From Bydureon) Allergy Unknown Unknown Verified 03/15/25 14:14 ezetimibe (From Zetia) Allergy Unknown Unknown Verified 03/15/25 14:14 latex Allergy Unknown Unknown Verified 03/15/25 14:14 metformin Allergy Unknown Unknown Verified 03/15/25 14:14 Penicillins Allergy Unknown Unknown Verified 03/15/25 14:14 sitagliptin (From Janumet) Allergy Unknown Unknown Verified 03/15/25 14:14 Sulfa (Sulfonamide Allergy Unknown Unknown Verified 03/15/25 14:14 Antibiotics) topiramate (From Topamax) Allergy Unknown Unknown Verified 03/15/25 14:14 trazodone Allergy Unknown Unknown Verified 03/15/25 14:14 warfarin (From Coumadin) Allergy Unknown Unknown Verified 03/15/25 14:14 desonide Allergy blisters Verified 03/15/25 14:14 Current Medications Generic Name Dose Route Start Last Admin Trade Name Freq PRN Reason Stop Dose Admin Acetaminophen 650 mg 03/22/25 13:54 03/22/25 15:00 Acetaminophen 325 Mg Tablet PO 650 mg Q6H PRN Administration Mild/Mod Pain Or Temp >/= 101 Amiodarone HCl 200 mg 03/23/25 05:00 03/24/25 05:48 Amiodarone 200 Mg Tablet PO 200 mg QAM TUNG Administration Bumetanide 1 mg 03/23/25 05:00 03/23/25 04:29 Bumetanide 1 Mg Tablet PO Not Given On Hold: 03/23/25 17:02 BID TUNG Ceftriaxone Sodium 2,000 mg 03/23/25 23:38 03/23/25 23:21 Ceftriaxone 1,000 Mg Sdv IVP 2,000 mg DAILY@2300 TUNG Administration Protocol Fluconazole 100 mg 03/23/25 05:00 03/24/25 05:51 Fluconazole 100 Mg Tablet PO 100 mg DAILY TUNG Administration Gabapentin 100 mg 03/22/25 21:00 03/24/25 05:52 Gabapentin 100 Mg Capsule PO 100 mg TID TUNG Administration Sodium Chloride 1,000 mls @ 120 mls/hr 03/22/25 14:00 03/23/25 23:20 Sodium Chloride 0.9% IV 03/24/25 14:52 120 mls/hr .Q8H20M TUNG Administration Norepinephrine Bitartrate 4 mg in 250 mls @ 0 mls/hr 03/22/25 23:45 03/24/25 05:47 Levophed IV 2 mcg/min .Q0M TUNG 7.5 mls/hr Protocol Titration Per Protocol Vancomycin HCl 1,250 mg in 250 mls @ 166.667 mls/hr 03/24/25 09:00 03/24/25 08:39 Vancocin IV 166.67 mls/hr Q24H UTNG Administration Insulin Glargine 15 unit 03/23/25 21:00 03/23/25 21:16 Insulin Glargine 100 Units/1 Ml SUBCUT 15 unit BEDTIME TUNG Administration Insulin Human Lispro 0 unit 03/22/25 18:00 03/24/25 08:53 Insulin Lispro 100 Unit/1 Ml SUBCUT 2 unit WM&BEDTIME TUNG Administration Protocol Lanolin 1 applic 03/22/25 23:14 03/23/25 05:12 Lanolin Oint 7 Gm TOPICAL 1 applic PRN PRN Administration DRYNESS Levothyroxine Sodium 50 mcg 03/23/25 05:00 03/24/25 05:50 Levothyroxine 50 Mcg Tablet PO 50 mcg DAILY TUNG Administration Metoprolol Succinate 12.5 mg 03/23/25 05:00 03/23/25 04:48 Metoprolol Succinate Er (24 Hr) 25 Mg Tablet PO Not Given On Hold: 03/23/25 17:03 QAM TUNG Morphine Sulfate 2 mg 03/22/25 17:38 03/22/25 18:14 Morphine 4 Mg/Ml Sdv 1 Ml IVP 2 mg Q4H PRN Administration SEVERE PAIN Oxycodone/Acetaminophen 1 tab 03/22/25 17:45 03/23/25 13:29 Oxycodone-Apap 10-325 Mg Tablet PO 1 tab Q4H PRN Administration SEVERE PAIN Pantoprazole Sodium 40 mg 03/23/25 05:00 03/24/25 05:[address] 40 Mg Tablet PO 40 mg DAILY TUNG Administration PFSH Anesthesia Medical History (Updated 03/23/25 @ 17:07 by Joe Mobley MD) Encounter for postoperative care Chronic edema CAD (coronary artery disease) Essential hypertension Weakness Encounter for postoperative care Chronic cystitis Recurrent UTI History of nonmelanoma skin cancer DDD (degenerative disc disease) Chest pain Persistent and recurrent chest pressure despite of optimization of medicine may further require exploration with left heart cath. GERD (gastroesophageal reflux disease) Asthma History of poliomyelitis History of rectocele History of cystocele Cyctocele/Rectocele repair Lower extremity edema Diabetes mellitus Atrial fibrillation Well-controlled on amiodarone. No anticoagulation- bleeding Hyperlipidemia Surgical History History of eye surgery Previous back surgery History of surgery of liver Growth S/P cholecystectomy S/P hysterectomy 1965 Family History Mother , at age 89 Hypertension Bleeding disorder Father , at age 79 Hypertension Heart disease Brother CAD (coronary artery disease) Heart disease Cancer Lung CA Liver disease Sister Heart disease Diabetes Cancer Renal CA and leukemia Social History Smoking and tobacco/nicotine status: never used tobacco/nicotine Second hand smoke exposure: No Alcohol intake: never Substance/Drug Use: never Lives independently: Yes Marital status: / Current occupational status: retired Data Anesthesia 03/24/25 04:07 03/24/25 04:07 Short CBC 03/22/25 03/22/25 03/23/25 Range/Units 12:16 19:36 04:49 WBC 8.29 10.32 (3.29-11.43) 10^3/uL Hgb 11.80 10.00 L 10.40 L (11.27-16.99) g/dL Hct 35.9 L 33.0 L (36-47) % MCV 95.5 97.1 (85-98) fl Plt Count 341 308 (157-399) 10^3/cmm Neut % (Auto) 68.8 72.3 % Neut # (Auto) 5.70 7.47 (1.8-7.7) 10^3/uL 03/24/25 Range/Units 04:07 WBC 9.52 (3.29-11.43) 10^3/uL Hgb 10.30 L (11.27-16.99) g/dL Hct 32.2 L (36-47) % MCV 97.9 (85-98) fl Plt Count 305 (157-399) 10^3/cmm Neut % (Auto) 64.9 % Neut # (Auto) 6.17 (1.8-7.7) 10^3/uL BMP 03/22/25 03/23/25 03/24/25 12:16 04:49 04:07 Sodium 133 L 142 143 Potassium 3.7 3.7 4.0 Chloride 91 L 108 H 110 H Carbon Dioxide 31 H 23 25 BUN 99 H* D 72 H 35 H Creatinine 2.8 H 1.8 H 1.1 H Glucose 207 H 148 H 96 Calcium 8.6 7.2 L 7.3 L Cardiac Enzymes 03/22/25 03/23/25 03/23/25 Range/Units 19:36 00:40 04:49 Troponin T 5th Gen ng/L 127 H* 93 H 114 H* (0-10) ng/L 03/24/25 Range/Units 04:07 Troponin T 5th Gen ng/L 92 H (0-10) ng/L Liver Function 03/22/25 03/23/25 03/24/25 Range/Units 12:16 04:49 04:07 Total Bilirubin 0.5 0.2 0.2 (0.15-1.2) mg/dL AST 30 46 H 21 (0-32) U/L ALT 29 32 26 (0-33) U/L Alkaline Phosphatase 103 87 84 (35-105) U/L Albumin 3.8 3.0 L 3.0 L (3.5-5.2) g/dL Urine 03/22/25 Range/Units 12:45 Urine Color Yellow (Yellow) Urine Appearance Clear (CLEAR) Urine pH 5.5 (5-7) Ur Specific [place] 1.011 (1.005-1.030) Urine Protein Trace A (Negative) Urine Glucose (UA) Negative (Normal) Urine Ketones Negative (Negative) Urine Nitrate Negative (Negative) Urine Bilirubin Negative (Negative) Ur Leukocyte Esterase Negative (Negative) Urine RBC 0-2 (0-2) /hpf Urine WBC 0-5 (0-5) /hpf Microbiology 03/22/25 17:14 Blood Culture - Preliminary Blood NEGATIVE TO DATE 03/22/25 17:12 Blood Culture - Preliminary Blood NEGATIVE TO DATE Cardiac Studies: Echocardiogram 04/29/24 Cardiac Event Monitor 03/06/22
--- NOTE | 2025-03-24 10:19 | P.PN_ITS ---
Subjective 2 Subjective: Patient is seen this morning in the ICU. She reports feeling much better today. She denies any new complaints. Later in the morning, she had to go for a debridement of the necrotic decubitus ulcers. This went uneventfully. Thereafter, she was returned to the ICU, and continued on ongoing treatment plans. The Levophed drip has been turned off since the morning. Vitals/I&O/Wt Last Vital Signs Temp 99 F 03/23/25 20:00 Pulse 57 L 03/24/25 06:00 Resp 15 03/24/25 06:00 BP 112/39 03/24/25 06:00 Pulse Ox 95 03/24/25 06:00 O2 Del Method Room Air 03/24/25 04:00 03/23/25 03/24/25 03/24/25 22:59 06:59 14:59 Intake Total 350 / 1719.25 1239.333 / 2958.583 Output Total 1800 / 1800 1405 / 3205 Balance -1450 / -80.75 -165.667 / -246.417 Weight last 48 hrs Weight 82.554 kg Weight 82.826 kg Weight 82.826 kg Weight 80.83 kg Weight 72.575 kg Physical Exam 2 Narrative: General: Awake and alert. Cooperative. Chest/Resp: Normal respiratory chest movts; no obvious respiratory distress. CVS: Regular heart rate and rhythm. GI: Non-distended; No obvious organomegaly. Extremities: No obvious pitting pedal edema. Skin: No obvious new rashes or new skin lesions. Urinary Catheter Management: [facility]: Cath Placed During This Visit: yes Reason for Continuing Indwelling Catheter: Acute Urinary Retention or Obstruction Urinary Catheter Date of Insertion: 03/22/25 Urinary Catheter Time of Insertion: 16:52 Data 03/24/25 04:07 03/24/25 04:07 Micro: Microbiology 03/22/25 17:14 Blood Culture - Preliminary Blood NEGATIVE TO DATE 03/22/25 17:12 Blood Culture - Preliminary Blood NEGATIVE TO DATE A&P Assessment and plan 1. Infected pressure ulcer: Status post debridement 2. Renal azotemia: Remarkably resolving. BUN down to 35 today, from 99 on admission. 3. Acute hypotension: Apparently due to acute hypovolemia. Resolved at this time. 4. Hypermagnesemia: Remarkable resolving. Currently 3.3, from 4.9 upon admission. 5. Acute kidney injury: Seen about 2 and #3 I will 6. Essential hypertension: Currently stable. 7. CAD (coronary artery disease): Stable. Resume home medications for this. 8. Type 2 diabetes mellitus: Stable. Continue basal + q.acl sliding scale insulin for control blood sugar. 9. Persistent atrial fibrillation: Currently stable on home dose of amiodarone Plan: Currently stable patient. She is status-post debridement for the necrotic ulcer. Continue ongoing IV antibiotics x 1 more day; we plan to change this to oral antibiotics in the morning. Continue other ongoing home medications for the chronic points. Continue to cautiously hydrate with normal saline, dose of which is reduced at this time. Continue to hold home dose of Bumex. The patient could be moved to the medical surgical floor at this time, where there is other medical treatment plans will be resumed. Already, the Levophed drip has been discontinued. Anticipate discharge tomorrow. PDMP PDMP Reviewed: Not Reviewed Attestations 2 Medical Necessity Statement*: Patient admitted for apparent severe clinical condition, as outlined in the Assessment & Plan section above. Patient will need up to 1 more midnight stay, estimated, at least, to adequately and appropriately treat and optimally control above-named clinical conditions,. Coding Level of Care Code Acute Code for [facility] Diagnoses Infected pressure ulcer L89.90; L08.9 Renal azotemia R79.89 Acute hypotension I95.9 Hypermagnesemia E83.41 Acute kidney injury N17.9 Essential hypertension I10 CAD (coronary artery disease) I25.10 Type 2 diabetes mellitus E11.9 Persistent atrial fibrillation I48.19
[2025-03-24] MEDS: BUPivacaine-epi 0.5% 10 ML INJ 30 ML INJECTION (10:45)
--- NOTE | 2025-03-24 10:45 | PC.SLP ---
Pt is currently in surgery, per nurse. Will attempt when pt is alert and awake.
--- NOTE | 2025-03-24 11:05 | ANE.PACU2 ---
Inpatient post-anesthesia follow up: Airway intact: Yes Vital signs: Temperature 98 F Pulse Rate 82 Respiratory Rate 16 Blood Pressure 114/45 Pulse Oximetry 96 Oxygen Delivery Me thod Room Air Oxygen Flow Rate Fraction of Inspir ed Oxygen Hydration adequate: Yes Nausea and vomiting: No Pain level: 1 Mental status: Baseline
--- NOTE | 2025-03-24 14:25 | PC.NURSE ---
REceived patient back from Surgery staff at 1100. Patient is slightly lethargic, easily awake and answer person, place, time, and situation questions correctly. Dressing in placed. Dry and intact. HR: 103 BP: 113/60 SPo2: 95% on room air Temp: 98.7 RR: 18
--- NOTE | 2025-03-24 15:51 | W.PM.BPONFUL ---
Pathology: [None] Anesthesia: [MAC with LMA] Complications: [None] Brief history/preop diagnosis: [Chronic sacral decubitus ulcer] Full operative report: [[Sacral decubitus ulcer] Full operative report: [Patient was brought back to the operating room and anesthesia was induced patient was then placed in the right lateral decubitus position on the operating room table. All bony prominences were padded prior to beginning the procedure. The decubitus ulcer was identified and prepped and draped in usual sterile fashion. Timeout was completed verifying correct patient procedure site positioning and implants needed prior to the beginning of the procedure. Using a 15 blade scalpel the decubitus ulcer on the sacral area was identified and an area of necrotic tissue was excised using the 15 blade scalpel then once this was unroofed and identified and the entire size of the wound was approximately 12 x 6 cm. There was several areas of necrotic tissue that were identified and they were sharply debrided using 15 blade scalpel and hemostasis was achieved using electrocautery, no signs of active infection or purulent drainage or necrosis were noted at the site. Once this entire area was fully debrided and healthy tissue was apparent with good blood supply throughout this wound we then evaluated the decubitus ulcer once again and healthy granulation tissue with no necrotic appearing tissue was identified. A wet-to-dry dressing was then placed using Kerlix and an ABD pad. The patient tolerated procedure well and was taken to the postoperative care unit in stable condition.] ] Condition: [Stable] Dispostion: [Return to ICU]
--- NOTE | 2025-03-24 18:49 | PC.NURSE ---
SHift SUmmary: Uneventful shift. VItals have been within normal since arrival from surgery. PT attmepted to work with patient but was unable to get her out of bed due to weakness. Levophed has been off for about 6 hours at time of this note.
[2025-03-24] MEDS: insulin glargine 100 units/1 mL 15 UNIT SUBCUT (22:53)
[2025-03-24] MEDS: morphine 4 mg/mL SDV 1 mL 2 MG IVP (22:55)
[2025-03-24] MEDS: cefTRIAXone 1,000 mg SDV 2000 MG IVP (22:56)
[2025-03-25] VITALS (27 sets, daily range): BP systolic 101–146; BP diastolic 42–66; PULSE 57–82; RESP 10–31; TEMP 36.6; O2SAT 94–99; BMI 30.2
--- NOTE | 2025-03-25 01:15 | XRR_ITS ---
PROCEDURE INFORMATION: Exam: XR Chest Exam date and time: 03/25/2025 2:21 AM Age: 85 years old Clinical indication: Shortness of breath; C/O SOB TECHNIQUE: Imaging protocol: Radiologic exam of the chest. Views: 1 view. COMPARISON: CR XR chest 1V portable [id number] 03/22/2025 12:15 PM FINDINGS: Lungs: Unremarkable. No consolidation. Pleural spaces: Moderate right and small left pleural effusions. Heart/Mediastinum: Unremarkable. No cardiomegaly. Diaphragm: Elevated right hemidiaphragm. Bones/joints: Unremarkable. XR/XR chest 1V portable [id number] IMPRESSION: Moderate right and small left pleural effusions.
[2025-03-25] MEDS: FUROsemide 10 mg/mL SDV 2mL 20 MG IVP (01:55)
--- NOTE | 2025-03-25 02:03 | PC.NURSE ---
Patient complaining of being short of breath, oxygen saturation 97% on room air. Dr Albrecht notified, recieved orders for chest xray and Lasix
[2025-03-25 03:46] LABS: Magnesium 2.9 mg/dL (1.7-2.3)
[2025-03-25 03:47] LABS: Anion Gap 10.7 (5-19); Blood Urea Nitrogen 27 mg/dL (8-23); Calcium 7.9 mg/dL (8.5-10.5); Carbon Dioxide 25 mmol/L (22-29); Chloride 109 mmol/L (98-107); Glucose 242 mg/dL (65-115); Osmolality Calculated 303 mOsm/kg (285-295); Potassium 4.7 mmol/L (3.5-5.1); Sodium 140 mmol/L (136-145)
[2025-03-25] MEDS: HYDROcodone-acetaminophen 5-325 mg Tablet 1 TAB PO (07:53)
[2025-03-25] MEDS: morphine 4 mg/mL SDV 1 mL 2 MG IVP (07:53)
--- NOTE | 2025-03-25 09:28 | PC.NURSE ---
pt restless c/o pain abdomen and buttock, doctor aware and pain medication given feed pt am breakfast at this time with good appitite noted son in for visit just states overall feels bad this am
--- NOTE | 2025-03-25 10:27 | PC.SLP ---
Pt was laying down flat in bed upon arrival. Pt and pt caregiver stated increased weakness since yesterday. Pt caregiver and nursing was encouraged to call ST if s/s of aspiration on thin liquids occur. ST educated pt caregiver on s/s of aspiration. no concerns at this time.
--- NOTE | 2025-03-25 11:35 | P.DS_ITS ---
Discharge Providers Date of Admission: 03/22/25 16:14 Date of Discharge: March 25, 2025 Attending Provider at Admission: Joe Mobley MD Attending Provider at Discharge: Joe Mobley MD Primary Care Provider: Kaylynn Munoz DO Diagnoses at Discharge Discharge Diagnosis 1. Infected pressure ulcer: Details from hospital stay: Status post surgical debridement 2. Hypotension due to hypovolemia: 3. Renal azotemia: Details from hospital stay: Remarkably resolved 4. Hypermagnesemia: Details from hospital stay: Essentially resolved, otherwise much improved. 5. Acute kidney injury: 6. Essential hypertension: 7. Coronary artery disease involving [place] coronary artery of [place] heart without angina pectoris: 8. Type 2 diabetes mellitus: 9. Persistent atrial fibrillation: 10. Diabetes mellitus with diabetic neuropathy: Reason for Visit Reason for Visit: Generalized/severe weakness Brief History: 85-year-old female with multip le comorbidities, including CAD, A-fib, type II DM, etc., presented to the ER with complaint of extreme weakness. She was found to be severely hypermagnesemic and uremic, with magnesium of 4.9 and BUN of 99. She was also noted to be severely dehydrated, with mild hypotension. Consequently, she was admitted and started on cautious but aggresssive IV rehydration. Hospital Course Hospital Course Hospital course was complicated with increased hypotension by the next day, therefore requiring patient to be transferred to the intensive care unit. She was started on vasopressors, while further IV fluid hydration was continued. About 12 to 24 hours after the commencement of the vaso-pressors, this was successfully weaned off. She was also noted to have some necrotic decubitus ulcers, which she reports has been getting worse in recent days/weeks. General surgery was therefore consulted, who did a an impressive surgical debridement. Patient's electrolytes and metabolic's were monitored closely, with remarkable improvement in the renal azotemia and hypermagnesemia. As at this morning, the magnesium level had come down to 2.9, while the BUN is 27. In the meantime, other concomitant chronic medical problems, including patient's A-fib, diabetes mellitus, and chronic back pain, were treated with home medications, as adjusted. We held her home diuretics & antihypertensives, while monitoring patient's clinical condition closely. Blood sugar was controlled with basal and q.AC sliding scale insulin. Given remarkable return to baseline, she is therefore discharged today to residential facility. See my discharge orders and discharge instructions for more details. Physical Exam Narrative: General: Awake and alert patient. Resp: No obvious respiratory distress or difficulty breathing. Skin: No obvious rashes or new skin lesions. All other physical findings essentially within normal limits. Urinary Catheter Management: [facility]: Cath Placed During This Visit: yes Reason for Continuing Indwelling Catheter: Acute Urinary Retention or Obstruction Urinary Catheter Date of Insertion: 03/22/25 Urinary Catheter Time of Insertion: 16:52 Discharge Data Studies Completed and Pending Completed Studies During Hospitalization Category Date Time Status CT abdomen pelvis wo con [id number] Stat Cat Scan 03/22/25 12:57 Completed XR chest 1V portable [id number] Stat Exams 03/22/25 12:05 Completed XR chest 1V portable [id number] Stat Exams 03/25/25 01:15 Completed Pending at discharge Category Date Time Status Blood Culture Stat Lab 03/22/25 17:14 Results Radiology Impressions Abdomen/Pelvis CT 03/22/25 12:57 1. Over distended bladder. 2. No pelvic masses. 3. Mild skin thickening and subcutaneous fat stranding at the gluteal region. 4. Mild constipation. 5. Moderate degenerative hip changes. Chest X-Ray 03/25/25 01:15 IMPRESSION: Moderate right and small left pleural effusions. Laboratory Results See Brief History and Hospital Course above. Other labs essentially within normal limits, and/or clinically significant. Vitals Last Vital Signs Temp 98 F 03/25/25 08:30 Pulse 67 03/25/25 10:00 Resp 14 03/25/25 10:00 BP 113/42 03/25/25 10:00 Pulse Ox 94 03/25/25 10:00 O2 Del Method Room Air 03/25/25 06:00 Discharge Plan Discharge Patient Disposition: Xfer SNF Condition: Stable Prescriptions: New insulin lispro [Humalog U-100 Insulin] 100 unit/mL Solution 1 - 14 unit SUBCUT TIDWM Qty: 10 4RF Rx Instructions: Per low-dose sliding scale cephalexin 500 mg capsule 500 mg PO Q8H 7 Days Qty: 20 0RF Continued pantoprazole [Protonix] 40 mg tablet,delayed release (DR/EC) 40 mg PO DAILY nitroglycerin [Nitrostat] 0.4 mg tablet, sublingual 0.4 mg SUBLINGUAL Q5M PRN (Reason: Chest Pain) Qty: 25 2RF Rx Instructions: do not exceed 3 doses per episode spironolactone 25 mg tablet 25 mg PO DAILY fluorouracil 0.5 % cream 1 applic topical DAILY levothyroxine 50 mcg capsule 50 mcg PO DAILY fluticasone propion-salmeterol [Advair Diskus] 100-50 mcg/dose Blister With Device 2 inh INHALATION DAILY diclofenac sodium 1 % Gel 2 g TOPICAL QID PRN (Reason: PAINFUL AREAS) amiodarone 200 mg tablet 200 mg PO QAM metoprolol succinate 25 mg tablet extended release 24 hr 12.5 mg PO QAM sennosides-docusate sodium [Stool Softener-Laxative] 8.6-50 mg tablet 2 tab PO DAILY oxycodone-acetaminophen 10-325 mg tablet See Rx Instructions .ROUTE .COMPLEX Rx Instructions: TAKE 1 TABLET BY MOUTH EVERY 4 HOURS NEEDED FOR severe pain max of SIX tabs PER day mupirocin 2 % ointment See Rx Instructions .ROUTE .COMPLEX Rx Instructions: APPLY TO THE AFFECTED AREA(S) EVERY DAY estradiol 0.01 % (0.1 mg/gram) cream See Rx Instructions .ROUTE .COMPLEX Rx Instructions: APPLY ONE GRAM VAGINALLY TWICE A WEEK insulin glargine [Lantus Solostar U-100 Insulin] 100 unit/mL (3 mL) insulin pen 14 unit SUBCUT QID Trulicity 3 mg/0.5 mL pen injector 3 mg SUBCUT Q7D nystatin 100,000 unit/gram cream 1 applic TOPICAL BID PRN (Reason: Rash) mometasone 0.1 % solution See Rx Instructions .ROUTE .COMPLEX Rx Instructions: APPLY SMALL AMOUNT TOPICALLY TWICE DAILY NEEDED FOR RASH. 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 Check and record BP 2-3 times daily; show the BP log to PCP at your next office visit(s). Other instructions otherwise as to be directed by the receiving facility Discharge Attestations Time Spent in Discharge Care*: greater than 30 min Status at Discharge: Cognitive status at discharge: cognitively intact , Behavioral status at discharge: cooperative , Quality Metrics Clinical Quality Measures [ No reported AMI, CVA or VTE this stay] Coding Level of Care Code Acute Code for [facility] Diagnoses Infected pressure ulcer L89.90; L08.9 Hypotension due to hypovolemia E86.1 Renal azotemia R79.89 Hypermagnesemia E83.41 Acute kidney injury N17.9 Essential hypertension I10 Coronary artery disease involving [place] coronary artery of [place] heart without angina pectoris I25.10 Type 2 diabetes mellitus E11.9 Persistent atrial fibrillation I48.19 Diabetes mellitus with diabetic neuropathy E11.40
--- NOTE | 2025-03-25 15:06 | PC.NURSE ---
natalie called and kaci called transport to [facility] report given to tia
== END 2025-03-25 15:08 | disposition skilled nursing facility (03) | DRG 981 ==
LOC: ER 14:06 → ER IP 16:14 → MEDSURG 18:41 → ICU 20:34
PROVIDERS: Internal Medicine; Registered Nurse; Surgery; Admitting Provider Family Medicine; Emergency Provider Emergency Medicine; PCP Family Medicine; Visit Provider Family Medicine
DX: N17.9 Acute kidney failure, unspecified (principal); L89.153 Pressure ulcer of sacral region, stage 3; I50.32 Chronic diastolic (congestive) heart failure; I48.19 Other persistent atrial fibrillation; L03.312 Cellulitis of back [any part except buttock and flank]; I95.9 Hypotension, unspecified; E86.1 Hypovolemia; E83.41 Hypermagnesemia; I11.0 Hypertensive heart disease with heart failure; I25.10 Atherosclerotic heart disease of native coronary artery without angina pectoris; E11.40 Type 2 diabetes mellitus with diabetic neuropathy, unspecified; E86.0 Dehydration; G89.29 Other chronic pain; M54.9 Dorsalgia, unspecified; M19.90 Unspecified osteoarthritis, unspecified site; R33.9 Retention of urine, unspecified; E78.5 Hyperlipidemia, unspecified; K21.9 Gastro-esophageal reflux disease without esophagitis; K59.09 Other constipation; N93.9 Abnormal uterine and vaginal bleeding, unspecified; M62.838 Other muscle spasm; Z79.890 Hormone replacement therapy; Z79.85 Long-term (current) use of injectable non-insulin antidiabetic drugs; Z79.4 Long term (current) use of insulin; Z85.828 Personal history of other malignant neoplasm of skin; Z86.12 Personal history of poliomyelitis; Z87.440 Personal history of urinary (tract) infections
CPT/HCPCS: 36415; 36416; 51702; 71045; 74176; 80048; 80053; 80202; 81001; 82962; 83735; 84443; 84484; 85018; 85025; 87040; 92610; 93005; 96361; 96372; 96374; 97110; 97163; 97167; 97530; 99285; J0696; J1815; J1938; J2270; J2704; J3010; J3373; J7030; J7050; J9999

== ENCOUNTER → 2025-04-03 13:07 | Outpatient (BNVA) | payer MEDICARE, OTHER, SELFPAY | PROVIDERS: PCP Family Medicine; Visit Provider Thoracic Surgery (Cardiothoracic Vascular Surgery) | DX: I96 Gangrene, not elsewhere classified (principal); L89.152 Pressure ulcer of sacral region, stage 2; L89.891 Pressure ulcer of other site, stage 1 | CPT/HCPCS: 11042; A6212 ==

== ENCOUNTER → 2025-04-07 11:21 | Outpatient (BNVA) | payer MEDICARE, OTHER, SELFPAY | PROVIDERS: PCP Family Medicine; Visit Provider Dermatology | DX: Z48.817 Encounter for surgical aftercare following surgery on the skin and subcutaneous tissue (principal); L21.8 Other seborrheic dermatitis | CPT/HCPCS: 99213 ==

== ENCOUNTER → 2025-04-10 13:14 | Outpatient (BNVA) | payer MEDICARE, OTHER, SELFPAY | PROVIDERS: PCP Family Medicine; Visit Provider Thoracic Surgery (Cardiothoracic Vascular Surgery) | DX: I96 Gangrene, not elsewhere classified (principal); L89.152 Pressure ulcer of sacral region, stage 2; L89.891 Pressure ulcer of other site, stage 1 | CPT/HCPCS: 11042; A6219 ==

== ENCOUNTER → 2025-04-17 12:41 | Outpatient (BNVA) | payer MEDICARE, OTHER, SELFPAY | PROVIDERS: PCP Family Medicine; Visit Provider Thoracic Surgery (Cardiothoracic Vascular Surgery) | DX: I96 Gangrene, not elsewhere classified (principal); L89.152 Pressure ulcer of sacral region, stage 2 | CPT/HCPCS: 11042 ==

== ENCOUNTER → 2025-04-21 08:33 | Outpatient (BNVA) | payer MEDICARE, OTHER, SELFPAY | PROVIDERS: PCP Family Medicine; Visit Provider Thoracic Surgery (Cardiothoracic Vascular Surgery) | DX: I96 Gangrene, not elsewhere classified (principal); L89.152 Pressure ulcer of sacral region, stage 2 | CPT/HCPCS: 97597; 97598; A6237; A6250 ==